=== PATIENT | female | born 1950 | race Caucasian/White ===

== ENCOUNTER 2017-08-04 15:13 | Emergency (ER) | payer MEDICARE, SELFPAY ==
[2017-08-04 15:14] VITALS: BP 137/74; PULSE 93; RESP 16; TEMP 37.1; O2SAT 99; BMI 24.5
--- NOTE | 2017-08-04 15:16 | RAD_ITS ---
STUDY: X-RAY - LEFT WRIST REASON FOR EXAM: Female, 67 years old. 2 day history of left wrist pain. No known injury. TECHNIQUE: view(s) of the wrist were obtained. COMPARISON: None. FINDINGS: Normal visualized distal radius and ulna. Normal radiocarpal articulation. Normal distal radioulnar articulation. Normal carpal bones. Normal carpal articulations. There is calcification of the triangular fibrocartilage. Normal carpometacarpal articulation of the thumb. Normal second through fifth carpometacarpal articulations. Normal visualized metacarpal bones. Dorsal soft tissue swelling. RAD/Wrist min 3 Views IMPRESSION: Calcification of the triangular fibrocartilage. Electronically Signed: Edgar Hirsch MD at 15:48 EST Tel [phone], Service support ,
--- NOTE | 2017-08-04 16:15 | ED.VISSUMM ---
- ER Visit Summary Date of Service: 08/04/17 Chief Complaint: [Left wrist pain] History of Present Illness: The patient is a 67 F [presents to the emergency department with left wrist pain that started yesterday. Patient denies any trauma. Patient denies any fever. Patient is right-hand dominant. Patient has not had pain like this before. Patient does not have a history of gout. Patient has not had any fever or recent illness.] Physical Examination: [HEENT-PERRLA, EOMI. Cranial nerves II through XII grossly intact. TMs clear. Mucous membranes moist. No adenopathy. Cardiovascular-regular rate and rhythm without murmur or ectopy Lungs-clear to auscultation, chest wall stable without crepitus or subcu emphysema Abdomen-normoactive bowel sounds, soft, nontender, no rebound or rigidity, no peritoneal signs. Extremities-intact ?4, normal range of motion, normal pulses, atraumatic] Left wrist-there is some mild soft tissue swelling and some faint erythema to the dorsum of the wrist noted. Wrist is slightly warm to the touch. Patient is neurovascular intact distally. Patient has pain with range of motion in flexion extension of the wrist. Test Results: [X-rays ordered by nursing staff from triage showed some calcification of the triangular cartilage of the wrist but no fractures or dislocations. Patient was noted to have some mild soft tissue swelling over the dorsum of the wrist.] Emergency Department Course and Treatment: [At this point I suspect likely a gouty arthropathy and patient was started on prednisone and [place] for pain. Patient was also placed in a wrist splint.] Treatment Plan: [She will be treated with prednisone and given a prescription for [place]. Patient advised to follow-up with her primary care physician in 3-5 days.] I do not suspect a septic joint at this time. Disposition: [Discharged to home in stable condition. Patient advised to return if increased pain, redness, fever, or condition should worsen in any way.] Impression: [Left Wrist pain-suspect gouty arthropathy] This note was generated with [employer] dictation software. It may contain incorrect words, spelling, and punctuation that were not noted in review of the chart prior to signing ED Disposition - Plan for ED Patient: Chief Complaint: Upper Extremity Injury Referrals: Rosalie Alejandro MD [Primary Care Provider] -
--- NOTE | 2017-08-04 16:19 | ED.DEP ---
ED Disposition - Plan for ED Patient: Chief Complaint: Upper Extremity Injury Instructions: ED Arthritis Gout Prescriptions: Hydrocodone Bitart/Apap 5-325 [[place] 5/325] 1 - 2 tab PO Q4H PRN PRN 5 Days #20 tab PRN Reason: Pain Prednisone [Deltasone] 20 mg PO BID #8 tab Referrals: Rosalie Alejandro MD [Primary Care Provider] - 3-5 Days
[2017-08-04] MEDS: HYDROcodone Bitartrate/Apap 5/325 Tablet PO (16:33)
[2017-08-04 16:52] VITALS: BP 156/83; PULSE 84; RESP 17
== END 2017-08-04 16:53 | disposition home or self-care (01) ==
LOC: ED 16:41
PROVIDERS: Emergency Provider Emergency Medicine; Family Provider Internal Medicine; PCP Internal Medicine
DX: M10.032 Idiopathic gout, left wrist (principal); J44.9 Chronic obstructive pulmonary disease, unspecified; E03.9 Hypothyroidism, unspecified; F32.9 Major depressive disorder, single episode, unspecified; F41.9 Anxiety disorder, unspecified; Z86.73 Personal history of transient ischemic attack (TIA), and cerebral infarction without residual deficits; Z72.0 Tobacco use; Z79.899 Other long term (current) drug therapy
CPT/HCPCS: 73110; 99284

== ENCOUNTER → 2018-01-25 10:47 | Outpatient (CLI) | payer MEDICARE, SELFPAY | PROVIDERS: Family Provider Internal Medicine; PCP Internal Medicine; Visit Provider Internal Medicine Critical Care Medicine | DX: Z12.2 Encounter for screening for malignant neoplasm of respiratory organs (principal); Z87.891 Personal history of nicotine dependence | CPT/HCPCS: G0297 ==

== ENCOUNTER 2018-02-06 13:26 | Emergency (ER) | payer MEDICARE, SELFPAY ==
[2018-02-06 13:27] VITALS: BP 128/74; PULSE 106; RESP 18; TEMP 36.1; O2SAT 95; BMI 24.5
--- NOTE | 2018-02-06 14:15 | ED.DCSUM_ITS ---
- ER Visit Summary Date of Service: 02/06/18 Chief Complaint: Skin abscess History of Present Illness: The patient is a 67 F who presents with abscess to the posterior neck and occipital area. Patient states this has been getting progressively worse over the past month. She describes the pain is sharp and stabbing. Patient states nothing seems to make the pain better or worse. Patient denies any fevers or chills. Patient denies any discharge or drainage. Patient denies any nausea or vomiting. Patient denies any radiation of the pain. Physical Examination: Vital signs are stable. Patient is afebrile. Patient is in no acute distress. Skin is warm and dry. There is a tender indurated area over the lower right occipital area of the scalp. There is some mild erythema. I do not appreciate any fluctuance. There is no active drainage. Neck is supple. Trachea is midline. There is full range of motion of the neck. There are no meningeal signs. Cranial nerves II through XII are intact. There are no focal motor or sensory deficits noted. The remaining physical exam is within normal limits. Emergency Department Course and Treatment: I do not appreciate any fluctuance and I do not feel that the abscess is amenable to incision and drainage at this time. Patient was instructed to continue using warm compresses to the area. Patient was given a prescription for clindamycin. Patient was instructed to follow-up with her primary care physician in 5-7 days. Patient understood and was agreeable with the plan. All questions were answered. Disposition: Discharge home Impression: Abscess to neck This note was generated with [employer] dictation software. It may contain incorrect words, spelling, and punctuation that were not noted in review of the chart prior to signing ED Disposition - Plan for ED Patient: Disposition: Home or Assisted Living Chief Complaint: Abscess Diagnosis: Abscess of skin of neck Instructions: ED Staph Infec Abx Tx Only Prescriptions: Clindamycin HCl [Cleocin] 300 mg PO Q6H #40 cap Referrals: Rosalie Alejandro MD [Primary Care Provider] -
[2018-02-06 14:30] VITALS: RESP 20
== END 2018-02-06 14:31 | disposition home or self-care (01) ==
PROVIDERS: Emergency Provider Emergency Medicine; Family Provider Internal Medicine; PCP Internal Medicine
DX: L02.11 Cutaneous abscess of neck (principal); B96.89 Other specified bacterial agents as the cause of diseases classified elsewhere; J44.9 Chronic obstructive pulmonary disease, unspecified; Z72.0 Tobacco use
CPT/HCPCS: 99282

== ENCOUNTER → 2018-02-17 08:34 | Outpatient (CLI) | payer MEDICARE, SELFPAY ==
[2018-02-17 09:00] VITALS: PULSE 102; PULSE 105; PULSE 110; PULSE 111; PULSE 113; PULSE 83; PULSE 91; PULSE 95; O2SAT 93; O2SAT 94; O2SAT 95; O2SAT 97; O2SAT 98
--- NOTE | 2018-02-17 15:17 | PCM.PSN.6M ---
PSN 6 Minute Walk Test - 6 Minute Walk Test 6 Minute Walk Test: 6 Minute Walk Test PSN:6-Minute Walk Test Start: 02/17/18 09:00 Freq: Status: Active Protocol: RESP.6MINW Document 02/17/18 09:00 CLARISSE (Rec: 02/17/18 09:02 HALSandra [id number]) 6 Minute Walk Test Date Performed 02/17/18 Time Performed 08:30 Height 5 ft 2 in Weight: 61.235 kg Weight in Pounds 135.[address]: Ronald Tam Pre-test Oxygen Delivery Method Room Air Pulse Ox (%) 95 Pulse Rate (60-100 beats/min) 83 Dyspnea Burak Scale (0-10) 1 Exertion Burak Scale (6-20) 6 1st minute Oxygen Delivery Method Room Air Pulse Ox (%) 93 Pulse Rate (60-100 beats/min) 95 2nd minute Oxygen Delivery Method Room Air Pulse Ox (%) 94 Pulse Rate (60-100 beats/min) 102 H 3rd minute Oxygen Delivery Method Room Air Pulse Ox (%) 97 Pulse Rate (60-100 beats/min) 105 H 4th minute Oxygen Delivery Method Room Air Pulse Ox (%) 98 Pulse Rate (60-100 beats/min) 110 H 5th minute Oxygen Delivery Method Room Air Pulse Ox (%) 98 Pulse Rate (60-100 beats/min) 111 H 6th minute Oxygen Delivery Method Room Air Pulse Ox (%) 98 Pulse Rate (60-100 beats/min) 113 H Dyspnea Burak Scale (0-10) 4 Exertion Burak Scale (6-20) 13 Post-test Oxygen Delivery Method Room Air Pulse Ox (%) 98 Pulse Rate (60-100 beats/min) 91 Full Laps Walked 9 Partial Lap, Number of Tiles Walked 7 Total Distance Walked (ft) 538 - Interpretation Interpretation: The patient was able to ambulate only 538 feet over the course of 6 minutes on room air with the assistance of a push wheelchair, but no breaks. No significant desaturation was noted. Patient did have tachycardia consistent with deconditioning. These findings are consistent with a musculoskeletal limitation exercise tolerance. - Recommendations Recommendations: No supplemental oxygen is indicated at this time.
== END ==
PROVIDERS: Family Provider Internal Medicine; PCP Internal Medicine; Visit Provider Internal Medicine Critical Care Medicine
DX: J44.9 Chronic obstructive pulmonary disease, unspecified (principal); F17.210 Nicotine dependence, cigarettes, uncomplicated
CPT/HCPCS: 94618

== ENCOUNTER 2018-02-20 07:41 | Emergency (ER) | payer MEDICARE, SELFPAY ==
[2018-02-20 07:42] VITALS: PULSE 103; RESP 24; TEMP 36.4; O2SAT 95; BMI 26.6
[2018-02-20 07:44] VITALS: O2SAT 96
--- NOTE | 2018-02-20 08:17 | EKG12_ITS ---
Test Reason : SOB Blood Pressure : / mmHG Vent. Rate : 102 BPM Atrial Rate : 102 BPM P-R Int : 158 ms QRS Dur : 066 ms QT Int : 362 ms P-R-T Axes : 088 029 079 degrees QTc Int : 471 ms Sinus tachycardia Otherwise normal ECG Confirmed by RONAL YU, OMARI ([id number]), electronic news gathering editor [place] ([id number]) on 02/22/2018 1:29:33 PM Referred By: Ronald Tam Confirmed By:OMARI VILLEDA MD
[2018-02-20] MEDS: Ipratropium/Albuterol Sulfate 3 ML AMPUL.NEB INHALATION ×2 (08:23→11:11)
--- NOTE | 2018-02-20 08:23 | ED.DCSUM_ITS ---
- ER Visit Summary Date of Service: 02/20/18 Chief Complaint: [] Shortness of breath cough and wheezing 4 days History of Present Illness: The patient is a 67 F [] history of asthma thyroid disorder COPD she reports for days she has had cough and shortness of breath and wheezing history of COPD the generally stable she sees a [facility] in the [facility] area she has been on steroid inhalers in the past and also inhalers at home. She denies history of [place] PE DVT she indicates the cough and shortness of breath intensify this morning screen for evaluation the cough is productive of thin mucus Physical Examination: [] Her vital signs are within normal range her pulse ox is 97% on room air she speaking full sentences she has a dry cough here questionable rhinorrhea her oral cavity and neck are unremarkable the lungs reveal diffuse wheezing with good excursion heart tones are tachycardic to about 100 the abdomen soft nontender upper lower extremities without signs clubbing or edema neurologic she is awake moving all 4 she is in no distress is no signs of cardio vascular pulmonary compromise Test Results: [] Emergency Department Course and Treatment: [] Cough and shortness of breath for days possibly a week per the patient her family when she saw her [facility] earlier in the month they were not happy with her pulmonary status and recommended some changes that did not take place yet screening labs aerosols The patient studies are all generally unremarkable labs chest x-ray EKG shows a sinus rhythm no injury pattern acute appreciated on reevaluation the patient's resting comfortably she states she feels much better she wants to go home her breathing is markedly improved I explained that this is likely exacerbation of COPD she apparently continues to smoke she was on steroids about 2 or 3 weeks ago per family she will be given Kenalog IM 40 mg stand all of her medications which she has all of them at home and follow-up with her [facility] the next few days the family the patient comfort with this plan Treatment Plan: [] Disposition: [] Home stable Impression: [] Acute exacerbation of COPD improved This note was generated with [employer] dictation software. It may contain incorrect words, spelling, and punctuation that were not noted in review of the chart prior to signing ED Disposition - Plan for ED Patient: Chief Complaint: Shortness of Breath Referrals: Rosalie Alejandro MD [Primary Care Provider] -
[2018-02-20 08:24] VITALS: PULSE 99; RESP 25; O2SAT 97
[2018-02-20 08:37] LABS: Absolute Lymphocyte Count 1.39 X10^3/ul (0.83-4.51); Absolute Neutrophil Count 2.3 X10^3/uL (2.0-7.7); Basophil# 0.03 X10^3/uL; Basophil% 0.7 % (0-1); Eosinophil# 0.11 X10^3/uL; Eosinophils% 2.7 % (0-5); Hematocrit 36.7 % (37-47); Hemoglobin 11.1 g/dl (12.0-15.0); Lymphocyte # 1.39 X10^3/ul (4.0); Mean Corp Hgb Conc 30.2 g/gl (32-36); Mean Corpuscular Hgb 25.9 pg (27.0-32.0); Mean Corpuscular Volume 85.7 fL (81-99); Mean Platelet Vol. 9.1 fl (6.2-12.0); Monocyte% 7.3 % (0-10); Neutrophil # 2.25 X10^3/uL (2.7-7.7); Neutrophil % 55.1 % (47-70); Platelet Count 344 K/mm3 (150-450); RBC Distribution Width CV 16.6 % (11.6-14.6); RBC Distribution Width SD 52.3 fl (35.1-43.9); Red Blood Count 4.28 M/mm3 (4.2-5.4); White Blood Count 4.1 K/mm3 (4.4-11.0)
[2018-02-20 08:38] LABS: POSITIVE COUNT NO; POSITIVE DIFFERENTIAL NO; POSITIVE MORPHOLOGY NO
[2018-02-20 08:56] LABS: Anion Gap 8 (5-15); BUN 23 mg/dL (7-18); BUN/Creat Ratio 28.8 RATIO (10-20); Calcium,Total 8.8 mg/dL (8.5-10.1); Chloride 107 mmol/L (98-107); EST Glomerular Filtration Rate 76 mL/min (>60); Est Glom Filt Rate - Afr Amer 92 mL/min (>60); Estimated Creatinine Clearance 53.23 ml/min; Glucose 88 mg/dL (74-106); Potassium 3.7 mmol/L (3.5-5.1); Sodium Level 144 mmol/L (136-145)
[2018-02-20 09:10] LABS: BNP,B-Type NATRIURETIC PEPTIDE 29.6 pg/mL (0-100)
[2018-02-20 11:12] VITALS: PULSE 71; RESP 21; O2SAT 98
[2018-02-20 12:01] VITALS: BP 111/79; PULSE 70; RESP 20; O2SAT 97
--- NOTE | 2018-02-20 12:10 | ED.DEP ---
ED Disposition - Plan for ED Patient: Chief Complaint: Shortness of Breath Instructions: ED COPD Flare Referrals: Rosalie Alejandro MD [Primary Care Provider] -
[2018-02-20] MEDS: Triamcinolone Acetonide 40 MG/ML Vial IM (12:27)
[2018-02-20] MEDS: Acetaminophen 500 MG Tablet 1000 MG PO (12:34)
[2018-02-20 12:47] VITALS: BP 119/80; PULSE 85; RESP 20; O2SAT 96
--- NOTE | 2018-02-20 12:48 | ED.RN ---
REVIEWED D/C INSTRUCTIONS, FOLLOW UP CARE, AND S/S THAT WOULD WARRANT A RETURN TO THE ED WITH PT. PT VERBALIZED AN UNDERSTANDING AND DENIES FURTHER QUESTIONS FOR THIS RN. PT SKIN P/W/D, RESP EVEN AND UNLABORED, PT A&O X 3, NO DISTRESS NOTED. PT ASSISTED OUT OF ED IN WHEELCHAIR.
--- NOTE | 2018-02-21 14:00 | CM.ED ---
ED CALLBACK: Follow-up call placed to patient with no answer. Voicemail left with return contact information.
== END 2018-02-20 12:49 | disposition home or self-care (01) ==
LOC: ED 08:35
PROVIDERS: Emergency Provider Emergency Medicine; Family Provider Internal Medicine; PCP Internal Medicine
DX: J44.1 Chronic obstructive pulmonary disease with (acute) exacerbation (principal); E07.9 Disorder of thyroid, unspecified; Z79.899 Other long term (current) drug therapy
CPT/HCPCS: 71045; 80048; 83880; 84484; 85025; 93005; 94640; 96372; 99285; A4216

== ENCOUNTER → 2018-03-10 09:55 | Outpatient (CLI) | payer MEDICARE, SELFPAY ==
--- NOTE | 2018-03-11 06:03 | PFTCOMP ---
COMPLETE PULMONARY FUNCTION TEST INTERPRETATION Brief HPI: Patient is a 67 year old female, currently under the care of Dr. Tam, who presents to [facility] for complete pulmonary function tests secondary to diagnosis of COPD. Respiratory therapist reports good effort and reproducible results. Interpretation: Forced expiration spirometry shows a very severe large airways obstructive ventilatory defect with an FEV1 of 31% predicted. There is a significant bronchodilator response in FVC by ATS criteria. Spirograms are of good quality and plateau slowly, indicating slowly emptying areas of the lungs. The respiratory flow volume loop shows decreased expiratory flow rates at all lung volumes consistent with airway obstruction. Lung volumes by body plethysmography show an elevated total lung capacity at 6.67 L, 151% predicted. FRC and RV are elevated out of proportion. Lung volume measurements are consistent with hyperinflation and air-trapping. Diffusion capacity by carbon monoxide is decreased at 22% predicted. The airway resistance is elevated. No previous pulmonary function tests were available for review. Impression: Partially reversible very severe large airways obstructive ventilatory defect with a symmetric reduction in diffusing capacity, resulting in air trapping with hyperinflation and consistent with very severe COPD.
== END ==
PROVIDERS: Family Provider Internal Medicine; PCP Internal Medicine; Visit Provider Internal Medicine Critical Care Medicine
DX: J44.9 Chronic obstructive pulmonary disease, unspecified (principal); F17.210 Nicotine dependence, cigarettes, uncomplicated
CPT/HCPCS: 94060; 94726; 94729

== ENCOUNTER → 2018-04-04 20:18 | Outpatient (CLI) | payer MEDICARE, SELFPAY | PROVIDERS: Family Provider Internal Medicine; PCP Internal Medicine; Visit Provider Nurse Practitioner Acute Care | DX: G47.33 Obstructive sleep apnea (adult) (pediatric) (principal) | CPT/HCPCS: 95810 ==

== ENCOUNTER 2019-10-06 08:46 | Emergency (ER) | payer MEDICARE, OTHER, SELFPAY ==
[2019-08-30 14:26] VITALS: BMI 22.0
[2019-10-06] VITALS (10 sets, daily range): BP systolic 103–138; BP diastolic 64–72; PULSE 81–107; RESP 22–32; TEMP 37–37.3; O2SAT 94–98; BMI 24.1
--- NOTE | 2019-10-06 08:57 | EKG12_ITS ---
Test Reason : SOB Blood Pressure : / mmHG Vent. Rate : 093 BPM Atrial Rate : 093 BPM P-R Int : 142 ms QRS Dur : 072 ms QT Int : 354 ms P-R-T Axes : 086 050 078 degrees QTc Int : 440 ms Normal sinus rhythm Low voltage QRS Confirmed by EVIN YU, KI ([id number]), associate entertainment editor [place] ([id number]) on 10/09/2019 10:09:03 AM Referred By: LINETTE Confirmed By:KI CLEARY MD
--- NOTE | 2019-10-06 08:57 | RAD_ITS ---
STUDY: X-RAY CHEST REASON FOR EXAM: Female, 69 years old. SOB, CONFUSION X 2 DAYS TECHNIQUE: Single AP portable view of the chest. COMPARISON: Comparison is made with prior examination dated February 20, 2018. FINDINGS: EKG electrodes are seen. Hyperinflation. There is no demonstrated pleural abnormality. Normal size heart. Normal mediastinum and gaudencio. Normal visualized pulmonary arteries. There is atherosclerotic calcification of the aortic arch with tortuosity. Normal visualized thoracic spine. Normal visualized ribs, clavicles, and shoulders. Moderate sized hiatal hernia. Surgical clips are seen in the right upper quadrant. RAD/Chest 1 View (Portable) IMPRESSION: Hyperinflation. The lungs are clear. Electronically Signed: Edgar Hirsch, at 10:31 EDT , Service support ,
[2019-10-06] MEDS: Ipratropium/Albuterol Sulfate 3 ML AMPUL.NEB INHALATION (09:07)
[2019-10-06 09:08] LABS: Absolute Lymphocyte Count 1.44 X10^3/uL (0.83-4.51); Absolute Neutrophil Count 7.2 X10^3/uL (2.0-7.7); Basophil# 0.06 X10^3/uL; Basophil% 0.6 % (0-1); Eosinophil# 0.22 X10^3/uL; Eosinophils% 2.3 % (0-5); Hematocrit 27.5 % (37-47); Lymphocyte # 1.44 X10^3/ul (4.0); Mean Corp Hgb Conc 29.1 g/dL (32-36); Mean Corpuscular Hgb 23.4 pg (27.0-32.0); Mean Corpuscular Volume 80.4 fL (81-99); Mean Platelet Vol. 9.3 fl (6.2-12.0); Monocyte# 0.62 X10^3/uL; Monocyte% 6.4 % (0-10); NRBC Flagged by Analyzer 0 % (0-5); Neutrophil # 7.24 X10^3/uL (2.7-7.7); Neutrophil % 75.3 % (47-70); Platelet Count 584 K/mm3 (150-450); RBC Distribution Width CV 16.9 % (11.6-14.6); RBC Distribution Width SD 49.1 fl (35.1-43.9); Red Blood Count 3.42 M/mm3 (4.2-5.4); White Blood Count 9.6 K/mm3 (4.4-11.0)
[2019-10-06 09:26] LABS: Lactic Acid 1.2 mmol/L (0.4-1.9)
[2019-10-06 09:27] LABS: Anion Gap 5 (5-15); BUN 15 mg/dL (7-18); BUN/Creat Ratio 24.1 RATIO (10-20); Chloride 109 mmol/L (98-107); Creatinine, Serum 0.62 mg/dL (0.55-1.02); EST Glomerular Filtration Rate 101 mL/min (>60); Est Glom Filt Rate - Afr Amer 122 mL/min (>60); Glucose 106 mg/dL (74-106); Potassium 3.8 mmol/L (3.5-5.1); Sodium Level 139 mmol/L (136-145)
[2019-10-06] MEDS: MethylPREDNISolone 125 MG/2 ML Vial IV (09:32)
[2019-10-06] MEDS: 0.9% Normal Saline 1,000 ML 150 ML IV (09:33)
[2019-10-06] MEDS: Ondansetron 4 MG/2 ML Vial IV (09:40)
[2019-10-06] MEDS: HYDROcodone Bitartrate/Apap 5/325 Tablet PO (09:41)
--- NOTE | 2019-10-06 10:51 | ED.DCSUM_ITS ---
- ER Visit Summary Date of Service: 10/06/19 Chief Complaint: Shortness of breath History of Present Illness: The patient is a [address] Alejandro and Dr. Tam. Patient is a poor informant. Her daughter reports that she has shortness of breath began 2 days ago. Is been severe at worst mild currently. It is partially relieved with her albuterol MDI. She has a chronic cough that is productive yellow/clear sputum without blood. No fever or chills. No chest pain. Patient has not had sick contacts. She has been in self-isolation. Daughter denies any fever. No vomiting or diarrhea. No dysuria or frequency. Physical Examination: Vitals: Stable. Afebrile. General: Well-nourished and well-developed. Head: Normocephalic atraumatic. Neck: Supple, no lymphadenopathy. No JVD. Nontender. Cardiovascular: Regular rate and rhythm. No murmurs. Respiratory: No respiratory distress. Mild wheezing bilaterally with greatly decreased air movement. Abdominal: Soft, nontender, nondistended, normal bowel sounds. No guarding, rebound, or peritoneal signs. Back: Nontender. Extremities: Nontender, no edema. Skin: Normal color, no rash. Neurologic: Alert and oriented ?2. Cranial nerves II through XII are intact. Normal strength and sensation. Psych: Normal affect. Test Results: EKG is sinus at [address] changes. Troponin is negative. Influenza is negative. Lactic acid is 1.2. Chem-7 shows a chloride of 109. CBC shows a hemoglobin of 8.0, hematocrit 27.5, platelets 584, segmented for 75, sites 15. Her last hemoglobin here was in February 2018 and at that time it was 11.1. Her daughter reports that she had a hemoglobin of approximately 10 8 months ago. Is not been checked in the interim. Emergency Department Course and Treatment: Daughter also reports that she has given the patient a vitamin B12 shot monthly. She states that she has been doing this. She is not taking a multivitamin or iron. She was given albuterol, Atrovent aerosols here. She is given dose of Solu-Medrol IV. She is resting comfortably and like to go home. Treatment Plan: Patient will be discharged with prescription for albuterol, a nebulizer, doxycycline, and prednisone. Instructed to follow-up her primary care physician 1 to 2 days if not improving. I did have a long discussion the daughter about the anemia and that this needs to be rechecked as well. The patient is not had a colonoscopy in the past 5 years she may need this if this does not improve after supplementation with iron. Return to the emergency department for any worsening symptoms. Disposition: To home in improved and stable condition. Impression: 1. COPD exacerbation. 2. Anemia, microcytic. This note was generated with [employer] dictation software. It may contain incorrect words, spelling, and punctuation that were not noted in review of the chart prior to signing ED Disposition - Plan for ED Patient: Disposition: Home or Assisted Living Instructions: ED COPD Flare Prescriptions: Nebulizer [Aeroneb Go Nebulizer] 1 ea MC 4X/DAY #1 ea Prescription Printed Prednisone [Deltasone] 40 mg PO DAILY #10 tab Prescription Printed Doxycycline 100 mg PO BID #14 cap Prescription Printed Albuterol Aerosols [Ventolin Aerosols] 2.5 mg INHALATION Q4H PRN #25 vial Prescription Printed Referrals: Rosalie Alejandro MD [Primary Care Provider] - Keep Purnima appointment Additional Instructions: You are anemic. Your hemeglobin today was 8.0. You need a blood transfusion at 7.0. This could be due to a lack of iron and you should take a multivitamin with iron. This could also be due to bleeding. You need to have a colonoscopy if you haven't in the last 5 years. You need to speak with Dr. Alejandro and get repeat bloodwork when to check and see if this is getting better.
[2019-10-06] MEDS: predniSONE 20 MG Tablet 40 MG PO (11:01)
[2019-10-06] MEDS: Doxycycline 100 MG CAPSULE PO (11:01)
--- NOTE | 2019-10-06 11:11 | ED.RN ---
this nurse reviewed d/c instructions with pt. dr stewart spoke with granddaughter
== END 2019-10-06 11:12 | disposition home or self-care (01) ==
LOC: ED 09:28
PROVIDERS: Emergency Provider Emergency Medicine; PCP Internal Medicine
DX: J44.1 Chronic obstructive pulmonary disease with (acute) exacerbation (principal); D50.9 Iron deficiency anemia, unspecified; F17.200 Nicotine dependence, unspecified, uncomplicated
CPT/HCPCS: 71045; 80048; 83605; 84484; 85025; 87040; 87804; 93005; 94640; 96361; 96374; 96375; 99285; J2405

== ENCOUNTER 2019-10-20 13:01 | Inpatient (IN) | payer MEDICARE, OTHER, SELFPAY ==
[2019-10-09 10:19] VITALS: BMI 24.1
[2019-10-20] VITALS (11 sets, daily range): BP systolic 102–145; BP diastolic 51–134; PULSE 73–115; RESP 16–20; TEMP 36.5–36.8; O2SAT 96–100; BMI 24.2; BMI 19.5
--- NOTE | 2019-10-20 13:05 | EKG12_ITS ---
Test Reason : SOB Blood Pressure : / mmHG Vent. Rate : 097 BPM Atrial Rate : 097 BPM P-R Int : 148 ms QRS Dur : 086 ms QT Int : 374 ms P-R-T Axes : 083 045 067 degrees QTc Int : 474 ms Normal sinus rhythm Normal ECG Confirmed by OMARI VILLEDA MD ([id number]), map editor [place] ([id number]) on 10/23/2019 3:14:42 PM Referred By: HAL Confirmed By:OMARI VILLEDA MD
--- NOTE | 2019-10-20 13:07 | CT_ITS ---
STUDY: CT BRAIN WITHOUT CONTRAST REASON FOR EXAM: Female, 69 years old. HEADACHE, HX OF STROKE, HX ALZHEIMER RADIATION DOSAGE (If Supplied By Facility): CTDIvol = ( 60.81 ) mGy, DLP = ( 1044.28 ) mGycm TECHNIQUE: Transaxial CT imaging of the brain was performed without administration of intravenous contrast material. Individualized dose optimization techniques were used for this CT. COMPARISON: Comparison is made with prior examination March 25, 2016. FINDINGS: Normal soft tissue structures. Normal calvarium. There is mild cerebral atrophy with widening of the extra-axial spaces and ventricular dilatation. There are areas of decreased attenuation within the white matter tracts of the supratentorial brain, consistent with microvascular disease changes. 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 Normal basal ganglia and thalami. Normal brainstem. Normal cerebellum. There is no intracranial hemorrhage. There are no findings of an acute ischemic infarction. Atherosclerotic calcification of the cavernous portions of the internal carotid arteries bilaterally. Normal visualized paranasal sinuses. CT/Brain/Head without Contrast IMPRESSION: Chronic involutional changes of the brain. Electronically Signed: Edgar Hirsch, at 13:51 EDT , Service support ,
--- NOTE | 2019-10-20 13:09 | ED.DCSUM_ITS ---
- ER Visit Summary Date of Service: 10/20/19 Chief Complaint: Short of breath, diarrhea History of Present Illness: The patient is a 69 F whose main complaint is diarrhea. EMS states that they were called for shortness of breath but upon their arrival the patient denies any shortness of breath. She tells that she has been having diarrhea for a couple of days. She denies any blood in the diarrhea. She is on aspirin and Plavix. She was seen here 14 days ago and diagnosed with COPD exacerbation. She was placed on antibiotics at that time. Physical Examination: Vital signs reviewed. HEENT exam unremarkable. Heart is tachycardic and regular rhythm without murmurs. Lungs are clear to auscultation. Abdomen is soft and nontender. Extremities reveal no edema. Skin exam normal. Neurologic exam shows alert and oriented to person and place but not to time. She has no other neurologic deficits. Test Results: Hemoglobin is 6.2 with hematocrit of 22.6. Chloride 110. Troponin normal. Urinalysis normal. Chest x-ray shows chronic changes. CAT scan of the head reveals no acute findings. Fecal occult blood test is negative for blood. She has no active bleeding Emergency Department Course and Treatment: The patient appears to have anemia which is now requiring transfusion. Her hemoglobin was 8 in September and before that it was 10 and 11. I spoke with the patient's granddaughter on the phone. She corroborated the patient's history. She states that she has been walking back and forth to the bathroom and has been getting short of breath. She has no history of anemia and the granddaughter was concerned about her hemoglobin level and they were going to have it rechecked today until the patient became more symptomatic. At this point I will order her a packed red blood cell transfusion. I see no signs of any active bleeding. I discussed with hospitalist and patient will be admitted. Treatment Plan: [] Disposition: Admit Impression: Anemia requiring transfusion, dyspnea This note was generated with [employer] dictation software. It may contain incorrect words, spelling, and punctuation that were not noted in review of the chart prior to signing ED Disposition - Plan for ED Patient: Referrals: Rosalie Alejandro MD [Primary Care Provider] -
[2019-10-20] MEDS: 0.9% Normal Saline 1,000 ML 1000 ML IV (13:17)
[2019-10-20 13:27] LABS: Absolute Lymphocyte Count 1.58 X10^3/uL (0.83-4.51); Absolute Neutrophil Count 3.7 X10^3/uL (2.0-7.7); Basophil# 0.03 X10^3/uL; Basophil% 0.5 % (0-1); Eosinophil# 0.16 X10^3/uL; Eosinophils% 2.6 % (0-5); Hematocrit 22.6 % (37-47); Hemoglobin 6.2 g/dL (12.0-15.0); Lymphocyte # 1.58 X10^3/ul (4.0); Lymphocyte % 26.1 % (19-41); Mean Corp Hgb Conc 27.4 g/dL (32-36); Mean Corpuscular Hgb 22.1 pg (27.0-32.0); Mean Corpuscular Volume 80.4 fL (81-99); Mean Platelet Vol. 9.4 fl (6.2-12.0); Monocyte# 0.57 X10^3/uL; Monocyte% 9.4 % (0-10); NRBC Flagged by Analyzer 0.5 % (0-5); Neutrophil % 61.2 % (47-70); Platelet Count 549 K/mm3 (150-450); RBC Distribution Width CV 17.4 % (11.6-14.6); Red Blood Count 2.81 M/mm3 (4.2-5.4); White Blood Count 6.1 K/mm3 (4.4-11.0)
--- NOTE | 2019-10-20 13:30 | RAD_ITS ---
STUDY: X-RAY CHEST REASON FOR EXAM: Female, 69 years old. Headache and diarrhea. Pt hx of alzheimer, COPD, EMPHYSEMA, ASTHMA TECHNIQUE: Single AP portable view of the chest. COMPARISON: Comparison is made with prior study dated October 06, 2019. FINDINGS: EKG electrodes are seen. Hyperinflation. The lungs are clear. There is no demonstrated pleural abnormality. Normal size heart. Normal mediastinum and gaudencio. Normal visualized pulmonary arteries. There is atherosclerotic calcification of the aortic arch with tortuosity. There are degenerative changes of the visualized thoracic spine. Normal visualized ribs, clavicles, and shoulders. Moderate sized hiatal hernia. RAD/Chest 1 View (Portable) IMPRESSION: Hyperinflation. The lungs are clear. Electronically Signed: Edgar Hirsch, at 13:48 EDT , Service support ,
[2019-10-20 13:46] LABS: AST(SGOT) 13 U/L (15-37); Alanine Aminotransfer ALT/SGPT 17 U/L (13-56); Albumin, Serum 3.3 g/dL (3.2-5.0); Alkaline Phosphatase 106 U/L (45-117); Anion Gap 8 (5-15); BUN 12 mg/dL (7-18); BUN/Creat Ratio 15.6 RATIO (10-20); Chloride 110 mmol/L (98-107); Creatinine, Serum 0.77 mg/dL (0.55-1.02); EST Glomerular Filtration Rate 79 mL/min (>60); Est Glom Filt Rate - Afr Amer 95 mL/min (>60); Globulin 3.4 g/dL (2.2-4.2); Glucose 92 mg/dL (74-106); Lipase 126 U/L (73-393); Potassium 3.6 mmol/L (3.5-5.1); Protein, Total 6.7 g/dL (6.4-8.2); Sodium Level 143 mmol/L (136-145)
[2019-10-20 14:03] LABS: Bacteria 0 SEEN /hpf (None Seen); Red Blood Cells-Urine 0 SEEN /hpf (0-5); White Blood Cells 0 SEEN /hpf (0-5)
[2019-10-20 14:11] LABS: Color, Urine Yellow (Yellow); Glucose, Dipstick Normal (Normal); Ketone-Dipstick Negative (Negative); Leukocyte Esterase-Dipstick Negative /ul (Negative); Nitrite-Dipstick Negative (Negative); Occult Blood-Urine Negative /ul (Negative); Protein-Dipstick Negative (Negative); Urine Bilirubin Dipstick Negative (Negative); Urine Clarity Clear (Clear); Urine Urobilinogen Normal (Normal)
[2019-10-20 14:14] LABS: Mucous, Urine 1+ /hpf (<or=2+); Squamous Epithelial Cells - UA 0-5 SEEN /hpf (5-10)
--- NOTE | 2019-10-20 14:41 | PCM.HP.STD ---
Problem List (1) Anemia Status: Acute (2) Diarrhea Status: Acute (3) CVA (cerebral vascular accident) Status: Acute Comment: 12/10/19 (4) Migraine Status: Chronic (5) Hypertension Status: Chronic (6) REJI (obstructive sleep apnea) Status: Suspected (7) Depression with anxiety Status: Chronic (8) Hypothyroidism Status: Chronic (9) COPD (chronic obstructive pulmonary disease) Status: Suspected Qualifiers: History of Present Illness The patient is a 69 year old F [] Past Medical History Past Medical History (Chronic Problems): Chronic Problems (Last Reviewed 08/30/19 @ 14:25 by Selena Argueta) Migraine (Chronic) Hypertension (Chronic) Depression with anxiety (Chronic) Hypothyroidism (Chronic) Abdominal pain (Chronic) Medical History: Medical History (Last Reviewed 08/30/19 @ 14:25 by Selena Argueta) CVA (cerebral vascular accident) (Acute) I63.9 12/10/19 Asthma J45.909 COPD (chronic obstructive pulmonary disease) J44.9 Depression F32.9 Gout M10.9 Left wrist pain M25.532 Allergies Penicillins Allergy (Verified 10/06/19 09:06) Hives Home Medications: Ambulatory Orders Medication Instructions Recorded aspirin 325 mg tablet 325 mg PO DAILY 08/30/19 Acetaminophen [Tylenol Extra 500 mg PO BID PRN PRN 10/20/19 Strength] Clopidogrel Bisulfate [Clopidogrel] 75 mg PO DAILY 10/20/19 Cyanocobalamin (Vitamin B-12) 100 mcg IM QMONTH 10/20/19 [Cyanocobalamin Injection] Levothyroxine Sodium [Synthroid] 100 mcg PO DAILY 10/20/19 Multivit with Iron,Minerals 1 tab PO DAILY 10/20/19 [Multivitamins with Iron] Rosuvastatin Calcium 10 mg PO DAILY 10/20/19 Umeclidinium Brm/Vilanterol Tr 1 inh INHALATION DAILY 10/20/19 [Anoro Ellipta] Venlafaxine HCl [Effexor Xr] 75 mg PO QAM 10/20/19 Surgical History: Surgical History (Last Reviewed 08/30/19 @ 14:25 by Selena Argueta) H/O bladder repair surgery Z98.890 History of hysterectomy Z98.890, Z90.710 History of tonsillectomy Z98.890, Z90.89 Smoking Status: Current every day smoker Patient Problems: Active and Suspected Problems (Last Reviewed 08/30/19 @ 14:25 by Selena Argueta) Anemia (Acute) Diarrhea (Acute) - Physical Exam Vitals/I&O's: Vital Signs Temp Pulse Resp BP Pulse Ox 98 F 95 20 H 110/55 L 99 10/20/19 13:10 10/20/19 13:18 10/20/19 13:18 10/20/19 13:18 10/20/19 13:18 Oxygen Flow Rate (L/min) 2 Oxygen Delivery Method Room Air Weight: 68 kg Body Mass Index (BMI) 24.2 Microbiology Past 72 Hours 10/20/19 13:50 Stool Stool Occult Blood (CAROL) - Final Laboratory Results 10/20/19 13:10: WBC 6.1, RBC 2.81 L, Hgb 6.2 L, Hct 22.6 L, MCV 80.4 L, MCH 22.1 L, MCHC 27.4 L, RDW Std Deviation 51.0 H, RDW Coeff of Ramón 17.4 H, Plt Count 549 H, MPV 9.4, Immature Gran % (Auto) 0.200, Neut % (Auto) 61.2, Lymph % (Auto) 26.1, [place] % (Auto) 9.4, Eos % (Auto) 2.6, Baso % (Auto) 0.5, Absolute Neuts (auto) 3.7, Absolute Lymphs (auto) 1.58, Nucleated RBC % 0.5 10/20/19 13:10: Sodium 143, Potassium 3.6, Chloride 110 H, Carbon Dioxide 25.0, Anion Gap 8, BUN 12, Creatinine 0.77, Estim Creat Clear Calc 49.00, Est GFR (MDRD) Af Amer 95, Est GFR (MDRD) Non-Af 79, BUN/Creatinine Ratio 15.6, Glucose 92, Calcium 9.0, Total Bilirubin 0.20, AST 13 L, ALT 17, Alkaline Phosphatase 106, Total Protein 6.7, Albumin 3.3, Globulin 3.4, Albumin/Globulin Ratio 1.0, Lipase 126 10/20/19 13:10: Troponin I < 0.015 10/20/19 13:10: Blood Type Pending, Antibody Screen Pending, Crossmatch See Detail 10/20/19 13:55: Urine Color Yellow, Urine Clarity Clear, Urine pH 6.0, Ur Specific [place] 1.020, Urine Protein Negative, Urine Glucose (UA) Normal, Urine Ketones Negative, Urine Occult Blood Negative, Urine Nitrite Negative, Urine Bilirubin Negative, Urine Urobilinogen Normal, Ur Leukocyte Esterase Negative, Urine RBC 0 SEEN, Urine WBC 0 SEEN, Ur Squamous Epith Cells 0-5 SEEN, Urine Bacteria 0 SEEN, Urine Mucus 1+ Assessment/Plan All Active Problems (Last Reviewed 08/30/19 @ 14:25 by Selena Argueta) Anemia (Acute) Diarrhea (Acute) CVA (cerebral vascular accident) (Acute) Urinary urgency (Acute) Nail avulsion, toe (Acute) Left wrist pain (Acute)
--- NOTE | 2019-10-20 16:01 | HP.PCM_ITS ---
<Andria Dickey - Last Filed: 10/20/19 16:36> Problem List (1) Anemia Status: Acute (2) Diarrhea Status: Acute (3) CVA (cerebral vascular accident) Status: Chronic Comment: 12/10/19 (4) Migraine Status: Chronic (5) Hypertension Status: Chronic (6) Urinary urgency Status: Resolved (7) REJI (obstructive sleep apnea) Status: Suspected (8) Depression with anxiety Status: Chronic (9) Hypothyroidism Status: Chronic (10) Abdominal pain Status: Chronic (11) Nail avulsion, toe Status: Chronic (12) COPD (chronic obstructive pulmonary disease) Status: Chronic (13) Left wrist pain Status: Resolved History of Present Illness Date of Admission: 10/20/19 Chief Complaint: Shortness of breath, lightheadedness. The patient is a 69 year old F who presents to the emergency room due to shortness of breath and lightheadedness. Patient also complains of diarrhea. Patient reports her symptoms have been ongoing for the last couple of days. Denies nausea, vomiting, abdominal pain. Denies blood in her stool. Patient is on aspirin and Plavix due to history of stroke a few months ago. She denies chest pain. Denies history of GI bleed. Denies history of EGD/colonoscopy. Patient is a poor historian. Per records, she has a history of CVA, hypertension, hypothyroidism, chronic COPD, tobacco dependence, history of migraines, depression, anxiety. Past Medical History Past Medical History (Chronic Problems): Chronic Problems (Last Reviewed 08/30/19 @ 14:25 by Selena Argueta) CVA (cerebral vascular accident) (Chronic) 12/10/19 Migraine (Chronic) Hypertension (Chronic) Depression with anxiety (Chronic) Hypothyroidism (Chronic) Abdominal pain (Chronic) Nail avulsion, toe (Chronic) COPD (chronic obstructive pulmonary disease) (Chronic) Medical History: Medical History (Last Reviewed 08/30/19 @ 14:25 by Selena Argueta) CVA (cerebral vascular accident) (Acute) I63.9 12/10/19 Asthma J45.909 COPD (chronic obstructive pulmonary disease) J44.9 Depression F32.9 Gout M10.9 Left wrist pain M25.532 Allergies Penicillins Allergy (Verified 10/06/19 09:06) Hives Home Medications: Ambulatory Orders Medication Instructions Recorded aspirin 325 mg tablet 325 mg PO DAILY 08/30/19 Acetaminophen [Tylenol Extra 500 mg PO BID PRN PRN 10/20/19 Strength] Clopidogrel Bisulfate [Clopidogrel] 75 mg PO DAILY 10/20/19 Cyanocobalamin (Vitamin B-12) 100 mcg IM QMONTH 10/20/19 [Cyanocobalamin Injection] Levothyroxine Sodium [Synthroid] 100 mcg PO DAILY 10/20/19 Multivit with Iron,Minerals 1 tab PO DAILY 10/20/19 [Multivitamins with Iron] Rosuvastatin Calcium 10 mg PO DAILY 10/20/19 Umeclidinium Brm/Vilanterol Tr 1 inh INHALATION DAILY 10/20/19 [Anoro Ellipta] Venlafaxine HCl [Effexor Xr] 75 mg PO QAM 10/20/19 Surgical History: Surgical History (Last Reviewed 10/20/19 @ 16:26 by Andria Dickey NP-C) H/O bladder repair surgery Z98.890 History of hysterectomy Z98.890, Z90.710 History of tonsillectomy Z98.890, Z90.89 Psychiatric History: Anxiety, Depression [employer] History: No pertinent [employer] history Lives: Alone Smoking Status: Current every day smoker Tobacco Use: Cigarettes Alcohol: None Drugs: None - *Family History Maternal History Items: - - Denies known maternal medical history including cardiac history. Paternal History Items: - - Denies known paternal medical history including cardiac history. Review of Systems Constitutional: Denies: Chills, Fever, Weight Change HEENT: Denies: Head Aches, Sinus Congestion, Sinus Drainage Cardiovascular: Reports: Light Headedness. Denies: Chest Pain, Chest Pressure, Chest Tightness, Edema, Palpitations, Syncope Respiratory: Reports: Shortness of Breath, Wheezing. Denies: Cough, Sputum production Gastrointestinal: Reports: Diarrhea. Denies: Abdominal Pain, Nausea, Vomiting Genitourinary: Denies: Dysuria Musculoskeletal: Denies: Joint Pain, Joint Tenderness Skin: Denies: Rash, Wounds Neurological: Denies: Numbness, Tingling, Focal weakness Psychiatric: Reports: Anxiety, Depression Hematologic/ Lymphatic: Denies: Easy Bruising, Easy Bleeding VTE Information - Inpt Only VTE Present on Admission: No VTE Mechan Device Prophylaxis: SCD's VTE Pharm Prophylaxis ordered?: No Reason prophylaxis not ordered:: Medical Contraindication Patient Problems: Active and Suspected Problems (Last Reviewed 08/30/19 @ 14:25 by Selena Argueta) Anemia (Acute) Diarrhea (Acute) - Physical Exam Vitals/I&O's: Vital Signs Temp Pulse Resp BP Pulse Ox 98 F 80 18 114/51 L 96 10/20/19 15:05 10/20/19 15:05 10/20/19 15:05 10/20/19 15:05 10/20/19 15:05 Oxygen Flow Rate (L/min) 2 Oxygen Delivery Method Nasal Cannula Weight: 121 lb 0.54 oz Body Mass Index (BMI) 19.5 Intake and Output for Last 24 Hours 10/18/19 10/19/19 10/20/19 23:59 23:59 23:59 Intake Total 1000.25 / 1000.25 Balance 1000.25 / 1000.25 General: Alert, Oriented x3, Cooperative HEENT: Atraumatic, PERRLA, EOMI, Normocephalic Neck: Supple, No JVD, Negative Carotid Bruits Lungs: Diminished, Wheezes Cardiovascular: Regular rate, Regular Rhythm, Normal S1, Normal S2, No murmurs Abdomen: Bowel Sounds Present, Non-Distended Extremities: No clubbing, No cyanosis, No edema, Capillary Refill Less than 3 Seconds Skin: No rashes, No breakdown Musculoskeletal: No Tenderness to Palpation of Joints or Extremities Neurological: Cranial nerves II-XII grossly intact, Neuro grossly intact Psych/Mental Status: Normal Affect, Appropriate Microbiology Past 72 Hours 10/20/19 13:50 Stool Stool Occult Blood (CAROL) - Final Laboratory Results 10/20/19 13:10: WBC 6.1, RBC 2.81 L, Hgb 6.2 L, Hct 22.6 L, MCV 80.4 L, MCH 22.1 L, MCHC 27.4 L, RDW Std Deviation 51.0 H, RDW Coeff of Ramón 17.4 H, Plt Count 549 H, MPV 9.4, Immature Gran % (Auto) 0.200, Neut % (Auto) 61.2, Lymph % (Auto) 26.1, [place] % (Auto) 9.4, Eos % (Auto) 2.6, Baso % (Auto) 0.5, Absolute Neuts (auto) 3.7, Absolute Lymphs (auto) 1.58, Nucleated RBC % 0.5 10/20/19 13:10: Sodium 143, Potassium 3.6, Chloride 110 H, Carbon Dioxide 25.0, Anion Gap 8, BUN 12, Creatinine 0.77, Estim Creat Clear Calc 49.00, Est GFR (MDRD) Af Amer 95, Est GFR (MDRD) Non-Af 79, BUN/Creatinine Ratio 15.6, Glucose 92, Calcium 9.0, Total Bilirubin 0.20, AST 13 L, ALT 17, Alkaline Phosphatase 106, Total Protein 6.7, Albumin 3.3, Globulin 3.4, Albumin/Globulin Ratio 1.0, Lipase 126 10/20/19 13:10: Troponin I < 0.015 10/20/19 13:10: Blood Type A POSITIVE, Antibody Screen NEGATIVE, Crossmatch See Detail 10/20/19 13:10: Iron Pending, TIBC Pending, Iron Saturation Pending 10/20/19 13:55: Urine Color Yellow, Urine Clarity Clear, Urine pH 6.0, Ur Specific [place] 1.020, Urine Protein Negative, Urine Glucose (UA) Normal, Urine Ketones Negative, Urine Occult Blood Negative, Urine Nitrite Negative, Urine Bilirubin Negative, Urine Urobilinogen Normal, Ur Leukocyte Esterase Negative, Urine RBC 0 SEEN, Urine WBC 0 SEEN, Ur Squamous Epith Cells 0-5 SEEN, Urine Bacteria 0 SEEN, Urine Mucus 1+ Current Medications Al Hydroxide/Mg Hydroxide (Mylanta Ii) 30 ml PO Q6H PRN PRN PRN Reason: Gastric Burning Dextrose (D50w Syringe) 0 gm IV X1 PRN; Protocol PRN Reason: Hypoglycemia Glucagon () 1 mg IM .X1 PRN PRN Reason: Hypoglycemia Pantoprazole Sodium 40 mg/ (Sodium Chloride) 110 mls @ 330 mls/hr IV Q12 ZE Last Admin: 10/20/19 15:46 Dose: 330 mls/hr Documented by: Sodium Chloride () 250 mls @ 15 mls/hr IV .[id number] PRN PRN Reason: Saline Flush Last Infusion: 10/20/19 15:46 Dose: 0 mls/hr Documented by: Sodium Chloride () 250 mls @ 15 mls/hr IV .[id number] PRN PRN Reason: Additional IVPB Infusion Sodium Chloride () 500 mls @ 15 mls/hr IV PRN PRN PRN Reason: Blood Transfusion Ondansetron HCl (Zofran) 4 mg IV Q8H PRN PRN PRN Reason: NAUSEA/VOMITING Sodium Chloride () 10 - 40 ml IV UD PRN PRN Reason: SALINE FLUSH Assessment/Plan All Active Problems (Last Reviewed 08/30/19 @ 14:25 by Selena Argueta) Anemia (Acute) Diarrhea (Acute) Left wrist pain (Resolved) Urinary urgency (Resolved) 1. Acute on chronic anemia-Baseline hemoglobin appears to be around 10. Has declined over the last few years per blood work in our system. Hemoglobin on admission 6.2. 2 units PRBC ordered. IV PPI. Trend H&H. Iron studies pending. If hemoglobin remains stable, recommend outpatient scopes. Clear liquid diet. Send stool for enteric pathogen panel. 2. History of CVA-on aspirin, statin, Plavix. Hold aspirin and Plavix. 3. Chronic COPD-no exacerbation. As needed albuterol aerosol. 4. Hypertension-not on regimen. Monitor blood pressure. 5. Hypothyroidism-continue Synthroid regimen. 6. Tobacco dependence-encouraged cessation. 7. Depression/Anxiety-continue Effexor regimen. DVT prophylaxis- SCDs This patient was seen by RAINA Olivo under the supervision of Dr. Martinez. <Fanta Martinez - Last Filed: 10/20/19 17:10> Problem List (1) Anemia Status: Acute (2) Diarrhea Status: Acute (3) CVA (cerebral vascular accident) Status: Chronic Comment: 12/10/19 (4) Migraine Status: Chronic (5) Hypertension Status: Chronic (6) REJI (obstructive sleep apnea) Status: Suspected (7) Depression with anxiety Status: Chronic (8) Hypothyroidism Status: Chronic (9) COPD (chronic obstructive pulmonary disease) Status: Chronic Qualifiers: History of Present Illness The patient is a 69 year old F [] Past Medical History Medical History: Medical History (Last Reviewed 08/30/19 @ 14:25 by Selena Argueta) CVA (cerebral vascular accident) (Acute) I63.9 12/10/19 Asthma J45.909 COPD (chronic obstructive pulmonary disease) J44.9 Depression F32.9 Gout M10.9 Left wrist pain M25.532 Allergies Penicillins Allergy (Verified 10/06/19 09:06) Hives Surgical History: Surgical History (Last Reviewed 10/20/19 @ 16:26 by RAINA Olivo) H/O bladder repair surgery Z98.890 History of hysterectomy Z98.890, Z90.710 History of tonsillectomy Z98.890, Z90.89 - Physical Exam Vitals/I&O's: Vital Signs Temp Pulse Resp BP Pulse Ox 97.8 F 74 18 121/62 H 100 10/20/19 16:37 10/20/19 16:37 10/20/19 16:37 10/20/19 16:37 10/20/19 16:37 Oxygen Flow Rate (L/min) 2 Oxygen Delivery Method Nasal Cannula Weight: 54.9 kg Body Mass Index (BMI) 19.5 Intake and Output for Last 24 Hours 10/18/19 10/19/19 10/20/19 23:59 23:59 23:59 Intake Total 1110.25 / 1110.25 Balance 1110.25 / 1110.25 Microbiology Past 72 Hours 10/20/19 13:50 Stool Stool Occult Blood (CAROL) - Final Laboratory Results 10/20/19 13:10: WBC 6.1, RBC 2.81 L, Hgb 6.2 L, Hct 22.6 L, MCV 80.4 L, MCH 22.1 L, MCHC 27.4 L, RDW Std Deviation 51.0 H, RDW Coeff of Ramón 17.4 H, Plt Count 549 H, MPV 9.4, Immature Gran % (Auto) 0.200, Neut % (Auto) 61.2, Lymph % (Auto) 26.1, [place] % (Auto) 9.4, Eos % (Auto) 2.6, Baso % (Auto) 0.5, Absolute Neuts (auto) 3.7, Absolute Lymphs (auto) 1.58, Nucleated RBC % 0.5 10/20/19 13:10: Sodium 143, Potassium 3.6, Chloride 110 H, Carbon Dioxide 25.0, Anion Gap 8, BUN 12, Creatinine 0.77, Estim Creat Clear Calc 49.00, Est GFR (MDRD) Af Amer 95, Est GFR (MDRD) Non-Af 79, BUN/Creatinine Ratio 15.6, Glucose 92, Calcium 9.0, Total Bilirubin 0.20, AST 13 L, ALT 17, Alkaline Phosphatase 106, Total Protein 6.7, Albumin 3.3, Globulin 3.4, Albumin/Globulin Ratio 1.0, Lipase 126 10/20/19 13:10: Troponin I < 0.015 10/20/19 13:10: Blood Type A POSITIVE, Antibody Screen NEGATIVE, Crossmatch See Detail 10/20/19 13:10: Iron 100, TIBC 457 H, Iron Saturation 21.9 10/20/19 13:10: Crossmatch See Detail 10/20/19 13:55: Urine Color Yellow, Urine Clarity Clear, Urine pH 6.0, Ur Specific [place] 1.020, Urine Protein Negative, Urine Glucose (UA) Normal, Urine Ketones Negative, Urine Occult Blood Negative, Urine Nitrite Negative, Urine Bilirubin Negative, Urine Urobilinogen Normal, Ur Leukocyte Esterase Negative, Urine RBC 0 SEEN, Urine WBC 0 SEEN, Ur Squamous Epith Cells 0-5 SEEN, Urine Bacteria 0 SEEN, Urine Mucus 1+ Current Medications Al Hydroxide/Mg Hydroxide (Mylanta Ii) 30 ml PO Q6H PRN PRN PRN Reason: Gastric Burning Albuterol Sulfate (Ventolin Aerosols) 2.5 mg INHALATION Q2H PRN PRN PRN Reason: SHORTNESS OF BREATH Aspirin (Aspirin) 325 mg PO DAILY [facility] Atorvastatin Calcium (Lipitor) 20 mg PO DAILY ZE Clopidogrel Bisulfate (Plavix) 75 mg PO DAILY [facility] Cyanocobalamin (Vitamin B12) 100 mcg IM QMONTH ZE Dextrose (D50w Syringe) 0 gm IV X1 PRN; Protocol PRN Reason: Hypoglycemia Furosemide (Lasix) 20 mg IV X1 ONE Stop: 10/20/19 16:57 Glucagon () 1 mg IM .X1 PRN PRN Reason: Hypoglycemia Pantoprazole Sodium 40 mg/ (Sodium Chloride) 110 mls @ 330 mls/hr IV Q12 ZE Last Infusion: 10/20/19 16:10 Dose: Infused Documented by: Sodium Chloride () 250 mls @ 15 mls/hr IV .[id number] PRN PRN Reason: Saline Flush Last Infusion: 10/20/19 15:46 Dose: 0 mls/hr Documented by: Sodium Chloride () 250 mls @ 15 mls/hr IV .[id number] PRN PRN Reason: Additional IVPB Infusion Sodium Chloride () 500 mls @ 15 mls/hr IV PRN PRN PRN Reason: Blood Transfusion Levothyroxine Sodium (Synthroid) 100 mcg PO DAILY@0600 [facility] Nicotine (Nicoderm Cq (Pbkc)) 21 mg TRANSDERM. DAILY ZE Non-Formulary Medication (Multivit With Iron,Minerals [Multivitamins With Iron]) 1 tab PO DAILY ZE Ondansetron HCl (Zofran) 4 mg IV Q8H PRN PRN PRN Reason: NAUSEA/VOMITING Sodium Chloride () 10 - 40 ml IV UD PRN PRN Reason: SALINE FLUSH Venlafaxine HCl (Effexor Xr) 75 mg PO QAM [facility] Assessment/Plan This patient was seen in conjunction with Andria Dickey NP. I have independently interviewed and examined the patient and reviewed pertinent historical, laboratory, and other data. Please refer to her note for patient's presentation, findings, and recommendations. Patient is a poor historian. 69-year-old female with past medical history of CVA, COPD/asthma who comes in with progressive shortness of breath and diarrhea. The EMS were called to the house for shortness of breath. At time of evaluation, patient denied any shortness of breath but admits to not feeling well. Admitted to having loose stools. She admits to seeing blood in his stool. Denied any dizziness or palpitations or shortness of breath. Vitals in the ED showed temperature of 98.2F, heart rate 115, blood pressure 110/55, patient rate was 20, SPO2 100% on 2 L of oxygen Hemoglobin is 6.2, drop from 8.0, 3 BC count is 6.1, platelet count is 549, CMP is unremarkable. Iron is 100, TIBC is 457, iron saturation is 21.9, troponins are negative. Admitting chest x-ray is clinically clear. Physical Exam: Gen: Appears unwell, pale, not jaundiced, alert oriented x3 CVS:HS I +II, regular, no murmurs RESP: Diminished at lung bases GI: BS present and normal, nontender, no palpable organs EXT:No edema ASSESSMENT: 1. Dyspnea secondary to acute anemia 2. Acute on chronic severe symptomatic anemia, unclear etiology, FOBT negative 3. Acute diarrhea 4. Depression 5. Hypothyroidism 6. Hypertension 7. Asthma/COPD Plan: Transfuse 2 units of packed RBCs H&H posttransfusion, Lasix 20 mg IV x1 posttransfusion IV PPI Contact precaution, stool for enteric panel Continue aspirin and Plavix for now as FOBT is negative May hold if hemoglobin drops Attempts at calling her granddaughter that she lives with to give collaborative history as well as clarify goals of care/CODE STATUS was negative. Inpatient E&M: [id number] Init Hosp L3
[2019-10-20 16:32] LABS: Iron 100 ug/dL (50-170); Iron Binding Capacity,Total 457 ug/dL (250-450); PERCENT IRON SATURATION 21.9 % (15.0-55.0)
[2019-10-20] MEDS: Furosemide 20 MG/2 ML VIAL IV (20:06)
[2019-10-20] MEDS: 0.9% Saline Lock 10 ML Syringe IV ×2 (20:06→22:33)
--- NOTE | 2019-10-20 20:17 | NURSING ---
Called Anjelica in lab and advised her that pt's blood finished at 1999 and they can draw H&H at 2100.
[2019-10-20 21:22] LABS: Hematocrit 25.2 % (37-47); Hemoglobin 7.5 g/dL (12.0-15.0)
[2019-10-20] MEDS: Acetaminophen 325 MG Tablet 650 MG PO (22:33)
[2019-10-21] VITALS (7 sets, daily range): BP systolic 109–139; BP diastolic 59–70; PULSE 76–100; RESP 16–20; TEMP 36.5–37.1; O2SAT 93–100
[2019-10-21] MEDS: Levothyroxine 100 MCG Tablet PO (05:49)
[2019-10-21] MEDS: Acetaminophen 325 MG Tablet 650 MG PO (05:49)
[2019-10-21 07:39] LABS: Hematocrit 25.3 % (37-47); Hemoglobin 7.3 g/dL (12.0-15.0); Mean Corp Hgb Conc 28.9 g/dL (32-36); Mean Corpuscular Hgb 22.9 pg (27.0-32.0); Mean Corpuscular Volume 79.3 fL (81-99); Mean Platelet Vol. 9.4 fl (6.2-12.0); Platelet Count 466 K/mm3 (150-450); RBC Distribution Width CV 16.7 % (11.6-14.6); RBC Distribution Width SD 48.3 fl (35.1-43.9); Red Blood Count 3.19 M/mm3 (4.2-5.4); White Blood Count 4.3 K/mm3 (4.4-11.0)
[2019-10-21] MEDS: Atorvastatin Calcium 20 MG Tablet PO (08:33)
[2019-10-21] MEDS: Aspirin 325 MG Tablet PO (08:33)
[2019-10-21] MEDS: 0.9% Saline Lock 10 ML Syringe IV (08:33)
[2019-10-21] MEDS: Clopidogrel Bisulfate 75 MG Tablet PO (08:34)
[2019-10-21] MEDS: Venlafaxine XR 75 MG Capsule PO (08:34)
[2019-10-21] MEDS: Multivitamins,Ther W-Minerals Tablet 1 TABLET PO (08:34)
[2019-10-21 09:57] LABS: Platelet Count 580 K/mm3 (150-450); RET-HE 16.6 pg (30-35); Reticulocyte Count 3.66 % (0.5-1.5)
--- NOTE | 2019-10-21 10:40 | DCINST_ITS ---
- Discharge Diagnoses Current Active Problems: Current Active and Chronic Problems (Last Reviewed 08/30/19 @ 14:25 by Selena Argueta) Anemia (Acute) Diarrhea (Acute) You will use the following diet at home:: No restrictions Discharge Activity: Return to Normal Activity Call your doctor if you observe: Shortness of breath, Dizziness, Fainting spells, Chest pain Allergies/Adverse Reactions: Allergies Penicillins Allergy (Verified 10/06/19 09:06) Hives Medications to take at Discharge Acetaminophen [Tylenol Extra Strength] 500 mg PO BID PRN PRN 10/20/19 Clopidogrel Bisulfate [Clopidogrel] 75 mg PO DAILY 10/20/19 Cyanocobalamin (Vitamin B-12) [Cyanocobalamin Injection] 100 mcg IM QMONTH 10/20/19 Levothyroxine Sodium [Synthroid] 100 mcg PO DAILY 10/20/19 Multivit with Iron,Minerals [Multivitamins with Iron] 1 tab PO DAILY 10/20/19 Rosuvastatin Calcium 10 mg PO DAILY 10/20/19 Umeclidinium Brm/Vilanterol Tr [Anoro Ellipta 62.5-25 Mcg INH] 1 inh INHALATION DAILY 10/20/19 Venlafaxine HCl [Effexor Xr] 75 mg PO QAM 10/20/19 Aspirin E.C. [Ecotrin] 81 mg PO DAILY@0800 #30 tab 10/21/19 Pantoprazole Sodium [Protonix] 40 mg PO BID #60 tab 10/21/19 The following prescriptions were given: Aspirin E.C. [Ecotrin] 81 mg PO DAILY@0800 #30 tab Transmission Status: Pending to [facility] Pantoprazole Sodium [Protonix] 40 mg PO BID #60 tab Transmission Status: Pending to [facility] Primary Care Physician: Rosalie Alejandro MD [Primary Care Provider] - Please follow up with your Primary Care Physician in: Call Wednesday for appt. May see Celso Matta NP Test Results: Test results from this visit will be discussed in further detail at your follow- up appointment, if applicable. Please Follow Up With: Perla Azul MD When: Call for appt to schedule EGD/Colonoscopy Proposed Discharge Date: 10/21/19
--- NOTE | 2019-10-21 10:44 | PCM.DC.SUM ---
<Andria Dickey - Last Filed: 10/21/19 12:27> Discharge Date and Diagnosis Date of Admission: 10/20/19 Date of Discharge: 10/21/19 - Primary Discharge Diagnosis Active and Suspected Problems (Last Reviewed 08/30/19 @ 14:25 by Selena Argueta) 1. Acute on chronic anemia 2. History of CVA 3. Chronic COPD 4. Hypertension 5. Hypothyroidism 6. Tobacco dependence 7. Depression/Anxiety - Secondary Discharge Diagnosis Chronic Problems (Last Reviewed 08/30/19 @ 14:25 by Selena Argueta) CVA (cerebral vascular accident) (Chronic) 12/10/19 Migraine (Chronic) Hypertension (Chronic) Depression with anxiety (Chronic) Hypothyroidism (Chronic) Abdominal pain (Chronic) Nail avulsion, toe (Chronic) COPD (chronic obstructive pulmonary disease) (Chronic) Hospital Course and Treatment Imaging Results: Diagnostic Data Brain CT 10/20/19 13:07 IMPRESSION: Chronic involutional changes of the brain. Electronically Signed: Edgar Hirsch, at 13:51 EDT , Service support , Chest X-Ray 10/20/19 13:30 IMPRESSION: Hyperinflation. The lungs are clear. Electronically Signed: Edgar Hirsch, at 13:48 EDT , Service support , Operations: None Procedures: None Summary of Care Provided: The patient is a 69 year old F admitted 10/20/2019 due to shortness of breath and lightheadedness. 1. Acute on chronic anemia, history of iron deficiency anemia-Baseline hemoglobin appears to be around 10. Has declined over the last few years per blood work in our system. Hemoglobin on admission 6.2. Status post 2 units PRBC ordered. Iron studies within normal limits, B12, folate pending. Hemoglobin has remained stable. Stool for occult blood negative. Continue Protonix 40 mg twice daily pending further outpatient evaluation. Recommend follow-up with Dr. Azul or other [facility] surgical associate next week for EGD/colonoscopy evaluation. Patient states she has never had colonoscopy or EGD, however patient has poor informant. Per further review of records, patient has seen CLEMENTE Molina in 2017 and was diagnosed with iron deficiency. She was referred to hem/onc, Dr. Bass and did not show for appointment. It appears she was previously on iron supplementation which is not currently on her home medication list. Recommend repeat CBC early next week and follow-up with primary care provider. Patient improved quicker than expected with hemoglobin remaining stable, discharged in stable condition. 2. History of CVA-on aspirin, statin, Plavix. Home aspirin decreased to 81 mg daily, previously on 325mg. 3. Chronic COPD-no exacerbation. Patient states she feels like she is smothering at home and would like oxygen. Patient follows with Dr. Cox, pulmonary medicine. Her last 6-minute walk test was in 2018 with no significant desaturation. Ambulatory pulse ox completed prior to discharge and patient did not have any desaturation and did not qualify for home oxygen. 4. Hypertension-not on regimen. Blood pressure stable. 5. Hypothyroidism-continue Synthroid regimen. 6. Tobacco dependence-encouraged cessation. 7. Depression/Anxiety-continue Effexor regimen. General: Alert, Oriented x3, Cooperative HEENT: Atraumatic, PERRLA, EOMI, Normocephalic Neck: Supple, No JVD, Negative Carotid Bruits Lungs: Diminished, Wheezes Cardiovascular: Regular rate, Regular Rhythm, Normal S1, Normal S2, No murmurs Abdomen: Bowel Sounds Present, Non-Distended Extremities: No clubbing, No cyanosis, No edema, Capillary Refill Less than 3 Seconds Skin: No rashes, No breakdown Musculoskeletal: No Tenderness to Palpation of Joints or Extremities Neurological: Cranial nerves II-XII grossly intact, Neuro grossly intact Psych/Mental Status: Normal Affect, Appropriate Patient seen and examined prior to discharge. Physical assessment as noted above. Patient is stable for discharge with follow up recommendations as noted above. This patient was seen by RAINA Olivo under the supervision of Dr. Alejandro. - Physical Exam Vitals/I&O's: Vital Signs Temp Pulse Resp BP Pulse Ox 98.8 F 77 20 H 139/63 H 98 10/21/19 10:31 10/21/19 10:31 10/21/19 10:31 10/21/19 10:31 05/09/20 10:31 Oxygen Flow Rate (L/min) 2 Oxygen Delivery Method Room Air Weight: 121 lb 4.068 oz Body Mass Index (BMI) 19.5 Intake and Output for Last 24 Hours 10/19/19 10/20/19 10/21/19 23:59 23:59 23:59 Intake Total 1836.00 / 1836.00 310 / 310 Balance 1836.00 / 1836.00 310 / 310 Microbiology Past 72 Hours 10/20/19 13:50 Stool Stool Occult Blood (CAROL) - Final Laboratory Results 10/20/19 13:10: WBC 6.1, RBC 2.81 L, Hgb 6.2 L, Hct 22.6 L, MCV 80.4 L, MCH 22.1 L, MCHC 27.4 L, RDW Std Deviation 51.0 H, RDW Coeff of Ramón 17.4 H, Plt Count 549 H, MPV 9.4, Immature Gran % (Auto) 0.200, Neut % (Auto) 61.2, Lymph % (Auto) 26.1, Bourbon % (Auto) 9.4, Eos % (Auto) 2.6, Baso % (Auto) 0.5, Absolute Neuts (auto) 3.7, Absolute Lymphs (auto) 1.58, Nucleated RBC % 0.5 10/20/19 13:10: Sodium 143, Potassium 3.6, Chloride 110 H, Carbon Dioxide 25.0, Anion Gap 8, BUN 12, Creatinine 0.77, Estim Creat Clear Calc 49.00, Est GFR (MDRD) Af Amer 95, Est GFR (MDRD) Non-Af 79, BUN/Creatinine Ratio 15.6, Glucose 92, Calcium 9.0, Total Bilirubin 0.20, AST 13 L, ALT 17, Alkaline Phosphatase 106, Total Protein 6.7, Albumin 3.3, Globulin 3.4, Albumin/Globulin Ratio 1.0, Lipase 126 10/20/19 13:10: Troponin I < 0.015 10/20/19 13:10: Blood Type A POSITIVE, Antibody Screen NEGATIVE, Crossmatch See Detail 10/20/19 13:10: Iron 100, TIBC 457 H, Iron Saturation 21.9 10/20/19 13:10: Crossmatch See Detail 10/20/19 13:10: Retic Count 3.66 H, Immature Retic Fraction 20.30 H, Retic Hgb Equivalent 16.6 L 10/20/19 13:55: Urine Color Yellow, Urine Clarity Clear, Urine pH 6.0, Ur Specific Cinebar 1.020, Urine Protein Negative, Urine Glucose (UA) Normal, Urine Ketones Negative, Urine Occult Blood Negative, Urine Nitrite Negative, Urine Bilirubin Negative, Urine Urobilinogen Normal, Ur Leukocyte Esterase Negative, Urine RBC 0 SEEN, Urine WBC 0 SEEN, Ur Squamous Epith Cells 0-5 SEEN, Urine Bacteria 0 SEEN, Urine Mucus 1+ 10/20/19 21:00: Hgb 7.5 L, Hct 25.2 L 10/21/19 07:14: WBC 4.3 L, RBC 3.19 L, Hgb 7.3 L, Hct 25.3 L, MCV 79.3 L, MCH 22.9 L, MCHC 28.9 L D, RDW Std Deviation 48.3 H, RDW Coeff of Ramón 16.7 H, Plt Count 466 H, MPV 9.4 10/21/19 09:00: Vitamin B12 Pending 10/21/19 09:00: RBC Folate Hemolysate Pending, RBC Folate Pending, Hematocrit Pending Current Medications Acetaminophen (Tylenol) 650 mg PO Q6H PRN PRN PRN Reason: Pain Score 1-10/10 Last Admin: 10/21/19 05:49 Dose: 650 mg Documented by: Al Hydroxide/Mg Hydroxide (Mylanta Ii) 30 ml PO Q6H PRN PRN PRN Reason: Gastric Burning Albuterol Sulfate (Ventolin Aerosols) 2.5 mg INHALATION Q2H PRN PRN PRN Reason: SHORTNESS OF BREATH Aspirin (Aspirin) 325 mg PO DAILY@0800 [facility] Last Admin: 10/21/19 08:33 Dose: 325 mg Documented by: Atorvastatin Calcium (Lipitor) 20 mg PO DAILY [facility] Last Admin: 10/21/19 08:33 Dose: 20 mg Documented by: Clopidogrel Bisulfate (Plavix) 75 mg PO DAILY [facility] Last Admin: 10/21/19 08:34 Dose: 75 mg Documented by: Cyanocobalamin (Vitamin B12) 100 mcg IM QMONTH [facility] Last Admin: 10/20/19 18:24 Dose: Not Given Documented by: Dextrose (D50w Syringe) 0 gm IV X1 PRN; Protocol PRN Reason: Hypoglycemia Glucagon () 1 mg IM .X1 PRN PRN Reason: Hypoglycemia Pantoprazole Sodium 40 mg/ (Sodium Chloride) 110 mls @ 330 mls/hr IV Q12 [facility] Last Infusion: 10/21/19 09:00 Dose: Infused Documented by: Sodium Chloride () 250 mls @ 15 mls/hr IV .[id number] PRN PRN Reason: Saline Flush Last Infusion: 10/20/19 23:56 Dose: 0 mls/hr Documented by: Sodium Chloride () 250 mls @ 15 mls/hr IV .[id number] PRN PRN Reason: Additional IVPB Infusion Sodium Chloride () 500 mls @ 15 mls/hr IV PRN PRN PRN Reason: Blood Transfusion Levothyroxine Sodium (Synthroid) 100 mcg PO DAILY@0600 [facility] Last Admin: 10/21/19 05:49 Dose: 100 mcg Documented by: Multivitamins/Minerals (Multivitamin With Minerals (Bkc)) 1 tablet PO DAILY@0800 [facility] Last Admin: 10/21/19 08:34 Dose: 1 tablet Documented by: Nicotine (Nicoderm Cq (Pbkc)) 21 mg TRANSDERM. DAILY [facility] Last Admin: 10/21/19 08:34 Dose: Not Given Documented by: Ondansetron HCl (Zofran) 4 mg IV Q8H PRN PRN PRN Reason: NAUSEA/VOMITING Sodium Chloride () 10 - 40 ml IV UD PRN PRN Reason: SALINE FLUSH Last Admin: 10/21/19 08:33 Dose: 20 ml Documented by: Venlafaxine HCl (Effexor Xr) 75 mg PO QAM [facility] Last Admin: 10/21/19 08:34 Dose: 75 mg Documented by: Discharge Diet: No Restrictions Discharge Activity: Return to Normal Activity Call your doctor if you observe: Shortness of breath, Dizziness, Fainting spells, Chest pain Home Medications: Medications to take at Discharge Acetaminophen [Tylenol Extra Strength] 500 mg PO BID PRN PRN 10/20/19 Clopidogrel Bisulfate [Clopidogrel] 75 mg PO DAILY 10/20/19 Cyanocobalamin (Vitamin B-12) [Cyanocobalamin Injection] 100 mcg IM QMONTH 10/20/19 Levothyroxine Sodium [Synthroid] 100 mcg PO DAILY 10/20/19 Multivit with Iron,Minerals [Multivitamins with Iron] 1 tab PO DAILY 10/20/19 Rosuvastatin Calcium 10 mg PO DAILY 10/20/19 Umeclidinium Brm/Vilanterol Tr [Anoro Ellipta 62.5-25 Mcg INH] 1 inh INHALATION DAILY 10/20/19 Venlafaxine HCl [Effexor Xr] 75 mg PO QAM 10/20/19 Aspirin E.C. [Ecotrin] 81 mg PO DAILY@0800 #30 tab 10/21/19 Ferrous Sulfate 325 mg PO BIDCM #60 tab 10/21/19 Pantoprazole Sodium [Protonix] 40 mg PO BID #60 tab 10/21/19 Following Prescrptions Were Given to Patient: Aspirin E.C. [Ecotrin] 81 mg PO DAILY@0800 #30 tab Transmission Status: Received by [facility] Ferrous Sulfate 325 mg PO BIDCM #60 tab Transmission Status: Received by [facility] Pantoprazole Sodium [Protonix] 40 mg PO BID #60 tab Transmission Status: Received by [facility] Primary Care Physician: Rosalie Alejandro MD [Primary Care Provider] - Please follow up with your Primary Care Physician in: Call Wednesday for appt. May see Celso Matta NP Please Follow Up With: Perla Azul MD When: Call for appt to schedule EGD/Colonoscopy Disposition: Home Minutes spent on discharge:: 35 Patient Condition:: Stable Medical Necessity - Tobacco Use Smoking Status: Current every day smoker Tobacco Use: Cigarettes Meaningful Use Info Meaningful Use Diagnoses (Choose all that apply): None applicable <Adelfo Alejandro - Last Filed: 10/21/19 12:45> Discharge Date and Diagnosis - Secondary Discharge Diagnosis Chronic Problems (Last Reviewed 08/30/19 @ 14:25 by Selena Argueta) CVA (cerebral vascular accident) (Chronic) 12/10/19 Migraine (Chronic) Hypertension (Chronic) Depression with anxiety (Chronic) Hypothyroidism (Chronic) Abdominal pain (Chronic) Nail avulsion, toe (Chronic) COPD (chronic obstructive pulmonary disease) (Chronic) Hospital Course and Treatment Summary of Care Provided: Patient seen and examined independently of Andria MICHEL 69-year-old female admitted to the hospital on account of anemia. Uncertain if this is acute on chronic or chronic. Iron studies suggestive somewhat of iron deficiency anemia with elevated TIBC. Other iron indices were normal. FOBT was negative. Anemia work-up still ongoing and results pending. Iron malabsorption may be the problem here. Patient to follow-up with primary care physician within 1 week and also with gastroenterology. May ultimately need to see hematology as well. Follow-up on pending blood work including B12, folate and reticulocyte count. Discussed with patient's granddaughter Carole over the phone, questions answered and concerns addressed. - Physical Exam Vitals/I&O's: Vital Signs Temp Pulse Resp BP Pulse Ox 98.1 F 80 20 H 119/59 L 97 10/21/19 11:23 10/21/19 11:23 10/21/19 11:23 10/21/19 11:23 10/21/19 11:14 Oxygen Flow Rate (L/min) 2 Oxygen Delivery Method Room Air Weight: 55 kg Body Mass Index (BMI) 19.5 Intake and Output for Last 24 Hours 10/19/19 10/20/19 10/21/19 23:59 23:59 23:59 Intake Total 1836.00 / 1836.00 310 / 310 Balance 1836.00 / 1836.00 310 / 310 Microbiology Past 72 Hours 10/20/19 13:50 Stool Stool Occult Blood (CAROL) - Final Laboratory Results 10/20/19 13:10: WBC 6.1, RBC 2.81 L, Hgb 6.2 L, Hct 22.6 L, MCV 80.4 L, MCH 22.1 L, MCHC 27.4 L, RDW Std Deviation 51.0 H, RDW Coeff of Ramón 17.4 H, Plt Count 549 H, MPV 9.4, Immature Gran % (Auto) 0.200, Neut % (Auto) 61.2, Lymph % (Auto) 26.1, Bourbon % (Auto) 9.4, Eos % (Auto) 2.6, Baso % (Auto) 0.5, Absolute Neuts (auto) 3.7, Absolute Lymphs (auto) 1.58, Nucleated RBC % 0.5 10/20/19 13:10: Sodium 143, Potassium 3.6, Chloride 110 H, Carbon Dioxide 25.0, Anion Gap 8, BUN 12, Creatinine 0.77, Estim Creat Clear Calc 49.00, Est GFR (MDRD) Af Amer 95, Est GFR (MDRD) Non-Af 79, BUN/Creatinine Ratio 15.6, Glucose 92, Calcium 9.0, Total Bilirubin 0.20, AST 13 L, ALT 17, Alkaline Phosphatase 106, Total Protein 6.7, Albumin 3.3, Globulin 3.4, Albumin/Globulin Ratio 1.0, Lipase 126 10/20/19 13:10: Troponin I < 0.015 10/20/19 13:10: Blood Type A POSITIVE, Antibody Screen NEGATIVE, Crossmatch See Detail 10/20/19 13:10: Iron 100, TIBC 457 H, Iron Saturation 21.9 10/20/19 13:10: Crossmatch See Detail 10/20/19 13:10: Retic Count 3.66 H, Immature Retic Fraction 20.30 H, Retic Hgb Equivalent 16.6 L 10/20/19 13:55: Urine Color Yellow, Urine Clarity Clear, Urine pH 6.0, Ur Specific Cinebar 1.020, Urine Protein Negative, Urine Glucose (UA) Normal, Urine Ketones Negative, Urine Occult Blood Negative, Urine Nitrite Negative, Urine Bilirubin Negative, Urine Urobilinogen Normal, Ur Leukocyte Esterase Negative, Urine RBC 0 SEEN, Urine WBC 0 SEEN, Ur Squamous Epith Cells 0-5 SEEN, Urine Bacteria 0 SEEN, Urine Mucus 1+ 10/20/19 21:00: Hgb 7.5 L, Hct 25.2 L 10/21/19 07:14: WBC 4.3 L, RBC 3.19 L, Hgb 7.3 L, Hct 25.3 L, MCV 79.3 L, MCH 22.9 L, MCHC 28.9 L D, RDW Std Deviation 48.3 H, RDW Coeff of Ramón 16.7 H, Plt Count 466 H, MPV 9.4 10/21/19 09:00: Vitamin B12 Pending 10/21/19 09:00: RBC Folate Hemolysate Pending, RBC Folate Pending, Hematocrit Pending Current Medications Acetaminophen (Tylenol) 650 mg PO Q6H PRN PRN PRN Reason: Pain Score 1-10/10 Last Admin: 10/21/19 05:49 Dose: 650 mg Documented by: Al Hydroxide/Mg Hydroxide (Mylanta Ii) 30 ml PO Q6H PRN PRN PRN Reason: Gastric Burning Albuterol Sulfate (Ventolin Aerosols) 2.5 mg INHALATION Q2H PRN PRN PRN Reason: SHORTNESS OF BREATH Aspirin (Aspirin) 325 mg PO DAILY@0800 [facility] Last Admin: 10/21/19 08:33 Dose: 325 mg Documented by: Atorvastatin Calcium (Lipitor) 20 mg PO DAILY [facility] Last Admin: 10/21/19 08:33 Dose: 20 mg Documented by: Clopidogrel Bisulfate (Plavix) 75 mg PO DAILY [facility] Last Admin: 10/21/19 08:34 Dose: 75 mg Documented by: Cyanocobalamin (Vitamin B12) 100 mcg IM QMONTH [facility] Last Admin: 10/20/19 18:24 Dose: Not Given Documented by: Dextrose (D50w Syringe) 0 gm IV X1 PRN; Protocol PRN Reason: Hypoglycemia Glucagon () 1 mg IM .X1 PRN PRN Reason: Hypoglycemia Pantoprazole Sodium 40 mg/ (Sodium Chloride) 110 mls @ 330 mls/hr IV Q12 [facility] Last Infusion: 10/21/19 09:00 Dose: Infused Documented by: Sodium Chloride () 250 mls @ 15 mls/hr IV .[id number] PRN PRN Reason: Saline Flush Last Infusion: 10/20/19 23:56 Dose: 0 mls/hr Documented by: Sodium Chloride () 250 mls @ 15 mls/hr IV .[id number] PRN PRN Reason: Additional IVPB Infusion Sodium Chloride () 500 mls @ 15 mls/hr IV PRN PRN PRN Reason: Blood Transfusion Levothyroxine Sodium (Synthroid) 100 mcg PO DAILY@0600 [facility] Last Admin: 10/21/19 05:49 Dose: 100 mcg Documented by: Multivitamins/Minerals (Multivitamin With Minerals (Bkc)) 1 tablet PO DAILY@0800 [facility] Last Admin: 10/21/19 08:34 Dose: 1 tablet Documented by: Nicotine (Nicoderm Cq (Pbkc)) 21 mg TRANSDERM. DAILY [facility] Last Admin: 10/21/19 08:34 Dose: Not Given Documented by: Ondansetron HCl (Zofran) 4 mg IV Q8H PRN PRN PRN Reason: NAUSEA/VOMITING Sodium Chloride () 10 - 40 ml IV UD PRN PRN Reason: SALINE FLUSH Last Admin: 10/21/19 08:33 Dose: 20 ml Documented by: Venlafaxine [facility] ([facility] Xr) [facility] [place] Last Admin: 10/21/19 08:34 Dose: 75 mg Documented by: Inpatient E&M: [id number] Disch Hosp
--- NOTE | 2019-10-21 12:14 | CASEMGMT ---
Addendum entered by Robin Thorpe 10/21/19 12:41: Ambulatory pulse ox has been completed. Pt does not qualify for Home oxygen at this time. Original Note: RN CM ICING MAKER CM to room to meet with patient for initial transition planning/care coordination assessment. RN CM introduced self and role at [facility]. Pt sitting up in recliner chair, getting blood transfusion. Pt able to provide some of the following information, but is a poor historian and not able to provide some details. Pt gave permission for this RN CM to call her granddaughter, Carole, to discuss her care further and obtain further info. The following information obtained from Carole. PCP: Dr Alejandro Specialists: Dr Danielle--[facility], Dr Tam--pulmonology Preferred Pharmacy: [facility] Insurance: [employer] Prescription Benefit: Yes Living Will/HPOA: Carole states pt had LW and Healthcare POA completed when she lived in [place]. She was made aware these do not transfer from state to [facility] and made aware SW can assist with completing new paperwork. Provided with phone number for SW to be completed as an out-pt if pt decides she would like to complete updated paperwork in the future. LNOK: Pt states she has 3 adult children and her granddaughter, Carole. Living Arrangements: Lives with Carole, her son-in-law and 2 grandsons. Carole provides all care for pt such as bathing/dressing, ambulating, toileting. and meals. Carole states someone is w/pt 04/01. She states she has a friend that will come stay with pt if she needs to go somewhere. Transportation: Carole DME: Has the following DME: rollator, nebulizer, grab bar. Does not have home O2. Per pt, she sleeps on a couch and interested in a hospital bed. Carole made aware that pt is interested in a hospital bed and she was made aware PCP can assist with this if she decides she does not want to get this. Pt states no need for further DME at this time. HHC/SNF: Hx of Rehab and HHC in [place] after her CVA. Carole states she wishes for pt to return home w/her @ discharge and does not feel pt needs HHC or any therapy at this time. Made aware, if in the future, she feels pt would benefit this, to talk with her PCP. Carole made aware plans are for pt to be discharged today after blood transfusion. Carole became very upset and started raising her voice at RN CM. She stated she was very concerned about pt's low blood levels and is concerned that pt will return home and begin bleeding again. Carole requested to speak with pt's doctor. LUIS FERNANDO Ayers, made aware and states she will inform Dr Alejandro. PLAN: Home w/family support and discharge plans in place. June REESEN RN CM
[2019-10-22 20:07] LABS: Folate, RBC (Hct) Test 22.4 % (34.0-46.6)
[2019-10-23 00:38] LABS: Folates, RBC Test 1156 ng/mL (>498)
[2019-10-23 09:39] LABS: Vitamin B12 436 pg/mL (211-911)
--- NOTE | 2019-10-23 10:11 | CASEMGMT ---
ASHVIN GALAN Discharge Follow-up Phone Call: ADDYSummer: 10 Strata: 3 Call Date: 10/23/2019 Discharge Date: 10/21/2019 Time of Call: 1010 Duration: 5 min Admitting Diagnosis: Acute Diarrhea, Anemia ASHVIN GALAN completed follow-up phone call after recent hospitalization. ASHVIN GALAN called and spoke to granddaughter Carole. Patient is doing well and is having follow-up lab work completed today. Carole had no questions or concerns regarding discharge instructions. Family was able to fill scripts with out any issues. Granddaughter aware to schedule follow-up appts. Granddaughter had no further questions or concerns at this time.
== END 2019-10-21 15:26 | disposition home or self-care (01) | DRG 812 ==
LOC: ED 14:34 → MS3 14:58
PROVIDERS: Nurse Practitioner Family; Admitting Provider Internal Medicine; Emergency Provider Emergency Medicine; PCP Internal Medicine; Visit Provider Internal Medicine
DX: D50.9 Iron deficiency anemia, unspecified (principal); J44.9 Chronic obstructive pulmonary disease, unspecified; I10 Essential (primary) hypertension; E03.9 Hypothyroidism, unspecified; F17.210 Nicotine dependence, cigarettes, uncomplicated; Z86.73 Personal history of transient ischemic attack (TIA), and cerebral infarction without residual deficits; G47.33 Obstructive sleep apnea (adult) (pediatric); F41.8 Other specified anxiety disorders; I25.10 Atherosclerotic heart disease of native coronary artery without angina pectoris; F03.90 Unspecified dementia, unspecified severity, without behavioral disturbance, psychotic disturbance, mood disturbance, and anxiety
CPT/HCPCS: 36415; 70450; 71045; 80053; 81001; 82274; 82607; 82747; 83540; 83550; 83690; 84484; 85014; 85018; 85025; 85027; 85045; 86850; 86900; 86901; 86920; 86922; 93005; 96360; 97802; 99285; 99406; J7030; J7040; J7050; P9016; A4216; J1940

== ENCOUNTER → 2019-11-01 16:22 | Outpatient (CLI) | payer MEDICARE, SELFPAY ==
[2019-10-30 10:50] VITALS: BMI 19.5
[2019-11-01 18:07] LABS: Absolute Lymphocyte Count 1.57 X10^3/uL (0.83-4.51); Absolute Neutrophil Count 2.5 X10^3/uL (2.0-7.7); Basophil# 0.05 X10^3/uL; Eosinophil# 0.28 X10^3/uL; Eosinophils% 5.7 % (0-5); Hematocrit 37.6 % (37-47); Hemoglobin 10.8 g/dL (12.0-15.0); Lymphocyte # 1.57 X10^3/ul (4.0); Mean Corp Hgb Conc 28.7 g/dL (32-36); Mean Corpuscular Hgb 23.9 pg (27.0-32.0); Mean Corpuscular Volume 83.2 fL (81-99); Mean Platelet Vol. 10.5 fl (6.2-12.0); Monocyte# 0.46 X10^3/uL; Monocyte% 9.4 % (0-10); NRBC Flagged by Analyzer 0 % (0-5); Neutrophil # 2.54 X10^3/uL (2.7-7.7); Neutrophil % 51.7 % (47-70); Platelet Count 518 K/mm3 (150-450); RBC Distribution Width CV 17.2 % (11.6-14.6); Red Blood Count 4.52 M/mm3 (4.2-5.4); White Blood Count 4.9 K/mm3 (4.4-11.0)
[2019-11-01 18:21] LABS: Cholesterol 147 mg/dL (200); High Density Lipoprotein 74 mg/dL; Triglycerides 90 mg/dL; Very Low Density Lipoprotein 18 mg/dL (5-40)
[2019-11-01 18:55] LABS: Ferritin 11 ng/mL (8-252); Iron 29 ug/dL (50-170); Iron Binding Capacity,Total 434 ug/dL (250-450); Thyroid Stim Hormone (TSH) 0.01 uIU/mL (0.358-3.74)
== END ==
PROVIDERS: Nurse Practitioner Family; PCP Internal Medicine; Referring Provider Internal Medicine; Visit Provider Internal Medicine
DX: D50.9 Iron deficiency anemia, unspecified (principal); E03.9 Hypothyroidism, unspecified
CPT/HCPCS: 80061; 82728; 83540; 83550; 84443; 85025

== ENCOUNTER → 2019-11-20 15:19 | Outpatient (CLI) | payer MEDICARE, MEDICAID, SELFPAY ==
[2019-10-09 10:19] VITALS: BMI 24.1
[2019-11-14 13:55] VITALS: BMI 21.9
--- NOTE | 2019-11-20 15:21 | CT_ITS ---
STUDY: CT CHEST WITH CONTRAST REASON FOR EXAM: Female, 69 years old. DYSPNEA, WEIGHT LOSS RADIATION DOSAGE (If Supplied By Facility): CTDIvol = ( 9.67 ) mGy, DLP = ( 190.91 ) mGycm TECHNIQUE: Transaxial imaging was performed following intravenous administration of IV 100mL Isovue-370. Individualized dose optimization techniques were used for this CT. COMPARISON: Chest x-ray 10/20/2019. Low-dose CT scan chest 01/15/2018. FINDINGS: The lungs are hyperexpanded with flattening of the diaphragm, consistent with COPD. There are diffuse emphysematous changes in the lungs. There is a calcified pulmonary granuloma in the right lower lobe. There is no demonstrated pulmonary infiltrate. There is mild bronchial wall thickening, which was also present on previous study and it is probably chronic. There is no demonstrated pleural abnormality. Normal heart and pericardium. Normal mediastinum. Normal hilar regions. Normal enhanced pulmonary arteries. There are atherosclerotic calcifications of the thoracic aorta and great vessels. There are multi-level degenerative changes of the thoracic spine. There is a large hiatal hernia. CT/Chest WITH Contrast IMPRESSION: COPD, with hyperexpansion of lungs and mild diffuse emphysematous changes. Mild chronic bronchial wall thickening bilaterally. Atherosclerosis. No evidence for acute cardiopulmonary pathology. Large hiatal hernia. Electronically Signed: Bhavesh Ayala MD at 6:45 EDT , Service support ,
== END ==
PROVIDERS: PCP Internal Medicine; Referring Provider Nurse Practitioner Family; Visit Provider Nurse Practitioner Family
DX: R06.00 Dyspnea, unspecified (principal); R63.4 Abnormal weight loss
CPT/HCPCS: 71260; Q9967

== ENCOUNTER → 2019-11-23 10:41 | Outpatient (CLI) | payer MEDICARE, MEDICAID, SELFPAY ==
[2019-11-23 10:06] VITALS: BMI 21.9
[2019-11-23 12:26] LABS: Hematocrit 40.8 % (37-47); Hemoglobin 11.7 g/dL (12.0-15.0); Mean Corp Hgb Conc 28.7 g/dL (32-36); Mean Corpuscular Hgb 23.8 pg (27.0-32.0); Mean Corpuscular Volume 82.9 fL (81-99); Mean Platelet Vol. 11.1 fl (6.2-12.0); Platelet Count 361 K/mm3 (150-450); RBC Distribution Width CV 18.8 % (11.6-14.6); RBC Distribution Width SD 55.1 fl (35.1-43.9); Red Blood Count 4.92 M/mm3 (4.2-5.4); White Blood Count 4.5 K/mm3 (4.4-11.0)
[2019-11-23 12:49] LABS: Thyroid Stim Hormone (TSH) 0.01 uIU/mL (0.358-3.74)
== END ==
PROVIDERS: PCP Internal Medicine; Referring Provider Nurse Practitioner Family; Visit Provider Nurse Practitioner Family
DX: E03.9 Hypothyroidism, unspecified (principal); D64.9 Anemia, unspecified
CPT/HCPCS: 36415; 84443; 85027

== ENCOUNTER → 2020-10-16 13:42 | Outpatient (CLI) | payer MEDICARE, MEDICAID, SELFPAY ==
[2020-10-16 13:25] VITALS: BMI 21.0
[2020-10-16 15:10] LABS: Absolute Lymphocyte Count 1.88 X10^3/uL (0.83-4.51); Absolute Neutrophil Count 3.2 X10^3/uL (2.0-7.7); Basophil# 0.06 X10^3/uL; Eosinophil# 0.41 X10^3/uL; Eosinophils% 6.7 % (0-5); Hematocrit 47.2 % (37-47); Hemoglobin 14.8 g/dL (12.0-15.0); Lymphocyte # 1.88 X10^3/ul (0.83-4.51); Lymphocyte % 30.7 % (19-41); Mean Corp Hgb Conc 31.4 g/dL (32-36); Mean Corpuscular Hgb 31.9 pg (27.0-32.0); Mean Corpuscular Volume 101.7 fL (81-99); Mean Platelet Vol. 11.1 fl (6.2-12.0); Monocyte# 0.56 X10^3/uL; Monocyte% 9.1 % (0-10); NRBC Flagged by Analyzer 0 % (0-5); Neutrophil % 52.2 % (47-70); Platelet Count 377 K/mm3 (150-450); RBC Distribution Width CV 13.3 % (11.6-14.6); RBC Distribution Width SD 50.5 fl (35.1-43.9); Red Blood Count 4.64 M/mm3 (4.2-5.4); White Blood Count 6.1 K/mm3 (4.4-11.0)
[2020-10-16 15:29] LABS: Vitamin B12 388 pg/mL (211-911)
[2020-10-16 15:33] LABS: AST(SGOT) 19 U/L (15-37); Alanine Aminotransfer ALT/SGPT 31 U/L (13-56); Albumin, Serum 3.5 g/dL (3.2-5.0); Alkaline Phosphatase 121 U/L (45-117); Anion Gap 4 (5-15); BUN 17 mg/dL (7-18); BUN/Creat Ratio 21.4 RATIO (10-20); Calcium,Total 8.4 mg/dL (8.5-10.1); Chloride 109 mmol/L (98-107); Creatinine, Serum 0.79 mg/dL (0.55-1.02); EST Glomerular Filtration Rate 76 mL/min (>60); Est Glom Filt Rate - Afr Amer 92 mL/min (>60); Ferritin 60 ng/mL (8-252); Globulin 3.6 g/dL (2.2-4.2); Glucose 73 mg/dL (74-106); Iron 71 ug/dL (50-170); Iron Binding Capacity,Total 341 ug/dL (250-450); Potassium 3.7 mmol/L (3.5-5.1); Protein, Total 7.1 g/dL (6.4-8.2); Sodium Level 142 mmol/L (136-145)
== END ==
PROVIDERS: PCP Internal Medicine; Referring Provider Internal Medicine; Visit Provider Internal Medicine
DX: D64.9 Anemia, unspecified (principal)
CPT/HCPCS: 36415; 80053; 82607; 82728; 83540; 83550; 85025

== ENCOUNTER → 2021-01-01 10:52 | Outpatient (CLI) | payer MEDICARE, MEDICAID, SELFPAY ==
[2021-01-01 10:16] VITALS: BMI 23.1
[2021-01-01 12:25] LABS: Absolute Lymphocyte Count 2.24 X10^3/uL (0.83-4.51); Absolute Neutrophil Count 4.1 X10^3/uL (2.0-7.7); Basophil# 0.07 X10^3/uL; Eosinophil# 0.25 X10^3/uL; Eosinophils% 3.4 % (0-5); Hematocrit 49.5 % (37-47); Hemoglobin 15.6 g/dL (12.0-15.0); Lymphocyte # 2.24 X10^3/ul (0.83-4.51); Lymphocyte % 30.6 % (19-41); Mean Corp Hgb Conc 31.5 g/dL (32-36); Mean Corpuscular Hgb 31.1 pg (27.0-32.0); Mean Corpuscular Volume 98.6 fL (81-99); Mean Platelet Vol. 10.3 fl (6.2-12.0); Monocyte% 8.2 % (0-10); NRBC Flagged by Analyzer 0 % (0-5); Neutrophil # 4.14 X10^3/uL (2.7-7.7); Neutrophil % 56.5 % (47-70); Platelet Count 463 K/mm3 (150-450); RBC Distribution Width CV 13.6 % (11.6-14.6); RBC Distribution Width SD 49.8 fl (35.1-43.9); Red Blood Count 5.02 M/mm3 (4.2-5.4); White Blood Count 7.3 K/mm3 (4.4-11.0)
[2021-01-01 12:44] LABS: Cholesterol 270 mg/dL (200); High Density Lipoprotein 65 mg/dL; Triglycerides 151 mg/dL
[2021-01-01 12:45] LABS: Very Low Density Lipoprotein 30 mg/dL (5-40)
== END ==
PROVIDERS: PCP Internal Medicine; Referring Provider Nurse Practitioner Family; Visit Provider Nurse Practitioner Family
DX: J44.9 Chronic obstructive pulmonary disease, unspecified (principal); I63.9 Cerebral infarction, unspecified; E03.9 Hypothyroidism, unspecified
CPT/HCPCS: 36415; 80061; 84443; 85025

== ENCOUNTER → 2021-04-04 16:33 | Outpatient (CLI) | payer MEDICARE, MEDICAID, SELFPAY ==
[2021-04-04 17:23] LABS: Thyroid Stim Hormone (TSH) 1.33 uIU/mL (0.358-3.74)
== END ==
PROVIDERS: PCP Internal Medicine; Referring Provider Physician Assistant; Visit Provider Physician Assistant
DX: E03.9 Hypothyroidism, unspecified (principal)
CPT/HCPCS: 84443

== ENCOUNTER → 2021-04-24 16:56 | Outpatient (CLI) | payer MEDICARE, MEDICAID, SELFPAY ==
--- NOTE | 2021-04-24 16:57 | MRI_ITS ---
EXAM: MR HEAD WITHOUT AND WITH INTRAVENOUS CONTRAST CLINICAL INDICATION: migraine headache TECHNIQUE: Multiplanar and multisequence MR images of the brain were obtained without and with intravenous contrast. This report was created using [employer] report [employer] technology. CONTRAST: IV 10 cc dotarem COMPARISON: CT head 10/20/2019. FINDINGS: BRAIN AND EXTRA-AXIAL SPACES: Old right frontal lobe infarct. Chronic microvascular ischemic changes. No intra- or extra-axial hemorrhage. No intracranial mass or mass effect. Posterior fossa structures are unremarkable. Ventricles are appropriate for age. No hydrocephalus. Basal cisterns are patent. SELLA: Unremarkable. Normal sella turcica, pituitary gland, infundibular stalk, optic chiasm and hypothalamus. AUDITORY SYSTEM: Unremarkable. The internal auditory canals are patent. BONES/JOINTS: Unremarkable. No discrete lytic or blastic abnormalities. SINUSES: Unremarkable as visualized. Clear. MASTOID AIR CELLS: Unremarkable as visualized. Clear. ORBITS: Unremarkable as visualized. Both globes, extraocular muscles, optic nerves and retrobulbar fat appear unremarkable. VASCULATURE: Unremarkable as visualized. Normal flow voids in the major intracranial circulation. OTHER FINDINGS: There are no enhancing lesions. MRI/Brain W/WO Contrast IMPRESSION: No acute findings in the head/brain. Electronically Signed: Kulwinder Harrison MD at 18:39 EST , Service support ,
[2021-04-24 17:41] LABS: CREATININE FINGERSTICK 0.6 mg/dL (0.55-1.02); EGFR FINGERSTICK > 60.0000 mL/min (>60)
== END ==
PROVIDERS: PCP Internal Medicine; Referring Provider Physician Assistant; Visit Provider Physician Assistant
DX: G43.909 Migraine, unspecified, not intractable, without status migrainosus (principal)
CPT/HCPCS: 70553; A9575

== ENCOUNTER → 2021-05-20 12:11 | Outpatient (CLI) | payer MEDICARE, MEDICAID, SELFPAY ==
--- NOTE | 2021-05-20 12:15 | CT_ITS ---
STUDY: LOW DOSE CT LUNG CANCER SCREENING REASON FOR EXAM: Female, 71 years old. Lung cancer screening -- and gt;100 pk yr hx; current smoker; asymptomatic RADIATION DOSAGE (If Supplied By Facility): CTDIvol = ( 2.01 ) mGy, DLP = ( 62.18 ) mGycm TECHNIQUE: No contrast was administered. Low dose technique was utilized (average mAS-38 and kVp 120). 1.25 mm axial source images with a slice interval of 1.25-mm were reconstructed in lung windows. 2.5 mm axial source images with a slice interval of 2.5-mm were reconstructed in lung windows. 5.0 mm axial source images with a slice interval of 5.0-mm were reconstructed in soft tissue windows. Nodule measured using lung windows on PACS and/or independent workstation with automated measurement of minimum and maximum diameter. Nodule measurement reported as average diameter rounded to the nearest whole number. Growth is defined as an increase ins size of greater than 1.5 mm. COMPARISON: Comparison is made with prior examination dated 11/20/2019. NODULES: No suspicious nodules are seen. Emphysema: Emphysematous changes. Stable scarring at the lung apices. Calcified granuloma in the lateral posterior aspect of the right lower lobe as seen on axial image #92. Minimal increased markings in the right middle lobe and lingular segment of the left upper lobe suggestive of a mild degree of scarring and minimal bronchiectasis. Endobronchial lesion: None Aorta: Mild atherosclerotic plaque formation of the aortic arch. Coronary arteries: Coronary artery calcification. Mediastinal nodes: Small mediastinal lymph nodes. Other chest and abdominal findings: Large hiatal hernia. CT/Low Dose CT Lung Screening IMPRESSION: Lung-RADS category 2 - Continue annual screening with LDCT in 12 months. IMPORTANT NOTES FOR USE: ACR Lung-RADS Version 1.1 Assessment Categories Release Date: 2018 Category: Coded 0-4 bases on nodule(s) with highest degree of suspicion. Negative screen is defined as categories 1 and 2; a positive screen is defined as categories 3 and 4. Category 3 and 4A nodules that are unchanged on interval CT should be coded as category 2, and individuals returned to screening in 12 months. Category 4X: Category 3 or 4 nodules with additional imaging findings that increase the suspicion of lung cancer, such as spiculation, GGN that doubles in size in 1 year, enlarged lymph notes, etc. Category Modifiers: S (significant finding unrelated to lung cancer) Electronically Signed: Edgar Hirsch MD at 15:35 EST , Service support ,
== END ==
PROVIDERS: PCP Internal Medicine; Referring Provider Nurse Practitioner Family; Visit Provider Nurse Practitioner Family
DX: Z87.891 Personal history of nicotine dependence (principal); Z12.2 Encounter for screening for malignant neoplasm of respiratory organs
CPT/HCPCS: 71271

== ENCOUNTER 2021-07-07 08:58 | Emergency (ER) | payer MEDICARE, MEDICAID, SELFPAY ==
[2021-07-07] VITALS (7 sets, daily range): BP systolic 116–143; BP diastolic 54–83; PULSE 91–130; RESP 19–34; TEMP 36.2; O2SAT 91–95
--- NOTE | 2021-07-07 09:39 | EKG12_ITS ---
Test Reason : SOB Blood Pressure : / mmHG Vent. Rate : 102 BPM Atrial Rate : 102 BPM P-R Int : 162 ms QRS Dur : 072 ms QT Int : 360 ms P-R-T Axes : 084 004 077 degrees QTc Int : 469 ms Sinus tachycardia Otherwise normal ECG Confirmed by RONAL YU, OMARI ([id number]), society editor KAYLEE NEWSOME ([id number]) on 07/08/2021 9:54:45 AM Referred By: Confirmed By:OMARI VILLEDA MD
--- NOTE | 2021-07-07 09:39 | RAD_ITS ---
STUDY: X-RAY CHEST REASON FOR EXAM: Female, 71 years old. Cough TECHNIQUE: Single AP portable view of the chest. COMPARISON: Comparison is made with prior study dated 10/20/2019. FINDINGS: EKG electrodes are seen. Hyperinflation. Mild increased markings at the left lung base suggestive of a early left basilar infiltrate. There is no demonstrated pleural abnormality. Normal size heart. Normal mediastinum and gaudencio. Normal visualized pulmonary arteries. There is atherosclerotic tortuosity of the aortic arch and descending thoracic aorta. There are degenerative changes of the visualized thoracic spine. Normal visualized ribs, clavicles, and shoulders. Moderate sized hiatal hernia. RAD/Chest 1 View (Portable) IMPRESSION: Hyperinflation. Mild increased markings at the left lung base suggestive of early left basilar infiltrate. Moderate sized hiatal hernia. Electronically Signed: Edgar Hirsch MD at 10:43 EST , Service support ,
--- NOTE | 2021-07-07 09:40 | ED.VIS.DYS ---
HPI History of Present Illness Chief Complaint: Shortness of Breath Informant: patient and family Narrative Narrative: 71-year-old male presents to the emergency room with COVID-19 concerns. She is accompanied by her daughter who provides most of the history due to the patient's dementia. They tell me that she had a sore throat last week and tested negative on Wednesday for COVID-19. She seemed fine yesterday and when she the daughter checked on her this morning her lips were blue her heart rate was in the 130s and her pulse ox was in the 80s. She does not wear home oxygen. She does have a significant history of prior stroke and COPD. She currently sees Dr. Tam for pulmonology. Patient denies any change in cough or sputum production. No reported fevers. Currently she is 95% on room air [facility] Medical History Acute pharyngitis Asthma Black tarry stools Blood clots in brain COPD (chronic obstructive pulmonary disease) CVA (cerebral vascular accident) Dementia Depression Encounter for screening for malignant neoplasm of lung in current smoker with 30 pack year history or greater Gout Left wrist pain Mixed stress and urge urinary incontinence Tobacco abuse counseling Home Medications rosuvastatin 10 mg PO DAILY 10/20/19 [History Last Taken 10/19/19] lorazepam 0.5 mg tablet 0.5 mg PO BID PRN #3 tab 11/11/19 [Rx Last Taken Unknown] diaper,brief,adult,disposable #100 ea 11/23/19 [Rx Last Taken Unknown] underpads #150 ea 02/08/20 [Rx Last Taken Unknown] albuterol sulfate 90 mcg/actuation aerosol inhaler 2 puff INHALATION Q4H PRN #3 ea 04/01/20 [Rx Last Taken Unknown] fluticasone furoate 200 mcg/actuation blister powder for inhalation 1 inh INHALATION QDAY #30 ea 04/04/20 [Rx Last Taken Unknown] umeclidinium 62.5 mcg-vilanterol 25 mcg/actuation powdr for inhalation 1 inh INHALATION QDAY #60 ea 04/04/20 [Rx Last Taken Unknown] cyanocobalamin (vitamin B-12) 1,000 mcg/mL injection solution 1,000 mcg IM QMONTH #1 ml 10/17/20 [Rx Last Taken Unknown] syringe with needle 3 mL 25 gauge x 1 #1 ea 10/23/20 [Rx Last Taken Unknown] melatonin 5 mg tablet 5 - 10 mg PO HS PRN #180 tab 01/01/21 [Rx Last Taken Unknown] venlafaxine 75 mg capsule,extended release 24 hr 75 mg PO QAM #90 cap 01/29/21 [Rx Last Taken Unknown] aspirin 81 mg tablet,delayed release 81 mg PO DAILY@0800 #90 tab 03/28/21 [Rx Last Taken Unknown] nicotine 21 mg/24 hr daily transdermal patch 1 patch TRANSDERMAL DAILY #28 ea 04/04/21 [Rx Last Taken Unknown] ferrous sulfate 325 mg (65 mg iron) tablet 325 mg PO BIDCM #60 tab 05/23/21 [Rx Last Taken Unknown] levothyroxine 75 mcg tablet 75 mcg PO DAILY #30 tab 05/23/21 [Rx Last Taken Unknown] pantoprazole 40 mg tablet,delayed release 40 mg PO BID #60 tab 05/23/21 [Rx Last Taken Unknown] fluticasone fur. 100 mcg-umeclid 62.5 mcg-vilant 25 mcg inhalat.powder 1 inh INHALATION DAILY #60 ea 05/26/21 [Rx Last Taken Unknown] albuterol sulfate 90 mcg/actuation aerosol inhaler 2 puff INHALATION Q4H PRN #8.5 g 05/30/21 [Rx Last Taken Unknown] acetaminophen 500 mg tablet 500 mg PO BID PRN PRN #60 tab 06/20/21 [Rx Last Taken Unknown] dexamethasone 6 mg PO DAILY #7 tab 07/07/21 [Rx Last Taken Unknown] Allergy/AdvReac Type Severity Reaction Status Date / Time Penicillins Allergy Hives Verified 07/07/21 09:01 Family History Sister Lung cancer unconfirmed diagnosis, waiting on biopsy results Brother Myocardial infarction, Onset Age: 43 Mother Pacemaker Surgical History H/O bladder repair surgery History of arthroscopic knee surgery History of carotid endarterectomy History of hysterectomy History of tonsillectomy Social History Smoking Status: Current every day smoker tobacco type: cigarettes Tobacco: How many years used: 60 Electronic Cigarette Use: not used second hand exposure: Yes quit status: considering quitting counseling given: provider counseling alcohol intake: never substance use type: does not use what type of physical activity do you participate in: none seatbelt use: always do you feel safe at home: Yes ROS ROS ED Constitutional Constitutional ED: Denies chills, fever(s) or weight loss Eyes Eyes: Denies change in vision or diplopia ENT ENT ED: Reports sore throat; Denies ear pain or rhinorrhea Cardiovascular Cardiovascular: Reports racing heartbeat; Denies chest pain, orthopnea or palpitations Respiratory/Chest Respiratory/Chest: Reports cough, dyspnea and dyspnea on exertion; Denies orthopnea Gastrointestinal Gastrointestinal: Denies abdominal pain, diarrhea, nausea or vomiting Genitourinary Genitourinary ED: Denies dysuria, hematuria or urinary frequency Musculoskeletal Musculoskeletal: Denies arthralgias or myalgias Integumentary Denies abscess or rash Neurologic Neurologic: Denies headache(s) or weakness Psychiatric Psychiatric: Denies anxiety, depression, suicidal ideation or suicidal thoughts Endocrine Endocrinology: Denies polydipsia, polyphagia or polyuria Allergic/Immunologic Allergic/Immunologic ED: Denies mouth swelling, tongue swelling or urticaria EXAM Physical Exam Const Vital Signs: 07/07/21 08:58 07/07/21 09:22 07/07/21 09:42 Temperature 97.1 F L Temperature Source Temporal Pulse Rate 130 H Respiratory Rate 34 H Respiratory Effort Short of Breath Respiratory Depth Normal Respiratory Pattern Tachypnea Blood Pressure 118/83 H Blood Pressure Mean 94 Pulse Ox 91 Oxygen Delivery Method Room Air Nasal Cannula Nasal Cannula Oxygen Flow Rate (L/min) 1 07/07/21 10:12 07/07/21 11:07 07/07/21 12:04 Temperature Temperature Source Pulse Rate 91 97 105 H Respiratory Rate 20 H 19 H 22 H Respiratory Effort Respiratory Depth Respiratory Pattern Blood Pressure 124/73 H 143/67 H 116/54 L Blood Pressure Mean 90 92 74 Pulse Ox 91 91 92 Oxygen Delivery Method Room Air Room Air Room Air Oxygen Flow Rate (L/min) Positive well nourished and well developed General Appearance ED: well developed HEENT Reports normocephalic, head/scalp atraumatic, TM's clear and moist mucous membranes atraumatic Tympanic Membrane ED: Yes TM's clear Eyes PERRL and EOMs intact bilaterally Neck no lymphadenopathy, supple and no JVD Resp normal respiratory effort Auscultation: rhonchi lower bilaterally and wheezes expiratory wheezes (Mild expiratory wheezes bilaterally) Cardio regular rhythm and no murmurs Rate: tachycardic GI normal to inspection, nondistended, normoactive bowel sounds and non-tender Palpation: soft Back/Spine no CVA tenderness and normal ROM Extremity normal to inspection General Extremety ED: Negative for edema General Extremity: Negative for edema Neuro oriented x3 and CN's II-XII intact bilaterally Sensorium / Orientation: alert Motor Exam: strength 5/5 throughout Psych mental status grossly normal Mood & Affect: Negative for depressed or tearful Skin no rashes or lesions noted and no wounds MDM MDM MDM Narrative Medical decision making narrative: Basic blood work was reassuring. CTA of the chest negative for pulmonary embolism. My interpretation of the chest x-ray is a early infiltrate in the left lower lung. Patient ambulated without hypoxemia. She is currently resting 92% on room air. I spoke with her division controller Dr. Tam will be starting her on Decadron refer him to monoclonal antibody treatments. I did inform them that there was a high likelihood that she may require admission in the upcoming days but at this time she does not meet inpatient criteria. Lab Data Attestation: I reviewed the patient's lab results. Labs: Laboratory Results - last 24 hr 07/07/21 07/07/21 07/07/21 09:19 09:19 09:19 WBC 9.4 RBC 4.92 Hgb 15.0 Hct 46.6 MCV 94.7 MCH 30.5 MCHC 32.2 RDW Std Deviation 49.3 H RDW Coeff of Ramón 14.0 Plt Count 303 MPV 10.5 Immature Gran % (Auto) 0.400 Neut % (Auto) 80.4 H Lymph % (Auto) 13.4 L Culberson % (Auto) 5.3 Eos % (Auto) 0.3 Baso % (Auto) 0.2 Absolute Neuts (auto) 7.5 Absolute Lymphs (auto) 1.26 Nucleated RBC % 0 D-Dimer Quant (PE/DVT) 0.45 Sodium 139 Potassium 3.4 L Chloride 106 Carbon Dioxide 26.0 Anion Gap 7 BUN 11 Creatinine 0.57 Estim Creat Clear Calc 42.60 Est GFR (MDRD) Af Amer 133 Est GFR (MDRD) Non-Af 110 BUN/Creatinine Ratio 19.2 Glucose 108 H Lactic Acid Calcium 8.6 Total Bilirubin 0.50 AST 16 ALT 25 Alkaline Phosphatase 134 H Troponin I High Sens 11 B-Natriuretic Peptide Total Protein 7.4 Albumin 3.4 Globulin 4.0 Albumin/Globulin Ratio 0.8 L 07/07/21 07/07/21 09:19 09:19 WBC RBC Hgb Hct MCV MCH MCHC RDW Std Deviation RDW Coeff of Ramón Plt Count MPV Immature Gran % (Auto) Neut % (Auto) Lymph % (Auto) Culberson % (Auto) Eos % (Auto) Baso % (Auto) Absolute Neuts (auto) Absolute Lymphs (auto) Nucleated RBC % D-Dimer Quant (PE/DVT) Sodium Potassium Chloride Carbon Dioxide Anion Gap BUN Creatinine Estim Creat Clear Calc Est GFR (MDRD) Af Amer Est GFR (MDRD) Non-Af BUN/Creatinine Ratio Glucose Lactic Acid 1.0 Calcium Total Bilirubin AST ALT Alkaline Phosphatase Troponin I High Sens B-Natriuretic Peptide 51.2 Total Protein Albumin Globulin Albumin/Globulin Ratio Radiography Diagnostic Testing: Clinical Impression(s) from Imaging Studies Chest X-Ray 07/07/21 09:39 IMPRESSION: Hyperinflation. Mild increased markings at the left lung base suggestive of early left basilar infiltrate. Moderate sized hiatal hernia. Electronically Signed: Edgar Hirsch MD at 10:43 EST , Service support , Chest CTA 07/07/21 10:25 IMPRESSION: New 1.3 cm x 1.3 cm heterogeneous nodular density in the peripheral lateral aspect of the left lower lobe. This may represent an early infiltrate. Radiographic follow-up is recommended. Electronically Signed: Edgar Hirsch MD at 11:10 EST , Service support , EKG Initial EKG: Attestation: I personally reviewed and interpreted this EKG as follows: Comments: Sinus tachycardia with a ventricular rate of 102 bpm Discharge Plan Triage Chief Complaint: Shortness of Breath ED Provider: Dave Esteban Dx/Rx/DC Orders Clinical Impression: COVID-19, COPD (chronic obstructive pulmonary disease), Pneumonia due to COVID-19 virus Instructions: Coronavirus Disease 2019 (COVID-19): Caring for Yourself or Others, COVID-19: Lying in a Prone Position (Proning), ED - COVID Monoclonal AB Infusion ... Prescriptions: New dexamethasone 6 MG tablet 6 mg PO DAILY Qty: 7 RF: 0 No Action (DME) Disposable Brief Misc See Rx Instructions .ROUTE .MEDSUPPLY Qty: 100 RF: 12 lorazepam [Ativan] 0.5 mg tablet 0.5 mg PO BID PRN (Reason: anxiety) Qty: 3 RF: 0 albuterol sulfate 90 mcg/actuation HFA aerosol inhaler 2 puff inhalation Q4H PRN (Reason: shortness of breath or wheezing) Qty: 3 RF: 3 melatonin 5 mg tablet 5 - 10 mg PO HS PRN (Reason: sleep) Qty: 180 RF: 1 nicotine 21 mg/24 hr patch 24 hour 1 patch transdermal DAILY Qty: 28 RF: 2 rosuvastatin 10 MG tablet 10 mg PO DAILY RF: 0 (DME) underpads [Bed Underpads] Pad See Rx Instructions .ROUTE .MEDSUPPLY Qty: 150 RF: 12 Anoro Ellipta 62.5-25 mcg/actuation blister with device 1 inh INHALATION QDAY Qty: 60 RF: 3 Arnuity Ellipta 200 mcg/actuation blister with device 1 inh INHALATION QDAY Qty: 30 RF: 6 cyanocobalamin (vitamin B-12) 1,000 mcg/mL solution 1,000 mcg IM QMONTH Qty: 1 RF: 6 (DME) syringe with needle 3 mL 25 gauge x 1 syringe See Rx Instructions .ROUTE .MEDSUPPLY Qty: 1 RF: 6 venlafaxine 75 mg capsule,extended release 24hr 75 mg PO QAM Qty: 90 RF: 3 aspirin 81 mg tablet,delayed release (DR/EC) 81 mg PO DAILY@0800 Qty: 90 RF: 1 ferrous sulfate 325 mg (65 mg iron) tablet 325 mg PO BIDCM Qty: 60 RF: 3 levothyroxine 75 mcg tablet 75 mcg PO DAILY Qty: 30 RF: 3 pantoprazole 40 mg tablet,delayed release (DR/EC) 40 mg PO BID Qty: 60 RF: 3 Trelegy Ellipta 100-62.5-25 mcg blister with device 1 inh inhalation DAILY Qty: 60 RF: 0 albuterol sulfate [Ventolin HFA] 90 mcg/actuation HFA aerosol inhaler 2 puff inhalation Q4H PRN (Reason: shortness of breath or wheezing) Qty: 8.5 RF: 6 acetaminophen 500 mg tablet 500 mg PO BID PRN PRN (Reason: PAIN AND FEVER) Qty: 60 RF: 1 Primary Care Provider: Rosalie Alejandro Referrals: Rosalie Alejandro MD [Primary Care Provider] - As Needed Activity Restrictions/Additional Instructions: You have been referred for monoclonal antibody treatments. It would be good to do a breathing treatment every 3-4 hours if you are not already doing this Disposition Disposition: Home, Self Care
[2021-07-07 09:49] LABS: Absolute Lymphocyte Count 1.26 X10^3/uL (0.83-4.51); Absolute Neutrophil Count 7.5 X10^3/uL (2.0-7.7); Basophil# 0.02 X10^3/uL; Basophil% 0.2 % (0-1); Eosinophil# 0.03 X10^3/uL; Eosinophils% 0.3 % (0-5); Hematocrit 46.6 % (37-47); Lymphocyte # 1.26 X10^3/ul (0.83-4.51); Lymphocyte % 13.4 % (19-41); Mean Corp Hgb Conc 32.2 g/dL (32-36); Mean Corpuscular Hgb 30.5 pg (27.0-32.0); Mean Corpuscular Volume 94.7 fL (81-99); Mean Platelet Vol. 10.5 fl (6.2-12.0); Monocyte% 5.3 % (0-10); NRBC Flagged by Analyzer 0 % (0-5); Neutrophil # 7.54 X10^3/uL (2.7-7.7); Neutrophil % 80.4 % (47-70); Platelet Count 303 K/mm3 (150-450); RBC Distribution Width SD 49.3 fl (35.1-43.9); Red Blood Count 4.92 M/mm3 (4.2-5.4); White Blood Count 9.4 K/mm3 (4.4-11.0)
[2021-07-07 09:56] LABS: D-Dimer Quantitative (DVT/PE) 0.45 FEU/ug/m (0.27-0.49)
[2021-07-07 10:05] LABS: ALB/GLOB Ratio 0.8 RATIO (0.9-2.4); AST(SGOT) 16 U/L (15-37); Alanine Aminotransfer ALT/SGPT 25 U/L (13-56); Albumin, Serum 3.4 g/dL (3.2-5.0); Alkaline Phosphatase 134 U/L (45-117); Anion Gap 7 (5-15); BUN 11 mg/dL (7-18); BUN/Creat Ratio 19.2 RATIO (10-20); Calcium,Total 8.6 mg/dL (8.5-10.1); Chloride 106 mmol/L (98-107); Creatinine, Serum 0.57 mg/dL (0.55-1.02); EST Glomerular Filtration Rate 110 mL/min (>60); Est Glom Filt Rate - Afr Amer 133 mL/min (>60); Glucose 108 mg/dL (74-106); Potassium 3.4 mmol/L (3.5-5.1); Protein, Total 7.4 g/dL (6.4-8.2); Sodium Level 139 mmol/L (136-145); Troponin-I HS 11 pg/mL (3.0-54.0)
[2021-07-07 10:21] LABS: BNP,B-Type NATRIURETIC PEPTIDE 51.2 pg/mL (0-100)
--- NOTE | 2021-07-07 10:25 | CT_ITS ---
STUDY: CTA CHEST REASON FOR EXAM: Female, 71 years old. covid 19 pulmonary embolism. Shortness of breath. RADIATION DOSAGE (If Supplied By Facility): CTDIvol = ( 4.34 ) mGy, DLP = ( 125.72 ) mGycm TECHNIQUE: The examination was performed with the intravenous administration of IV 100mL Isovue-370. Post-processing of the angiographic images was performed, with multiplanar reformation and 3D reconstruction. Individualized dose optimization techniques were used for this CT. COMPARISON: Comparison is made with prior CT scan of the chest dated 05/20/2021 and chest radiograph done earlier in the day. FINDINGS: Normal enhancement of the main pulmonary artery and right and left pulmonary arteries. Normal enhancement of the bilateral peripheral pulmonary arteries. There is no demonstrated pulmonary embolism. There is atherosclerotic calcification of the aortic arch with tortuosity. There is no demonstrated aortic dissection. Normal heart and pericardium. Normal mediastinum. Normal hilar regions. Normal visualized trachea and bronchi. Hyperinflation. Hyperinflation with the emphysematous changes more prominent in the upper lobes. There is a new 1.3 cm x 1.3 cm heterogeneous nodular density in the peripheral lateral aspect of the left lower lobe. This may represent early left basilar infiltrate. Radiographic follow-up is recommended. Stable calcified granuloma in the lateral posterior aspect of the right lower lobe. Normal pleura. Normal chest wall structures. There are degenerative changes of thoracic spine. Moderate sized hiatal hernia. CT/CTA Chest W/WO Contrast IMPRESSION: New 1.3 cm x 1.3 cm heterogeneous nodular density in the peripheral lateral aspect of the left lower lobe. This may represent an early infiltrate. Radiographic follow-up is recommended. Electronically Signed: Edgar Hirsch MD at 11:10 EST , Service support ,
--- NOTE | 2021-07-09 10:50 | CASEMGMT ---
Addendum entered by Marla Tan 07/09/21 11:29: 1125: Return call received from patient's granddaughter Carole Braden. Granddaughter reports patient continues to c/o fatigue and worn out Reports HR 77-91 and SpO2 92-96% on room air. Granddaughter states patient has decreased appetite but continues to drink fluids. Patient c/o some nausea without vomiting. Patient is scheduled for monoclonal antibody infusion tomorrow at 2:30 p.m. Patient's granddaughter inquires about normal SpO2 level and HR and teaching provided. Granddaughter instructed on red flag signs to monitor for. Granddaughter deny further questions of concerns. ASHVIN Saldivar CM Original Note: ASHVIN GALAN ED follow-up: ASHVIN GALAN placed call to patient's telephone number listed on demographics with no answer. VM left with call back information, requesting return call if any needs, questions or concerns. ASHVIN Saldivar CM
== END 2021-07-07 12:59 | disposition home or self-care (01) ==
PROVIDERS: Emergency Provider Emergency Medicine; PCP Internal Medicine; Visit Provider Emergency Medicine
DX: U07.1 COVID-19 (principal); F03.90 Unspecified dementia, unspecified severity, without behavioral disturbance, psychotic disturbance, mood disturbance, and anxiety; J44.0 Chronic obstructive pulmonary disease with (acute) lower respiratory infection; J12.82 Pneumonia due to coronavirus disease 2019; M10.9 Gout, unspecified; F17.210 Nicotine dependence, cigarettes, uncomplicated; F32.A Depression, unspecified; Z79.82 Long term (current) use of aspirin; Z79.899 Other long term (current) drug therapy; Z86.73 Personal history of transient ischemic attack (TIA), and cerebral infarction without residual deficits
CPT/HCPCS: 36415; 71045; 71275; 80053; 83605; 83880; 84484; 85025; 85379; 87040; 87426; 93005; 99283; Q9967; A4216

== ENCOUNTER 2021-07-10 14:15 | Outpatient (CLI) | payer MEDICARE, MEDICAID, SELFPAY ==
[2021-07-10 14:31] VITALS: BP 133/93; PULSE 96; RESP 18; TEMP 36.5; O2SAT 93; BMI 23.2
[2021-07-10] MEDS: 0.9% Saline Lock 10 ML Syringe IV (14:36)
[2021-07-10 15:02] VITALS: BP 112/62; PULSE 84; RESP 18; TEMP 37; O2SAT 94
[2021-07-10 15:56] VITALS: BP 119/60; PULSE 85; RESP 18; TEMP 36.8; O2SAT 95
== END 2021-07-10 23:59 | disposition home or self-care (01) ==
LOC: MS3OUT 14:15 → MS3 14:15
PROVIDERS: PCP Internal Medicine; Referring Provider Emergency Medicine; Visit Provider Emergency Medicine
DX: Z23 Encounter for immunization (principal); U07.1 COVID-19
CPT/HCPCS: J7050; M0247; A4216; Q0247

== ENCOUNTER 2021-08-22 15:00 | Outpatient (CLI) | payer MEDICARE, MEDICAID, SELFPAY ==
--- NOTE | 2021-08-22 15:06 | CT_ITS ---
HISTORY: Lung nodule follow-up. TECHNIQUE: Helically acquired images were obtained of the chest without contrast. A radiation dose optimization technique was used for this scan. # of images incl. paperwork: [id number]. COMPARISON: CTA 07/07/2021, CT 05/20/2021. FINDINGS: LARGE AIRWAYS: Clear. LUNGS: Emphysema and scarring with chronic mild bronchiectasis and bronchial wall thickening. New irregular 1 cm right upper lobe opacity posteriorly. New mild groundglass opacity in the right middle lobe anteriorly. Chronic postinflammatory changes and calcified granulomas in the right lower lobe. Resolution of previously described 1.3 cm left lower lobe opacity. Calcified left upper lobe granuloma. Chronic post inflammatory changes in the left lower lobe. PLEURA: No pleural effusion. HEART AND PERICARDIUM: Heart within normal limits in size. No pericardial effusion. Coronary artery calcifications seen. VESSELS: Thoracic aorta nondilated. MEDIASTINUM AND STEFF: Borderline-enlarged mediastinal lymph nodes. UPPER ABDOMEN: Large hiatal hernia. BONES: Degenerative change. CT/Chest without Contrast IMPRESSION: New mild irregular right upper and groundglass middle lobe opacities, likely inflammatory or infectious. Recommend follow-up to resolution. Resolution of previously described left lower lobe opacity. Emphysema, scarring, and post inflammatory changes in the lungs. Large hiatal hernia. Individualized dose optimization techniques were used for this CT. at 1542 Reported and signed by: Leslie Larios MD Electronically Signed: Leslie Larios MD at 15:41 EST ,
== END 2021-08-22 23:59 | disposition home or self-care (01) ==
PROVIDERS: PCP Internal Medicine; Visit Provider Internal Medicine Critical Care Medicine
DX: R91.1 Solitary pulmonary nodule (principal)
CPT/HCPCS: 71250

== ENCOUNTER 2021-09-03 12:35 | Outpatient (CLI) | payer MEDICARE, MEDICAID, SELFPAY ==
[2021-09-03 13:19] VITALS: PULSE 104; PULSE 105; PULSE 107; PULSE 110; PULSE 83; PULSE 95; PULSE 96; O2SAT 94; O2SAT 95; O2SAT 96
--- NOTE | 2021-09-04 07:39 | PCM.PSN.6M ---
PSN 6 Minute Walk Test 6 Minute Walk Test 6 Minute Walk Test: 6 Minute Walk Test PSN:6-Minute Walk Test Start: 09/03/21 13:16 Freq: Status: Active Protocol: [id number] Document 09/03/21 13:19 EW (Rec: 09/03/21 13:24 EW [id number]) 6 Minute Walk Test Date Performed 09/03/21 Time Performed 12:30 Height 5 ft 2 in Weight: 54.885 kg Weight in Pounds 121.[address]: Ronald Tam Pre-test Oxygen Delivery Method Room Air Pulse Ox (%) 96 Pulse Rate (60-100 beats/min) 83 Dyspnea Burak Scale (0-10) 1 Exertion Burak Scale (6-20) 6 1st minute Oxygen Delivery Method Room Air Pulse Ox (%) 95 Pulse Rate (60-100 beats/min) 96 2nd minute Oxygen Delivery Method Room Air Pulse Ox (%) 96 Pulse Rate (60-100 beats/min) 105 H 3rd minute Oxygen Delivery Method Room Air Pulse Ox (%) 94 Pulse Rate (60-100 beats/min) 107 H 4th minute Oxygen Delivery Method Room Air Pulse Ox (%) 96 Pulse Rate (60-100 beats/min) 110 H 5th minute Oxygen Delivery Method Room Air Pulse Ox (%) 95 Pulse Rate (60-100 beats/min) 95 6th minute Oxygen Delivery Method Room Air Pulse Ox (%) 95 Pulse Rate (60-100 beats/min) 104 H Post-test Oxygen Delivery Method Room Air Pulse Ox (%) 96 Pulse Rate (60-100 beats/min) 107 H Dyspnea Burak Scale (0-10) 4 Exertion Burak Scale (6-20) 16 Full Laps Walked 6 Partial Lap, Number of Tiles Walked 0 Total Distance Walked (ft) 354 Interpretation Interpretation: The patient ambulated 354 feet over the course of 6 minutes beginning on room air without assistive devices. Pretesting oxygen saturation was noted to be 96% on room air. With ambulation, the lisa oxygen saturation was 94%. Although there was evidence of impaired walk distance, there was no significant exertional oxygen desaturation. Recommendations Recommendations: There is no indication for the use of supplemental oxygen at this time.
== END 2021-09-03 23:59 | disposition home or self-care (01) ==
LOC: PSN 12:36
PROVIDERS: PCP Internal Medicine; Referring Provider Internal Medicine Critical Care Medicine; Visit Provider Internal Medicine Critical Care Medicine
DX: J44.9 Chronic obstructive pulmonary disease, unspecified (principal)
CPT/HCPCS: 94618

== ENCOUNTER → 2022-04-24 | Outpatient (CLI) | payer MEDICARE, MEDICAID, SELFPAY ==
[2022-04-24 11:50] LABS: Absolute Lymphocyte Count 1.84 X10^3/uL (0.83-4.51); Absolute Neutrophil Count 2.3 X10^3/uL (2.0-7.7); Basophil# 0.04 X10^3/uL; Basophil% 0.8 % (0-1); Eosinophils% 4.1 % (0-5); Hematocrit 49.9 % (37-47); Hemoglobin 16.1 g/dL (12.0-15.0); Lymphocyte # 1.84 X10^3/ul (0.83-4.51); Lymphocyte % 38.2 % (19-41); Mean Corp Hgb Conc 32.3 g/dL (32-36); Mean Corpuscular Hgb 32.4 pg (27.0-32.0); Mean Corpuscular Volume 100.4 fL (81-99); Mean Platelet Vol. 11.1 fl (6.2-12.0); Monocyte# 0.42 X10^3/uL; Monocyte% 8.7 % (0-10); NRBC Flagged by Analyzer 0 % (0-5); Neutrophil # 2.31 X10^3/uL (2.7-7.7); Platelet Count 318 K/mm3 (150-450); RBC Distribution Width CV 13.1 % (11.6-14.6); RBC Distribution Width SD 48.6 fl (35.1-43.9); Red Blood Count 4.97 M/mm3 (4.2-5.4); White Blood Count 4.8 K/mm3 (4.4-11.0)
[2022-04-24 12:32] LABS: AST(SGOT) 16 U/L (15-37); Alanine Aminotransfer ALT/SGPT 19 U/L (13-56); Albumin, Serum 3.6 g/dL (3.2-5.0); Alkaline Phosphatase 100 U/L (45-117); Anion Gap 6 (5-15); BUN 16 mg/dL (7-18); BUN/Creat Ratio 21.7 RATIO (10-20); Calcium,Total 9.9 mg/dL (8.5-10.1); Chloride 107 mmol/L (98-107); Cholesterol 265 mg/dL (200); Creatinine, Serum 0.74 mg/dL (0.55-1.02); EST Glomerular Filtration Rate 82 mL/min (>60); Est Glom Filt Rate - Afr Amer 99 mL/min (>60); Globulin 3.5 g/dL (2.2-4.2); Glucose 94 mg/dL (74-106); High Density Lipoprotein 59 mg/dL; Potassium 4.8 mmol/L (3.5-5.1); Protein, Total 7.1 g/dL (6.4-8.2); Sodium Level 141 mmol/L (136-145); Triglycerides 154 mg/dL; Very Low Density Lipoprotein 31 mg/dL (5-40)
== END | disposition home or self-care (01) ==
LOC: BIMLAB 08:47
PROVIDERS: PCP Internal Medicine; Referring Provider Physician Assistant; Visit Provider Physician Assistant
DX: Z00.00 Encounter for general adult medical examination without abnormal findings (principal); J44.9 Chronic obstructive pulmonary disease, unspecified; I10 Essential (primary) hypertension; F41.8 Other specified anxiety disorders; E03.9 Hypothyroidism, unspecified
CPT/HCPCS: 36415; 80053; 80061; 84443; 85025

== ENCOUNTER 2022-08-30 21:04 | Emergency (ER) | payer MEDICARE, MEDICAID, SELFPAY ==
[2022-08-30 21:05] VITALS: BP 142/82; PULSE 85; RESP 16; TEMP 36.4; O2SAT 99
[2022-08-30 21:07] VITALS: BMI 22.8
--- NOTE | 2022-08-30 21:46 | CT_ITS ---
INDICATION: head injury EXAMINATION: CT BRAIN - CT Head or Brain W/O Contrast Injection TECHNIQUE: Multiple axial images were obtained of the head without intravenous contrast. A radiation dose optimization technique was used for this scan. IV Contrast dosage and agent: None. COMPARISON: CT head 10/20/2019. FINDINGS: BRAIN: No acute bleed. No edema. Encephalomalacia in the right frontal and left temporoparietal region consistent with old infarcts. Mild decreased attenuation in the periventricular white matter bilaterally. South-white matter differentiation is maintained. Arterial calcifications. VENTRICLES AND SULCI: The ventricles and sulci are prominent. EXTRA-AXIAL: No hemorrhage, fluid collection, or mass. CALVARIUM / SKULL BASE: Unremarkable. FACE/SINUSES: Unremarkable. SOFT TISSUES: Unremarkable. CT/Brain/Head without Contrast IMPRESSION: No evidence of acute intracranial injury. Old bilateral infarcts. Chronic microvascular ischemic disease and volume loss.. Electronically Signed: Tiffanie Orozco MD at 22:10 EDT ,
--- NOTE | 2022-08-30 21:47 | EDS_ITS ---
HPI History of Present Illness Chief Complaint: Fall Narrative Narrative: 72-year-old female presenting with her daughter for evaluation of right hip pain and head injury. Patient apparently is not supposed to walk on her own. She tried to meet her daughter outside and while she was walking she tripped and fell and on her right hip. She also hit her head. Daughter states that she was curled up in a ball crying. No LOC. No dizziness, nausea, lightheadedness. Patient was helped help to her feet and was able to ambulate. She only took a few steps. [facility] Medical History Acute pharyngitis Asthma Black tarry stools Blood clots in brain COPD (chronic obstructive pulmonary disease) CVA (cerebral vascular accident) Dementia Depression Encounter for screening for malignant neoplasm of lung in current smoker with 30 pack year history or greater Gout Left wrist pain Mixed stress and urge urinary incontinence Tobacco abuse counseling Home Medications melatonin 5 mg tablet 5 - 10 mg PO HS PRN sleep #180 tabs 01/01/21 [Rx Last Taken Unknown] dexamethasone 6 mg tablet 6 mg PO DAILY #7 tabs 07/07/21 [Rx Last Taken Unknown] diaper,brief,adult,disposable (Disposable Brief) #100 ea 12/09/21 [Rx Last Taken Unknown] underpads (Bed Underpads) #150 ea 12/09/21 [Rx Last Taken Unknown] venlafaxine 75 mg capsule,extended release 24 hr 75 mg PO QAM DEPRESSION #90 caps 01/09/22 [Rx Last Taken Unknown] albuterol sulfate 90 mcg/actuation aerosol inhaler 2 puff inhalation Q4H PRN shortness of breath or wheezing #3 ea 04/24/22 [Rx Last Taken Unknown] fluticasone fur. 100 mcg-umeclid 62.5 mcg-vilant 25 mcg inhalat.powder (Trelegy Ellipta) 1 inh inhalation DAILY #60 ea 04/24/22 [Rx Last Taken Unknown] rosuvastatin 10 mg tablet 10 mg PO DAILY CHOLESTEROL #30 tabs 04/24/22 [Rx Last Taken Unknown] ascorbic acid (vitamin C) 250 mg tablet 250 mg PO DAILY #90 tabs 04/27/22 [Rx Last Taken Unknown] ferrous sulfate 325 mg (65 mg iron) tablet 325 mg PO DAILY #90 tabs 04/27/22 [Rx Last Taken Unknown] levothyroxine 75 mcg tablet 75 mcg PO DAILY THYROID #30 tabs 05/20/22 [Rx Last Taken Unknown] reuseable chux #3 ea 05/28/22 [Rx Last Taken Unknown] syringe with needle 3 mL 25 gauge x 1 #1 ea 06/26/22 [Rx Last Taken Unknown] cyanocobalamin (vitamin B-12) 1,000 mcg/mL injection solution 1,000 mcg IM QMONTH SUPPLEMNENT #1 mL 06/29/22 [Rx Last Taken Unknown] omeprazole 40 mg capsule,delayed release 40 mg PO BID #60 caps 07/24/22 [Rx Last Taken Unknown] acetaminophen 500 mg tablet 500 - 1,000 mg PO Q8H PRN PAIN AND FEVER #120 tabs 08/19/22 [Rx Last Taken Unknown] aspirin 81 mg tablet,delayed release 81 mg PO DAILY@0800 #90 tabs 08/19/22 [Rx Last Taken Unknown] Allergy/AdvReac Type Severity Reaction Status Date / Time Penicillins Allergy Hives Verified 08/30/22 21:07 Family History Sister Lung cancer unconfirmed diagnosis, waiting on biopsy results Brother Myocardial infarction, Onset Age: 43 Mother Pacemaker Surgical History H/O bladder repair surgery History of arthroscopic knee surgery History of carotid endarterectomy History of hysterectomy History of tonsillectomy Social History Smoking Status: Current every day smoker tobacco type: cigarettes Tobacco: How many years used: 60 Electronic Cigarette Use: not used second hand exposure: Yes quit status: considering quitting counseling given: provider counseling alcohol intake: never substance use type: does not use what type of physical activity do you participate in: none seatbelt use: always do you feel safe at home: Yes ROS ROS ED Review of Systems ROS Unobtainable: Denies due to encephalopathy Constitutional Constitutional ED: Denies chills or fever(s) Eyes Eyes: Denies change in vision ENT ENT ED: Denies ear pain Cardiovascular Cardiovascular: Denies palpitations or racing heartbeat Respiratory/Chest Respiratory/Chest: Denies cough or dyspnea Gastrointestinal Gastrointestinal: Denies abdominal pain Genitourinary Genitourinary ED: Denies dysuria or hematuria Musculoskeletal Musculoskeletal: Reports other Details: Right hip pain ; Denies arthralgias Integumentary Denies abscess or Abrasions Neurologic Neurologic: Reports headache(s) Psychiatric Psychiatric: Denies anxiety or depression EXAM Physical Exam Const Vital Signs: 08/30/22 21:05 08/30/22 22:41 Temperature 97.6 F L Temperature Source Temporal Pulse Rate 85 Respiratory Rate 16 Respiratory Effort Normal Non-Labored Respiratory Depth Normal Respiratory Pattern Normal Blood Pressure 142/82 H Blood Pressure Mean 102 Pulse Ox 99 Oxygen Delivery Method Room Air Room Air Positive well nourished General Appearance ED: NAD HEENT HEENT Narrative: Tenderness to palpation of the right parietal bone. No bruising, ecchymosis, deformity Eyes PERRL and EOMs intact bilaterally Resp normal respiratory effort Cardio regular rhythm Rate: regular rate Back/Spine normal to inspection Extremity Extremity Narrative: Tenderness palpation over right mid femur. No obvious deformity. Patient able to flex the hip up off of the bed and externally internally rotated. Negative logroll. Neuro CN's II-XII intact bilaterally, moves all extremities and no focal motor deficits Psych mental status grossly normal Skin no rashes or lesions noted MDM MDM MDM Narrative Medical decision making narrative: Patient presenting after head injury after mechanical fall when she tripped. She also has some hip pain. There is no obvious deformity and she can move this. Daughter does want us to x-ray this she is concerned for fracture. She also states her mother is on blood thinners and needs a CT scan. After discussion she is on aspirin. She does not have any focal neurologic deficits or lateralizing signs or symptoms. I do believe this is reasonable so I will obtain an x-ray of the right hip and CT brain. Patient given a gram of Tylenol. CT brain is negative for acute intracranial process. Right hip x-ray on my interpretation shows no acute fracture. Patient counseled on findings. At this point I feel the patient stable for discharge home. Family agrees. Impression: 1. Mechanical fall 2. Closed head injury 3. Right hip contusion Radiography Diagnostic Testing: Clinical Impression(s) from Imaging Studies Brain CT 08/30/22 21:46 IMPRESSION: No evidence of acute intracranial injury. Old bilateral infarcts. Chronic microvascular ischemic disease and volume loss.. Electronically Signed: Tiffanie Orozco MD at 22:10 EDT , Hip/Pelvis X-Ray 08/30/22 22:00 IMPRESSION: No evidence of fracture. Electronically Signed: Tiffanie Orozco MD at 22:27 EDT , Discharge Plan Triage Chief Complaint: Fall ED Provider: Shailesh Soto Dx/Rx/DC Orders Instructions: ED Head Injury (Adult), ED Hip Contusion, ED Fall Prevention Prescriptions: No Action melatonin 5 mg tablet 5 - 10 mg PO HS PRN (Reason: sleep) Qty: 180 1RF albuterol sulfate 90 mcg/actuation HFA aerosol inhaler 2 puff inhalation Q4H PRN (Reason: shortness of breath or wheezing) Qty: 3 3RF Rx Instructions: administer with spacer Trelegy Ellipta 100-62.5-25 mcg blister with device 1 inh inhalation DAILY Qty: 60 11RF dexamethasone 6 MG tablet 6 mg PO DAILY Qty: 7 0RF (DME) Disposable Brief Misc See Rx Instructions .ROUTE .MEDSUPPLY Qty: 100 12RF Rx Instructions: As directed for urinary incontinence (DME) underpads [Bed Underpads] Pad See Rx Instructions .ROUTE .MEDSUPPLY Qty: 150 12RF Rx Instructions: As directed for urinary incontinence venlafaxine 75 mg capsule,extended release 24hr 75 mg PO QAM Qty: 90 3RF rosuvastatin 10 mg tablet 10 mg PO DAILY Qty: 30 11RF ascorbic acid (vitamin C) 250 mg tablet 250 mg PO DAILY Qty: 90 1RF ferrous sulfate 325 mg (65 mg iron) tablet 325 mg PO DAILY Qty: 90 1RF Rx Instructions: Take with Vitamin C levothyroxine 75 mcg tablet 75 mcg PO DAILY Qty: 30 3RF (DME) reuseable chux See Rx Instructions .Route .MEDSUPPLY Qty: 3 0RF Rx Instructions: As directed (DME) syringe with needle 3 mL 25 gauge x 1 syringe See Rx Instructions .ROUTE .MEDSUPPLY Qty: 1 6RF Rx Instructions: As directed cyanocobalamin (vitamin B-12) 1,000 mcg/mL solution 1,000 mcg IM QMONTH Qty: 1 6RF omeprazole 40 mg capsule,delayed release(DR/EC) 40 mg PO BID Qty: 60 2RF aspirin 81 mg tablet,delayed release (DR/EC) 81 mg PO DAILY@0800 Qty: 90 1RF acetaminophen 500 mg tablet 500 - 1,000 mg PO Q8H PRN (Reason: PAIN AND FEVER) Qty: 120 1RF Primary Care Provider: Rosalie Alejandro Referrals: Rosalie Alejandro MD [Primary Care Provider] - Disposition Disposition: Home, Self Care Discharge Date/Time: 08/30/22 22:43
--- NOTE | 2022-08-30 22:00 | RAD_ITS ---
INDICATION: hip pain EXAMINATION/TECHNIQUE: X-RAY - XR Hip Unilateral with Pelvis when performed; 2-3 Views COMPARISON: None. FINDINGS: No fracture demonstrated. Femoral heads are normal in contour. No dislocation hips. Sacrum partially obscured by stool. RAD/HIP, UNI W/ Pelvis 2-3 Views IMPRESSION: No evidence of fracture. Electronically Signed: Tiffanie Orozco MD at 22:27 EDT ,
[2022-08-30] MEDS: Acetaminophen 500 MG Tablet 1000 MG PO (22:26)
== END 2022-08-30 22:43 | disposition home or self-care (01) ==
PROVIDERS: Emergency Provider Student in an Organized Health Care Education/Training Program; PCP Internal Medicine; Visit Provider Student in an Organized Health Care Education/Training Program
DX: S09.90XA Unspecified injury of head, initial encounter (principal); S70.01XA Contusion of right hip, initial encounter; F17.210 Nicotine dependence, cigarettes, uncomplicated; Z86.73 Personal history of transient ischemic attack (TIA), and cerebral infarction without residual deficits; W01.0XXA Fall on same level from slipping, tripping and stumbling without subsequent striking against object, initial encounter
CPT/HCPCS: 70450; 73502; 99283

== ENCOUNTER → 2023-01-25 | Outpatient (CLI) | payer MEDICARE, MEDICAID, SELFPAY ==
[2023-01-25 12:25] LABS: Absolute Lymphocyte Count 2.76 X10^3/uL (0.83-4.51); Absolute Neutrophil Count 7.4 X10^3/uL (2.0-7.7); Basophil# 0.06 X10^3/uL; Basophil% 0.5 % (0-1); Eosinophil# 0.34 X10^3/uL; Hematocrit 50.3 % (37-47); Hemoglobin 15.4 g/dL (12.0-15.0); Lymphocyte # 2.76 X10^3/ul (0.83-4.51); Lymphocyte % 24.1 % (19-41); Mean Corp Hgb Conc 30.6 g/dL (32-36); Mean Corpuscular Volume 104.6 fL (81-99); Mean Platelet Vol. 11.6 fl (6.2-12.0); Monocyte# 0.88 X10^3/uL; Monocyte% 7.7 % (0-10); NRBC Flagged by Analyzer 0 % (0-5); Neutrophil % 64.4 % (47-70); Platelet Count 345 K/mm3 (150-450); RBC Distribution Width CV 13.2 % (11.6-14.6); RBC Distribution Width SD 51.3 fl (35.1-43.9); Red Blood Count 4.81 M/mm3 (4.2-5.4); White Blood Count 11.5 K/mm3 (4.4-11.0)
[2023-01-25 13:10] LABS: ALB/GLOB Ratio 0.9 RATIO (0.9-2.4); AST(SGOT) 21 U/L (15-37); Alanine Aminotransfer ALT/SGPT 26 U/L (13-56); Albumin, Serum 3.6 g/dL (3.2-5.0); Alkaline Phosphatase 125 U/L (45-117); Anion Gap 7 (5-15); BUN 13 mg/dL (7-18); BUN/Creat Ratio 17.6 RATIO (10-20); Calcium,Total 9.6 mg/dL (8.5-10.1); Chloride 107 mmol/L (98-107); Cholesterol 128 mg/dL (200); Creatinine, Serum 0.74 mg/dL (0.55-1.02); EST Glomerular Filtration Rate 82 mL/min (>60); Est Glom Filt Rate - Afr Amer 99 mL/min (>60); Glucose 111 mg/dL (74-106); High Density Lipoprotein 65 mg/dL; Potassium 4.9 mmol/L (3.5-5.1); Protein, Total 7.6 g/dL (6.4-8.2); Sodium Level 141 mmol/L (136-145); Thyroid Stim Hormone (TSH) 0.18 uIU/mL (0.358-3.74); Triglycerides 106 mg/dL; Very Low Density Lipoprotein 21 mg/dL (5-40)
== END | disposition home or self-care (01) ==
LOC: BIMLAB 10:50
PROVIDERS: PCP Internal Medicine; Referring Provider Internal Medicine; Visit Provider Internal Medicine
DX: J44.9 Chronic obstructive pulmonary disease, unspecified (principal); E03.9 Hypothyroidism, unspecified
CPT/HCPCS: 36415; 80053; 80061; 84443; 85025

== ENCOUNTER 2023-06-20 12:11 | Emergency (ER) | payer MEDICARE, MEDICAID, SELFPAY ==
[2023-06-20 12:12] VITALS: BP 184/79; PULSE 100; RESP 20; TEMP 36.7; O2SAT 95
--- NOTE | 2023-06-20 12:27 | EDS_ITS ---
HPI History of Present Illness Chief Complaint: Shortness of Breath Informant: patient Onset/Context/Timing Onset: Weeks (1.5) Context: gradual Timing: Continuous Quality: Positive for Dyspnea on exertion Worsened by: Nothing Relieved by: Nothing Associated Symptoms cough, rhinorrhea and yellow sputum; Negative for post nasal drip, ear pain, fever, sore throat, chills, sweats, clear sputum, white sputum or green sputum Chest Pain: Positive for Pleuritic (With coughing only) Narrative Narrative: Patient presents with shortness of breath that has been getting worse over the past 1-1/2 weeks. Patient states it is gradually getting worse. Patient states her breathing is worse with any exertion. Family states that the patient's pulse oximeter at home was reading between 92 and 94%. Family states that when it gets to be this level she should come to the emergency department for evaluation because she only has 28% lung function. Patient admits to some pain in the left side of her chest with coughing. Patient admits to some rhinorrhea. Patient states she is coughing up some yellow and brown sputum. Patient denies any fevers or chills. PE Risk Factors: Positive for Cancer; Negative for OCP + Smoking + > 35, Prior DVT or PE, Recent immobilization, Recent surgery or Recent travel [facility] Medical History Acute pharyngitis Asthma Black tarry stools Blood clots in brain COPD (chronic obstructive pulmonary disease) CVA (cerebral vascular accident) Dementia Depression Encounter for health maintenance examination Encounter for screening for malignant neoplasm of lung in current smoker with 30 pack year history or greater GERD (gastroesophageal reflux disease) Gout Hyperlipidemia Left wrist pain Mixed stress and urge urinary incontinence Tobacco abuse counseling Home Medications melatonin 5 mg tablet 5 - 10 mg (1 - 2 x 5 mg) PO HS PRN sleep #180 tabs 01/01/21 [Rx Last Taken Unknown] dexamethasone 6 mg tablet 6 mg PO DAILY #7 tabs 07/07/21 [Rx Last Taken Unknown] diaper,brief,adult,disposable (Disposable Brief) #100 ea 12/09/21 [Rx Last Taken Unknown] underpads (Bed Underpads) #150 ea 12/09/21 [Rx Last Taken Unknown] fluticasone fur. 100 mcg-umeclid 62.5 mcg-vilant 25 mcg inhalat.powder (Trelegy Ellipta) 1 inh inhalation DAILY #60 ea 04/24/22 [Rx Last Taken Unknown] reuseable chux #3 ea 05/28/22 [Rx Last Taken Unknown] cyanocobalamin (vitamin B-12) 1,000 mcg/mL injection solution 1,000 mcg IM QMONTH SUPPLEMNENT #1 mL 01/18/23 [Rx Last Taken Unknown] syringe with needle 3 mL 25 gauge x 1 #1 ea 01/18/23 [Rx Last Taken Unknown] albuterol sulfate 90 mcg/actuation aerosol inhaler 2 puff inhalation Q4H PRN shortness of breath or wheezing #3 ea 01/25/23 [Rx Last Taken Unknown] aspirin 81 mg tablet,delayed release 81 mg PO DAILY@0800 #90 tabs 02/03/23 [Rx Last Taken Unknown] omeprazole 40 mg capsule,delayed release 40 mg PO BID #180 caps 02/03/23 [Rx Last Taken Unknown] ascorbic acid (vitamin C) 250 mg tablet 250 mg PO DAILY #90 tabs 03/02/23 [Rx Last Taken Unknown] ferrous sulfate 325 mg (65 mg iron) tablet 325 mg PO DAILY #90 tabs 03/26/23 [Rx Last Taken Unknown] levothyroxine 75 mcg tablet 75 mcg PO DAILY THYROID #30 tabs 03/26/23 [Rx Last Taken Unknown] rosuvastatin 10 mg tablet 10 mg PO DAILY CHOLESTEROL #30 tabs 03/26/23 [Rx Last Taken Unknown] acetaminophen 500 mg tablet 500 - 1,000 mg (1 - 2 x 500 mg) PO Q8H PRN PAIN AND FEVER #120 tabs 05/21/23 [Rx Last Taken Unknown] venlafaxine 75 mg capsule,extended release 24 hr 75 mg PO QAM DEPRESSION #90 caps 05/21/23 [Rx Last Taken Unknown] Allergy/AdvReac Type Severity Reaction Status Date / Time Penicillins Allergy Hives Verified 01/25/23 10:06 Family History Sister Lung cancer unconfirmed diagnosis, waiting on biopsy results Brother Myocardial infarction, Onset Age: 43 Mother Pacemaker Surgical History H/O bladder repair surgery History of arthroscopic knee surgery History of carotid endarterectomy History of hysterectomy History of tonsillectomy Social History Smoking Status: Current every day smoker tobacco type: cigarettes Tobacco: How many years used: 60 Electronic Cigarette Use: not used second hand exposure: Yes quit status: considering quitting counseling given: provider counseling alcohol intake: never substance use type: does not use what type of physical activity do you participate in: none seatbelt use: always do you feel safe at home: Yes ROS ROS ED Constitutional Constitutional ED: Denies chills or fever(s) Eyes Eyes: Denies blurry vision or change in vision ENT ENT ED: Denies rhinorrhea or sore throat Cardiovascular Cardiovascular: Reports chest pain; Denies palpitations Respiratory/Chest Respiratory/Chest: Reports cough and dyspnea Gastrointestinal Gastrointestinal: Denies nausea or vomiting Genitourinary Genitourinary ED: Denies dysuria or hematuria Musculoskeletal Musculoskeletal: Denies back pain or neck pain Integumentary Denies abscess or rash Neurologic Neurologic: Reports headache(s); Denies weakness Allergic/Immunologic Allergic/Immunologic ED: Denies mouth swelling or urticaria EXAM Physical Exam Const Vital Signs: 06/20/23 12:12 06/20/23 12:50 06/20/23 13:20 Temperature 98.1 F Temperature Source Temporal Pulse Rate 100 80 Respiratory Rate 20 H 20 H Respiratory Effort Normal Non-Labored Blood Pressure 184/79 H Blood Pressure Mean 114 Pulse Ox 95 Oxygen Delivery Method Room Air 06/20/23 13:10 06/20/23 14:07 06/20/23 14:11 Temperature 98.4 F 98.5 F Temperature Source Oral Temporal Pulse Rate 83 73 Respiratory Rate 20 H 23 H Respiratory Effort Blood Pressure 147/76 H 147/70 H Blood Pressure Mean 99 95 Pulse Ox 95 95 96 Oxygen Delivery Method Room Air Room Air Room Air 06/20/23 14:13 Temperature 98.4 F Temperature Source Pulse Rate 72 Respiratory Rate 24 H Respiratory Effort Blood Pressure 147/70 H Blood Pressure Mean 95 Pulse Ox 95 Oxygen Delivery Method Positive well nourished and well developed General Appearance ED: well developed and NAD HEENT Reports moist mucous membranes Neck supple, no meningeal signs and no JVD Resp normal respiratory effort Auscultation: rhonchi throughout Cardio regular rate and regular rhythm GI non-distended Palpation: soft and tender LLQ; Negative for guarding or rebound tenderness present Neuro oriented x3, CN's II-XII intact bilaterally and no sensory deficits noted [place] Coma Scale: document GCS findings Spontaneous Obeys Commands Oriented 15 Sensorium / Orientation: alert Motor Exam: strength 5/5 throughout Psych mental status grossly normal MDM MDM MDM Narrative Medical decision making narrative: Differential diagnosis includes pneumonia, COPD exacerbation, viral upper respiratory infection, bronchitis, congestive heart failure, cardiac dysrhythmia, and cardiac ischemia. EKG will be obtained to assess for cardiac dysrhythmia and cardiac ischemia. Chest x-ray will be obtained to assess for pneumonia and pneumothorax. CBC will be obtained to assess for leukocytosis and anemia. Basic metabolic profile will be obtained to assess for electrolyte abnormality and renal function. High-sensitivity troponin will be obtained to assess for cardiac ischemia. COVID-19 PCR will be obtained to assess for COVID- 19 infection. Influenza A and influenza B PCR will be obtained to assess for influenza infection. RSV PCR will be obtained to assess for RSV infection. Lab Data Lab results narrative: CBC was reviewed and was within normal limits. Basic metabolic profile was reviewed and was within normal limits. High-sensitivity troponin was reviewed and was normal at 8. COVID-19 PCR was reviewed and was negative. Influenza a and influenza B PCR was reviewed and was negative. RSV PCR was reviewed and was negative. Labs: Laboratory Results - last 24 hr 06/20/23 12:45 WBC 6.4 RBC 4.56 Hgb 14.4 Hct 46.0 MCV 100.9 H MCH 31.6 MCHC 31.3 L RDW Std Deviation 47.8 H RDW Coeff of Ramón 12.8 Plt Count 350 MPV 10.9 Immature Gran % (Auto) 0.300 Neut % (Auto) 54.3 Lymph % (Auto) 31.7 Kinney % (Auto) 9.5 Eos % (Auto) 3.3 Baso % (Auto) 0.9 Absolute Neuts (auto) 3.5 Absolute Lymphs (auto) 2.04 Nucleated RBC % 0 Sodium 141 Potassium 4.0 Chloride 108 H Carbon Dioxide 31.0 Anion Gap 2 L BUN 15 Creatinine 0.54 L Est GFR (MDRD) Af Amer 143 Est GFR (MDRD) Non-Af 118 BUN/Creatinine Ratio 27.9 H Glucose 107 H Calcium 9.6 Troponin I High Sens 8 Radiography Chest X-Ray - ED: 2 View, Read by ED Physician, Read by Radiologist, No Acute Disease and Chronic Changes Diagnostic Testing: Clinical Impression(s) from Imaging Studies Chest X-Ray 06/20/23 12:55 IMPRESSION: Hyperexpanded lungs without a superimposed acute pulmonary process Electronically Signed: Chad Devries MD at 13:06 EST Reading Location ID and State: [facility] / [place] , Service support , [place] and lateral chest x-ray was obtained. There are 2 views. On my independent interpretation, lung baker are hyperinflated. There is normal cardiac silhouette. Bony thorax is normal. There is no acute process noted. Radiologist also interpreted the x-ray and agrees. EKG Initial EKG: Attestation: I personally reviewed and interpreted this EKG as follows: Interpretation: Sinus Rhythm (75) and No Acute Injury Pattern Comments: EKG was obtained. On my independent interpretation, it showed a normal sinus rhythm with a rate of 75. ND interval, QRS interval, and QTc intervals were all normal. [place] was normal. There are no acute ST or T wave changes. Prior EKG tracings: available for review Prior: Unchanged (07/07/2021) Treatment and Re-Evaluation :: Patient was given a DuoNeb aerosol here. Patient feels better and wants to go home. Ambulatory pulse ox was obtained. Patient did drop to 89% while ambulating. Patient was in no respiratory distress with this however. Patient is adamant wants to go home. Patient was instructed to return if worse in any way. Patient was instructed to continue with her inhalers and aerosols as needed. Patient understood and was agreeable with the plan. All questions were answered. Discharge Plan Triage Chief Complaint: Shortness of Breath ED Provider: Mati David Dx/Rx/DC Orders Clinical Impression: Nicotine dependence, cigarettes, uncomplicated, COPD (chronic obstructive pulmonary disease) Instructions: ED COPD Flare Prescriptions: No Action melatonin 5 mg tablet 5 - 10 mg PO HS PRN (Reason: sleep) Qty: 180 1RF Trelegy Ellipta 100-62.5-25 mcg blister with device 1 inh inhalation DAILY Qty: 60 11RF albuterol sulfate 90 mcg/actuation HFA aerosol inhaler 2 puff inhalation Q4H PRN (Reason: shortness of breath or wheezing) Qty: 3 3RF Rx Instructions: administer with spacer dexamethasone 6 MG tablet 6 mg PO DAILY Qty: 7 0RF (DME) Disposable Brief Misc See Rx Instructions .ROUTE .MEDSUPPLY Qty: 100 12RF Rx Instructions: As directed for urinary incontinence (DME) underpads [Bed Underpads] Pad See Rx Instructions .ROUTE .MEDSUPPLY Qty: 150 12RF Rx Instructions: As directed for urinary incontinence (DME) reuseable chux See Rx Instructions .Route .MEDSUPPLY Qty: 3 0RF Rx Instructions: As directed cyanocobalamin (vitamin B-12) 1,000 mcg/mL solution 1,000 mcg IM QMONTH Qty: 1 6RF (DME) syringe with needle 3 mL 25 gauge x 1 syringe See Rx Instructions .ROUTE .MEDSUPPLY Qty: 1 6RF Rx Instructions: As directed omeprazole 40 mg capsule,delayed release(DR/EC) 40 mg PO BID Qty: 180 2RF aspirin 81 mg tablet,delayed release (DR/EC) 81 mg PO DAILY@0800 Qty: 90 1RF ascorbic acid (vitamin C) 250 mg tablet 250 mg PO DAILY Qty: 90 1RF ferrous sulfate 325 mg (65 mg iron) tablet 325 mg PO DAILY Qty: 90 1RF Rx Instructions: Take with Vitamin C levothyroxine 75 mcg tablet 75 mcg PO DAILY Qty: 30 5RF rosuvastatin 10 mg tablet 10 mg PO DAILY Qty: 30 11RF acetaminophen 500 mg tablet 500 - 1,000 mg PO Q8H PRN (Reason: PAIN AND FEVER) Qty: 120 1RF venlafaxine 75 mg capsule,extended release 24hr 75 mg PO QAM Qty: 90 0RF Primary Care Provider: Celso Matta NP Referrals: Rosalie Alejandro MD [Med Staff - Active Staff] - 3-5 Days Disposition Disposition: Home, Self Care
--- NOTE | 2023-06-20 12:35 | EKG12_ITS ---
Test Reason : SOB Blood Pressure : / mmHG Vent. Rate : 075 BPM Atrial Rate : 075 BPM P-R Int : 166 ms QRS Dur : 064 ms QT Int : 390 ms P-R-T Axes : 092 016 077 degrees QTc Int : 435 ms Normal sinus rhythm Normal ECG Confirmed by RONAL YU, OMARI ([id number]), video tape editor KAYLEE NEWSOME ([id number]) on 06/22/2023 9:52:33 AM Referred By: Confirmed By:OMARI VILLEDA MD
--- OUTSIDE RECORDS SUMMARY | 2023-06-20 12:40 | XMS RPT_ITS | CCD ---
Author Name Unknown Address [id number] [place] [address] Organization [facility] Care Team Providers Care Beef Farmer Name Role Phone Lawanda Hale Unavailable Unavailable Lawanda Hale Unavailable Unavailable Paxton LOPEZ, Celso Flores Unavailable Unavailable Annamarie Corley Unavailable Unavailable Annamarie Corley Unavailable Unavailable Annamarie Corley Unavailable Unavailable Allergies Allergy Classification Reported Allergen(s) Allergy Type Date of Onset Reaction(s) Facility (6 sources) penicillin v Drug Allergy Hives and rash [facility] Work Phone: [phone] (6 sources) sertraline Drug Allergy Makes her go looney [facility] Work Phone: [phone] Medications Completed/Discontinued Medications Medication Drug Class(es) Dates Sig (Normalized) Sig (Original) 200 actuat albuterol 0.09 mg/actuat metered dose inhaler (12 sources) beta2-Adrenergic Agonist Start: 05-04-2017 VENTOLIN HFA 108 (90 Base) MCG/ACT AERS 1-2 puffs every 6 hrs as needed ALBUTEROL SULFATE [id number] Celso Matta ENGRA[employer] LETTERING-[employer] Problems Active Problems Problem Classification Problem Date Documented Date Episodic/Chronic Anxiety disorders (5 sources) Mixed anxiety and depressive disorder; Translations: [Other specified anxiety disorders] Onset: 02-03-2017 02-03-2017 Chronic Chronic obstructive pulmonary disease and bronchiectasis (9 sources) Chronic obstructive lung disease; Translations: [Chronic obstructive pulmonary disease, unspecified] Onset: 08-29-2014 05-04-2017 Chronic Esophageal disorders (6 sources) Gastroesophageal reflux disease; Translations: [Gastro-esophageal reflux disease without esophagitis] Onset: 08-29-2014 08-29-2014 Chronic Headache; including migraine (5 sources) Transformed migraine; Translations: [Chronic migraine without aura, not intractable, without status migrainosus] Onset: 02-03-2017 02-03-2017 Chronic Mood disorders (6 sources) Depressive disorder; Translations: [Major depressive disorder, single episode, unspecified] Onset: 08-29-2014 08-29-2014 Chronic Nutritional deficiencies (6 sources) Vitamin D deficiency; Translations: [Vitamin D deficiency] Onset: 09-13-2014 09-13-2014 Chronic Other diseases of bladder and urethra (6 sources) Bladder muscle dysfunction - overactive; Translations: [Overactive bladder] Onset: 08-29-2014 08-29-2014 Chronic Other nervous system disorders (5 sources) Claudication; Translations: [Peripheral vascular disease, unspecified] Onset: 02-03-2017 02-03-2017 Chronic Residual codes; unclassified (6 sources) Tobacco user; Translations: [Tobacco use] Onset: 08-29-2014 08-29-2014 Chronic Thyroid disorders (6 sources) Hypothyroidism; Translations: [Hypothyroidism, unspecified] Onset: 08-29-2014 08-29-2014 Chronic Past or Other Problems Problem Classification Problem Date Documented Da te Episodic/Chronic Deficiency and other anemia (6 sources) Anemia; Translations: [Anemia, unspecified] Onset: 08-29-2014 08-29-2014 Episodic Headache; including migraine (6 sources) Chronic headache disorder; Translations: [Headache] Onset: 08-29-2014 08-29-2014 Episodic Malaise and fatigue (6 sources) Fatigue; Translations: [Other fatigue] Onset: 08-29-2014 08-29-2014 Episodic Unclassified (3 sources) Insomnia; Translations: [Insomnia, unspecified] Onset: 05-04-2017 05-04-2017 Episodic Results Test Name Value Interpretation Reference Range Facil ity Vital Signs Date Time Vital Sign Value Performing Clinician Facility 05-04-2017 10:34-0500 BMI (Body Mass Index) 22.77 kg/m2 Celso LOPEZ [facility] Work Phone: 05-04-2017 10:34-0500 Body Temperature 97.7 [degF] Celso LOPEZ [facility] Work Phone: 05-04-2017 10:34-0500 BP Diastolic 73 mm[Hg] Celso Matta ENGRAVER LETTERING-C [facility] Work Phone: 05-04-2017 10:34-0500 BP Systolic 107 mm[Hg] Celso Matta [employer]RA[employer]ING[employer] [facility] Work Phone: 05-04-2017 10:34-0500 Height 157.48 cm Celso Matta [employer]RA[employer]ING[employer] [facility] Work Phone: 05-04-2017 10:34-0500 Pulse (Heart Rate) 84 /min Celso Matta [employer]RA[employer] [facility] Work Phone: 05-04-2017 10:34-0500 Respiratory Rate 18 /min Celso Matta [employer]RA[employer]ING[employer] [facility] Work Phone: 05-04-2017 10:34-0500 Weight 56.47 kg Celso Matta [employer]RA[employer] LETTERING[employer] [facility] Work Phone: 02-03-2017 13:30-0400 BMI (Body Mass Index) 21.95 kg/m2 Annamarie Marthey [facility] Work Phone: 02-03-2017 13:30-0400 Body Temperature 98.2 [degF] Annamarie Marthey [facility] Work Phone: 02-03-2017 13:30-0400 BP Diastolic 75 mm[Hg] Annamarie Marthey [facility] Work Phone: 02-03-2017 13:30-0400 BP Systolic 111 mm[Hg] Annamarie Marthey [facility] Work Phone: 02-03-2017 13:30-0400 Height 157.48 cm Annamarie Marthey [facility] Work Phone: 02-03-2017 13:30-0400 Pulse (Heart Rate) 69 /min Annamarie Marthey [facility] Work Phone: 02-03-2017 13:30-0400 Weight 54.43 kg Annamarie Marthey [facility] Work Phone: 09-13-2014 13:14-0400 BMI (Body Mass Index) 21.54 kg/m2 Annamarie [facility] Work Phone: 09-13-2014 13:14-0400 Body Temperature 98.5 [degF] [facility] Work Phone: 09-13-2014 13:14-0400 BP Diastolic 74 mm[Hg] [facility] Work Phone: 09-13-2014 13:14-0400 BP Systolic 110 mm[Hg] [facility] Work Phone: 09-13-2014 13:14-0400 Pulse (Heart Rate) 72 /min Annamarie [facility] Work Phone: 09-13-2014 13:14-0400 Respiratory Rate 16 /min [facility] Work Phone: 09-13-2014 13:14-0400 Weight 51.71 kg [facility]arie [facility] Work Phone: 08-29-2014 13:16-0400 Height 154.94 cm Annamarie [facility] Work Phone: Procedures Date Procedure Procedure Detail Performing Clinician Start: 08-29-2014 End: 08-31-2014 *B12FO Vitamin B12 and Folates Celso Antonio DO Work Phone: Start: 08-29-2014 End: 08-31-2014 *CBC with Differential Celso Garnica O Work Phone: Start: 08-29-2014 End: 08-31-2014 *CMP Complete Metabolic Panel Celso Antonio DO Work Phone: Start: 08-29-2014 End: 08-31-2014 25-Hydroxyvitamin D2+25-Hydroxyvitamin D3 [Mass/volume] in Serum or Plasma Celso A Paco DO Work Phone: Start: 08-29-2014 End: 08-31-2014 Ferritin [Mass/volume] in Serum or Plasma Celso Flores Paco DO Work Phone: Start: 08-29-2014 End: 08-31-2014 Iron and Iron binding capacity panel - Serum or Plasma Celso Flores Paco DO Work Phone: Start: 08-29-2014 End: 08-31-2014 Thyrotropin [Units/volume] in Serum or Plasma Celso Flores Paco DO Work Phone: Start: 08-29-2014 End: 08-31-2014 *B12FO Vitamin B12 and Folates Celso Antonio DO Work Phone: Start: 08-29-2014 End: 08-31-2014 *CBC with Differential Celso Antonio D O Work Phone: Start: 08-29-2014 End: 08-31-2014 *CMP Complete Metabolic Panel Celso Antonio DO Work Phone: Start: 08-29-2014 End: 08-31-2014 25-Hydroxyvitamin D2+25-Hydroxyvitamin D3 [Mass/volume] in Serum or Plasma Celso Antonio DO Work Phone: Start: 08-29-2014 End: 08-31-2014 Ferritin [Mass/volume] in Serum or Plasma Celso Flores Paco DO Work Phone: Start: 08-29-2014 End: 08-31-2014 Iron and Iron binding capacity panel - Serum or Plasma Celso Antonio DO Work Phone: Start: 08-29-2014 End: 08-31-2014 Thyrotropin [Units/volume] in Serum or Plasma Celso Flores Paco DO Work Phone: Plan of Treatment Date Care Activity Detail Author Start: 05-31-2017 End: 05-31-2017 Appointment Appointment [facility] Work Phone: Start: 05-04-2017 End: 05-04-2017 Follow Up Appt 1 month Follow Up Appt 1 month [facility] Work Phone: Start: 05-04-2017 End: 05-04-2017 Appointment Appointment [facility] Work Phone: Start: 03-17-2017 End: 03-17-2017 Appointment Appointment [facility] Work Phone: Start: 02-03-2017 End: 02-03-2017 MARCELA MARCELA [facility] Work Phone: Start: 02-03-2017 End: 02-03-2017 Neurology Referral Neurology Referral [facility], [address], [place], [address] [facility] Work Phone: Start: 02-03-2017 End: 02-03-2017 Appointment Appointment [facility] Work Phone: Start: 02-03-2017 End: 02-03-2017 MARCELA MARCELA [facility] Work Phone: Start: 02-03-2017 End: 02-03-2017 Neurology Referral Neurology Referral [facility], [address], [place], [address] [facility] Work Phone: Start: 12-13-2014 End: 09-13-2014 *CBC with Differential *CBC with Differential [facility] Work Phone: Start: 12-13-2014 End: 09-13-2014 25-Hydroxyvitamin D2+25-Hydroxyvitamin D3 [Mass/volume] in Serum or Plasma *Vitamin D (Calciferol) [facility] Work Phone: Start: 12-13-2014 End: 09-13-2014 Ferritin *Ferritin [facility] Work Phone: Start: 12-13-2014 End: 09-13-2014 Iron and Iron binding capacity panel - Serum or Plasma *IBC Iron & Total Iron Binding Capacity [facility] Work Phone: Start: 12-13-2014 End: 09-13-2014 *CBC with Differential *CBC with Differential [facility] Work Phone: Start: 12-13-2014 End: 09-13-2014 25-Hydroxyvitamin D2+25-Hydroxyvitamin D3 mass conc *Vitamin D (Calciferol) [facility] Work Phone: Start: 12-13-2014 End: 09-13-2014 Ferritin mass conc *Ferritin [facility] Work Phone: Start: 12-13-2014 End: 09-13-2014 Iron and Iron binding capacity panel - Serum or Plasma *IBC Iron & Total Iron Binding Capacity [facility] Work Phone: Start: 08-29-2014 End: 08-31-2014 *B12FO Vitamin B12 and Folates *B12FO Vitamin B12 and Folates [facility] Work Phone: Start: 08-29-2014 End: 08-31-2014 *CBC with Differential *CBC with Differential [facility] Work Phone: Start: 08-29-2014 End: 08-31-2014 *CMP Complete Metabolic Panel *CMP Complete Metabolic Panel [facility] Work Phone: Start: 08-29-2014 End: 08-31-2014 25-Hydroxyvitamin D2+25-Hydroxyvitamin D3 [Mass/volume] in Serum or Plasma *Vitamin D (Calciferol) [facility] Work Phone: Start: 08-29-2014 End: 08-31-2014 Ferritin *Ferritin [facility] Work Phone: Start: 08-29-2014 End: 08-31-2014 Iron and Iron binding capacity panel - Serum or Plasma *IBC Iron & Total Iron Binding Capacity [facility] Work Phone: Start: 08-29-2014 End: 08-31-2014 Thyroid stimulating hormone (TSH) *TSH [facility] Work Phone: Start: 08-29-2014 End: 08-31-2014 *B12FO Vitamin B12 and Folates *B12FO Vitamin B12 and Folates [facility] Work Phone: Start: 08-29-2014 End: 08-31-2014 *CBC with Differential *CBC with Differential [facility] Work Phone: Start: 08-29-2014 End: 08-31-2014 *CMP Complete Metabolic Panel *CMP Complete Metabolic Panel [facility] Work Phone: Start: 08-29-2014 End: 08-31-2014 25-Hydroxyvitamin D2+25-Hydroxyvitamin D3 mass conc *Vitamin D (Calciferol) [facility] Work Phone: Start: 08-29-2014 End: 08-31-2014 Ferritin mass conc *Ferritin [facility] Work Phone: Start: 08-29-2014 End: 08-31-2014 Iron and Iron binding capacity panel - Serum or Plasma *IBC Iron & Total Iron Binding Capacity [facility] Work Phone: Start: 08-29-2014 End: 08-31-2014 Thyrotropin Qn *TSH [facility] Work Phone: Summary Purpose Family History No Family History Records Found Advance Directives No Advanced Directives Records Found Additional Source Comments INFORMATION SOURCE (unrecogn ized section and content) FOR RECORDS PERTAINING TO PATIENTS WHO ARE OR HAVE BEEN ENROLLED IN A CHEMICAL DEPENDENCY/SUBSTANCEABUSE PROGRAM, SOME INFORMATION MAY BE OMITTED. This clinical summary was aggregated from multiple sources. Caution should be exercised in using it in the provision of clinical care. This summary normalizes information from multiple sources, and as a consequence, information in this document may materially change the coding, format and clinical context of patient data. In addition, data may be omitted in some cases. CLINICAL DECISIONS SHOULD BE BASED ON THE PRIMARY CLINICAL RECORDS. [employer] provides no warranty or guarantee of the accuracy or completeness of information in this document.
--- NOTE | 2023-06-20 12:55 | RAD_ITS ---
STUDY: X-RAY CHEST REASON FOR EXAM: Female, 73 years old. Fever and cough TECHNIQUE: PA and lateral views of the chest. COMPARISON: 07/07/2021 FINDINGS: EKG leads overlie the chest Lungs are hyperexpanded without evidence of a superimposed acute pulmonary process Normal size heart. Normal mediastinum and gaudencio. Normal visualized pulmonary arteries. Normal visualized aortic arch and descending thoracic aorta. Normal visualized thoracic spine. Normal visualized ribs, clavicles, and shoulders. There is no demonstrated abnormality of the visualized soft tissue structures of the upper abdomen. RAD/Chest PA and Lateral IMPRESSION: Hyperexpanded lungs without a superimposed acute pulmonary process Electronically Signed: Chad Devries MD at 13:06 EST ,
[2023-06-20 12:58] LABS: Absolute Lymphocyte Count 2.04 X10^3/uL (0.83-4.51); Absolute Neutrophil Count 3.5 X10^3/uL (2.0-7.7); Basophil# 0.06 X10^3/uL; Basophil% 0.9 % (0-1); Eosinophil# 0.21 X10^3/uL; Eosinophils% 3.3 % (0-5); Hemoglobin 14.4 g/dL (12.0-15.0); Lymphocyte # 2.04 X10^3/ul (0.83-4.51); Lymphocyte % 31.7 % (19-41); Mean Corp Hgb Conc 31.3 g/dL (32-36); Mean Corpuscular Hgb 31.6 pg (27.0-32.0); Mean Corpuscular Volume 100.9 fL (81-99); Mean Platelet Vol. 10.9 fl (6.2-12.0); Monocyte# 0.61 X10^3/uL; Monocyte% 9.5 % (0-10); NRBC Flagged by Analyzer 0 % (0-5); Neutrophil % 54.3 % (47-70); Platelet Count 350 K/mm3 (150-450); RBC Distribution Width CV 12.8 % (11.6-14.6); RBC Distribution Width SD 47.8 fl (35.1-43.9); Red Blood Count 4.56 M/mm3 (4.2-5.4); White Blood Count 6.4 K/mm3 (4.4-11.0)
[2023-06-20 13:10] VITALS: O2SAT 95
[2023-06-20] MEDS: Ipratropium/Albuterol Sulfate 3 ML AMPUL.NEB INHALATION (13:10)
[2023-06-20 13:11] LABS: Anion Gap 2 (5-15); BUN 15 mg/dL (7-18); BUN/Creat Ratio 27.9 RATIO (10-20); Calcium,Total 9.6 mg/dL (8.5-10.1); Chloride 108 mmol/L (98-107); Creatinine, Serum 0.54 mg/dL (0.55-1.02); EST Glomerular Filtration Rate 118 mL/min (>60); Est Glom Filt Rate - Afr Amer 143 mL/min (>60); Glucose 107 mg/dL (74-106); Sodium Level 141 mmol/L (136-145); Troponin-I HS 8 pg/mL (3.0-54.0)
[2023-06-20 13:20] VITALS: PULSE 80; RESP 20
[2023-06-20 14:07] VITALS: BP 147/76; PULSE 83; RESP 20; TEMP 36.9; O2SAT 90; O2SAT 95; BMI 19.5
[2023-06-20 14:10] VITALS: BMI 19.5
[2023-06-20 14:11] VITALS: BP 147/70; PULSE 73; RESP 23; TEMP 36.9; O2SAT 96
[2023-06-20 14:13] VITALS: BP 147/70; PULSE 72; RESP 24; TEMP 36.9; O2SAT 95
== END 2023-06-20 14:42 | disposition home or self-care (01) ==
PROVIDERS: Emergency Provider Emergency Medicine; PCP Nurse Practitioner Family; Visit Provider Emergency Medicine
DX: J44.9 Chronic obstructive pulmonary disease, unspecified (principal); F17.210 Nicotine dependence, cigarettes, uncomplicated; Z86.73 Personal history of transient ischemic attack (TIA), and cerebral infarction without residual deficits
CPT/HCPCS: 71046; 80048; 84484; 85025; 87631; 93005; 94640; 99284; A4216

== ENCOUNTER → 2023-07-30 | Outpatient (CLI) | payer MEDICARE, MEDICAID, SELFPAY ==
--- NOTE | 2023-07-30 07:35 | MRI_ITS ---
STUDY: MRI BRAIN WITHOUT CONTRAST REASON FOR EXAM: Female, 73 years old. dementia; daily headaches; Hx CVAs TECHNIQUE: Standardized multiplanar fat and water weighted pulse sequences were obtained. COMPARISON: MRI of the brain dated April 24, 2021. Head CT dated August 30, 2022. FINDINGS: There is moderate cerebral atrophy with widening of the extra-axial spaces and ventricular dilatation. There are multiple white matter hyperintensities, distributed throughout the deep white matter tracts of the cerebral hemispheres, consistent with moderate chronic white matter ischemic changes. Normal T2* images of the brain without demonstrated susceptibility artifact. There is no demonstrated hemosiderin stain. There is no evidence for recent intracranial ischemia or other cause of cytotoxic edema on diffusion weighted imaging (DWI). No midline shift is present. Redemonstration of moderate cystic encephalomalacia of the right frontal lobe and in the left temporal and parietal regions consistent with sequela of old infarcts. Normal bilateral basal ganglia. Normal thalami. There is no extra-axial fluid accumulation. Normal flow voids within the major intracranial circulation suggesting patency by spin echo criteria. Normal sella turcica, pituitary gland, infundibular stalk, optic chiasm and hypothalamus. Normal tectal plate and pineal gland. Normal midbrain, dawn and medulla. Normal cerebellum. Normal basal cisterns. Normal bilateral temporal bones. Normal bilateral internal auditory canals. No demonstrated orbital abnormality, within the constraints of a routine brain study. Normal visualized paranasal sinuses. Normal calvarium and skull base. Normal visualized soft tissue structures. Normal visualized upper cervical spine. MRI/Brain without Contrast IMPRESSION: 1. Redemonstration of moderate cystic encephalomalacia of the right frontal lobe and in the left temporal and parietal regions consistent with sequela of old infarcts. 2. Involutional and chronic ischemic changes of the brain, as described above. Electronically Signed: Sathya Raymond MD at 9:51 EST ,
--- OUTSIDE RECORDS SUMMARY | 2023-07-30 07:45 | XMS RPT_ITS | CCD ---
Author Name Unknown Address [address] [place] [address] Organization [facility] Care Team Providers Care Supervisor Beet End Name Role Phone Lawanda Hale Unavailable Unavailable Lawanda Hale Unavailable Unavailable Paxton LOPEZ, Celso Flores Unavailable Unavailable Annamarie Corley Unavailable Unavailable Annamarie Corley Unavailable Unavailable Annamarie Corley Unavailable Unavailable Allergies Allergy Classification Reported Allergen(s) Allergy Type Date of Onset Reaction(s) Facility (6 sources) penicillin v Drug Allergy Hives and rash [facility] Work Phone: [phone] (6 sources) sertraline Drug Allergy Makes her go looney [facility] Work Phone: [phone] Medications Completed/Discontinued Medications Medication Drug Class(es) Dates Sig (Normalized) Sig (Original) 200 actuat albuterol 0.09 mg/actuat metered dose inhaler (12 sources) beta2-Adrenergic Agonist Start: 05-04-2017 VENTOLIN HFA 108 (90 Base) MCG/ACT AERS 1-2 puffs every 6 hrs as needed ALBUTEROL SULFATE [id number] Celso Matta ECOLOGICAL MODELER-C Problems Active Problems Problem Classification Problem Date [...] (Body Mass Index) 22.77 kg/m2 Celso LOPEZ [facility] Work Phone: 05-04-2017 10:34-0500 Body Temperature 97.7 [degF] Celso LOPEZ [facility] Work Phone: 05-04-2017 10:34-0500 BP Diastolic 73 mm[Hg] Celso Matta ECOLOGICAL MODELER-C [facility] Work Phone: 05-04-2017 10:34-0500 BP Systolic 107 mm[Hg] Celso Matta ECOLOGICAL MODELER-C [facility] Work Phone: 05-04-2017 10:34-0500 Height 157.48 cm Celso Matta ECOLOGICAL MODELER-C [facility] Work Phone: 05-04-2017 10:34-0500 Pulse (Heart Rate) 84 /min Celso Matta ECOLOGICAL MODELER-C [facility] Work Phone: 05-04-2017 10:34-0500 Respiratory Rate 18 /min Celso Matta ECOLOGICAL MODELER-C [facility] Work Phone: 05-04-2017 10:34-0500 Weight 56.47 kg Celso Matta ECOLOGICAL MODELER-C [facility] Work Phone: 02-03-2017 13:30-0400 BMI (Body Mass Index) 21.95 kg/m2 Annamarie Marthey [facility] Work Phone: 02-03-2017 13:30-0400 Body Temperature 98.2 [degF] Annamarie Marthey [facility] Work Phone: 02-03-2017 13:30-0400 BP Diastolic 75 mm[Hg] Annamarie Marthey [facility] Work Phone: 02-03-2017 13:30-0400 BP Systolic 111 mm[Hg] Annamarie Marthey [facility] Work Phone: 02-03-2017 13:30-0400 Height 157.48 cm Annamarie Marthey [facility] Work Phone: 02-03-2017 13:30-0400 Pulse (Heart Rate) 69 /min Annamarie Marthey [facility] Work Phone: 02-03-2017 13:30-0400 Weight [...] Author Start: 05-31-2017 End: 05-31-2017 Appointment Appointment [facility] Work Phone: Start: 05-04-2017 End: 05-04-2017 Follow Up Appt 1 month Follow Up Appt 1 month [facility] Work Phone: Start: 05-04-2017 End: 05-04-2017 Appointment Appointment [facility] Work Phone: Start: 03-17-2017 End: 03-17-2017 Appointment Appointment [facility] Work Phone: Start: 02-03-2017 End: 02-03-2017 MARCELA MARCELA [facility] Work Phone: Start: 02-03-2017 End: 02-03-2017 Neurology Referral Neurology Referral [facility], [address], [place], [address] [facility] Work Phone: Start: 02-03-2017 End: 02-03-2017 Appointment Appointment [facility] Work Phone: Start: 02-03-2017 End: 02-03-2017 MARCELA MARCELA [facility] Work Phone: Start: 02-03-2017 End: 02-03-2017 Neurology Referral Neurology Referral [facility], [address], [place], [address] [facility] Work Phone: Start: 12-13-2014 End: 09-13-2014 *CBC with Differential *CBC with Differential [facility] Work Phone: Start: 12-13-2014 End: 09-13-2014 25-Hydroxyvitamin D2+25-Hydroxyvitamin D3 [Mass/volume] in Serum or Plasma *Vitamin D (Calciferol) [facility] Work Phone: Start: 12-13-2014 End: 09-13-2014 Ferritin *Ferritin [facility] Work Phone: Start: 12-13-2014 End: 09-13-2014 Iron and Iron binding capacity panel - Serum or Plasma *IBC Iron & Total Iron Binding Capacity [facility] Work Phone: Start: 12-13-2014 End: 09-13-2014 *CBC with Differential *CBC with Differential [facility] Work Phone: Start: 12-13-2014 End: 09-13-2014 25-Hydroxyvitamin D2+25-Hydroxyvitamin D3 mass conc *Vitamin D (Calciferol) [facility] Work Phone: Start: 12-13-2014 End: 09-13-2014 Ferritin mass conc *Ferritin [facility] Work Phone: Start: 12-13-2014 End: 09-13-2014 Iron and Iron binding capacity panel - Serum or Plasma *IBC Iron & Total Iron Binding Capacity [facility] Work Phone: Start: 08-29-2014 End: 08-31-2014 *B12FO Vitamin B12 and Folates *B12FO Vitamin B12 and Folates [facility] Work Phone: Start: 08-29-2014 End: 08-31-2014 *CBC with Differential *CBC with Differential [facility] Work Phone: Start: 08-29-2014 End: 08-31-2014 *CMP Complete Metabolic Panel *CMP Complete Metabolic Panel [facility] Work Phone: Start: 08-29-2014 End: 08-31-2014 25-Hydroxyvitamin D2+25-Hydroxyvitamin D3 [Mass/volume] in Serum or Plasma *Vitamin D (Calciferol) [facility] Work Phone: Start: 08-29-2014 End: 08-31-2014 Ferritin *Ferritin [facility] Work Phone: Start: 08-29-2014 End: 08-31-2014 Iron and Iron binding capacity panel - Serum or Plasma *IBC Iron & Total Iron Binding Capacity [facility] Work Phone: Start: 08-29-2014 End: 08-31-2014 Thyroid stimulating hormone (TSH) *TSH [facility] Work Phone: Start: 08-29-2014 End: 08-31-2014 *B12FO Vitamin B12 and Folates *B12FO Vitamin B12 and Folates [facility] Work Phone: Start: 08-29-2014 End: 08-31-2014 *CBC with Differential *CBC with Differential [facility] Work Phone: Start: 08-29-2014 End: 08-31-2014 *CMP Complete Metabolic Panel *CMP Complete Metabolic Panel [facility] Work Phone: Start: 08-29-2014 End: 08-31-2014 25-Hydroxyvitamin D2+25-Hydroxyvitamin D3 mass conc *Vitamin D (Calciferol) [facility] Work Phone: Start: 08-29-2014 End: 08-31-2014 Ferritin mass conc *Ferritin [facility] Work Phone: Start: 08-29-2014 End: 08-31-2014 Iron and Iron binding capacity panel - Serum or Plasma *IBC Iron & Total Iron Binding Capacity [facility] Work Phone: Start: 08-29-2014 End: 08-31-2014 Thyrotropin Qn *TSH [facility] Work Phone: Summary Purpose Family History No [...] BE BASED ON THE PRIMARY CLINICAL RECORDS. [employer] provides no warranty or guarantee of the accuracy or completeness of information in this document.
== END | disposition home or self-care (01) ==
PROVIDERS: PCP Nurse Practitioner Family; Referring Provider Psychiatry & Neurology Neurology; Visit Provider Psychiatry & Neurology Neurology
DX: F03.90 Unspecified dementia, unspecified severity, without behavioral disturbance, psychotic disturbance, mood disturbance, and anxiety (principal); G44.209 Tension-type headache, unspecified, not intractable; Z86.73 Personal history of transient ischemic attack (TIA), and cerebral infarction without residual deficits
CPT/HCPCS: 70551

== ENCOUNTER → 2024-02-03 | Outpatient (CLI) | payer MEDICARE, MEDICAID, SELFPAY ==
[2024-02-03 12:53] LABS: Absolute Lymphocyte Count 2.56 X10^3/uL (0.83-4.51); Absolute Neutrophil Count 4.6 X10^3/uL (2.0-7.7); Basophil# 0.07 X10^3/uL; Basophil% 0.9 % (0-1); Eosinophil# 0.26 X10^3/uL; Eosinophils% 3.2 % (0-5); Hematocrit 47.8 % (37-47); Lymphocyte # 2.56 X10^3/ul (0.83-4.51); Lymphocyte % 31.4 % (19-41); Mean Corp Hgb Conc 31.4 g/dL (32-36); Mean Corpuscular Hgb 31.6 pg (27.0-32.0); Mean Corpuscular Volume 100.6 fL (81-99); Mean Platelet Vol. 10.6 fl (6.2-12.0); Monocyte# 0.67 X10^3/uL; Monocyte% 8.2 % (0-10); NRBC Flagged by Analyzer 0 % (0-5); Neutrophil # 4.58 X10^3/uL (2.7-7.7); Neutrophil % 56.2 % (47-70); Platelet Count 361 K/mm3 (150-450); RBC Distribution Width CV 12.9 % (11.6-14.6); RBC Distribution Width SD 48.4 fl (35.1-43.9); Red Blood Count 4.75 M/mm3 (4.2-5.4); White Blood Count 8.2 K/mm3 (4.4-11.0)
[2024-02-03 13:07] LABS: Vitamin B12 361 pg/mL (211-911); Vitamin D,25 Hydroxy 21.1 ng/mL
[2024-02-03 13:30] LABS: AST(SGOT) 15 U/L (15-37); Alanine Aminotransfer ALT/SGPT 21 U/L (13-56); Albumin, Serum 3.7 g/dL (3.2-5.0); Alkaline Phosphatase 93 U/L (45-117); Anion Gap 6 (5-15); BUN 16 mg/dL (7-18); BUN/Creat Ratio 27.8 RATIO (10-20); Chloride 104 mmol/L (98-107); Cholesterol 161 mg/dL (200); Creatinine, Serum 0.58 mg/dL (0.55-1.02); EST Glomerular Filtration Rate 109 mL/min (>60); Est Glom Filt Rate - Afr Amer 132 mL/min (>60); Globulin 3.8 g/dL (2.2-4.2); Glucose 95 mg/dL (74-106); High Density Lipoprotein 72 mg/dL; Potassium 4.5 mmol/L (3.5-5.1); Protein, Total 7.5 g/dL (6.4-8.2); Sodium Level 138 mmol/L (136-145); Triglycerides 87 mg/dL; Very Low Density Lipoprotein 17 mg/dL (5-40)
== END | disposition home or self-care (01) ==
LOC: VSLAB 10:12
PROVIDERS: PCP Nurse Practitioner Family; Visit Provider Nurse Practitioner Family
DX: F32.9 Major depressive disorder, single episode, unspecified (principal); E78.5 Hyperlipidemia, unspecified; E55.9 Vitamin D deficiency, unspecified
CPT/HCPCS: 36415; 80053; 80061; 82306; 82607; 84443; 85025

== ENCOUNTER → 2025-01-26 | Outpatient (CLI) | payer MEDICARE, MEDICAID, SELFPAY | END | disposition home or self-care (01) | LOC: VSLAB 09:59 | PROVIDERS: PCP Nurse Practitioner Family | DX: E03.9 Hypothyroidism, unspecified (principal) | CPT/HCPCS: 36415; 84439; 84443 ==

== ENCOUNTER 2025-03-07 17:07 | Emergency (ER) | payer MEDICARE, MEDICAID, SELFPAY ==
[2025-03-07] VITALS (10 sets, daily range): BP systolic 0–145; BP diastolic 0–120; PULSE 0–122; RESP 0–30; TEMP -17.7–37.1; O2SAT 0–100; BMI 12.2
--- NOTE | 2025-03-07 17:46 | EKG12_ITS ---
Test Reason : RHYTHM CHANGE/RESP. FAILURE Blood Pressure : */* mmHG Vent. Rate : 41 BPM Atrial Rate : 120 BPM P-R Int : * ms QRS Dur : 176 ms QT Int : 424 ms P-R-T Axes : 90 268 85 degrees QTcB Int : 349 ms Critical Test Result: Arrhythmia , AV Block Sinus tachycardia with 2nd degree A-V block (Mobitz I) with ventricular escape complexes Right atrial enlargement Right bundle branch block Possible Lateral infarct , age undetermined Marked T wave abnormality, consider inferior ischemia Abnormal ECG Confirmed by Britton Machado ([id number]), editor managing director KAYLEE NEWSOME ([id number]) on 03/09/2025 5:45:41 AM Referred By: JANAE Confirmed By: Britton Machado
--- NOTE | 2025-03-07 17:48 | ED.VIS.DYS ---
HPI History of Present Illness Chief Complaint: Shortness of Breath Informant: patient and family Onset/Context/Timing Onset: Today Context: gradual Timing: Continuous Current Severity: Severe Maximum Severity: Severe Narrative Narrative: 74-year-old female history of COPD not on home O2 continues to smoke and prior stroke and dementia. Per her granddaughter she has had diarrhea throughout the day multiple episodes. And became short of breath and generally weak. They have started caring around the house. She does have dementia they said she had decreased mental status and her pulse ox was 88 at home. Patient herself is unable to give any history currently is on BiPAP. PE Risk Factors: Negative for Cancer, OCP + Smoking + > 35, Prior DVT or PE, Recent immobilization, Recent surgery or Recent travel Prior similar symptoms: No Recent Illness/Hospitalization: No [facility] Medical History Hyperlipidemia Encounter for health maintenance examination GERD (gastroesophageal reflux disease) Acute pharyngitis Encounter for screening for malignant neoplasm of lung in current smoker with 30 pack year history or greater Black tarry stools Mixed stress and urge urinary incontinence Tobacco abuse counseling Blood clots in brain Dementia CVA (cerebral vascular accident) Left wrist pain Gout Depression Asthma COPD (chronic obstructive pulmonary disease) Home Medications ?Medication ?Instructions ?Recorded ?Last Taken ?Type melatonin 5 mg tablet 5 - 10 mg (1 - 2 x 5 mg) PO HS PRN 01/01/21 Unknown Rx sleep #180 tabs dexamethasone 6 mg tablet 6 mg PO DAILY #7 tabs 07/07/21 Unknown Rx diaper,brief,adult,disposable #100 ea 12/09/21 Unknown Rx (Disposable Brief) underpads (Bed Underpads) #150 ea 12/09/21 Unknown Rx fluticasone fur. 100 mcg-umeclid 1 inh inhalation DAILY #60 ea 04/24/22 Unknown Rx 62.5 mcg-vilant 25 mcg inhalat.powder (Trelegy Ellipta) reuseable chux #3 ea 05/28/22 Unknown Rx cyanocobalamin (vitamin B-12) 1,000 mcg IM QMONTH SUPPLEMNENT #1 01/18/23 Unknown Rx 1,000 mcg/mL injection solution mL syringe with needle 3 mL 25 gauge #1 ea 01/18/23 Unknown Rx x 1 albuterol sulfate 90 mcg/actuation 2 puff inhalation Q4H PRN 01/25/23 Unknown Rx aerosol inhaler shortness of breath or wheezing #3 ea omeprazole 40 mg capsule,delayed 40 mg PO BID #180 caps 02/03/23 Unknown Rx release rosuvastatin 10 mg tablet 10 mg PO DAILY CHOLESTEROL #30 tabs 03/26/23 Unknown Rx acetaminophen 500 mg tablet 500 - 1,000 mg (1 - 2 x 500 mg) PO 10/08/23 Unknown Rx Q8H PRN PRN for fever #30 TABLETS ascorbic acid (vitamin C) 250 mg 250 mg PO DAILY #28 TABLETS 10/08/23 Unknown Rx tablet aspirin 81 mg tablet,delayed 81 mg PO QAM #28 TABLETS 10/08/23 Unknown Rx release ferrous sulfate 325 mg (65 mg 325 mg PO DAILY #28 TABLETS 10/08/23 Unknown Rx iron) tablet (FeroSul) levothyroxine 75 mcg tablet 75 mcg PO DAILY #28 TABLETS 10/08/23 Unknown Rx venlafaxine 75 mg capsule,extended 75 mg PO QAM for depressive 10/08/23 Unknown Rx release 24 hr disorder #28 caps budesonide 160 mcg-glycopyr 9 inh inhalation 03/07/25 Unknown History mcg-formot 4.8 mcg/actuation HFA inhaler (Breztri Aerosphere) ipratropium 0.5 mg-albuterol 3 mg ml 03/07/25 Unknown History (2.5 mg base)/3 mL nebulization soln Allergy/AdvReac Type Severity Reaction Status Date / Time Penicillins Allergy Hives Verified 07/22/23 09:57 Family History Sister Lung cancer unconfirmed diagnosis, waiting on biopsy results Brother Myocardial infarction, Onset Age: 43 Mother Pacemaker Surgical History History of arthroscopic knee surgery History of carotid endarterectomy History of tonsillectomy H/O bladder repair surgery History of hysterectomy Social History Smoking Status: Current every day smoker tobacco type: cigarettes Tobacco: How many years used: 60 Electronic Cigarette Use: not used second hand exposure: Yes quit status: considering quitting alcohol intake: never substance use type: does not use what type of physical activity do you participate in: none seatbelt use: always do you feel safe at home: Yes ROS ROS ED ROS Narrative Diarrhea. Shortness of breath. Patient is unable to give any history due to her current medical condition. Review of Systems ROS Unobtainable: other Details: Due to severity of current medical condition. History per granddaughter. Constitutional Constitutional ED: Denies chills or fever(s) Eyes Eyes: Denies blurry vision ENT ENT ED: Denies ear pain Cardiovascular Cardiovascular: Denies chest pain Respiratory/Chest Respiratory/Chest: Reports dyspnea; Denies cough Gastrointestinal Gastrointestinal: Reports diarrhea; Denies abdominal pain, constipation, melena, nausea or vomiting Genitourinary Genitourinary ED: Denies dysuria or hematuria Musculoskeletal Musculoskeletal: Denies arthralgias Integumentary Denies abscess Neurologic Neurologic: Denies headache(s) Psychiatric Psychiatric: Denies anxiety or depression Endocrine Endocrinology: Denies cold intolerance Hematologic/Lymphatic Hematologic/Lymphatic: Denies easy bleeding, easy bruising or lymphadenopathy Allergic/Immunologic Allergic/Immunologic ED: Denies mouth swelling EXAM Physical Exam Narrative Exam Narrative: 74-year-old female sitting upright in bed. Currently on BiPAP. Vital signs heart rate 106 afebrile temperature 90.7. Initial blood pressure 124/82. Initial pulse ox on BiPAP is 92%. H EENT exam pupils round react light. Moist mutes membranes. Neck nontender no JVD. No lymphadenopathy. Lungs prolonged expiratory phase. Working to breathe. Heart tachycardic 110 no murmur. Chest wall ribs nontender no crepitance. Abdomen soft nondistended normal bowel sounds without peritoneal signs. Moving all 4 extremities. Thin. Nontender no edema. 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 Normal dorsi plantarflexion. Back nontender. Neurologically she is awake her eyes are open. She is on BiPAP. Const Vital Signs: 03/07/25 17:15 03/07/25 17:35 03/07/25 17:35 Temperature 98.7 F 97.8 F Temperature Source Oral Temporal Pulse Rate 106 H 120 H 110 H Respiratory Rate 27 H 30 H 30 H Respiratory Effort Respiratory Depth Respiratory Pattern Tachypnea Blood Pressure 124/82 H 132/94 H Blood Pressure Mean 96 106 Pulse Ox 92 97 Oxygen Delivery Method Bi-pap Nasal Cannula Oxygen Flow Rate (L/min) 4 Fraction of Inspired Oxygen (FIO2) 03/07/25 17:35 03/07/25 17:39 03/07/25 17:45 Temperature 97.9 F Temperature Source Temporal Pulse Rate 110 H 63 Respiratory Rate 30 H 29 H Respiratory Effort Short of Breath Labored Accessory Muscle Use Retracting Head Bobbing Respiratory Depth Deep Respiratory Pattern Tachypnea Tachypnea Blood Pressure 121/105 H Blood Pressure Mean 110 Pulse Ox 93 96 Oxygen Delivery Method Bi-pap Bi-pap Oxygen Flow Rate (L/min) Fraction of Inspired Oxygen (FIO2) 50 03/07/25 17:46 03/07/25 18:15 Temperature 97.1 F L Temperature Source Temporal Pulse Rate 121 H Respiratory Rate 16 Respiratory Effort Respiratory Depth Respiratory Pattern Blood Pressure 145/120 H Blood Pressure Mean 128 Pulse Ox 92 Oxygen Delivery Method Airvo Bi-pap Oxygen Flow Rate (L/min) Fraction of Inspired Oxygen (FIO2) 45 45 Positive well nourished and well developed; Negative for obese, cachectic, contractures or unkempt General Appearance ED: well developed; Negative for unkempt, cachectic, contractures, NAD or pallor Nutritional Appearance: Negative for cachectic or obese HEENT Reports moist mucous membranes atraumatic; Negative for trauma or tenderness Eyes PERRL and EOMs intact bilaterally Neck no lymphadenopathy, supple, no meningeal signs and no JVD General: Negative for tenderness Resp No normal respiratory effort and clear to auscultation bilaterally Resp Narrative: Prolonged expiratory phase. Effort and Inspection: Negative for pain with movement Cardio regular rhythm, S1 normal heart sound, S2 normal heart sound and no murmurs; Negative for regular rate Rate: tachycardic GI non-tender, non-distended and no masses Auscultation: normoactive bowel sounds Palpation: soft; Negative for tender, guarding, mass or rebound tenderness present Back/Spine no CVA tenderness and normal to inspection Extremity normal to inspection General Extremety ED: Negative for edema, tenderness or other findings General Extremity: Negative for edema or other findings Neuro oriented x3 and CN's II-XII intact bilaterally Sensorium / Orientation: alert, oriented to person, oriented to place and oriented to time; Negative for orientation impaired, confused or lethargic Speech: speech normal Motor Exam: strength 5/5 throughout Psych mental status grossly normal Appearance: Negative for unkempt Attitude: No agitated Mood & Affect: Negative for depressed, anxious or tearful Skin no wounds and skin turgor normal General Skin Exam: Negative for jaundice or pallor Lesions: no lesions Rashes: no rashes Trauma: Negative for abrasion or laceration MDM MDM MDM Narrative Medical decision making narrative: 74-year-old female with diarrhea, generalized weakness, decreased mental status and shortness of breath. Undergoing septic workup. Has already been given DuoNeb aerosol currently is on BiPAP. Also be ordered for Solu-Medrol. IV fluids times a liter. Concerns for respiratory failure, COPD rule out pneumonia possible sepsis possible C. difficile excetra. She is critically ill. Call in the room patient breathing had gotten better on BiPAP and she got significantly worse. I gave her 20 of etomidate, 100 succinylcholine intubated her on first attempt. Bilateral breath sounds. Good color change. She had had an episode of bradycardia with what appeared to be an third-degree heart block that then resolved. She was given atropine and her heart rate picked up her blood pressures improved. I had a discussion with both granddaughters 1 is the power of deputy county attorney and other family members. They understand she is critically ill. They want everything done. I spoken to the hospitalist she will be admitted to the ICU. She has been started on meropenem and vancomycin due to a penicillin allergy I did not use Zosyn. She will be treated for respiratory failure and sepsis. Patient was waiting on admission and the hospitalist wanted a CT of the abdomen to see if we did find a source of possible sepsis. She went asystolic. Nurses started CPR. She was given multiple rounds of epinephrine. Her heart rate initially become tachycardic after the epinephrine and slowly bradycardia down to become asystole again. We ran the code for 20 minutes or so. Spoke to family at length. The patient was pronounced at 8:49 PM on 03/07/2025. History & Record Review Discussion w/independent historian: Family Additional record(s) reviewed:: Prior inpatient record, Prior outpatient record, Prior ED visit and Prior labs Lab Data Attestation: I reviewed the patient's lab results. Lab results narrative: CBC shows elevated white count of 23.0. H&H of 18 and 58. Platelets 348. Electrolytes show a potassium of 5.3. Gap of 24. BUN and creatinine of 42 and 1.67 consistent with acute kidney injury. Dehydration. Glucose 158. Lactic acid is 7.4. Liver enzymes show an elevated AST, ALT and alk phos. Chest x-ray portable view interpreted by myself shows ET tube in good position just above the edson. No pneumonia. No pneumothorax. Normal cardiac silhouette. Labs: Laboratory Results - last 24 hr 03/07/25 17:34 WBC 23.0 H RBC 5.51 H Hgb 18.7 H* Hct 58.0 H MCV 105.3 H MCH 33.9 H MCHC 32.2 RDW Std Deviation 52.1 H RDW Coeff of Ramón 13.2 Plt Count 348 MPV 11.4 Immature Gran % (Auto) 0.700 Neut % (Auto) 86.9 H Lymph % (Auto) 6.3 L [place] % (Auto) 5.6 Eos % (Auto) 0.0 Baso % (Auto) 0.5 Absolute Neuts (auto) 20.0 H Absolute Lymphs (auto) 1.46 Nucleated RBC % 0 Sodium 143 Potassium 5.3 H Chloride 101 Carbon Dioxide 17.2 L Anion Gap 24 H BUN 42 H Creatinine 1.67 H Estim Creat Clear Calc 14.89 L Est GFR (MDRD) Non-Af 32 L BUN/Creatinine Ratio 25.3 H Glucose 158 H Lactic Acid 7.4 H* Calcium 9.8 Total Bilirubin 0.63 AST 158 H ALT 143 H Alkaline Phosphatase 145 H Total Protein 7.5 Albumin 4.4 Globulin 3.2 Albumin/Globulin Ratio 1.4 Radiography Chest X-Ray - ED: 1 View, Read by ED Physician, Normal, Heart, Lungs, Mediastinum, Bony Structures, No Acute Disease and Chronic Changes Diagnostic Testing: Chest x-ray portable, single view 2 films. ET intubation good position above the edson. Normal cardiac silhouette. COPD. No pneumonia. No pneumothorax. Critical Care Time Critical Care Time: Yes Critical care time (excluding procedures): 30-74 minutes, Including time spent:, Discussing w/Patient &/or Family/Senior Erp Consultant, Discussing w/Consultants, Arranging Admission or Transfer, Performing Direct Patient Care at Bedside and - (45 minutes) Discharge Plan Dx/Rx/DC Orders Clinical Impression: Respiratory failure, Lactic acidosis, Diarrhea, Sepsis, Acute dehydration, Acute kidney injury, Endotracheally intubated, Leukocytosis, Transient hypotension, , Acquired heart block Disposition Disposition: Acute Care Hospital [facility]
[2025-03-07 18:01] LABS: Immature Granulocytes Count 0.160 X10^3/uL (0.0-0.0); Mean Corp Hgb Conc 32.2 g/dL (32-36); Mean Corpuscular Volume 105.3 fL (81-99); Mean Platelet Vol. 11.4 fl (6.2-12.0); NRBC Flagged by Analyzer 0 % (0-5); Platelet Count 348 K/mm3 (150-450); RBC Distribution Width CV 13.2 % (11.6-14.6); RBC Distribution Width SD 52.1 fl (35.1-43.9); Red Blood Count 5.51 M/mm3 (4.2-5.4); White Blood Count 23.0 K/mm3 (4.4-11.0)
[2025-03-07] MEDS: 0.9% Normal Saline (1000mL) 1,000 ML 999 ML IV ×2 (18:13→19:42)
[2025-03-07 18:15] LABS: Hematocrit 58.0 % (37-47)
[2025-03-07 18:19] LABS: Hemoglobin 18.7 g/dL (12.0-15.0)
[2025-03-07 18:32] LABS: AST(SGOT) 158 U/L (<=31); Alanine Aminotransfer ALT/SGPT 143 U/L (<=34); Albumin, Serum 4.4 g/dL (3.4-4.8); Alkaline Phosphatase 145 U/L (35-104); Anion Gap 24 (5-15); BUN 42 mg/dL (4-19); BUN/Creat Ratio 25.3 RATIO (10-20); Calcium,Total 9.8 mg/dL (7.6-11.0); Carbon Dioxide 17.2 mmol/L (21.0-32.0); Chloride 101 mmol/L (98-108); Estimated Creatinine Clearance 14.89 ml/min (50-250); Globulin 3.2 g/dL (2.2-4.2); Glucose 158 mg/dL (70-99); Potassium 5.3 mmol/L (3.3-5.1)
[2025-03-07 18:50] LABS: Mucous, Urine 0 SEEN /hpf (<or=2+)
--- NOTE | 2025-03-07 19:24 | RAD_ITS ---
PROCEDURE: CHEST 1 VIEW (PORTABLE) 03/07/2025 REASON FOR EXAM: DYSPNEA TECHNIQUE: Frontal view of the chest. COMPARISON: Chest x-ray 06/20/2023 FINDINGS: Hardware: Enteric tube transversing under left hemidiaphragm with distal tip within pylorus. ETT 2.7 Cm above edson. Vascular graft is visualized within neck. Heart: Mild cardiomegaly. Lungs: Bilateral chronic basilar scarring. Bilateral pulmonary vascular congestion. Bones: Degenerative changes are identified within the thoracic spine. RAD/Chest 1 View (Portable) IMPRESSION: Enteric tube transversing under left hemidiaphragm with distal tip within pylor us. ETT 2.7 cm above edson. Readjustment with repeat imaging is recommended. Reading Location: [id number]
--- NOTE | 2025-03-07 19:32 | HP.PCM.HOS_ITS ---
HPI - General General Date of Admission: 03/07/25 Date of Service: 03/07/25 Chief Complaint: Diarrhea, SOB and Generally Weak. HPI Narrative CAPRICE BROWN, is a 74 F with a past medical history of hyperlipidemia; on rosuvastatin, hypothyroidism; on levothyroxine, history of CVA; with thrombectomy in [place] (2019), history of carotid stenosis; s/p endarterectomy, dementia, ongoing chronic tobacco abuse x ~60 years; with subsequent asthma/COPD, migraine headaches, depression with anxiety; on venlafaxine, history PCN allergy, history of mixed stress and urge urinary incontinence, GERD; on omeprazole BID, history of gout, OA and still FULL CODE STATUS who presents to [facility] ER complaining of diarrhea, shortness of breath and generally weak. Ms. Brown was initially started on BiPAP and was subsequently intubated shortly after arrival so information was gathered from chart, medical staff and computer. According to the records her daughter informed the ER physician the patient ill earlier today when she developed multiple episodes of non-bloody diarrhea throughout the day. She then developed SOB and also complained of general weakness followed by altered mental status so they activated EMS. In the ER she was noted to have Leukocytosis of 23K with Lactic Acidosis of 7.4 mmol/L both present on admission consistent with suspected Sepsis along with a CXR that revealed enteric tube transversing under the Left hemidiaphragm with distal tip within pylorus and ETT ~2.7 cm above edson with readjustment and repeat imaging recommended with source of infection yet to be identified by ER physician with CT scan of the abdomen and pelvis pending at this time in addition to ABG complicated by laboratory evidence of GEMMA; with elevated serum creatinine of 1.67 mg/dL and eGFR of 32 mL/min (up from her baseline of 0.58 mg/dL and eGFR of 109 mL/min on 02/03/2024) with associated Hyperkalemia of 5.3 mmol/L present on admission suspected to be due to Dehydration from Diarrhea and incidentally noted Transaminitis; with AST 158 U/L, ALT 143 U/L and Alkaline Phosphatase of 145 U/L with Polycythemia; with elevated hemoglobin of 18.7 g/dL present on admission. A TAVO SHUKLA was then called in the ER at ~20:33 hours with patient failing to respond to full ACLS treatment protocol with time of at 20:49 hours. Therefore, this is a same day admission/discharge. [facility] Medical History Hyperlipidemia Encounter for health maintenance examination GERD (gastroesophageal reflux disease) Acute pharyngitis Encounter for screening for malignant neoplasm of lung in current smoker with 30 pack year history or greater Black tarry stools Mixed stress and urge urinary incontinence Tobacco abuse counseling Blood clots in brain Dementia CVA (cerebral vascular accident) Left wrist pain Gout Depression Asthma COPD (chronic obstructive pulmonary disease) Home Medications ?Medication ?Instructions ?Recorded ?Last Taken ?Type melatonin 5 mg tablet 5 - 10 mg (1 - 2 x 5 mg) PO HS PRN 01/01/21 Unknown Rx sleep #180 tabs dexamethasone 6 mg tablet 6 mg PO DAILY #7 tabs Unknown Rx diaper,brief,adult,disposable #100 ea 12/09/21 Unknown Rx (Disposable Brief) underpads (Bed Underpads) #150 ea 12/09/21 Unknown Rx fluticasone fur. 100 mcg-umeclid 1 inh inhalation DUNG Y #60 ea 04/24/22 Unknown Rx 62.5 mcg-vilant 25 mcg inhalat.powder (Trelegy Ellipta) reuseable chux #3 ea 05/28/22 Unknown Rx cyanocobalamin (vitamin B-12) 1,000 mcg IM QMONTH SUPP LEMNENT #1 01/18/23 Unknown Rx 1,000 mcg/mL injection solution mL syringe with needle 3 mL 25 gauge #1 ea 01/18/23 Unkno wn Rx x 1 albuterol sulfate 90 mcg/actuation 2 puff inhalation Q 4H PRN 01/25/23 Unknown Rx aerosol inhaler shortness of breath or wheez ing #3 ea omeprazole 40 mg capsule,delayed 40 mg PO BID #180 cap s 02/03/23 Unknown Rx release rosuvastatin 10 mg tablet 10 mg PO DAILY CHOLESTEROL # 30 tabs 03/26/23 Unknown Rx acetaminophen 500 mg tablet 500 - 1,000 mg (1 - 2 x 50 0 mg) PO 10/08/23 Unknown Rx Q8H PRN PRN for fever #30 TABLETS ascorbic acid (vitamin C) 250 mg 250 mg PO DAILY #28 T ABLETS 10/08/23 Unknown Rx tablet aspirin 81 mg tablet,delayed 81 mg PO QAM #28 TABLETS 10/08/23 Unknown Rx release ferrous sulfate 325 mg (65 mg 325 mg PO DAILY #28 TABL ETS 10/08/23 Unknown Rx iron) tablet (FeroSul) levothyroxine 75 mcg tablet 75 mcg PO DAILY #28 TABLET S 10/08/23 Unknown Rx venlafaxine 75 mg capsule,extended 75 mg PO QAM for de pressive 10/08/23 Unknown Rx release 24 hr disorder #28 caps budesonide 160 mcg-glycopyr 9 inh inhalation 03/07/25 Unknown History mcg-formot 4.8 mcg/actuation HFA inhaler (Breztri Aerosphere) ipratropium 0.5 mg-albuterol 3 mg ml 03/07/25 Unknown History (2.5 mg base)/3 mL nebulization soln Allergy/AdvReac Type Severity Reaction Status Date / Time Penicillins Allergy Hives Verified 07/22/23 09:57 Family History Sister Lung cancer unconfirmed diagnosis, waiting on biopsy results Brother Myocardial infarction, Onset Age: 43 Mother Pacemaker Surgical History History of arthroscopic knee surgery History of carotid endarterectomy History of tonsillectomy H/O bladder repair surgery History of hysterectomy Social History Smoking Status: Current every day smoker tobacco type: cigarettes Tobacco: How many years used: 60 Electronic Cigarette Use: not used second hand exposure: Yes quit status: considering quitting alcohol intake: never substance use type: does not use what type of physical activity do you participate in: none seatbelt use: always do you feel safe at home: Yes ROS ROS Narrative ROS could not be done because patient is intubated and sedated. Vital Signs Vital Signs Vital Signs: 03/07/25 17:15 03/07/25 17:35 03/07/25 17:35 Temperature 98.7 F 97.8 F Temperature Source Oral Temporal Pulse Rate 106 H 120 H 110 H Respiratory Rate 27 H 30 H 30 H Respiratory Effort Respiratory Depth Respiratory Pattern Tachypnea Blood Pressure 124/82 H 132/94 H Blood Pressure Mean 96 106 Pulse Ox 92 97 Oxygen Delivery Method Bi-pap Nasal Cannula Oxygen Flow Rate (L/min) 4 Fraction of Inspired Oxygen (FIO2) 03/07/25 17:35 03/07/25 17:39 03/07/25 17:45 Temperature 97.9 F Temperature Source Temporal Pulse Rate 110 H 63 Respiratory Rate 30 H 29 H Respiratory Effort Short of Breath Labored Accessory Muscle Use Retracting Head Bobbing Respiratory Depth Deep Respiratory Pattern Tachypnea Tachypnea Blood Pressure 121/105 H Blood Pressure Mean 110 Pulse Ox 93 96 Oxygen Delivery Method Bi-pap Bi-pap Oxygen Flow Rate (L/min) Fraction of Inspired Oxygen (FIO2) 50 03/07/25 17:46 03/07/25 18:15 Temperature 97.1 F L Temperature Source Temporal Pulse Rate 121 H Respiratory Rate 16 Respiratory Effort Respiratory Depth Respiratory Pattern Blood Pressure 145/120 H Blood Pressure Mean 128 Pulse Ox 92 Oxygen Delivery Method Airvo Bi-pap Oxygen Flow Rate (L/min) Fraction of Inspired Oxygen (FIO2) 45 45 Weight Weight: 71 lb 6.876 oz Body Mass Index (BMI) 12.2 Physical Exam Const Constitutional Narrative: Patient is intubated and sedated. HEENT normocephalic and head/scalp atraumatic Eyes PERRL, EOMs intact bilaterally and conjunctivae normal Neck no lymphadenopathy, supple and no JVD Resp normal respiratory effort, no retractions, no use of accessory muscles and clear to auscultation bilaterally Cardio regular rate and regular rhythm GI normal to inspection, nondistended, normoactive bowel sounds, soft to palpation, non-tender and non-distended Extremity normal to inspection, full ROM and no clubbing, cyanosis or edema Skin Skin Narrative: Patient has no evidence of rash, abscess, wounds or jaundice. Neuro Neuro Narrative: Patient intubated and sedated on vent. Results Medical Records Data Attestation: I reviewed the patient's medical records Lab / Micro Data Attestation: I reviewed the patient's lab results. 03/07/25 17:34 03/07/25 17:34 Labs: Laboratory Results - last 24 hr 03/07/25 17:34: WBC 23.0 H, RBC 5.51 H, Hgb 18.7 H*, Hct 58.0 H, MCV 105.3 H, M CH 33.9 H, MCHC 32.2, RDW Std Deviation 52.1 H, RDW Coeff of Ramón 13.2, Plt Count 348, MPV 11.4, Immature Gran % (Auto) 0.700, Neut % (Auto) 86.9 H, Lymph % (Auto) 6.3 L, [place] % (Auto) 5.6, Eos % (Auto) 0.0, Baso % (Auto) 0.5, Absolute Neuts (auto) 20.0 H, Absolute Lymphs (auto) 1.46, Nucleated RBC % 0, Sodium 143, Potassium 5.3 H, Chloride 101, Carbon Dioxide 17.2 L, Anion Gap 24 H, BUN 42 H, Creatinine 1.67 H, Estim Creat Clear Calc 14.89 L, Est GFR (MDRD) Non-Af 32 L, B UN/Creatinine Ratio 25.3 H, Glucose 158 H, Lactic Acid 7.4 H*, Calcium 9.8, Total Bilirubin 0.63, AST 158 H, ALT 143 H, Alkaline Phosphatase 145 H, Total Protein 7.5, Albumin 4.4, Globulin 3.2, Albumin/Globulin Ratio 1.4 Assessment & Plan Assessment/Plan (1) Sepsis: QUALIFIERS: Sepsis type: sepsis due to unspecified organism S epsis acute organ dysfunction status: with acute organ dysfunction Severe sepsis acute organ dysfunction type: encephalopathy Severe sepsis shock status: without septic shock Qualified Code(s): A41.9 - Sepsis, unspecified organism; R65.20 - Severe sepsis without septic shock; G93.41 - Metabolic encephalopathy (2) Diarrhea: QUALIFIERS: Diarrhea type: presumed infectious Qualified Code(s): R19.7 - Diarrhea, unspecified (3) Leukocytosis: QUALIFIERS: Leukocytosis type: unspecified Qualified Code(s): D 72.829 - Elevated white blood cell count, unspecified (4) Lactic acidosis: (5) COPD exacerbation: (6) Respiratory failure: QUALIFIERS: Chronicity: unspecified Respiratory failure complication: unspecified whether with hypoxia or hypercapnia Qualified Code(s): J96.90 - Respiratory failure, unspecified, unspecified whether with hypoxia or hypercapnia (7) Endotracheally intubated: (8) Acute kidney injury: (9) Hyperkalemia: (10) Acute dehydration: (11) Transaminitis: (12) History of stroke: (13) Dementia: QUALIFIERS: Dementia type: unspecified type Dementia severity: u nspecified severity Dementia behavioral or psychological symptom: unspecified whether behavioral, psychotic, or mood disturbance or anxiety Qualified Code(s): F03.90 - Unspecified dementia, unspecified severity, without behavioral disturbance, psychotic disturbance, mood disturbance, and anxiety PLAN: Plan 1. Leukocytosis of 23K with Lactic Acidosis of 7.4 mmol/L both present on admission consistent with suspected Sepsis along with a CXR that revealed e nteric tube transversing under the Left hemidiaphragm with distal tip within pylorus and ETT ~2.7 cm above edson with readjustment and repeat imaging recommended with source of infection yet to be identified in the setting of the Acute Diarrhea - Admit to ICU for treatment under the Sepsis protocol. Continue IV vancomycin and IV meropenem begun in the ER (in light of PCN allergy [hives]) and await culture & sensitivity data. Check stool studies and place on enteric precautions for presumed Colitis. Give acetaminophen MI prn for pain or fever. Give pantoprazole [address] scan of the abdomen and pelvis was requested of the ER physician with results pending at this time. Finally, we will consult pulmonary/critical-care to see this patient on-rounds in the AM for further recommendations with help appreciated in advance. 2. AE COPD with Acute Hypoxic and Hypercapnic Respiratory Failure complicating #1 in the setting of ongoing chronic Tobacco Abuse - Continue IV methylprednisolone in addition to scheduled and prn nebulizers. Wean ventilator as tolerated. Tobacco Cessation will be strongly encouraged when possible with Nicotine patch offered to control cravings. 3. GEMMA; with elevated serum creatinine of 1.67 mg/dL and eGFR of 32 mL/min (up from her baseline of 0.58 mg/dL and eGFR of 109 mL/min on 02/03/2024) with associated Hyperkalemia of 5.3 mmol/L present on admission suspected to be due to Dehydration from Diarrhea compounding #1 & #2 - Aggressively volume resuscitate per Sepsis protocol and recheck renal indices daily to follow trend for improvement. 4. Transaminitis; with AST 158 U/L, ALT 143 U/L and Alkaline Phosphatase of 145 U/L adding to the medical complexity of #1 - #3 - CT scan of abdomen and pelvis pending at this time. Check hepatitis profile. 5. Polycythemia; with elevated hemoglobin of 18.7 g/dL present on admission likely due to a combination of hemoconcentration from diarrhea and ongoing tobacco abuse - Give IVF and serialize CBC to follow trend. 6. History of CVA; with thrombectomy in [place] (2019) with Chronic Dementia - Noted. 7. Hyperlipidemia; on rosuvastatin - Hold statin until patient can tolerate oral intake with elevated LFT's outlined in #4. 8. Hypothyroidism; on levothyroxine - Maintain levothyroxine and check TSH. 9. History of carotid stenosis; s/p endarterectomy - Noted. 10. Migraine headaches - Stable with no complaints of headache prior to intubation. 11. Depression with anxiety; on venlafaxine - Restart this agent when patient can tolerate oral intake. 12. History of mixed stress and urge urinary incontinence - Noted with Pelletier placed in ER. 13. GERD; on omeprazole BID - Patient will be transitioned to IV pantoprazole as outlined in #1. 14. History of gout - Apparently stable with no evidence of acute flare. 15. OA - Stable. Give acetaminophen MI prn as outlined in #1. 16. FULL CODE STATUS - Noted with ER physician confirming family wants everything done. 17. DVT/GI prophylaxis - Heparin 5,000U sq TID plus SCD's. Pantoprazole 40 mg IV daily. Total time: Approximately (but not less than) 85 minutes. Update: Patient had CODE BLUE at 20:33 hours with time of at 20:49 hours. This is a same day admission and discharge. Sepsis Attestation Sepsis Alert: Yes Sepsis Attestation: Agree w/Sepsis Date exam was performed: 03/07/25 Time exam was performed: 20:30 Possible Source of Sepsis: GI tract/intra-abdominal Sepsis Organ Dysfunction Criteria Present: Acute Respiratory Failure (New need for BiPAP/CPAP or MV), Lactic Acid > 2 mmol/L and New/Unexplained change in mental status Fluid Resuscitation Fluid resuscitation indicated?: Yes Fluid Resuscitation ordered: 30 ml/kg fluid bolus ordered Amount of fluid ordered: 2 Sepsis Note Date exam was performed: 03/08/25 Time exam was performed: 00:30 Sepsis Attestation: Sepsis re-evaluation was performed Response to fluids: Fluid responsive hypotension Charges/Coding Visit Charges OBSV E&M: [id number] Observ/hosp same date L3
[2025-03-07 19:50] LABS: Color, Urine Brown (Yellow); Glucose, Dipstick Normal (Normal); Ketone-Dipstick 15 mg/dl (Negative); Leukocyte Esterase-Dipstick 25 /ul (Negative); Nitrite-Dipstick Negative (Negative); Occult Blood-Urine 25 /ul (Negative); Protein-Dipstick 100 mg/dl (Negative); Specific Gravity, Urine 1.020 (1.002-1.030)
[2025-03-07 19:55] LABS: Urine Bilirubin Dipstick 3 mg/dL (Negative)
--- OUTSIDE RECORDS SUMMARY | 2025-03-07 20:06 | XMS RPT_ITS | CCD ---
Author Organization [facility] CliniSyal Care Team Providers Care Wrecker Operator Name Role Phone Lawanda Hale Unavailable Unavailable Lawanda Hale Unavailable Unavailable Matta REAL ESTATE 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-C, Celso Flores Unavailable Unavailable Annamarie Corley Unavailable Unavailable Annamarie Corley Unavailable Unavailable Annamarie Corley Unavailable Unavailable Dr. Rosalie Alejandro Primary Care Provider [phone] Dr. Rosalie Alejandro Referring Provider [phone] Ozzie LIBRARY PARAPROFESSIONAL, LIBRARY PARAPROFESSIONAL-C [place] Attending Provider Paxton LIBRARY PARAPROFESSIONAL, LIBRARY PARAPROFESSIONAL-C Celso Attending Provider [phone] Dr. Ronald Tam Attending Provider Dr. Ronald Tam Referring Provider Dr. Ronald Tam Other Provider Dr. Rosalie Alejandro Primary Care Provider [phone] Dr. Rosalie Alejandro Referring Provider [phone] LUIS FERNANDO Turner Attending Provider Unavailab Dr. Rosalie Reis Primary Care Provider [phone] Dr. Rosalie Alejandro Attending Provider [phone] Dr. Rosalie Alejandro Referring Provider [phone] Dr. Rosalie Alejandro Referring Provider [phone] Dr. Sergio Danielle Attending Provider Paxton LIBRARY PARAPROFESSIONAL, LIBRARY PARAPROFESSIONAL-C Celso Primary Care Provider Paxton LIBRARY PARAPROFESSIONAL-CCelso Primary Care Provider Beam LIBRARY PARAPROFESSIONAL-CJorge Attending Provider Celso Matta Primary Care Unavailable Jorge Clarke Attending Unavailable Celso Matta Primary Care Unavailable Jorge Clarke Referring Unavailable Jorge Clarke Attending Unavailable Celso Matta Primary Care Unavailable Celso Matta Referring Unavailable Celso Matta Attending Unavailable Allergies Allergy Classification Reported Allergen(s) Allergy Type Date of Onset Reaction(s) Facility (6 sources) penicillin v Drug Allergy Hives and rash [facility] Work Phone: [phone] (6 sources) sertraline Drug Allergy Makes her go looney [facility] Work Phone: [phone] (8 sources) Penicillins; Translations: [Penicillins] [facility] Medications Current Medications Medication Drug Class(es) Dates Sig (Normalized) Sig (Original) acetaminophen 500 mg oral tablet (20 sources) Start: 04-24-2022 End: 10-08-2023 take 500-1000 mg by mouth every eight hours as needed for fever Acetaminophen 500 mg tablet Active 500 - 1000 mg PO EVERY 8 HOURS NEEDED as needed for for fever 30 0 October 08, 2023 1:32pm Start: 10-20-2019 End: 04-24-2022 take 1 tablet by mouth twice daily as needed for pain and fever Acetaminophen 500 mg tablet Discontinued 500 mg PO TWICE DAILY NEEDED as needed for PAIN AND FEVER 60 1 February 05, 2022 5:35pm April 24, 2022 9:41am [id number] 200 actuat albuterol 0.09 mg/actuat metered dose inhaler (20 sources) beta2-Adrenergic Agonist Start: 08-12-2021 take 1 puff(s) by inhalation every four hours Albuterol Sulfate Active 2 PUFF INHALATION Q4H 3 August 12, 2021 2:47pm administer with spacer Start: 05-30-2021 take 1 puff(s) by in halation every four hours Albuterol Sulfate (Ventolin Hfa) 90 mcg/actuation HFA aerosol inhaler Active 2 PUFF INHALATION Q4H 8.5 May 30, 2021 5:04pm Start: 10-30-2019 End: 01-25-2023 Albuterol Sulfate (Ventolin Hfa) 90 mcg/actuation HFA aerosol inhaler Discontinued 2 NMA INHALATION Q4H as needed for shortness of breath or wheezing 8.5 6 May 30, 2021 5:04pm April 24, 2022 9:41am Start: 10-30-2019 End: 01-25-2023 take 1 puff(s) by inhalation every four hours Albuterol Sulfate (Ventolin Hfa) 90 mcg/actuation HFA aerosol inhaler Discontinued 2 PUFF INHALATION Q4H 8.5 May 30, 2021 4:04pm April 24, 2022 8:41am Start: 09-05-2018 End: 08-30-2019 take 1 puff(s) by inhalation every six hours Albuterol Sulfate (Ventolin Hfa) 90 mcg/actuation HFA aerosol inhaler Discontinued 2 PUFF INHALATION EVERY 6 HOURS 18 September 05, 2018 4:00pm August 30, 2019 2:20pm Start: 05-10-2018 End: 09-05-2018 take 1 puff(s) by inhalation every six hours Albuterol Sulfate (Ventolin Hfa) 90 mcg/actuation HFA aerosol inhaler Discontinued 2 PUFF INHALATION EVERY 6 HOURS May 10, 2018 8:55am September 05, 2018 4:00pm Start: 05-09-2018 End: 05-10-2018 take 1 puff(s) by inhalation every six hours Albuterol Sulfate (Ventolin Hfa) 90 mcg/actuation HFA aerosol inhaler Discontinued 2 PUFF INHALATION EVERY 6 HOURS May 09, 2018 5:08pm May 10, 2018 8:57am Start: 05-09-2018 End: 08-30-2019 Albuterol Sulfate (Ventolin Hfa) 90 mcg/actuation HFA aerosol inhaler Discontinued 2 NMA INHALATION EVERY 6 HOURS as needed for shortness of breath or wheezing 18 6 September 05, 2018 4:00pm August 30, 2019 2:20pm Start: 05-09-2018 End: 08-30-2019 take 1 puff(s) by inhalation every six hours Albuterol Sulfate (Ventolin Hfa) 90 mcg/actuation HFA aerosol inhaler Discontinued 2 PUFF INHALATION EVERY 6 HOURS May 10, 2018 7:55am September 05, 2018 3:00pm Start: 08-06-2017 End: 01-07-2018 Albuterol Sulfate (Ventolin Hfa) 90 mcg/actuation HFA aerosol inhaler Discontinued 2 NMA INHALATION EVERY 6 HOURS as needed for shortness of breath or wheezing 6.7 4 November 02, 2017 11:34am January 07, 2018 9:45am Start: 08-06-2017 End: 01-07-2018 take 1 puff(s) by inhalation every six hours Albuterol Sulfate (Ventolin Hfa) 90 mcg/actuation HFA aerosol inhaler Discontinued 2 PUFF INHALATION EVERY 6 HOURS 6.7 September 29, 2017 8:34am November 02, 2017 10:35am Start: 08-04-2017 End: 01-07-2018 Albuterol Sulfate 18 GM HFA aerosol inhaler Discontinued 2 NMA INHALATION EVERY 6 HOURS as needed for Sob &/Or Wheezing August 04, 2017 1:00am January 07, 2018 9:30am Start: 08-04-2017 End: 01-07-2018 take 1 puff(s) by inhalation every six hours Albuterol Sulfate Discontinued 2 PUFF INHALATION EVERY 6 HOURS August 04, 2017 12:00am January 07, 2018 8:30am Start: 05-04-2017 VENTOLIN HFA 1 08 (90 Base) MCG/ACT AERS 1-2 puffs every 6 hrs as needed ALBUTEROL SULFATE [id number] Celso PIERREP-C Start: 08-29-2014 End: 05-04-2017 take 2 puff(s) by mouth every four hours as needed PROAIR HFA 108 (90 Base) MCG/ACT AERS Inhale 2 puffs by mouth every 4 hrs as needed ALBUTEROL SULFATE [id number] Celso Matta REAL ESTATE 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-C ascorbic acid 250 mg oral tablet (16 sources) Vitamin C Start: 04-27-2022 End: 10-08-2023 take 1 tablet by mouth once daily Ascorbic Acid (Vitamin C) 250 mg tablet Active 250 mg PO DAILY 28 0 October 08, 2023 1:33pm aspirin 81 mg delayed release oral tablet (20 sources) Platelet Aggregation Inhibitor, Nonsteroidal Anti-inflammatory Drug Start: 10-21-2019 End: 10-08-2023 take 1 tablet by mouth once daily in the morning Aspirin 81 mg tablet,delayed release (DR/EC) Active 81 mg PO EVERY MORNING 28 0 October 08, 2023 1:33pm Start: 08-30-2019 End: 10-21-2019 take 1 tablet by mouth once daily Aspirin 325 mg tablet Discontinued 325 mg PO DAILY August 30, 2019 12:00am October 21, 2019 10:38am [facility] dexamethasone 6 mg oral tablet (7 sources) Corticosteroid Start: 07-07-2021 take 1 tablet by mouth once daily Dexamethasone 6 MG tablet Active 6 mg PO DAILY 7 0 July 07, 2021 1:00am Diaper,Brief,Adult,D isposable (Disposable Brief) misc (13 sources) Start: 12-09-2021 Diaper,Brief,A dult,D isposable (Disposable Brief) misc Active 0 .ROUTE .MEDSUPPLY 100 December 09, 2021 5:58pm Cerebral infarction, unspecified Unspecified urinary incontinence As directed for urinary incontinence Start: 12-09-2021 Diaper,Brief,A dult,Disposable (Disposable Brief) misc Active 0 .ROUTE .MEDSUPPLY 100 December 09, 2021 5:58pm As directed for urinary incontinence Start: 12-09-2021 Diaper,Brief,A dult,Disposable (Disposable Brief) misc Active 0 .ROUTE .MEDSUPPLY 100 December 09, 2021 4:58pm As directed for urinary incontinence Start: 11-23-2019 Diaper,Brief,A dult,Disposable (Disposable Brief) misc Active 0 .ROUTE .MEDSUPPLY 100 November 23, 2019 10:19am As directed for urinary incontinence Start: 11-23-2019 End: 12-09-2021 Diaper,Brief,Adult,Disposabl e (Disposable Brief) misc Discontinued 0 .ROUTE .MEDSUPPLY 100 November 23, 2019 12:00am December 09, 2021 5:58pm Cerebral infarction, unspecified Unspecified urinary incontinence As directed for urinary incontinence Start: 11-23-2019 End: 12-09-2021 Diaper,Brief,Adult,Disposabl e (Disposable Brief) misc Discontinued 0 .ROUTE .MEDSUPPLY 100 November 23, 2019 12:00am December 09, 2021 5:58pm As directed for urinary incontinence Start: 11-23-2019 End: 12-09-2021 Diaper,Brief,Adult,Disposabl e (Disposable Brief) misc Discontinued 0 .ROUTE .MEDSUPPLY 100 November 22, 2019 11:00pm December 09, 2021 4:58pm As directed for urinary incontinence donepezil hydrochloride 5 mg oral tablet (4 sources) Start: 07-22-2023 take 1 tablet by mouth once daily at bedtime Donepezil 10 mg tablet Active 10 mg PO AT BEDTIME 30 5 July 22, 2023 1:00am Begin after completing one month of treatment of donepezil 5mg nightly Start: 07-22-2023 take 1 tablet by mouth at bedt liz Donepezil 5 mg tablet Active 5 mg PO AT BEDTIME 30 0 July 22, 2023 1:00am ferrous sulfate 325 mg oral tablet (20 sources) Start: 04-27-2022 End: 10-08-2023 take 1 tablet by mouth once daily Ferrous Sulfate (Ferosul) 325 mg (65 mg iron) tablet Active 325 mg PO DAILY 28 0 October 08, 2023 1:32pm Start: 10-24-2019 End: 11-14-2019 take 1 tablet by mouth once daily Ferrous Sulfate (Iron (Ferrous Sulfate)) 325 mg (65 mg iron) tablet Discontinued 325 mg PO DAILY 90 3 October 24, 2019 12:00am November 14, 2019 2:02pm Start: 10-21-2019 End: 04-27-2022 take 1 tablet by mouth twice daily at mealtime Ferrous Sulfate 325 mg (65 mg iron) tablet Discontinued 325 mg PO TWICE DAILY WITH MEALS 60 3 January 09, 2022 4:41pm April 27, 2022 3:12pm Start: 08-06-2017 End: 08-30-2019 take 1 tablet by mouth twice daily Ferrous Sulfate 325 mg (65 mg iron) tablet Discontinued 325 mg PO TWICE A DAY 0 August 06, 2017 1:00am August 30, 2019 4:04pm Start: 08-29-2014 take 1 tablet by gurmeet th once daily at breakfast FERROUS SULFATE 325 (65 Fe) MG TABS 1 tablet by mouth daily with breakfast FERROUS SULFATE [id number] Celso Antonio DO Lyyapgwvihw-Yekcebljl-Vvgnwq er (20 sources) Anticholinergic, Corticosteroid, beta2-Adrenergic Agonist Start: 04-24-2022 Oezajeysmma-Bllwdlwip-Cztpdh er (Trelegy Ellipta) 100-62.5-25 mcg blister with device Active 1 NMA INHALATION DAILY 60 April 24, 2022 9:41am Start: 04-24-2022 Fluticasone-Um eclidin-Vilanter (Trelegy Ellipta) 100-62.5-25 mcg blister with device Active 1 INH INHALATION DAILY 60 April 24, 2022 9:41am Start: 04-24-2022 Fluticasone-Um eclidin-Vilanter (Trelegy Ellipta) 100-62.5-25 mcg blister with device Active 1 INH INHALATION DAILY 60 April 24, 2022 8:41am Start: 08-12-2021 End: 04-24-2022 Zqsiyaiupxp-Uenwtbfto-Kqbblc er (Trelegy Ellipta) 100-62.5-25 mcg blister with device Discontinued 1 NMA INHALATION DAILY 60 August 12, 2021 2:47pm April 24, 2022 9:41am Start: 08-12-2021 End: 04-24-2022 Owdpquagjla-Bzkhrjgus-Afirxo er (Trelegy Ellipta) 100-62.5-25 mcg blister with device Discontinued 1 INH INHALATION DAILY 60 August 12, 2021 2:47pm April 24, 2022 9:41am Start: 08-12-2021 End: 04-24-2022 Ovgfkpqyehl-Mnwsjnuis-Doiwfw er (Trelegy Ellipta) 100-62.5-25 mcg blister with device Discontinued 1 INH INHALATION DAILY 60 August 12, 2021 1:47pm April 24, 2022 8:41am Start: 08-12-2021 Fluticasone-Um eclidin-Vilanter (Trelegy Ellipta) 100-62.5-25 mcg blister with device Active 1 INH INHALATION DAILY August 12, 2021 2:47pm Start: 05-26-2021 End: 08-12-2021 Lvgkjynpuyz-Faeznenjm-Kyjeyz er (Trelegy Ellipta) 100-62.5-25 mcg blister with device Discontinued 1 NMA INHALATION DAILY 60 0 May 26, 2021 3:02pm August 12, 2021 2:47pm Start: 05-26-2021 End: 08-12-2021 Qlbocxfrrjn-Golgmpmlg-Xicuwv er (Trelegy Ellipta) 100-62.5-25 mcg blister with device Discontinued 1 INH INHALATION DAILY 60 May 26, 2021 2:02pm August 12, 2021 1:47pm Start: 05-26-2021 End: 08-12-2021 Vuppruveaph-Pshmiianq-Seetgo er (Trelegy Ellipta) 100-62.5-25 mcg blister with device Discontinued 1 INH INHALATION DAILY 60 May 26, 2021 3:02pm August 12, 2021 2:47pm Start: 10-17-2020 End: 05-26-2021 Vtzbsdvxxfo-Uirqicnqx-Bncubo er (Trelegy Ellipta) 100-62.5-25 mcg blister with device Discontinued 1 INH INHALATION DAILY October 17, 2020 10:33am May 26, 2021 3:03pm Start: 10-17-2020 End: 05-26-2021 Iovwpeevlmz-Suemjhdut-Mpmswk er (Trelegy Ellipta) 100-62.5-25 mcg blister with device Discontinued 1 NMA INHALATION DAILY 60 October 17, 2020 12:00am May 26, 2021 3:03pm Start: 10-17-2020 End: 05-26-2021 Jyfyvesypno-Nudffplnn-Iocdtr er (Trelegy Ellipta) 100-62.5-25 mcg blister with device Discontinued 1 INH INHALATION DAILY October 17, 2020 12:00am May 26, 2021 3:03pm Start: 10-17-2020 End: 05-26-2021 Syeuljdkovt-Ccyluxqln-Bitmpw er (Trelegy Ellipta) 100-62.5-25 mcg blister with device Discontinued 1 INH INHALATION DAILY 60 October 16, 2020 11:00pm May 26, 2021 2:03pm Start: 04-01-2020 End: 04-04-2020 Wbachpqpfxs-Dzsgtwsii-Wvlvfl er (Trelegy Ellipta) 100-62.5-25 mcg blister with device Discontinued 1 NMA INHALATION DAILY 3 April 01, 2020 11:45am April 04, 2020 11:28am Start: 04-01-2020 End: 04-04-2020 Ndznahxzfyh-Nnhhnlksp-Jzzleu er (Trelegy Ellipta) 100-62.5-25 mcg blister with device Discontinued 1 INH INHALATION DAILY 3 April 01, 2020 10:45am April 04, 2020 10:28am Start: 04-01-2020 End: 04-04-2020 Twvxdhpegdp-Qwtcnmmfp-Tshrdj er (Trelegy Ellipta) 100-62.5-25 mcg blister with device Discontinued 1 INH INHALATION DAILY 3 April 01, 2020 11:45am April 04, 2020 11:28am Start: 10-30-2019 End: 04-01-2020 Pxqrejlpiow-Vddamhvmy-Ulsaww er (Trelegy Ellipta) 100-62.5-25 mcg blister with device Discontinued 1 NMA INHALATION DAILY 1 October 30, 2019 12:00am April 01, 2020 11:46am Start: 10-30-2019 End: 04-01-2020 Ztlgeezbhdn-Himpprslm-Tfhrlp er (Trelegy Ellipta) 100-62.5-25 mcg blister with device Discontinued 1 INH INHALATION DAILY October 29, 2019 11:00pm April 01, 2020 10:46am levothyroxine sodium 0.075 mg oral tablet (20 sources) l-Thyroxine Start: 11-24-2019 End: 10-08-2023 take 1 tablet by mouth once daily Levothyroxine 75 mcg tablet Active 75 ug PO DAILY 28 0 October 08, 2023 1:32pm Start: 11-02-2019 End: 11-24-2019 take 1 tablet by mouth once daily Levothyroxine 88 mcg tablet Discontinued 88 ug PO DAILY 60 November 02, 2019 2:13pm November 24, 2019 10:31am THYROID Start: 08-17-2019 End: 11-02-2019 take 1 tablet by mouth once daily Levothyroxine 100 mcg tablet Discontinued 100 ug PO DAILY 90 September 12, 2019 9:23am October 20, 2019 2:36pm Start: 12-07-2017 End: 08-17-2019 take 1 tablet by mouth once daily Levothyroxine 88 mcg tablet Discontinued 88 ug PO daily 90 June 01, 2018 12:58pm September 05, 2018 4:00pm Start: 11-02-2017 End: 12-07-2017 take 1 capsule by mouth once daily Levothyroxine 88 mcg capsule Discontinued 88 ug PO daily November 02, 2017 12:00am December 07, 2017 1:49pm Start: 05-04-2017 take 1 tablet by gurmeet th once daily LEVOTHYROXINE SODIUM 88 MCG TABS One tablet by mouth daily LEVOTHYROXINE SODIUM [id number] Celso Matta REAL ESTATE 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-C Start: 03-03-2016 End: 11-02-2017 Levothyroxine 100 MCG tablet Discontinued 88 ug PO DAILY March 03, 2016 8:29pm November 02, 2017 10:57am Start: 03-03-2016 End: 11-02-2017 take 88 ug by mouth once daily Levothyroxine Discontin ued 88 MCG PO DAILY March 03, 2016 7:29pm November 02, 2017 9:57am Start: 04-11-2014 End: 05-04-2017 take 1 tablet by mouth once daily Levothyroxine 100 MCG tablet Discontinued 100 ug PO DAILY 30 April 11, 2014 12:00am March 03, 2016 8:29pm melatonin 5 mg oral tablet (20 sources) Start: 01-01-2021 take 5-10 mg by mouth at bedtime Melatonin Active 5 - 10 MG PO BEDTIME 180 January 01, 2021 9:41am Start: 05-15-2020 End: 01-01-2021 take 1 tablet by mouth at bedtime as needed for sleep Melatonin 5 mg tablet Discontinued 5 mg PO BEDTIME as needed for sleep 90 November 08, 2020 9:19pm January 01, 2021 10:41am reuseable chux (5 sources) Start: 05-28-2022 reuseable chux Active 0 .Route .MEDSUPPLY 3 0 May 28, 2022 1:00am Urinary incontinence Unspecified urinary incontinence R32 As directed Start: 05-28-2022 reuseable chux Active 0 .Route .MEDSUPPLY May 28, 2022 12:00am As directed Start: 05-28-2022 reuseable chux Active 0 .Route .MEDSUPPLY May 28, 2022 1:00am As directed Syringe With Needle (13 sources) Start: 01-18-2023 Syringe With N eedle Active 0 .ROUTE .MEDSUPPLY 1 January 18, 2023 12:09pm As directed Start: 01-18-2023 Syringe With N eedle Active 0 .ROUTE .MEDSUPPLY 1 January 18, 2023 1:09pm As directed Start: 06-26-2022 End: 01-18-2023 Syringe With Needle Disconti nued 0 .ROUTE .MEDSUPPLY 1 June 26, 2022 8:56am January 18, 2023 12:09pm As directed Start: 06-26-2022 End: 01-18-2023 Syringe With Needle Disconti nued 0 .ROUTE .MEDSUPPLY 1 June 26, 2022 9:56am January 18, 2023 1:09pm As directed Start: 06-26-2022 Syringe With N eedle Active 0 .ROUTE .MEDSUPPLY 1 June 26, 2022 9:56am As directed Start: 10-23-2020 Syringe With N eedle Active 0 .ROUTE .MEDSUPPLY 1 October 23, 2020 4:31pm As directed Start: 10-23-2020 End: 06-26-2022 Syringe With Needle Disconti nued 0 .ROUTE .MEDSUPPLY October 22, 2020 11:00pm June 26, 2022 8:57am As directed Start: 10-23-2020 End: 06-26-2022 Syringe With Needle Disconti nued 0 .ROUTE .MEDSUPPLY 1 October 23, 2020 12:00am June 26, 2022 9:57am As directed Start: 10-23-2020 Syringe With N eedle Active 0 .ROUTE .MEDSUPPLY 1 October 22, 2020 11:00pm As directed Underpads (Bed Underpads) pa d (20 sources) Start: 12-09-2021 Underpads (Bed Underpads) pad Active 0 .ROUTE .MEDSUPPLY 150 December 09, 2021 5:58pm Cerebral infarction, unspecified Unspecified urinary incontinence As directed for urinary incontinence Start: 12-09-2021 Underpads (Bed Underpads) pad Active 0 .ROUTE .MEDSUPPLY 150 December 09, 2021 5:58pm As directed for urinary incontinence Start: 12-09-2021 Underpads (Bed Underpads) pad Active 0 .ROUTE .MEDSUPPLY 150 December 09, 2021 4:58pm As directed for urinary incontinence Start: 12-04-2021 End: 12-09-2021 Underpads (Bed Underpads) pa d Discontinued 0 .ROUTE .MEDSUPPLY 150 December 04, 2021 6:27pm December 09, 2021 5:58pm Cerebral infarction, unspecified Unspecified urinary incontinence As directed for urinary incontinence Start: 12-04-2021 End: 12-09-2021 Underpads (Bed Underpads) pa d Discontinued 0 .ROUTE .MEDSUPPLY 150 December 04, 2021 6:27pm December 09, 2021 5:58pm As directed for urinary incontinence Start: 12-04-2021 End: 12-09-2021 Underpads (Bed Underpads) pa d Discontinued 0 .ROUTE .MEDSUPPLY 150 December 04, 2021 5:27pm December 09, 2021 4:58pm As directed for urinary incontinence Start: 12-04-2021 End: 12-04-2021 Underpads (Bed Underpads) pa d Discontinued 0 .ROUTE .MEDSUPPLY 150 December 04, 2021 6:26pm December 04, 2021 6:27pm Cerebral infarction, unspecified Unspecified urinary incontinence As directed for urinary incontinence Start: 12-04-2021 End: 12-04-2021 Underpads (Bed Underpads) pa d Discontinued 0 .ROUTE .MEDSUPPLY 150 December 04, 2021 6:26pm December 04, 2021 6:27pm As directed for urinary incontinence Start: 12-04-2021 End: 12-04-2021 Underpads (Bed Underpads) pa d Discontinued 0 .ROUTE .MEDSUPPLY 150 December 04, 2021 5:26pm December 04, 2021 5:27pm As directed for urinary incontinence Start: 02-08-2020 End: 12-04-2021 Underpads (Bed Underpads) pa d Discontinued 0 .ROUTE .MEDSUPPLY 150 February 08, 2020 3:11pm December 04, 2021 6:27pm Cerebral infarction, unspecified Unspecified urinary incontinence As directed for urinary incontinence Start: 02-08-2020 End: 12-04-2021 Underpads (Bed Underpads) pa lauren Discontinued 0 .ROUTE .MEDSUPPLY 150 February 08, 2020 3:11pm December 04, 2021 6:27pm As directed for urinary incontinence Start: 02-08-2020 End: 12-04-2021 Underpads (Bed Underpads) pa d Discontinued 0 .ROUTE .MEDSUPPLY 150 February 08, 2020 2:11pm December 04, 2021 5:27pm As directed for urinary incontinence Start: 02-08-2020 Underpads (Bed Underpads) pad Active 0 .ROUTE .MEDSUPPLY 150 February 08, 2020 3:11pm As directed for urinary incontinence Start: 11-23-2019 End: 02-08-2020 Underpads (Bed Underpads) pa d Discontinued 0 .ROUTE .MEDSUPPLY 150 November 23, 2019 10:19am February 08, 2020 3:11pm As directed for urinary incontinence Start: 11-23-2019 End: 02-08-2020 Underpads (Bed Underpads) pa lauren Discontinued 0 .ROUTE .MEDSUPPLY 150 November 23, 2019 12:00am February 08, 2020 3:11pm Cerebral infarction, unspecified Unspecified urinary incontinence As directed for urinary incontinence Start: 11-23-2019 End: 02-08-2020 Underpads (Bed Underpads) pa d Discontinued 0 .ROUTE .MEDSUPPLY 150 November 23, 2019 12:00am February 08, 2020 3:11pm As directed for urinary incontinence Start: 11-23-2019 End: 02-08-2020 Underpads (Bed Underpads) pa lauren Discontinued 0 .ROUTE .MEDSUPPLY 150 November 22, 2019 11:00pm February 08, 2020 2:11pm As directed for urinary incontinence 24 hr venlafaxine 75 mg extended release oral capsule (20 sources) Serotonin and Norepinephrine Reuptake Inhibitor Start: 10-09-2019 End: 10-08-2023 take 1 capsule by mouth once daily in the morning for depression Venlafaxine 75 mg capsule,extended release 24hr Active 75 mg PO EVERY MORNING 28 0 October 08, 2023 1:33pm for depressive disorder Start: 09-05-2018 End: 08-17-2019 take 1 tablet by mouth twice daily Venlafaxine 75 mg tablet Discontinued 75 mg PO TWICE A DAY 60 1 October 12, 2018 8:38am August 17, 2019 12:55pm Start: 08-06-2017 End: 09-05-2018 take 1 tablet by mouth twice daily Venlafaxine 37.5 mg tablet Discontinued 37.5 mg PO TWICE A DAY August 06, 2017 1:00am September 05, 2018 3:16pm Start: 08-04-2017 End: 11-02-2017 take 1 tablet by mouth once daily Venlafaxine 37.5 MG tablet Discontinued 37.5 mg PO DAILY August 04, 2017 1:00am November 02, 2017 10:56am Start: 05-04-2017 take 1 tablet by gurmeet th once daily EFFEXOR XR 37.5 MG [id number] One tablet by mouth daily VENLAFAXINE HCL [id number] Celso Matta REAL ESTATE 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-C Start: 02-03-2017 End: 03-05-2017 VENLAFAXINE HCL 37.5 MG TABS 1 tablet at night VENLAFAXINE HCL [id number] Rosalie Alejandro MD vitamin b12 1 mg/ml injectable solution (20 sources) Vitamin B12 Start: 06-29-2022 End: 01-18-2023 inject 1000 ug by intramuscular injection every month Cyanocobalamin (Vitamin B-12) 1,000 mcg/mL solution Active 1000 ug IM EVERY MONTH 06 19January 18, 2023 1:09pm SUPPLEMNENT Start: 06-29-2022 End: 01-18-2023 inject 1000 ug by intramuscular injection every month Cyanocobalamin (Vitamin B-12) Active 1000 MCG IM EVERY MONTH January 18, 2023 12:09pm Start: 10-17-2020 End: 04-24-2022 inject 1000 ug by intramuscular injection every month Cyanocobalamin (Vitamin B-12) 1,000 mcg/mL solution Discontinued 1000 ug IM EVERY MONTH 06 19October 17, 2020 3:02pm April 24, 2022 9:18am SUPPLEMNENT Start: 10-17-2020 End: 04-24-2022 inject 1000 ug by intramuscular injection every month Cyanocobalamin (Vitamin B-12) Discontinued 1000 MCG IM EVERY MONTH October 17, 2020 2:02pm April 24, 2022 8:18am Start: 10-26-2019 End: 10-26-2019 inject 1000 ug by intramuscular injection once cyanocobalamin (vitamin B-12) 1,000 mcg/mL injection solution Discontinued 1000 MCG IM ONCE October 26, 2019 9:44am October 26, 2019 11:11am Start: 08-17-2019 End: 10-17-2020 inject 100 ug by intramuscular injection every month Cyanocobalamin (Vitamin B-12) 1,000 mcg/mL solution Discontinued 100 ug IM EVERY MONTH 06 19October 16, 2020 3:33pm October 17, 2020 3:03pm SUPPLEMNENT Start: 08-17-2019 End: 10-17-2020 inject 100 ug by intramuscular injection every month Cyanocobalamin (Vitamin B-12) Discontinued 100 MCG IM EVERY MONTH October 16, 2020 2:33pm October 17, 2020 2:03pm Completed/Discontinued Medications Medication Drug Class(es) Dates Sig (Normalized) Sig (Original) acetaminophen 325 mg / HYDROcodone bitartrate 5 mg oral tablet (7 sources) Opioid Agonist Start: 08-04-2017 End: 11-02-2017 Hydrocodone-Acetami nophen 1 TABLET tablet Discontinued 1 - 2 {tbl} PO EVERY 4 HOURS NEEDED as needed for Pain 5 August 04, 2017 1:00am November 02, 2017 10:57am Acute wrist pain Pain in unspecified wrist Start: 08-04-2017 End: 11-02-2017 take 1 tablet by mouth every four hours as needed Hydrocodone-Acetaminophen Discontinued 1 - 2 TABLET PO EVERY 4 HOURS NEEDED 20 August 04, 2017 12:00am November 02, 2017 9:57am amLODIPine 5 mg oral tablet (14 sources) Dihydropyridine Calcium Channel Edmundo Start: 09-05-2018 End: 08-30-2019 take 1 tablet by mouth once daily Amlodipine 5 mg tablet Discontinued 5 mg PO DAILY 30 October 12, 2018 8:38am August 30, 2019 2:23pm blood pressure test kit-small cuff (6 sources) Start: 09-05-2018 End: 08-17-2019 blood pressure test kit-small cuff Discontinued 0 .ROUTE .MEDSUPPLY 1 September 05, 2018 3:24pm August 17, 2019 12:18pm As directed Start: 09-05-2018 End: 08-17-2019 blood pressure test kit-smal l cuff Discontinued 0 .ROUTE .MEDSUPPLY 1 September 05, 2018 12:00am August 17, 2019 12:18pm As directed Start: 09-05-2018 End: 08-17-2019 blood pressure test kit-smal l cuff Discontinued 0 .ROUTE .MEDSUPPLY 1 September 04, 2018 11:00pm August 17, 2019 11:18am As directed Blood Pressure Test Kit-Small kit (1 source) Start: 09-05-2018 End: 08-17-2019 Blood Pressure Test Kit-Small kit Discontinued 0 .ROUTE .MEDSUPPLY 1 0 September 05, 2018 12:00am August 17, 2019 12:18pm Essential (primary) hypertension As directed 120 actuat budesonide 0.16 mg/actuat / formoterol fumarate 0.0045 mg/actuat metered dose inhaler (20 sources) Corticosteroid, beta2-Adrenergic Agonist Start: 03-15-2018 End: 08-30-2019 Budesonide-Formoterol (Symbicort) 160-4.5 mcg/actuation HFA aerosol inhaler Discontinued 2 NMA INHALATION TWICE A DAY 1 September 05, 2018 4:00pm August 30, 2019 2:23pm administer with spacer, rinse mouth after each use Start: 03-15-2018 End: 08-30-2019 take 1 puff(s) by mouth twice daily Budesonide-Formoterol (Symbicort) 160-4.5 mcg/actuation HFA aerosol inhaler Discontinued 2 PUFF INHALATION TWICE A DAY 1 September 05, 2018 3:00pm August 30, 2019 1:23pm administer with spacer, rinse mouth after each use Start: 08-06-2017 End: 01-05-2018 Budesonide-Formoterol (Symbi tila) 160-4.5 mcg/actuation HFA aerosol inhaler Discontinued 2 NMA INHALATION Q12H 10.2 1 November 02, 2017 11:26am January 05, 2018 1:37pm Start: 08-06-2017 End: 01-05-2018 take 1 puff(s) by inhalation every twelve hours Budesonide-Formoterol (Symbicort) 160-4.5 mcg/actuation HFA aerosol inhaler Discontinued 2 PUFF INHALATION Q12H 10.2 August 19, 2017 9:20am November 02, 2017 10:27am Start: 08-04-2017 End: 11-02-2017 Budesonide-Formoterol 1 INHA LER inhaler Discontinued 1 NMA INHALATION TWICE A DAY August 04, 2017 1:00am November 02, 2017 11:30am Start: 08-04-2017 End: 11-02-2017 take 1 puff(s) by inhalation twice daily Budesonide-Formoterol Discontinued 1 PUFF INHALATION TWICE A DAY August 04, 2017 12:00am November 02, 2017 10:30am Start: 05-04-2017 SYMBICORT 160- 4.5 MCG/ACT AERO 2 puffs twice a day BUDESONIDE-FORMOTEROL FUMARATE [id number] Celso PIERREP-C 24 hr buPROPion hydrochloride 150 mg extended release oral tablet (10 sources) Aminoketone Start: 08-06-2017 End: 11-02-2017 take 1 tablet by mouth once daily in the morning Bupropion Hcl (Wellbutrin Xl) 150 mg tablet extended release 24 hr Discontinued 150 mg PO EVERY MORNING August 06, 2017 1:00am November 02, 2017 11:27am Start: 05-04-2017 take 1 tablet by gurmeet th twice daily WELLBUTRIN SR 150 MG HT60I-IAN One tablet by mouth twice daily BUPROPION HCL [id number] Celso PIERREP-C cholecalciferol 41866 unt oral capsule (11 sources) Vitamin D Start: 09-13-2014 End: 02-03-2017 take 1 tablet by mouth every week VITAMIN D3 27318 UNIT CAPS 1 tablet by mouth once per week for vitamin D deficiency CHOLECALCIFEROL [id number] Lawanda Hale clopidogrel 75 mg oral tablet (20 sources) P2Y12 Platelet Inhibitor Start: 08-17-2019 End: 11-14-2019 take 1 tablet by mouth once daily Clopidogrel (Plavix) 75 mg tablet Discontinued 75 mg PO DAILY 90 3 September 12, 2019 9:23am October 20, 2019 2:36pm cyclobenzaprine hydrochloride 5 mg oral tablet (11 sources) Muscle Relaxant Start: 09-13-2014 End: 02-03-2017 CYCLOBENZAPRINE HCL 5 MG TABS 1-2 tablets at night as needed for neck pain and headaches CYCLOBENZAPRINE HCL [id number] Lawanda Hale Start: 09-13-2014 CYCLOBENZAPRIN E HCL 5 MG TABS 1-2 tablets at night as needed for neck pain and headaches CYCLOBENZAPRINE HCL [id number] Celso Antonio DO doxepin hydrochloride 25 mg oral capsule (14 sources) Tricyclic Antidepressant Start: 08-04-2017 End: 08-30-2019 take 1 capsule by mouth once daily Doxepin 25 mg capsule Discontinued 25 mg PO DAILY April 08, 2018 1:33pm August 30, 2019 2:23pm Fluticasone Furoate (7 sources) Corticosteroid Start: 04-04-2020 End: 08-12-2021 take 200 ug by inhalation once daily Fluticasone Furoate (Arnuity Ellipta) 200 mcg/actuation blister with device Discontinued 1 INH INHALATION daily April 04, 2020 11:28am August 12, 2021 2:47pm administer at approximately the same time(s) each day Start: 04-04-2020 End: 08-12-2021 take 200 ug by inhalation once daily Fluticasone Furoate (Arnuity Ellipta) 200 mcg/actuation blister with device Discontinued 1 NMA INHALATION daily 11 12April 04, 2020 12:00am August 12, 2021 2:47pm administer at approximately the same time(s) each day Start: 04-04-2020 End: 08-12-2021 take 200 ug by inhalation once daily Fluticasone Furoate (Arnuity Ellipta) 200 mcg/actuation blister with device Discontinued 1 INH INHALATION daily April 04, 2020 12:00am August 12, 2021 2:47pm administer at approximately the same time(s) each day Start: 04-04-2020 End: 08-12-2021 take 200 ug by inhalation once daily Fluticasone Furoate (Arnuity Ellipta) 200 mcg/actuation blister with device Discontinued 1 INH INHALATION daily April 03, 2020 11:00pm August 12, 2021 1:47pm administer at approximately the same time(s) each day 30 actuat fluticasone furoate 0.1 mg/actuat / vilanterol 0.025 mg/actuat dry powder inhaler (10 sources) Corticosteroid, beta2-Adrenergic Agonist Start: 08-06-2017 End: 11-02-2017 Fluticasone Furoate-Vilanterol (Breo Ellipta) 100-25 mcg/dose blister with device Discontinued 1 NMA INHALATION Q24H August 06, 2017 1:00am November 02, 2017 11:26am Start: 08-06-2017 End: 11-02-2017 Fluticasone Furoate-Vilanter ol (Breo Ellipta) 100-25 mcg/dose blister with device Discontinued 1 INH INHALATION Q24H August 06, 2017 12:00am November 02, 2017 10:26am Start: 05-04-2017 take 2 puff(s) by in halation twice daily BREO ELLIPTA 100-25 MCG/INH AEPB 2 puffs twice a day FLUTICASONE FUROATE-VILANTEROL [id number] Celso PIERREP-C 12 hr guaiFENesin 1200 mg extended release oral tablet (14 sources) Start: 03-10-2018 End: 08-30-2019 take 1 tablet by mouth every twelve hours Guaifenesin 1,200 mg tablet extended release 12hr Discontinued 1200 mg PO Q12H 30 September 05, 2018 3:59pm August 30, 2019 2:23pm hydrOXYzine hydrochloride 25 mg oral tablet (8 sources) Antihistamine Start: 02-03-2017 End: 05-04-2017 take 1 tablet by mouth once daily as needed HYDROXYZINE HCL 25 MG TABS One tablet by mouth daily as needed HYDROXYZINE HCL [id number] Celso Sandra PIERREP-C LORazepam 0.5 mg oral tablet (7 sources) Benzodiazepine Start: 11-11-2019 End: 04-24-2022 take 1 tablet by mouth twice daily as needed for anxiety Lorazepam (Ativan) 0.5 mg tablet Discontinued 0.5 mg PO TWICE A DAY as needed for anxiety 3 November 11, 2019 12:00am April 24, 2022 9:28am miconazole nitrate 0.02 mg/mg topical powder (7 sources) Azole Antifungal Start: 11-23-2019 End: 10-16-2020 Miconazole Nitrate (Zeasorb Af) 2 % powder Discontinued 1 NMA TOPICAL TWICE A DAY November 23, 2019 12:00am October 16, 2020 1:24pm mirtazapine 30 mg oral tablet (20 sources) Start: 08-06-2017 End: 11-02-2017 take 1 tablet by mouth once Mirtazapine 30 mg tablet,disintegrat ing Discontinued 30 mg PO ONCE August 06, 2017 1:00am November 02, 2017 10:56am Start: 08-04-2017 End: 08-30-2019 take 1 tablet by mouth at bedtime Mirtazapine 30 mg tablet Discontinued 30 mg PO AT BEDTIME 90 1 June 01, 2018 2:38pm September 05, 2018 4:00pm Start: 05-05-2017 take 1 tablet by gurmeet th once daily MIRTAZAPINE 30 MG TABS One tablet by mouth daily MIRTAZAPINE [id number] Lawanda Hale Start: 02-03-2017 End: 05-04-2017 take 1 tablet by mouth once daily MIRTAZAPINE 30 MG TABS One tablet by mouth daily TLTAZAPINE [id number] Lawanda Hale Start: 02-03-2017 take 1 tablet by gurmeet th once daily MIRTAZAPINE 15 MG TABS One tablet by mouth daily MIRTAZAPINE [id number] Lawanda Hale 60 actuat mometasone furoate 0.22 mg/actuat dry powder inhaler (9 sources) Corticosteroid Start: 08-29-2014 End: 05-04-2017 take 1 puff(s) by inhalation twice daily ASMANEX 60 METERED DOSES 220 MCG/INH AEPB Inhale 1 puff as instructed twice daily MOMETASONE FUROATE [id number] Celso CASTANON-Cholo 24 hr nicotine 0.583 mg/hr transdermal system (14 sources) Cholinergic Nicotinic Agonist Start: 10-24-2019 End: 10-16-2020 apply 14 mg transdermal route once daily, then apply 7 mg transdermal route once daily Nicotine 14 mg/24 hr patch 24 hour Discontinued 14 mg TD daily 42 0 October 24, 2019 12:00am October 16, 2020 1:24pm Apply 14 mg patch daily for 6 weeks and then 7 mg patch daily for 2 weeks Start: 01-28-2018 End: 08-17-2019 apply 1 dose transdermal route every twenty-four hours Nicotine 21 mg/24 hr patch 24 hour Discontinued 1 NMA TD ONCE 30 0 January 28, 2018 12:00am August 17, 2019 12:24pm Start: 01-28-2018 End: 08-17-2019 apply 1 dose transdermal route once Nicotine Discontinued 1 PATCH TD ONCE 30 January 27, 2018 11:00pm August 17, 2019 11:24am omeprazole 40 mg delayed release oral capsule (20 sources) Proton Pump Inhibitor Start: 04-24-2022 End: 02-03-2023 take 1 capsule by mouth twice daily Omeprazole 40 mg capsule,delayed release(DR/EC) Discontinued 40 mg PO TWICE A DAY 60 2 January 06, 2023 4:58pm February 03, 2023 1:29pm Start: 08-29-2014 End: 02-03-2017 take 1 capsule by mouth once daily OMEPRAZOLE 40 MG CPDR 1 capsule by mouth daily OMEPRAZOLE [id number] Lawanda Hale oxybutynin chloride 5 mg oral tablet (11 sources) Cholinergic Muscarinic Antagonist Start: 08-29-2014 End: 02-03-2017 take 2 tablets by mouth three times daily OXYBUTYNIN CHLORIDE 5 MG TABS 2 tablets by mouth three times a day OXYBUTYNIN CHLORIDE [id number] Lawanda Hale pantoprazole 40 mg delayed release oral tablet (20 sources) Proton Pump Inhibitor Start: 10-21-2019 End: 04-24-2022 take 1 tablet by mouth twice daily Pantoprazole 40 mg tablet,delayed release (DR/EC) Discontinued 40 mg PO TWICE A DAY 60 3 January 09, 2022 4:41pm April 24, 2022 9:57am PARoxetine hydrochloride 20 mg oral tablet (20 sources) Serotonin Reuptake Inhibitor Start: 08-17-2019 End: 10-09-2019 take 1 tablet by mouth once daily Paroxetine Hcl 20 mg tablet Discontinued 20 mg PO DAILY 90 3 September 12, 2019 9:23am October 09, 2019 12:57pm Pediatric Lrbioxpj-Lwll-Tbh (6 sources) Start: 10-20-2019 End: 11-14-2019 take 1 tablet by mouth once daily Pediatric Wqcetxgg-Wpbp-Tng Discontinued 1 TABLET PO DAILY October 20, 2019 2:29pm November 14, 2019 1:53pm Start: 10-20-2019 End: 11-14-2019 take 1 tablet by mouth once daily Pediatric Gqeybvjd-Mnea-Vkg Discontinued 1 TABLET PO DAILY October 20, 2019 12:00am November 14, 2019 1:53pm Start: 10-20-2019 End: 11-14-2019 take 1 tablet by mouth once daily Pediatric Jodmhuwv-Wten-Wdv Discontinued 1 TABLET PO DAILY October 19, 2019 11:00pm November 14, 2019 12:53pm Pediatric Gwayilxr-Ebki-Ylp 1 EACH tablet,chewable (1 source) Start: 10-20-2019 End: 11-14-2019 take 1 tablet by mouth once daily Pediatric Jwcuakes-Spwt-Bot 1 EACH tablet,chewable Discontinued 1 {tbl} PO DAILY October 20, 2019 12:00am November 14, 2019 1:53pm SUPPLEMENT polysaccharide iron complex 150 mg oral capsule (7 sources) Start: 08-04-2017 End: 08-17-2019 take 1 capsule by mouth once daily at mealtime Polysaccharide Iron Complex 150 MG capsule Discontinued 150 mg PO DAILY WITH MEALS August 04, 2017 1:00am August 17, 2019 12:24pm predniSONE 10 mg oral tablet (20 sources) Start: 03-10-2018 End: 09-05-2018 Prednisone 10 mg tablet Discontinued 10 mg PO daily 30 March 10, 2018 12:00am September 05, 2018 3:00pm take 4 tabs for three days, then 3 tabs for three days, then 2 tabs for three days, then 1 tab for 3 days Start: 01-07-2018 End: 01-28-2018 take 2 tablets by mouth once daily Prednisone 20 mg tablet Discontinued 40 mg PO daily 10 January 07, 2018 12:00am January 28, 2018 10:34am Start: 01-07-2018 End: 01-28-2018 take 40 mg by mouth once daily Prednisone Discontinued 40 MG PO daily January 06, 2018 11:00pm January 28, 2018 9:34am Start: 08-04-2017 End: 11-02-2017 take 1 tablet by mouth twice daily at mealtime Prednisone 20 MG tablet Discontinued 20 mg PO TWICE A DAY August 04, 2017 1:00am November 02, 2017 10:56am With food rizatriptan 10 mg oral tablet (7 sources) Serotonin-1b and Serotonin-1d Receptor Agonist Start: 08-04-2017 End: 09-05-2018 Rizatriptan 10 tablet Discontinued 10 mg PO NEEDED as needed for MIGRAINES August 04, 2017 1:00am September 05, 2018 3:30pm rosuvastatin calcium 10 mg oral tablet (20 sources) HMG-CoA Reductase Inhibitor Start: 08-17-2019 End: 03-26-2023 take 1 tablet by mouth once daily Rosuvastatin 10 mg tablet Discontinued 10 mg PO DAILY 30 April 24, 2022 2:25pm March 26, 2023 12:29pm CHOLESTEROL sucralfate 1000 mg oral tablet (20 sources) Aluminum Complex Start: 08-06-2017 End: 11-02-2017 take 1 tablet by mouth once Sucralfate 1 gram tablet Discontinued 1 g PO ONCE August 06, 2017 1:00am November 02, 2017 10:56am Start: 08-04-2017 End: 08-17-2019 take 1 tablet by mouth four times daily Sucralfate 1 gram tablet Discontinued 1 g PO 4 TIMES DAILY 120 May 03, 2018 6:14pm August 17, 2019 12:24pm Start: 05-04-2017 SUCRALFATE 1 G M TABS take one tablet 4 times a day as needed SUCRALFATE [id number] Celso Sandra CASTANON-C tiotropium 0.018 mg inhalant powder (9 sources) Anticholinergic Start: 08-29-2014 End: 05-04-2017 SPIRIVA HANDIHALER 18 MCG CAPS Inhale contents of 1 capsule via handihaler daily TIOTROPIUM BROMIDE MONOHYDRATE [id number] Celso CASTANON-C topiramate 100 mg oral tablet (19 sources) Start: 08-06-2017 End: 10-12-2018 take 1 tablet by mouth twice daily Topiramate 100 mg tablet Discontinued 100 mg PO TWICE A DAY 60 September 05, 2018 3:29pm October 12, 2018 8:38am Start: 02-03-2017 take 1 tablet by gurmeet th twice daily TOPIRAMATE 100 MG TABS One tablet by mouth twice daily TOPIRAMATE [id number] Lawanda Hale Umeclidinium (20 sources) Anticholinergic Start: 09-05-2018 End: 08-17-2019 take 62.5 ug by inhalation once daily Umeclidinium (Incruse Ellipta) 62.5 mcg/actuation blister with device Discontinued 1 NMA INHALATION daily 30 September 05, 2018 3:59pm August 17, 2019 12:19pm Start: 09-05-2018 End: 08-17-2019 take 62.5 ug by inhalation once daily Umeclidinium (Incruse Ellipta) 62.5 mcg/actuation blister with device Discontinued 1 INH INHALATION daily September 05, 2018 2:59pm August 17, 2019 11:19am Start: 09-05-2018 End: 08-17-2019 take 62.5 ug by inhalation once daily Umeclidinium (Incruse Ellipta) 62.5 mcg/actuation blister with device Discontinued 1 INH INHALATION daily September 05, 2018 3:59pm August 17, 2019 12:19pm Start: 03-15-2018 End: 09-05-2018 take 62.5 ug by inhalation once daily Umeclidinium (Incruse Ellipta) 62.5 mcg/actuation blister with device Discontinued 1 NMA INHALATION daily 11 12March 15, 2018 12:00am September 05, 2018 4:00pm Start: 12-07-2017 End: 08-17-2019 take 62.5 ug by inhalation twice daily Umeclidinium 62.5 mcg/actuation blister with device Discontinued 1 NMA INHALATION TWICE A DAY 30 0 December 07, 2017 1:49pm August 17, 2019 12:24pm Start: 12-07-2017 End: 08-17-2019 Umeclidinium Discontinued 1 INH INHALATION TWICE A DAY December 07, 2017 12:49pm August 17, 2019 11:24am Start: 12-07-2017 End: 08-17-2019 Umeclidinium Discontinued 1 INH INHALATION TWICE A DAY December 07, 2017 1:49pm August 17, 2019 12:24pm Start: 08-04-2017 End: 12-07-2017 take 62.5 ug by inhalation twice daily Umeclidinium 62.5 mcg/actuation blister with device Discontinued 1 NMA INHALATION TWICE A DAY 30 November 02, 2017 11:24am December 07, 2017 1:49pm Start: 08-04-2017 End: 11-02-2017 take 1 puff(s) by inhalation twice daily Umeclidinium Discontinued 1 PUFF INHALATION TWICE A DAY August 04, 2017 12:00am November 02, 2017 10:27am 7 actuat umeclidinium 0.0625 mg/actuat / vilanterol 0.025 mg/actuat dry powder inhaler (20 sources) Anticholinergic, beta2-Adrenergic Agonist Start: 04-04-2020 End: 08-12-2021 Umeclidinium-Vilanterol (Anoro Ellipta) 62.5-25 mcg/actuation blister with device Discontinued 1 NMA INHALATION daily 60 3 April 04, 2020 12:00am August 12, 2021 2:47pm Start: 04-04-2020 End: 08-12-2021 Umeclidinium-Vilanterol (Ano ro Ellipta) 62.5-25 mcg/actuation blister with device Discontinued 1 INH INHALATION daily 60 April 03, 2020 11:00pm August 12, 2021 1:47pm Start: 10-20-2019 End: 10-30-2019 take 1 dose by inhalation once daily Umeclidinium-Vilanterol 1 EACH blister with device Discontinued 1 NMA INHALATION DAILY October 20, 2019 2:36pm October 30, 2019 11:39am SOB Start: 10-20-2019 End: 10-30-2019 Umeclidinium-Vilanterol Disc ontinued 1 INH INHALATION DAILY October 20, 2019 1:36pm October 30, 2019 10:39am Start: 08-17-2019 End: 10-20-2019 Umeclidinium-Vilanterol (Ano ro Ellipta) 62.5-25 mcg/actuation blister with device Discontinued 1 NMA INHALATION DAILY 60 0 August 17, 2019 12:55pm October 20, 2019 2:36pm Start: 08-17-2019 End: 10-20-2019 Umeclidinium-Vilanterol (Ano ro Ellipta) 62.5-25 mcg/actuation blister with device Discontinued 1 INH INHALATION DAILY 60 August 17, 2019 11:55am October 20, 2019 1:36pm Start: 08-17-2019 End: 10-20-2019 Umeclidinium-Vilanterol (Ano ro Ellipta) 62.5-25 mcg/actuation blister with device Discontinued 1 INH INHALATION DAILY August 17, 2019 12:55pm October 20, 2019 2:36pm Start: 08-17-2019 End: 08-17-2019 Umeclidinium-Vilanterol (Ano ro Ellipta) 62.5-25 mcg/actuation blister with device Discontinued 1 NMA INHALATION DAILY August 17, 2019 1:00am August 17, 2019 12:55pm Start: 08-17-2019 End: 08-17-2019 Umeclidinium-Vilanterol (Ano ro Ellipta) 62.5-25 mcg/actuation blister with device Discontinued 1 INH INHALATION DAILY August 17, 2019 12:00am August 17, 2019 11:55am divalproex sodium 250 mg delayed release oral tablet (11 sources) Mood Stabilizer, Anti-epileptic Agent Start: 08-29-2014 End: 02-03-2017 take 1 tablet by mouth once daily DEPAKOTE 250 MG TBEC One tablet by mouth daily at night DIVALPROEX SODIUM [id number] Celso Antonio DO varenicline 1 mg oral tablet (7 sources) Partial Cholinergic Nicotinic Agonist Start: 10-16-2020 End: 01-01-2021 take 1 tablet by mouth once Varenicline Tartrate (Chantix Starting Month Box) 0.5 mg (11)- 1 mg (42) tablets,dose pack Discontinued 0 PO per package directions 53 0 October 16, 2020 12:00am January 01, 2021 10:41am PO PER PKG DIR vortioxetine 20 mg oral tablet (8 sources) Start: 02-03-2017 End: 05-04-2017 take 1 tablet by mouth twice daily TRINTELLIX 20 MG TABS One tablet by mouth twice daily VORTIOXETINE HBR [id number] Celso Matta [employer] 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-C Problems Active Problems Problem Classification Problem Date Documented Da te Episodic/Chronic Abdominal pain (8 sources) Abdominal pain; Translations: [Unspecified abdominal pain] Episodic Acute cerebrovascular disease (8 sources) Cerebrovascular accident; Translations: [Cerebral infarction, unspecified] Chronic Comment on above: 12/09/18 Administrative/social admission (7 sources) Counseling procedure with explicit context; Translations: [Tobacco abuse counseling] 10-16-2020 Episodic Anxiety disorders (12 sources) Mixed anxiety and depressive disorder; Translations: [Other specified anxiety disorders] Onset: 7 02-03-2017 Chronic Chronic obstructive pulmonary disease and bronchiectasis (18 sources) Chronic obstructive lung disease; Translations: [Chronic obstructive pulmonary disease, unspecified] Onset: 5 05-04-2017 Chronic Deficiency and other anemia (13 sources) Anemia; Translations: [Anemia, unspecified] Onset: 5 08-29-2014 Episodic Delirium, dementia, and amnestic and other cognitive disorders (1 source) Dementia; Translations: [Unspecified dementia without behavioral disturbance] 08-22-2023 Chronic Disorders of lipid metabolism (5 sources) Hyperlipidemia; Translations: [Hyperlipidemia, unspecified] 01-25-2023 Chronic Esophageal disorders (11 sources) Gastroesophageal reflux disease; Translations: [Gastro-esophageal reflux disease without esophagitis] Onset: 5 08-29-2014 Chronic Essential hypertension (9 sources) Hypertensive disorder; Translations: [Essential (primary) hypertension] Chronic Gastrointestinal hemorrhage (7 sources) Feces color: tarry; Translations: [Melena] 01-01-2021 Episodic Genitourinary symptoms and ill-defined conditions (7 sources) Mixed urinary incontinence; Translations: [Mixed incontinence] 01-01-2021 Chronic Genitourinary symptoms and ill-defined conditions (7 sources) Urgent desire to urinate; Translations: [Urgency of urination] 10-20-2019 Episodic Headache; including migraine (17 sources) Transformed migraine; 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] Onset: 7 02-03-2017 Chronic Mood disorders (6 sources) Depressive disorder; Translations: [Major depressive disorder, single episode, unspecified] Onset: 5 08-29-2014 Chronic Nutritional deficiencies (6 sources) Vitamin D deficiency; Translations: [Vitamin D deficiency] Onset: 5 09-13-2014 Chronic Open wounds of extremities (7 sources) Avulsion of toenail; Translations: [Unspecified open wound of unspecified toe(s) with damage to nail, initial encounter] 10-20-2019 Episodic Other circulatory disease (2 sources) History of cerebrovascular accident; Translations: [Personal history of transient ischemic attack (TIA), and cerebral infarction without residual deficits] 07-22-2023 Episodic Other diseases of bladder and urethra (6 sources) Bladder muscle dysfunction - overactive; Translations: [Overactive bladder] Onset: 5 08-29-2014 Chronic Other gastrointestinal disorders (7 sources) Diarrhea; Translations: [Diarrhea, unspecified] 10-21-2019 Episodic Other lower respiratory disease (7 sources) Nodule of lung; Translations: [Solitary pulmonary nodule] 08-12-2021 Episodic Other lower respiratory disease (1 source) Solitary pulmonary nodule; Translations: [Solitary pulmonary nodule] Episodic Other nervous system disorders (5 sources) Claudication; Translations: [Peripheral vascular disease, unspecified] Onset: 7 02-03-2017 Chronic Other non-traumatic joint disorders (7 sources) Pain in wrist; Translations: [Pain in left wrist] 10-20-2019 Episodic Other screening for suspected conditions (not mental disorders or infectious disease) (8 sources) Patient encounter status; Translations: [Encounter for screening for malignant neoplasm of respiratory organs] Episodic Other upper respiratory infections (8 sources) Acute pharyngitis; Translations: [Acute pharyngitis, unspecified] Episodic Residual codes; unclassified (6 sources) Tobacco user; Translations: [Tobacco use] Onset: 5 08-29-2014 Chronic Skin and subcutaneous tissue infections (7 sources) Abscess of neck; Translations: [Cutaneous abscess of neck] 02-07-2018 Episodic Substance-related disorders (10 sources) Nicotine dependence; Translations: [Nicotine dependence, cigarettes, uncomplicated] Chronic Thyroid disorders (17 sources) Hypothyroidism; Translations: [Hypothyroidism, unspecified] Onset: 5 08-29-2014 Chronic Viral infection (14 sources) COVID-19; Translations: [Pneumonia due to COVID-19 virus] 07-15-2021 Episodic Past or Other Problems Problem Classification Problem Date Documented Da te Episodic/Chronic Headache; including migraine (6 sources) Chronic headache disorder; Translations: [Headache] Onset: 08-29-2014 08-29-2014 Episodic Malaise and fatigue (6 sources) Fatigue; Translations: [Other fatigue] Onset: 08-29-2014 08-29-2014 Episodic Other gastrointestinal disorders (1 source) Dysphagia, unspecified; Translations: [Dysphagia, unspecified] Onset: 10-02-2024 Episodic Unclassified (3 sources) Insomnia; Translations: [Insomnia, unspecified] Onset: 05-04-2017 05-04-2017 Episodic Results Test Name Value Interpretation Reference Range Facility T4 Free Directon 01-26-2025 T4 FREE DIRECT 1.10 ng/dL Normal 0.76-1.46 [facility] Comment on above: Performed By: #### L 506.0400, L501.9520 #### [facility] [facility] [address] [place], [place], [address] T4 freeOrdered By: Jorge Sage eam on 01-26-2025 Free T4 [Mass/Vol] 1.10 ng/dL 0.76-1.46 [facility] TSH DL <= 0.005 mIU/L QnOrde red By: Jorge Beam on 01-26-2025 TSH Qn 31.300 uIU/mL High 0.300-4.200 [facility] Thyroid Stim Hormone (TSH)on 01-26-2025 TSH 31.300 uIU/mL High 0.300-4.200 [facility] Comment on above: Performed By: #### L [id number], [id number] #### [facility] [address] [place], [place], [address] Absolute lymphocyte countOrd ered By: Mati David on 06-20-2023 Lymphocytes Auto (Unsp spec) [#/Vol] 2.04 10*3/uL 0.83-4.51 [facility] Basophil percentageOrdered B y: Mati David on 06-20-2023 Basophils/100 WBC (Bld) 0.9 % 0-1 [facility] Chloride [Moles/Vol] 108 mmol/L 98-107 [facility] Eosinophils/100 WBC (Bld) 3.3 % 0-5 [facility] Glucose [Mass/Vol] 107 mg/dL 74-106 [facility] Comment on above: Fasting Glucose resu lt from 100 to 125 mg/dL suggests IMPAIRED HOMEOSTASIS per A.D.A. criteria. Neutrophils (Bld) [#/Vol] 3.5 10*3/uL 2.0-7.7 [facility] Neutrophils/100 WBC (Bld) 54.3 % 47-70 [facility] Potassium [Moles/Vol] 4.0 mmol/L 3.5-5.1 [facility] Sodium [Moles/Vol] 141 mmol/L 136-145 [facility] WBC (Bld) [#/Vol] 6.4 10*3/uL 4.4-11.0 [facility] Blood erythrocytes count (nu mber/volume)Ordered By: Mati David on 06-20-2023 RBC (Bld) [#/Vol] 4.56 10*6/uL 4.2-5.4 [facility] Blood hemoglobin measurement (mass/volume)Ordered By: Mati David on 06-20-2023 Hemoglobin (Bld) [Mass/Vol] 14.4 g/dL 12.0-15.0 [facility] Blood lymphocytes/100 leukoc ytesOrdered By: Mati David on 06-20-2023 Lymphocytes/100 WBC (Bld) 31.7 % 19-41 [facility] Blood monocytes/100 leukocyt esOrdered By: Mati David on 06-20-2023 Monocytes/100 WBC (Bld) 9.5 % 0-10 [facility] Blood platelet mean volumeOr dered By: Mati David on 06-20-2023 Platelet mean volume (Bld) [Entitic vol] 10.9 fL 6.2-12.0 [facility] Determination of erythrocyte mean corpuscular volume (MCV)Ordered By: Mati David on 06-20-2023 MCV (RBC) [Entitic vol] 100.9 fL 81-99 [facility] Hematocrit Auto (Bld) [Volum e fraction]Ordered By: Mati David on 06-20-2023 Hematocrit (Bld) [Volume fraction] 46.0 % 37-47 [facility] Laboratory - Chemistry and C hemistry - challengeOrdered By: Mati David on 06-20-2023 CO2 [Moles/Vol] 31.0 mmol/L 21.0-32.0 [facility] Urea nitrogen/Creatinine [Mass ratio] 27.9 mg/mg 10-20 [facility] Laboratory - Hematology and Cell countsOrdered By: Mati David on 06-20-2023 Erythrocyte distribution width (RBC) [Entitic vol] 47.8 fL 35.1-43.9 [facility] Erythrocyte distribution width (RBC) [Ratio] 12.8 % 11.6-14.6 [facility] Immature granulocytes/100 WBC (Bld) 0.300 % 0.0-0.9 [facility] Comment on above: IG% - Immature Granu locytes (promyelocytes, myelocytes and metamyelocytes) > 1% indicates that a LEFT SHIFT is Present. MCH (RBC) [Entitic mass] 31.6 pg 27.0-32.0 [facility] Nucleated RBC/100 WBC (Bld) [Ratio] 0 % 0-5 [facility] Laboratory - Microbiology an d Antimicrobial susceptibilityOrdered By: Mati David on 06-20-2023 SARS-CoV-2 (COVID-19) RNA JERROD+probe Ql (Unsp spec) [facility] MCHC Auto (RBC) [Mass/Vol]Or dered By: Mati David on 06-20-2023 MCHC (RBC) [Mass/Vol] 31.3 g/dL 32-36 [facility] No Panel InformationOrdered By: Mati David on 06-20-2023 Estimated GFR (MDRD) Amer 143 mL/min >60 [facility] Comment on above: GFR Calc Estimated GFR (MDRD) Non-Af Amer 118 mL/min >60 [facility] Comment on above: Non- GFR Calc Troponin I High Sensitivity 8 pg/mL 3.0-54.0 [facility] Comment on above: Please Note: [place] t Units and Gender Specific Reference Ranges. For more information see Policy Stat Procedure [place] High Sensitivity Troponin (TNIH) and attachments. Platelets bldOrdered By: Araseli David on 06-20-2023 Platelets (Bld) [#/Vol] 350 10*3/uL 150-450 [facility] Serum or plasma calcium arlene urement (mass/volume)Ordered By: Mati David on 06-20-2023 Calcium [Mass/Vol] 9.6 mg/dL 8.5-10.1 [facility] Serum or plasma creatinine m easurement (mass/volume)Ordered By: Mati David on 06-20-2023 Creatinine [Mass/Vol] 0.54 mg/dL 0.55-1.02 [facility] Comment on above: The validity of the calculated GFR & GFRAA in patients over 70 years has not been determined. Clinical correlation is essential. Serum or plasma urea nitroge n measurement (mass/volume)Ordered By: Mati David on 06-20-2023 Urea nitrogen [Mass/Vol] 15 mg/dL 7-18 [facility] Thin prep Papanicolaou smear with manual screeningOrdered By: Mati David on 06-20-2023 Thin prep Papanicolaou smear with manual screening 2 5-15 [facility] Absolute lymphocyte countOrd ered By: Rosalie Alejandro on 01-25-2023 Lymphocytes Auto (Unsp spec) [#/Vol] 2.76 10*3/uL 0.83-4.51 [facility] Basophil percentageOrdered B y: Rosalie Alejandro on 01-25-2023 Basophils/100 WBC (Bld) 0.5 % 0-1 [facility] Bilirubin [Mass/Vol] 0.30 mg/dL 0.20-1.00 [facility] Comment on above: For patients on eltr ombopag therapy, use of Dimension [place] TBIL is not recommended. Chloride [Moles/Vol] 107 mmol/L 98-107 [facility] Cholesterol [Mass/Vol] 128 mg/dL <200 [facility] Comment on above: <200 mg/dL Desirable 200-240 mg/dL Borderline >240 mg/dL High Risk Eosinophils/100 WBC (Bld) 3.0 % 0-5 [facility] Glucose [Mass/Vol] 111 mg/dL 74-106 [facility] Comment on above: Fasting Glucose resu lt from 100 to 125 mg/dL suggests IMPAIRED HOMEOSTASIS per A.D.A. criteria. Neutrophils (Bld) [#/Vol] 7.4 10*3/uL 2.0-7.7 [facility] Neutrophils/100 WBC (Bld) 64.4 % 47-70 [facility] Potassium [Moles/Vol] 4.9 mmol/L 3.5-5.1 [facility] Protein [Mass/Vol] 7.6 g/dL 6.4-8.2 [facility] Sodium [Moles/Vol] 141 mmol/L 136-145 [facility] Triglyceride [Mass/Vol] 106 mg/dL <199 [facility] Comment on above: The drugs N-Acetylcy steine and Metamizole may falsely depress this assay.Serum Triglycerides Reference Interval Normal <150 mg/dL Borderline high 150 - 199 mg/dL High 200 - 499 mg/dL Very High > or = 500 mg/dL WBC (Bld) [#/Vol] 11.5 10*3/uL 4.4-11.0 [facility] Blood erythrocytes count (nu mber/volume)Ordered By: Rosalie Alejandro on 01-25-2023 RBC (Bld) [#/Vol] 4.81 10*6/uL 4.2-5.4 [facility] Blood hemoglobin measurement (mass/volume)Ordered By: Rosalie Alejandro on 01-25-2023 Hemoglobin (Bld) [Mass/Vol] 15.4 g/dL 12.0-15.0 [facility] Blood lymphocytes/100 leukoc ytesOrdered By: Rosalie Alejandro on 01-25-2023 Lymphocytes/100 WBC (Bld) 24.1 % 19-41 [facility] Blood monocytes/100 leukocyt esOrdered By: Rosalie Alejandro on 01-25-2023 Monocytes/100 WBC (Bld) 7.7 % 0-10 [facility] Blood platelet mean volumeOr dered By: Rosalie Alejandro on 01-25-2023 Platelet mean volume (Bld) [Entitic vol] 11.6 fL 6.2-12.0 [facility] Determination of erythrocyte mean corpuscular volume (MCV)Ordered By: Rosalie Alejandro on 01-25-2023 MCV (RBC) [Entitic vol] 104.6 fL 81-99 [facility] Hematocrit Auto (Bld) [Volum e fraction]Ordered By: Rosalie Alejandro on 01-25-2023 Hematocrit (Bld) [Volume fraction] 50.3 % 37-47 [facility] Laboratory - Chemistry and C hemistry - challengeOrdered By: Rosalie Alejandro on 01-25-2023 ALP [Catalytic activity/Vol] 125 U/L 45-117 [facility] ALT [Catalytic activity/Vol] 26 U/L 13-56 [facility] CO2 [Moles/Vol] 27.0 mmol/L 21.0-32.0 [facility] Globulin (S) [Mass/Vol] 4.0 g/dL 2.2-4.2 [facility] Urea nitrogen/Creatinine [Mass ratio] 17.6 mg/mg 10-20 [facility] Laboratory - Hematology and Cell countsOrdered By: Rosalie Alejandro on 01-25-2023 Erythrocyte distribution width (RBC) [Entitic vol] 51.3 fL 35.1-43.9 [facility] Erythrocyte distribution width (RBC) [Ratio] 13.2 % 11.6-14.6 [facility] Immature granulocytes/100 WBC (Bld) 0.300 % 0.0-0.9 [facility] Comment on above: IG% - Immature Granu locytes (promyelocytes, myelocytes and metamyelocytes) > 1% indicates that a LEFT SHIFT is Present. MCH (RBC) [Entitic mass] 32.0 pg 27.0-32.0 [facility] Nucleated RBC/100 WBC (Bld) [Ratio] 0 % 0-5 [facility] MCHC Auto (RBC) [Mass/Vol]Or dered By: Rosalie Alejandro on 01-25-2023 MCHC (RBC) [Mass/Vol] 30.6 g/dL 32-36 [facility] No Panel InformationOrdered By: Rosalie Alejandro on 01-25-2023 Estimated GFR (MDRD) Amer 99 mL/min >60 [facility] Comment on above: GFR Calc Estimated GFR (MDRD) Non-Af Amer 82 mL/min >60 [facility] Comment on above: Non- GFR Calc Thyroid Stimulating Hormone (TSH) 0.18 uIU/mL 0.358-3.74 [facility] Platelets bldOrdered By: Mina Alejandro on 01-25-2023 Platelets (Bld) [#/Vol] 345 10*3/uL 150-450 [facility] Serum or plasma albumin arlene urement (mass/volume)Ordered By: Rosalie Alejandro on 01-25-2023 Albumin [Mass/Vol] 3.6 g/dL 3.2-5.0 [facility] Serum or plasma albumin/glob ulin mass ratioOrdered By: alayna Alejandro on 01-25-2023 Albumin/Globulin [Mass ratio] 0.9 {ratio} 0.9-2.4 [facility] Serum or plasma calcium arlene urement (mass/volume)Ordered By: Rosalie Alejandro on 01-25-2023 Calcium [Mass/Vol] 9.6 mg/dL 8.5-10.1 [facility] Serum or plasma cholesterol in HDL measurement (mass/volume)Ordered By: Rosalie Alejandro on 01-25-2023 Cholesterol in HDL [Mass/Vol] 65 mg/dL >40 [facility] Comment on above: The drugs N-Acetylcy steine and Metamizole may falsely depress this assay. Reference Range HDL <40 mg/dL Low HDL Cholesterol HDL >or= 60 mg/dL High HDL Cholesterol Serum or plasma cholesterol in VLDL measurement (mass/volume)Ordered By: Rosalie Alejandro on 01-25-2023 Cholesterol in VLDL [Mass/Vol] 21 mg/dL 5-40 [facility] Serum or plasma creatinine m easurement (mass/volume)Ordered By: Rosalie Alejandro on 01-25-2023 Creatinine [Mass/Vol] 0.74 mg/dL 0.55-1.02 [facility] Comment on above: The validity of the calculated GFR & GFRAA in patients over 70 years has not been determined. Clinical correlation is essential. Serum or plasma low density lipoprotein (LDL) cholesterol measurement (mass/volume)Ordered By: Rosalie Alejandro on 01-25-2023 Cholesterol in LDL [Mass/Vol] 42 mg/dL 0-130 [facility] Serum or plasma urea nitroge n measurement (mass/volume)Ordered By: Rosalie Alejandro on 01-25-2023 Urea nitrogen [Mass/Vol] 13 mg/dL 7-18 [facility] Thin prep Papanicolaou smear with manual screeningOrdered By: Rosalie Alejandro 01-25-2023 Thin prep Papanicolaou smear with manual screening 21 U/L 15-37 [facility] Thin prep Papanicolaou smear with manual screening 7 5-15 [facility] Absolute lymphocyte counton 04-24-2022 Lymphocytes Auto (Unsp spec) [#/Vol] 1.84 10*3/uL 0.83-4.51 [facility] Work Phone: Basophil percentageon 2021 Basophils/100 WBC (Bld) 0.8 % 0-1 [facility] Work Phone: Bilirubin [Mass/Vol] 0.40 mg/dL 0.20-1.00 [facility] Work Phone: Comment on above: For patients on eltr ombopag therapy, use of Dimension [place] TBIL is not recommended. Chloride [Moles/Vol] 107 mmol/L 98-107 [facility] Work Phone: Cholesterol [Mass/Vol] 265 mg/dL <200 [facility] Work Phone: Comment on above: <200 mg/dL Desirable 200-240 mg/dL Borderline >240 mg/dL High Risk Eosinophils/100 WBC (Bld) 4.1 % 0-5 [facility] Work Phone: Glucose [Mass/Vol] 94 mg/dL 74-106 [facility] Work Phone: Neutrophils (Bld) [#/Vol] 2.3 10*3/uL 2.0-7.7 [facility] Work Phone: Neutrophils/100 WBC (Bld) 48.0 % 47-70 [facility] Work Phone: Potassium [Moles/Vol] 4.8 mmol/L 3.5-5.1 [facility] Work Phone: Protein [Mass/Vol] 7.1 g/dL 6.4-8.2 [facility] Work Phone: Sodium [Moles/Vol] 141 mmol/L 136-145 [facility] Work Phone: Triglyceride [Mass/Vol] 154 mg/dL <199 [facility] Work Phone: Comment on above: The drugs N-Acetylcy steine and Metamizole may falsely depress this assay.Serum Triglycerides Reference Interval Normal <150 mg/dL Borderline high 150 - 199 mg/dL High 200 - 499 mg/dL Very High > or = 500 mg/dL WBC (Bld) [#/Vol] 4.8 10*3/uL 4.4-11.0 [facility] Work Phone: Blood erythrocytes count (nu mber/volume)on 04-24-2022 RBC (Bld) [#/Vol] 4.97 10*6/uL 4.2-5.4 [facility] Work Phone: Blood hemoglobin measurement (mass/volume)on 04-24-2022 Hemoglobin (Bld) [Mass/Vol] 16.1 g/dL 12.0-15.0 [facility] Work Phone: Blood lymphocytes/100 leukoc yteson 04-24-2022 Lymphocytes/100 WBC (Bld) 38.2 % 19-41 [facility] Work Phone: Blood monocytes/100 leukocyt eson 04-24-2022 Monocytes/100 WBC (Bld) 8.7 % 0-10 [facility] Work Phone: Blood platelet mean volumeon 04-24-2022 Platelet mean volume (Bld) [Entitic vol] 11.1 fL 6.2-12.0 [facility] Work Phone: Determination of erythrocyte mean corpuscular volume (MCV)on 04-24-2022 MCV (RBC) [Entitic vol] 100.4 fL 81-99 [facility] Work Phone: Hematocrit Auto (Bld) [Volum e fraction]on 04-24-2022 Hematocrit (Bld) [Volume fraction] 49.9 % 37-47 [facility] Work Phone: Laboratory - Chemistry and C hemistry - challengeon 04-24-2022 ALP [Catalytic activity/Vol] 100 U/L 45-117 [facility] Work Phone: ALT [Catalytic activity/Vol] 19 U/L 13-56 [facility] Work Phone: CO2 [Moles/Vol] 28.0 mmol/L 21.0-32.0 [facility] Work Phone: Globulin (S) [Mass/Vol] 3.5 g/dL 2.2-4.2 [facility] Work Phone: Urea nitrogen/Creatinine [Mass ratio] 21.7 mg/mg 10-20 [facility] Work Phone: Laboratory - Hematology and Cell countson 04-24-2022 Erythrocyte distribution width (RBC) [Entitic vol] 48.6 fL 35.1-43.9 [facility] Work Phone: Erythrocyte distribution width (RBC) [Ratio] 13.1 % 11.6-14.6 [facility] Work Phone: Immature granulocytes/100 WBC (Bld) 0.200 % 0.0-0.9 [facility] Work Phone: Comment on above: IG% - Immature Granu locytes (promyelocytes, myelocytes and metamyelocytes) > 1% indicates that a LEFT SHIFT is Present. MCH (RBC) [Entitic mass] 32.4 pg 27.0-32.0 [facility] Work Phone: Nucleated RBC/100 WBC (Bld) [Ratio] 0 % 0-5 [facility] Work Phone: MCHC Auto (RBC) [Mass/Vol]on 04-24-2022 MCHC (RBC) [Mass/Vol] 32.3 g/dL 32-36 [facility] Work Phone: No Panel Informationon 04-24 Estimated GFR (MDRD) Amer 99 mL/min >60 [facility] Work Phone: Comment on above: GFR Calc Estimated GFR (MDRD) Non-Af Amer 82 mL/min >60 [facility] Work Phone: Comment on above: Non- GFR Calc Thyroid Stimulating Hormone (TSH) 1.40 uIU/mL 0.358-3.74 [facility] Work Phone: Platelets bldon 04-24-2022 Platelets (Bld) [#/Vol] 318 10*3/uL 150-450 [facility] Work Phone: Serum or plasma albumin arlene urement (mass/volume)on 04-24-2022 Albumin [Mass/Vol] 3.6 g/dL 3.2-5.0 [facility] Work Phone: Serum or plasma albumin/glob ulin mass ratioon 04-24-2022 Albumin/Globulin [Mass ratio] 1.0 {ratio} 0.9-2.4 [facility] Work Phone: Serum or plasma calcium arlene urement (mass/volume)on 04-24-2022 Calcium [Mass/Vol] 9.9 mg/dL 8.5-10.1 [facility] Work Phone: Serum or plasma cholesterol in HDL measurement (mass/volume)on 04-24-2022 Cholesterol in HDL [Mass/Vol] 59 mg/dL >40 [facility] Work Phone: Comment on above: The drugs N-Acetylcy steine and Metamizole may falsely depress this assay. Reference Range HDL <40 mg/dL Low HDL Cholesterol HDL >or= 60 mg/dL High HDL Cholesterol Serum or plasma cholesterol in VLDL measurement (mass/volume)on 04-24-2022 Cholesterol in VLDL [Mass/Vol] 31 mg/dL 5-40 [facility] Work Phone: Serum or plasma creatinine m easurement (mass/volume)on 04-24-2022 Creatinine [Mass/Vol] 0.74 mg/dL 0.55-1.02 [facility] Work Phone: Comment on above: The validity of the calculated GFR & GFRAA in patients over 70 years has not been determined. Clinical correlation is essential. Serum or plasma low density lipoprotein (LDL) cholesterol measurement (mass/volume)on 04-24-2022 Cholesterol in LDL [Mass/Vol] 175 mg/dL 0-130 [facility] Work Phone: Serum or plasma urea nitroge n measurement (mass/volume)on 04-24-2022 Urea nitrogen [Mass/Vol] 16 mg/dL 7-18 [facility] Work Phone: Thin prep Papanicolaou smear with manual screeningon 04-24-2022 Thin prep Papanicolaou smear with manual screening 16 U/L 15-37 [facility] Work Phone: Thin prep Papanicolaou smear with manual screening 6 5-15 [facility] Work Phone: Absolute lymphocyte counton 07-07-2021 Lymphocytes Auto (Unsp spec) [#/Vol] 1.26 10*3/uL 0.83-4.51 [facility] Work Phone: Basophil percentageon 2021 Basophils/100 WBC (Bld) 0.2 % 0-1 [facility] Work Phone: Bilirubin [Mass/Vol] 0.50 mg/dL 0.20-1.00 [facility] Work Phone: Comment on above: For patients on eltr ombopag therapy, use of Dimension [place] TBIL is not recommended. Chloride [Moles/Vol] 106 mmol/L 98-107 [facility] Work Phone: Eosinophils/100 WBC (Bld) 0.3 % 0-5 [facility] Work Phone: Glucose [Mass/Vol] 108 mg/dL 74-106 [facility] Work Phone: Comment on above: Fasting Glucose resu lt from 100 to 125 mg/dL suggests IMPAIRED HOMEOSTASIS per A.D.A. criteria. Lactate [Moles/Vol] 1.0 mmol/L 0.4-2.0 [facility] Work Phone: Neutrophils (Bld) [#/Vol] 7.5 10*3/uL 2.0-7.7 [facility] Work Phone: Neutrophils/100 WBC (Bld) 80.4 % 47-70 [facility] Work Phone: Potassium [Moles/Vol] 3.4 mmol/L 3.5-5.1 [facility]: Protein [Mass/Vol] 7.4 g[facility]: Sodium [Moles/Vol] 139 mmol/L 136-[facility] Work [facility]: WBC (Bld) [#/Vol] 9.4 10*3/uL 4.4-11.0 [facility] Work Phone: Blood erythrocytes count (nu mber/volume)on 07-07-2021 RBC (Bld) [#/Vol] 4.92 10*6/uL 4.2-5.4 [facility]: Blood hemoglobin measurement (mass/volume)on 07-07-2021 Hemoglobin (Bld) [Mass/Vol] 15.0 g/dL 12.0-15.0 [facility] Work Phone: Blood lymphocytes/100 leukoc yteson 07-07-2021 Lymphocytes/100 WBC (Bld) 13.4 % 19-41 [facility] Work Phone: Blood monocytes/100 leukocyt eson 07-07-2021 Monocytes/100 WBC (Bld) 5.3 % 0-10 [facility] Work Phone: Blood platelet mean volumeon 07-07-2021 Platelet mean volume (Bld) [Entitic vol] 10.5 fL 6.2-12.0 [facility] Work Phone: Determination of erythrocyte mean corpuscular volume (MCV)on 07-07-2021 MCV (RBC) [Entitic vol] 94.7 fL 81-99 [facility] Work Phone: Hematocrit Auto (Bld) [Volum e fraction]on 07-07-2021 Hematocrit (Bld) [Volume fraction] 46.6 % 37-47 [facility] Work Phone: Laboratory - Chemistry and C hemistry - challengeon 07-07-2021 ALP [Catalytic activity/Vol] 134 U/L 45-117 [facility] Work Phone: ALT [Catalytic activity/Vol] 25 U/L 13-56 [facility] Work Phone: CO2 [Moles/Vol] 26.0 mmol/L 21.0-32.0 [facility] Work Phone: Globulin (S) [Mass/Vol] 4.0 g/dL 2.2-4.2 [facility] Work Phone: Natriuretic peptide B (Bld) [Mass/Vol] 51.2 pg/mL 0-100 [facility] Work Phone: Urea nitrogen/Creatinine [Mass ratio] 19.2 mg/mg 10-20 [facility] Work Phone: Laboratory - Hematology and Cell countson 07-07-2021 Erythrocyte distribution width (RBC) [Entitic vol] 49.3 fL 35.1-43.9 [facility] Work Phone: Erythrocyte distribution width (RBC) [Ratio] 14.0 % 11.6-14.6 [facility] Work Phone: Immature granulocytes/100 WBC (Bld) 0.400 % 0.0-0.9 [facility] Work Phone: Comment on above: IG% - Immature Granu locytes (promyelocytes, myelocytes and metamyelocytes) > 1% indicates that a LEFT SHIFT is Present. MCH (RBC) [Entitic mass] 30.5 pg 27.0-32.0 [facility] Work Phone: Nucleated RBC/100 WBC (Bld) [Ratio] 0 % 0-5 [facility] Work Phone: Laboratory - Microbiology an d Antimicrobial susceptibilityon 07-07-2021 Bacteria identified Cx Nom (Bld) No growth in 5 days. [facility] Work Phone: MCHC Auto (RBC) [Mass/Vol]on 07-07-2021 MCHC (RBC) [Mass/Vol] 32.2 g/dL 32-36 [facility] Work Phone: No Panel Informationon 07-07 D-Dimer Quantitative (PE/DVT) 0.45 FEU/ug/m 0.27-0.49 [facility] Work Phone: Comment on above: NORMAL D-Dimer level (<0.50) indicates no DVT or PE. Estimated Creatinine Clearance Calc 42.60 ml/min [facility] Work Phone: Estimated GFR (MDRD) Amer 133 mL/min >60 [facility] Work Phone: Comment on above: GFR Calc Estimated GFR (MDRD) Non-Af Amer 110 mL/min >60 [facility] Work Phone: Comment on above: Non- GFR Calc Troponin I High Sensitivity 11 pg/mL 3.0-54.0 [facility] Work Phone: Comment on above: Please Note: [place] t Units and Gender Specific Reference Ranges. For more information see Policy Stat Procedure [place] High Sensitivity Troponin (TNIH) and attachments. SARS-CoV-2 Antigen (Rapid) SARS-CoV-2 (COVID 19) [facility] Work Phone: Platelets bldon 07-07-2021 Platelets (Bld) [#/Vol] 303 10*3/uL 150-450 [facility] Work Phone: Serum or plasma albumin arlene urement (mass/volume)on 07-07-2021 Albumin [Mass/Vol] 3.4 g/dL 3.2-5.0 [facility] Work Phone: Serum or plasma albumin/glob ulin mass ratioon 07-07-2021 Albumin/Globulin [Mass ratio] 0.8 {ratio} 0.9-2.4 [facility] Work Phone: Serum or plasma calcium arlene urement (mass/volume)on 07-07-2021 Calcium [Mass/Vol] 8.6 mg/dL 8.5-10.1 [facility] Work Phone: Serum or plasma creatinine m easurement (mass/volume)on 07-07-2021 Creatinine [Mass/Vol] 0.57 mg/dL 0.55-1.02 [facility] Work Phone: Comment on above: The validity of the calculated GFR & GFRAA in patients over 70 years has not been determined. Clinical correlation is essential. Serum or plasma urea nitroge n measurement (mass/volume)on 07-07-2021 Urea nitrogen [Mass/Vol] 11 mg/dL 7-18 [facility] Work Phone: Thin prep Papanicolaou smear with manual screeningon 07-07-2021 Thin prep Papanicolaou smear with manual screening 16 U/L 15-37 [facility] Work Phone: Thin prep Papanicolaou smear with manual screening 7 5-15 [facility] Work Phone: Laboratory - Microbiology an d Antimicrobial susceptibilityon 07-02-2021 SARS-CoV-2 (COVID-19) RNA JERROD+probe Ql (Unsp spec) Not detected Not Detect [facility] Work Phone: Comment on above: Normal Reference Ran ge: Not DetectedMethod:(RT-PCR) real-time reverse transcriptase PCRLuminex ODALYS Instrument*The Food and Drug Administration (FDA) has issued an Emergency Use Authorization (EAU) for the ODALYS SARS-CoV-2 Assay for the rapid detection of the virus that causes COVID-19. This test has been validated, but the FDAs independent review of this validation is pending.*Negative results do not preclude infection and should not be used as the sole basis for treatment or patient management. Optimum specimen types and timing for peak viral levels during infections caused by SARS-CoV-2 have not been determined. Collection of multiple specimens from the same patient may be necessary to detect the virus. The possibility of a false negative result should be considered if the patient has clinical presentation or has had recent exposure. Final Surgical Pathology Rep stella 11-30-2019 Final Surgical Pathology Report . Pathology Reports Accession: Collected Date/Time: Received Date/Time: Pathologist: [id number] 11/27/2019 10:18 EDT 11/27/2019 14:55 EDT AMANDA MORRIS MD Final Surgical Pathology Report DIAGNOSIS: A) DUODENUM, BIOPSY -- DUODENAL MUCOSA WITHOUT SIGNIFICANT MICROSCOPIC PATHOLOGY. B) STOMACH, BIOPSY -- MILD CHRONIC GASTRITIS. NO ACTIVE GASTRITIS OR HELICOBACTER. COMMENT: [facility] - D# [id number] CLINICAL INFORMATION: Procedure: EGD WITH BIOPSIES Preoperative diagnosis: IRON DEFICIENCY ANEMIA Postoperative diagnosis: SAME SPECIMEN: A DUODENAL BIOPSY - R/O CELIAC B GASTRIC ANTRUM BIOPSY GROSS DESCRIPTION: A. Received in formalin, labeled with the patients name, Case #[id number], and duodenal BX is 1 zazueta- pink polyp measuring 0.3 cm. TS -1. B. Received in formalin labeled gastric antrum BX are 3 zazueta tissue fragments ranging from 0.1 to 0.2 cm. TS -1. Dictated by XAVI DORANTES MICROSCOPIC DESCRIPTION: A&B) Slides reviewed. Electronically Signed by Pathology Report verified by [facility] Electronically signed by AMANDA MORRIS Sign out Date: 11/30/2019 15:37 Performing Lab: [facility], [address] [place] [address] ([place]) Comment on above: Performed By: #### S PFR #### [place] [id number] Office Visit: Est. Pt. Visit on 05-04-2017 Documentation of current medications (procedure) Done Invalid Interpretation Code [facility] Work Phone: Fall risk assessment No Invalid Interpretation Code [facility] Work Phone: Smoking cessation education (procedure) yes Invalid Interpretation Code [facility] Work Phone: Tobacco smoking status NHIS Never Invalid Interpretation Code [facility] Work Phone: Tobacco use CPHS Current every day smoker Invalid Interpretation Code [facility] Work Phone: Office Visit: New Pt. Visito n 02-03-2017 Fall risk assessment No [facility] Work Phone: Protein mass conc Done [facility] Work Phone: Protein mass conc yes [facility] Work Phone: Tobacco smoking status NHIS Current every day smoker [facility] Work Phone: Office Visit: 2 week follow upon 09-13-2014 Protein mass conc Done [facility] Work Phone: Tobacco smoking status NHIS Never [facility] Work Phone: Lab Report: CBC W/Diff, Auto matedon 08-31-2014 Absolute Neut 2.3 X10 3/UL Invalid Interpretation Code 2.0-7.7 [facility] Work Phone: Basophils/100 WBC (Bld) 1.3 % Critically high 0-1 [facility] Work Phone: Basophils/100 WBC Auto (Bld) 1.3 % Critically high 0-1 [facility] Work Phone: Eosinophils/100 leukocytes 5.2 % Critically high 0-5 [facility] Work Phone: Eosinophils/100 WBC (Bld) 5.2 % Critically high 0-5 [facility] Work Phone: Erythrocytes (RBC) 4.18 10*6/uL Critically low 4.2-5.4 [facility] Work Phone: Hematocrit (HCT) 38.4 % Invalid Interpretation Code 37-47 [facility] Work Phone: Hematocrit Volume Fraction (Bld) 38.4 % 37-47 [facility] Work Phone: Hemoglobin mass conc (Bld) 12.5 g/dL Invalid Interpretation Code 12.0-15.0 [facility] Work Phone: Lymphocytes 1.70 X10 3/UL Invalid Interpretation Code 0.83-4.51 [facility] Work Phone: Lymphocytes #/vol (Bld) 1.70 X10 3/UL 0.83-4.51 [facility] Work Phone: Lymphocytes/100 leukocytes 36.8 % Invalid Interpretation Code 19-41 [facility] Work Phone: Lymphocytes/100 WBC (Bld) 36.8 % 19-41 [facility] Work Phone: MCH 29.9 pg Invalid Interpretation Code 27.0-32.0 [facility] Work Phone: MCH Entitic mass (RBC) 29.9 pg 27.0-32.0 [facility] Work Phone: MCHC mass conc (RBC) 32.6 G/GL Invalid Interpretation Code 32-36 [facility] Work Phone: MCHC mass conc (RBC) 32.6 G/GL 32-[address] [facility] Work Phone: MCV 91.9 fL Invalid Interpretation Code 81-99 [facility] Work Phone: MCV Entitic volume (RBC) 91.9 fL 81-99 [facility] Work Phone: Monocytes/100 leukocytes 6.7 % Invalid Interpretation Code 0-10 [facility] Work Phone: Monocytes/100 WBC (Bld) 6.7 % 0-10 [facility] Work Phone: Neutrophils/100 WBC (Bld) 49.8 % 47-70 [facility] Work Phone: Neutrophils/100 WBC Auto (Bld) 49.8 % Invalid Interpretation Code 47-70 [facility] Work Phone: Platelet mean volume Entitic volume (Bld) 11.3 fL 6.2-12.0 [facility] Work Phone: Platelets 290 10*3/mm3 Invalid Interpretation Code 150-450 [facility] Work Phone: Platelets #/vol (Bld) 290 10*3/mm3 150-450 [facility] Work Phone: PMV by Piyush 11.3 fL Invalid Interpretation Code 6.2-12.0 [facility] Work Phone: RBC #/vol (Bld) 4.18 10*6/uL Critically low 4.2-5.4 [facility] Work Phone: WBC #/vol (Bld) 4.6 10*3/uL 4.4-11.0 [facility] Work Phone: WBC (Leukocytes) 4.6 10*3/uL Invalid Interpretation Code 4.4-11.0 [facility] Work Phone: Lab Report: Comprehensive Nm tabolic Profilon 08-31-2014 Albumin mass conc 3.7 g/dL Invalid Interpretation Code 3.4-5.0 [facility] Work Phone: Albumin/Globulin mass ratio 1.1 {ratio} Invalid Interpretation Code 0.9-2.4 [facility] Work Phone: Alkaline phosphatase (ALP) 103 U/L Invalid Interpretation Code 50-136 [facility] Work Phone: ALP enzyme act/vol (Bld) 103 U/L 50-136 [facility] Work Phone: ALT enzyme act/vol 14 U/L Invalid Interpretation Code 12-78 [facility] Work Phone: Anion gap 5 mmol/L Invalid Interpretation Code 5-15 [facility] Work Phone: Anion gap molar conc 5 mmol/L 5-[address] [facility] Work Phone: AST enzyme act/vol 15 U/L Invalid Interpretation Code 15-37 [facility] Work Phone: Bilirubin mass conc 0.30 mg/dL Invalid Interpretation Code 0.00-4.00 [facility] Work Phone: Calcium mass conc 9.0 mg/dL Invalid Interpretation Code 8.5-10.1 [facility] Work Phone: Chloride molar conc 106 mmol/L Invalid Interpretation Code 98-107 [facility] Work Phone: CO2 28.0 mmol/L Invalid Interpretation Code 21.0-32.0 [facility] Work Phone: CO2 ppres (BldV) 28.0 mmol/L 21.0-32.0 [facility] Work Phone: Creatinine mass conc 0.9 mg/dL Invalid Interpretation Code 0.6-1.0 [facility] Work Phone: eGFR (non-black) 81 mL/min/{1.73_m2} Invalid Interpretation Code >60 [facility] Work Phone: EST GFR - AA 81 mL/min >60 [facility] Work Phone: GFR/1.73 sq M predicted among non-blacks MDRD vol rate/area (S/P/Bld) 67 mL/min/{1.73_m2} Invalid Interpretation Code >60 [facility] Work Phone: Globulin 3.3 g/dL Invalid Interpretation Code 2.7-4.2 [facility] Work Phone: Globulin mass conc (S) 3.3 g/dL 2.7-4.2 [facility] Work Phone: Glucose mass conc 85 mg/dL Invalid Interpretation Code 70-110 [facility] Work Phone: Potassium molar conc 3.7 mmol/L Invalid Interpretation Code 3.5-5.1 [facility] Work Phone: Protein mass conc 7.0 g/dL Invalid Interpretation Code 6.4-8.2 [facility] Work Phone: Sodium molar conc 139 mmol/L Invalid Interpretation Code 136-145 [facility] Work Phone: Urea nitrogen mass conc 14 mg/dL Invalid Interpretation Code 7-18 [facility] Work Phone: Urea nitrogen/Creatinine mass ratio 15.6 RATIO Invalid Interpretation Code 10-20 [facility] Work Phone: Lab Report: Ferritinon 08-31 Ferritin mass conc 36 ng/mL Invalid Interpretation Code 8-252 [facility] Work Phone: Lab Report: Folates, (Folic Acid)on 08-31-2014 Folate mass conc 8.50 ng/mL Invalid Interpretation Code 3.1-17.5 [facility] Work Phone: Lab Report: Iron+Iron Bindin g Capacityon 08-31-2014 Iron binding capacity mass conc 387 ug/dL Invalid Interpretation Code 250-450 [facility] Work Phone: Iron mass conc 29 ug/dL Critically low 50-170 [facility] Work Phone: IRON SATURATION 7.5 % Critically low 15.0-55.0 [facility] Work Phone: Lab Report: Thyroid Stim [place] (TSH)on 08-31-2014 Thyrotropin Qn 2.04 u[iU]/mL Invalid Interpretation Code 0.358-3.74 [facility] Work Phone: Lab Report: Vitamin B12on Cobalamin (Vitamin B12) mass conc 959 pg/mL Critically high 211-911 [facility] Work Phone: Lab Report: Vitamin D,25 Hyd roxyon 08-31-2014 Vitamin D 25-OH 14.1 ng/mL Invalid Interpretation Code [facility] Work Phone: Office Visit: Establish PCP and Multi-issue visiton 08-29-2014 Tobacco smoking status NHIS Current every day smoker [facility] Work Phone: Vital Signs Date Time Vital Sign Value Performing Clinician Facility 07-22-2023 09:55-0500 Body temperature 98 [degF] Dr. Rosalie Alejandro Work Phone: [facility] 07-22-2023 09:55-0500 Body weight 48.[address] Rosalie Alejandro Work Phone: [facility] 07-22-2023 09:55-0500 Diastolic blood pressure 68 mm[Hg] Dr. Rosalie Alejandro Work Phone: [facility] 07-22-2023 09:55-0500 Heart rate 110 /min Dr. Rosalie Alejandro Work Phone: [facility] 07-22-2023 09:55-0500 Respiratory rate 16 /min Dr. Rosalie Alejandro Work Phone: [facility] 07-22-2023 09:55-0500 SaO2% (BldA) [Mass fraction] 97 % Dr. Rosalie Alejandro Work Phone: [facility] 07-22-2023 09:55-0500 Systolic blood pressure 115 mm[Hg] Dr. Rosalie Alejandro Work Phone: [facility] 06-20-2023 14:13-0500 Body temperature 98.4 [degF] [facility] 06-20-2023 14:13-0500 Diastolic blood pressure 70 mm[Hg] [facility] 06-20-2023 14:13-0500 Heart rate 72 /min [facility] 06-20-2023 14:13-0500 Respiratory rate 24 /min [facility] 06-20-2023 14:13-0500 SaO2% (BldA) [Mass fraction] 95 % [facility] 06-20-2023 14:13-0500 Systolic blood pressure 147 mm[Hg] [facility] 06-20-2023 14:10-0500 Body mass index (BMI) [Ratio] 19.5 kg/m2 [facility] 06-20-2023 14:10-0500 Body weight 51.7 kg [facility] 06-20-2023 14:07-0500 Body height 162.56 cm [facility] 01-25-2023 10:07-0400 Body height 157.[address] Rosalie Alejandro Work Phone: [facility] 01-25-2023 10:07-0400 Body mass index (BMI) [Ratio] 20 kg/m2 Dr. Rosalie Alejandro Work Phone: [facility] 01-25-2023 10:07-0400 Body temperature 97.2 [degF] Dr. Rosalie Alejandro Work Phone: [facility] 01-25-2023 10:07-0400 Body weight 49.[address] Rosalie Alejandro Work Phone: [facility] 01-25-2023 10:07-0400 Diastolic blood pressure 64 mm[Hg] Dr. Rosalie Alejandro Work Phone: [facility] 01-25-2023 10:07-0400 Heart rate 88 /min Dr. Rosalie Alejandro Work Phone: [facility] 01-25-2023 10:07-0400 Respiratory rate 20 /min Dr. Rosalie Alejandro Work Phone: [facility] 01-25-2023 10:07-0400 SaO2% (BldA) [Mass fraction] 92 % Dr. Rosalie Alejandro Work Phone: [facility] 01-25-2023 10:07-0400 Systolic blood pressure 108 mm[Hg] Dr. Rosalie Alejandro Work Phone: [facility] 08-30-2022 21:07-0400 Body mass index (BMI) [Ratio] 22.8 kg/m2 [facility] 08-30-2022 21:07-0400 Body weight 56.4 kg [facility] 08-30-2022 21:05-0400 Body height 157.48 cm [facility] 08-30-2022 21:05-0400 Body temperature 97.6 [degF] [facility] 08-30-2022 21:05-0400 Diastolic blood pressure 82 mm[Hg] [facility] 08-30-2022 21:05-0400 Heart rate 85 /min [facility] 08-30-2022 21:05-0400 Respiratory rate 16 /min [facility] 08-30-2022 21:05-0400 SaO2% (BldA) [Mass fraction] 99 % [facility] 08-30-2022 21:05-0400 Systolic blood pressure 142 mm[Hg] [facility] 04-24-2022 08:16-0500 Body height 157.[address] Rosalie Alejandro Work Phone: [facility] Work Phone: 04-24-2022 08:16-0500 Body mass index (BMI) [Ratio] 20.9 kg/m2 Dr. Rosalie Alejandro Work Phone: [facility] Work Phone: 04-24-2022 08:16-0500 Body temperature 97.4 [degF] Dr. Rosalie Alejandro Work Phone: [facility] Work Phone: 04-24-2022 08:16-0500 Body weight 51.[address] Rosalie Alejandro Work Phone: [facility] Work Phone: 04-24-2022 08:16-0500 Diastolic blood pressure 80 mm[Hg] Dr. Rosalie Alejandro Work Phone: [facility] Work Phone: 04-24-2022 08:16-0500 Heart rate 105 /min Dr. Rosalie Alejandro Work Phone: [facility] Work Phone: 04-24-2022 08:16-0500 Respiratory rate 18 /min Dr. Rosalie Alejandro Work Phone: [facility] Work Phone: 04-24-2022 08:16-0500 SaO2% (BldA) [Mass fraction] 96 % Dr. Rosalie Alejandro Work Phone: [facility] Work Phone: 04-24-2022 08:16-0500 Systolic blood pressure 130 mm[Hg] Dr. Rosalie Alejandro Work Phone: [facility] Work Phone: 09-03-2021 13:19-0400 Body height 157.[address] Rosalie Alejandro Work Phone: [facility] Work Phone: 09-03-2021 13:19-0400 Body weight 54.[address] Rosalie Alejandro Work Phone: [facility] Work Phone: 09-03-2021 13:19-0400 Heart rate 83 /min Dr. Rosalie Alejandro Work Phone: [facility] Work Phone: 09-03-2021 13:19-0400 SaO2% (BldA) [Mass fraction] 96 % Dr. Rosalie Alejandro Work Phone: [facility] Work Phone: 08-12-2021 12:28-0500 Body mass index (BMI) [Ratio] 21.4 kg/m2 Dr. Rosalie Alejandro Work Phone: [facility] Work Phone: 08-12-2021 12:28-0500 Body temperature 97.4 [degF] Dr. Rosalie Alejandro Work Phone: [facility] Work Phone: 08-12-2021 12:28-0500 Body weight 53.[address] Rosalie Alejandro Work Phone: [facility] Work Phone: 08-12-2021 12:28-0500 Diastolic blood pressure 82 mm[Hg] Dr. Rosalie Alejandro Work Phone: [facility] Work Phone: 08-12-2021 12:28-0500 Heart rate 88 /min Dr. Rosalie Alejandro Work Phone: [facility] Work Phone: 08-12-2021 12:28-0500 Respiratory rate 20 /min Dr. Rosalie Alejandro Work Phone: [facility] Work Phone: 08-12-2021 12:28-0500 SaO2% (BldA) [Mass fraction] 92 % Dr. Rosalie Alejandro Work Phone: [facility] Work Phone: 08-12-2021 12:28-0500 Systolic blood pressure 130 mm[Hg] Dr. Rosalie Alejandro Work Phone: [facility] Work Phone: 07-10-2021 14:56-0500 Body temperature 98.3 [degF] Dr. Rosalie Alejandro Work Phone: [facility] Work Phone: 07-10-2021 14:56-0500 Diastolic blood pressure 60 mm[Hg] Dr. Rosalie Alejandro Work Phone: [facility] Work Phone: 07-10-2021 14:56-0500 Heart rate 85 /min Dr. Rosalie Alejandro Work Phone: [facility] Work Phone: 07-10-2021 14:56-0500 Respiratory rate 18 /min Dr. Rosalie Alejandro Work Phone: [facility] Work Phone: 07-10-2021 14:56-0500 SaO2% (BldA) [Mass fraction] 95 % Dr. Rosalie Alejandro Work Phone: [facility] Work Phone: 07-10-2021 14:56-0500 Systolic blood pressure 119 mm[Hg] Dr. Rosalie Alejandro Work Phone: [facility] Work Phone: 07-10-2021 13:31-0500 Body mass index (BMI) [Ratio] 23.2 kg/m2 Dr. Rosalie Alejandro Work Phone: [facility] Work Phone: 07-10-2021 13:31-0500 Body weight 57.[address] Rosalie Alejandro Work Phone: [facility] Work Phone: 07-07-2021 11:58-0500 Diastolic blood pressure 78 mm[Hg] Dr. Rosalie Alejandro Work Phone: [facility] Work Phone: 07-07-2021 11:58-0500 Heart rate 100 /min Dr. Rosalie Alejandro Work Phone: [facility] Work Phone: 07-07-2021 11:58-0500 Respiratory rate 22 /min Dr. Rosalie Alejandro Work Phone: [facility] Work Phone: 07-07-2021 11:58-0500 SaO2% (BldA) [Mass fraction] 92 % Dr. Rosalie Alejandro Work Phone: [facility] Work Phone: 07-07-2021 11:58-0500 Systolic blood pressure 120 mm[Hg] Dr. Rosalie Alejandro Work Phone: [facility] Work Phone: 07-07-2021 07:58-0500 Body mass index (BMI) [Ratio] 20 kg/m2 Dr. Rosalie Alejandro Work Phone: [facility] Work Phone: 07-07-2021 07:58-0500 Body temperature 97.1 [degF] Dr. Rosalie Alejandro Work Phone: [facility] Work Phone: 07-07-2021 07:58-0500 Body weight 53.[address] Rosalie Alejandro Work Phone: [facility] Work Phone: 05-20-2021 11:00-0500 Body temperature 98 [degF] Dr. Rosalie Alejandro Work Phone: [facility] Work Phone: 05-20-2021 11:00-0500 Body weight 52.[address] Rosalie Alejandro Work Phone: [facility] Work Phone: 05-20-2021 11:00-0500 Diastolic blood pressure 86 mm[Hg] Dr. Rosalie Alejandro Work Phone: [facility] Work Phone: 05-20-2021 11:00-0500 Heart rate 81 /min Dr. Rosalie Alejandro Work Phone: [facility] Work Phone: 05-20-2021 11:00-0500 Respiratory rate 22 /min Dr. Rosalie Alejandro Work Phone: [facility] Work Phone: 05-20-2021 11:00-0500 SaO2% (BldA) [Mass fraction] 96 % Dr. Rosalie Alejandro Work Phone: [facility] Work Phone: 05-20-2021 11:00-0500 Systolic blood pressure 148 mm[Hg] Dr. Rosalie Alejandro Work Phone: [facility] Work Phone: 05-04-2017 10:34-0500 BMI (Body Mass Index) 22.77 kg/m2 Celso LOPEZ [facility] Work Phone: 05-04-2017 10:34-0500 Body Temperature 97.7 [degF] Celso LOPEZ [facility] Work Phone: 05-04-2017 10:34-0500 BP Diastolic 73 mm[Hg] Celso Matta 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 [facility] Work Phone: 05-04-2017 10:34-0500 BP Systolic 107 mm[Hg] Celso Matta 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 [facility] Work Phone: 05-04-2017 10:34-0500 Height 157.48 cm Celso Matta 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[employer] [facility] Work Phone: 05-04-2017 10:34-0500 Pulse (Heart Rate) 84 /min Celso Matta 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 [facility] Work Phone: 05-04-2017 10:34-0500 Respiratory Rate 18 /min Celso Matta 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[employer] [facility] Work Phone: 05-04-2017 10:34-0500 Weight 56.47 kg Celso Matta 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[employer] [facility] Work Phone: 02-03-2017 13:30-0400 BMI (Body Mass Index) 21.95 kg/m2 Annamarie Marthey [facility] Work Phone: 02-03-2017 13:30-0400 Body Temperature 98.2 [degF] Annamarie Marthey [facility] Work Phone: 02-03-2017 13:30-0400 BP Diastolic 75 mm[Hg] Annam[facility] Marthey [facility] Work Phone: 02-03-2017 13:30-0400 BP Systolic 111 mm[Hg] Annamarie Marthey [facility] Work Phone: 02-03-2017 13:30-0400 Height 157.48 cm Annamarie Marthey [facility] Work Phone: 02-03-2017 13:30-0400 Pulse (Heart Rate) 69 /min Annamarie Marthey [facility] Work Phone: 02-03-2017 13:30-0400 Weight 54.43 kg Annamarie Marthey [facility] Work Phone: 09-13-2014 13:14-0400 BMI (Body Mass Index) 21.54 kg/m2 An[facility]arie [facility] Work Phone: 09-13-2014 13:14-0400 Body Temperature 98.5 [degF] [facility] Work Phone: 09-13-2014 13:14-0400 BP [...] [facility] Work Phone: Encounters Encounter Date Encounter Type Care Provider Facility Start: 01-26-2025 End: 01-26-2025 ambulatory Celso Matta [employer] Work Phone: -[facility]atory [facility] Start: 01-26-2025 End: 01-26-2025 Patient encounter procedure Zebulun Patricia [employer] -[facility] Start: 01-26-2025 End: 01-26-2025 ambulatory Celso Matta Facility:[facility] Start: 01-18-2025 ambulatory Celso Matta Facility:[facility] Start: 10-04-2024 ambulatory Celso Matta Facility:[facility] Start: 07-30-2023 End: 07-30-[address] Rosalie Alejandro Work Phone: [facility] Work Phone: Start: 07-30-2023 End: 07-30-[address] Rosalie Alejandro Work Phone: [facility] Work Phone: Start: 07-22-2023 End: 07-22-[address] Rosalie Alejandro Work Phone: [facility] Work Phone: Start: 06-20-2023 End: 06-20-2023 Emergency department patient visit [facility] Work Phone: Start: 01-25-[address] Rosalie Alejandro Work Phone: [facility] Start: 01-25-2023 End: 01-25-[address] Rosalie Alejandro Work Phone: [facility] Work Phone: Start: 01-25-2023 End: 01-25-2023 Encounter for general adult medical examination without abnormal findings Dr. Rosalie Alejandro Work Phone: [facility] Start: 01-25-2023 End: 01-25-[address] Rosalie Alejandro Work Phone: [facility] Work Phone: Start: 08-30-2022 End: 08-30-2022 Emergency department patient visit [facility]Emer[facility] Start: 04-24-2022 End: 04-24-[address] Rosalie Alejandro Work Phone: [facility] Work Phone: Start: 04-24-2022 End: 04-24-2022 Encounter for general adult medical examination without abnormal findings Dr. Rosalie Alejandro Work Phone: [facility] Start: 04-24-2022 End: 04-24-[address] Rosalie Alejandro Work Phone: [facility] Start: 09-04-2021 Non-patient / Non-visit Dr. Mike Alejandro Work Phone: [facility] Start: 09-03-2021 End: 09-03-[address] Rosalie Alejandro Work Phone: [facility]-Pulmonary Services/Neurology Start: 08-22-2021 End: 08-22-[address] Rosalie Alejandro Work Phone: [facility] Start: 08-12-2021 End: 08-12-[address] [facility] Start: 07-10-2021 End: 07-10-[address] Rosalie Alejandro Work Phone: [facility]-Medical Surgical 3 Outp Start: 07-07-2021 End: 07-07-2021 Emergency department patient visit Dr. Rosalie Alejandro Work Phone: [facility]-Emergency Department Start: 07-02-2021 End: 07-02-[address] Rosalie Alejandro Work Phone: [facility]-Laboratory, Specimen Start: 07-02-2021 End: 07-02-[address] Rosalie Alejandro Work Phone: [facility] Start: 07-01-2021 End: 07-01-[address] Rosalie Alejandro Work Phone: [facility] Int Med Virtual Start: 05-20-2021 End: 05-20-[address] Rosalie Alejandro Work Phone: [facility] Procedures Date Procedure Procedure Detail Performing Clinician Start: 07-30-2023 MRI of brain without contrast Dr. Rosalie Alejandro Work Phone: Start: 06-20-2023 SARS-CoV-2, Influenz a & RSV (PCR) Start: 06-20-2023 Plain chest X-ray Start: 08-30-2022 Plain x-ray of pelvi s and lower extremity Start: 08-30-2022 CT of head without contrast Start: 08-22-2021 CT of chest without contrast Dr. Rosalie Alejandro Work Phone: Start: 07-07-2021 Bacteria identified in Blood by Culture Dr. Rosalie Alejandro Work Phone: Start: 07-07-2021 SARS-CoV-2 Antigen (Rapid) Dr. Rosalie Alejandro Work Phone: Start: 07-07-2021 CT angiography of ch est with contrast Dr. Rosalie Alejandro Work Phone: Start: 07-07-2021 Plain chest X-ray Dr. Summer Alejandro Work Phone: Start: 05-20-[address] Cody Alejandro Work Phone: Start: 08-29-2014 End: 08-31-2014 *B12FO Vitamin B12 and Folates Celso Antonio DO Work Phone: Start: 08-29-2014 End: 08-31-2014 *CBC with Differential Celso Conde Work Phone: Start: 08-29-2014 End: 08-31-2014 *CMP Complete Metabolic Panel Celso Antonio DO Work Phone: Start: 08-29-2014 End: 08-31-2014 25-Hydroxyvitamin D2+25-Hydroxyvitamin D3 [Mass/volume] in Serum or Plasma Celso Antonio DO Work Phone: Start: 08-29-2014 End: 08-31-2014 Ferritin [Mass/volume] in Serum or Plasma Celso Antonio DO Work Phone: Start: 08-29-2014 End: 08-31-2014 Iron and Iron binding capacity panel - Serum or Plasma Celso Flores Paco DO Work Phone: Start: 08-29-2014 End: 08-31-2014 Thyrotropin [Units/volume] in Serum or Plasma Celso Antonio DO [...] Ferritin [Mass/volume] in Serum or Plasma Celso Antonio DO Work Phone: Start: 08-29-2014 End: 08-31-2014 Iron and Iron binding capacity panel - Serum or Plasma Celso Antonio DO Work Phone: Start: 08-29-2014 End: 08-31-2014 Thyrotropin [Units/volume] in Serum or Plasma Celso Antonio DO Work Phone: Plan of Treatment Date Care Activity Detail Author Start: 06-20-2023 [facility] Start: 01-25-2023 Patient referral [facility] Work Phone: Start: 04-24-2022 Patient referral [facility] Work Phone: Start: 05-31-2017 End: 05-31-2017 Appointment Appointment [facility] Work Phone: Start: 05-04-2017 End: 05-04-2017 Follow Up Appt 1 month Follow Up Appt 1 month [facility] Work Phone: Start: 05-04-2017 End: 05-04-2017 Appointment Appointment [facility] Work Phone: Start: 03-17-2017 End: 03-17-2017 Appointment Appointment [facility] Work Phone: Start: 02-03-2017 End: 02-03-2017 MARCELA MARCELA [facility] Work Phone: Start: 02-03-2017 End: 02-03-2017 Neurology Referral Neurology Referral [facility], [address], [place], [address] [facility] Work Phone: Start: 02-03-2017 End: 02-03-2017 Appointment Appointment [facility] Work Phone: Start: 02-03-2017 End: 02-03-2017 MARCELA MARCELA [facility] Work Phone: Start: 02-03-2017 End: 02-03-2017 Neurology Referral Neurology Referral [facility], [address], [place], [address] [facility] Work Phone: Start: 12-13-2014 End: 09-13-2014 *CBC with Differential *CBC with Differential [facility] Work Phone: Start: 12-13-2014 End: 09-13-2014 25-Hydroxyvitamin D2+25-Hydroxyvitamin D3 [Mass/volume] in Serum or Plasma *Vitamin D (Calciferol) [facility] Work Phone: Start: 12-13-2014 End: 09-13-2014 Ferritin *Ferritin [facility] Work Phone: Start: 12-13-2014 End: 09-13-2014 Iron and Iron binding capacity panel - Serum or Plasma *IBC Iron & Total Iron Binding Capacity [facility] Work Phone: Start: 12-13-2014 End: 09-13-2014 *CBC with Differential *CBC with Differential [facility] Work Phone: Start: 12-13-2014 End: 09-13-2014 25-Hydroxyvitamin D2+25-Hydroxyvitamin D3 mass conc *Vitamin D (Calciferol) [facility] Work Phone: Start: 12-13-2014 End: 09-13-2014 Ferritin mass conc *Ferritin [facility] Work Phone: Start: 12-13-2014 End: 09-13-2014 Iron and Iron binding capacity panel - Serum or Plasma *IBC Iron & Total Iron Binding Capacity [facility] Work Phone: Start: 08-29-2014 End: 08-31-2014 *B12FO Vitamin B12 and Folates *B12FO Vitamin B12 and Folates [facility] Work Phone: Start: 08-29-2014 End: 08-31-2014 *CBC with Differential *CBC with Differential [facility] Work Phone: Start: 08-29-2014 End: 08-31-2014 *CMP Complete Metabolic Panel *CMP Complete Metabolic Panel [facility] Work Phone: Start: 08-29-2014 End: 08-31-2014 25-Hydroxyvitamin D2+25-Hydroxyvitamin D3 [Mass/volume] in Serum or Plasma *Vitamin D (Calciferol) [facility] Work Phone: Start: 08-29-2014 End: 08-31-2014 Ferritin *Ferritin [facility] Work Phone: Start: 08-29-2014 End: 08-31-2014 Iron and Iron binding capacity panel - Serum or Plasma *IBC Iron & Total Iron Binding Capacity [facility] Work Phone: Start: 08-29-2014 End: 08-31-2014 Thyroid stimulating hormone (TSH) *TSH [facility] Work Phone: Start: 08-29-2014 End: 08-31-2014 *B12FO Vitamin B12 and Folates *B12FO Vitamin B12 and Folates [facility] Work Phone: Start: 08-29-2014 End: 08-31-2014 *CBC with Differential *CBC with Differential [facility] Work Phone: Start: 08-29-2014 End: 08-31-2014 *CMP Complete Metabolic Panel *CMP Complete Metabolic Panel [facility] Work Phone: Start: 08-29-2014 End: 08-31-2014 25-Hydroxyvitamin D2+25-Hydroxyvitamin D3 mass conc *Vitamin D (Calciferol) [facility] Work Phone: Start: 08-29-2014 End: 08-31-2014 Ferritin mass conc *Ferritin [facility] Work Phone: Start: 08-29-2014 End: 08-31-2014 Iron and Iron binding capacity panel - Serum or Plasma *IBC Iron & Total Iron Binding Capacity [facility] Work Phone: Start: 08-29-2014 End: 08-31-2014 Thyrotropin Qn *TSH [facility] Work Phone: Patient Education [facility] Work Phone: Patient referral [facility] Work Phone: Immunizations Immunization Date Immunization Notes Care Provider Fa cili 04-01-2020 influenza, injectabl e, quadrivalent, preservative free [facility] 04-01-2020 influenza, seasonal, injectable Dr. Rosalie Alejandro Work Phone: [facility] 04-01-2020 Fluad Quad [id number](65yr up)(PF) 60 mcg (15 mcg x 4)/0.5mL IM syringe (flu vac Dr. Rosalie Alejandro Work Phone: [facility] Work Phone: Payers Date Payer Category Payer Self-pay [id number] 2024 Medicaid [id number] 2024 Unknown [id number] Medicare [id number] Unknown [id number] Unknown [id number] Unknown [id number] Social History Date Type Detail Facility Start: 08-12-2021 End: 07-22-2023 Tobacco smoking status NVIS Unknown if ever smoked [facility] Start: 10-20-2019 None [facility] Start: 10-20-2019 Alone [facility] Start: 10-21-2019 Cigarettes [facility] Start: 1950 Sex Assigned At Female [facility] Start: 07-22-2023 Tobacco smoking stat us NVIS Smokes tobacco daily (finding) [facility] Medical Equipment Procedure Code Equipment Code Equipment Origin al Text Equipment Identifier Dates Syringe With Nee dle 3 mL 25 gauge x 1 syringe Start: 01-18-2023 Syringe With Nee dle 3 mL 25 gauge x 1 syringe Start: 10-23-2020 End: 06-26-2022 Syringe With Nee dle 3 mL 25 gauge x 1 syringe Start: 06-26-2022 End: 01-18-2023 Mental Status Date Assessment Result Facility 07-10-2021 Cognitive function Voice/Name;To uch/Shaking;L ight Pain;Deep Pain [facility] Work Phone: Evaluation note Note Date & Type Note Facility Evaluation note Diagnosis Onset Date [id number] acute Nicotine dependence, cigaret quoc, uncomplicated acute Acute pharyngitis acute Lung nodule acute Nicotine dependence, cigaret quoc, uncomplicated acute COPD (chronic obstructive pulmonary disease) chronic [facility] Work Phone: Evaluation note Note Date & Type Note Facility Evaluation note Diagnosis Onset Date Abdominal pain chronic COPD (chronic obstructive pulmonary disease) chronic CVA (cerebral vascular accident) chronic Hypertension chronic Hypothyroidism chronic Migraine chronic Nicotine dependence, cigaret quoc, uncomplicated chronic 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 [facility] Work Phone: Evaluation note Note Date & Type Note Facility Evaluation note No assessment information availa ble [facility] Work Phone: Evaluation note Note Date & Type Note Facility Evaluation note Diagnosis Onset Date Encounter for health maintenance examination acute GERD (gastroesophageal reflux disease) chronic Hyperlipidemia chronic Hypertension chronic Hypothyroidism chronic Migraine chronic [facility] Work Phone: Reason for referral (narrative) Note Date & Type Note Facility Reason for referral (narrative) No reason for referral information available [facility] Work Phone: Summary Purpose Family History No Family History Records Found Relationship Condition Age at Onset Recorded Date/T liz sister Malignant neoplasm of lung Unknown brother Myocardial infarction 43 mother Presence of cardiac pacemaker Unknown Advance Directives No Advanced Directives Records Found Advance Directive Response Recorded Date/ Time Living Will Yes July 07 10:22am Power of Photograph Tinter Yes July 07, 2021 10:22am Advance Directive Response Recorded Date/ Time Living Will Yes July 07 9:22am Power of Photograph Tinter Yes July 07, 2021 9:22am Advance Directive Response Recorded Date/ Time Living Will Yes August 30, 2022 9:07pm Power of Photograph Tinter Yes August 30 9:07pm Name of Medical Power of Photograph Tinter AMRIK BATES S-DTRoni August 30, 2022 9:07pm Advance Directive Response Recorded Date/ Time Living Will Yes August 30, 2022 9:07pm Power of Photograph Tinter Yes August 30 9:07pm Advance Directive Response Recorded Date/ Time Living Will Yes June 20 12:50pm Power of Photograph Tinter Yes June 20 12:50pm Name of Medical Power of Photograph Tinter recalled June 20, 2023 12:50pm Advance Directive Response Recorded Date/ Time Name of Medical Power of Photograph Tinter recalled June 20, 2023 12:50pm Living Will Yes June 20 12:50pm Power of Photograph Tinter Yes June 20 024 12:50pm Chief Complaint and Reason for Visit Chief Complaint Lung cancer screenin g TOBACCO ABUSE PHONE- SORE THROAT COVID TEST sob COVID POS 6 M FU LUNG NODULE COPD COPD Reason for Visit [id number] Nicotine dependence, cigarettes, uncomplicated Acute pharyngitis Lung nodule Nicotine dependence, cigarettes, uncomplicated COPD (chronic obstructive pulmonary disease) Chief Complaint Med refills Reason for Visit Abdominal pain COPD (chronic obstructive pulmonary disease) CVA (cerebral vascular accident) Hypertension Hypothyroidism Migraine Nicotine dependence, cigarettes, uncomplicated 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 ([place]) DATE CREATED AUTHOR AUTHOR'S ORGANIZ ATION [facility] Goals (unrecognized section and content) Goals may be documented in a n alternate sectionGoals may be documented in an alternate sectionGoals may be documented in an alternate sectionGoals may be documented in an alternate sectionGoals may be documented in an alternate sectionGoals may be documented in an alternate sectionGoals may be documented in an alternate section Care Teams (unrecognized sec tion and content) Team Status: Active Member Role Status Dates Dr. Rosalie Alejandro MD Family Provider Active Dr. Rosalie Alejandro MD Primary Care Provider Active Team Status: Inactive Member Role Status Dates Dr. Rosalie Alejandro MD Primary Care Provider Active Dr. Shailesh Soto DO Emergency Provider Active Team Status: Inactive Member Role Status Dates Dr. Rosalie Alejandro MD Primary Care P jordin, Attending Provider, Referring Provider Active Team Status: Active Member Role Status Dates Dr. Rosalie Alejandro MD Family Provider Active Celso Matta LIBRARY PARAPROFESSIONAL, LIBRARY PARAPROFESSIONAL-C Primary Care Provider Active Team Status: Inactive Member Role Status Dates Dr. Mati David DO Emergency Provider Active Celso Matta LIBRARY PARAPROFESSIONAL, LIBRARY PARAPROFESSIONAL-C Primary Care Provider Active Team Status: Active Member Role Status Dates Dr. Rosalie Alejandro MD Family Provider Active Celso Matta VSC, LIBRARY PARAPROFESSIONAL-C Primary Care Provider Active Team Status: Inactive Member Role Status Dates Dr. Rosalie Alejandro MD Referring Provider Active Dr. Sergio Danielle MD Attending Provider Active Celso Matta LIBRARY PARAPROFESSIONAL, LIBRARY PARAPROFESSIONAL-C Primary Care Provider Active Team Status: Inactive Member Role Status Dates Dr. Mati David DO Attending Provider, Emergency P rovider Active Cleso Matta LIBRARY PARAPROFESSIONAL, LIBRARY PARAPROFESSIONAL-C Primary Care Provider Active Team Status: Inactive Member Role Status Dates Dr. Sergio Danielle MD Attending Provider, Referring Provider Active Celso Matta VSC, LIBRARY PARAPROFESSIONAL-C Primary Care Provider Active Team Status: Active Member Role/Relationship Status Dates Celso Matta VSC, LIBRARY PARAPROFESSIONAL-C Primary Care Provider Active Team Status: Inactive Member Role/Relationship Status Dates Celso Matta VSC, LIBRARY PARAPROFESSIONAL-C Primary Care Provider Active Start: January 26, 2025 End: January 26, 2025 Jorge Gomez VSC, LIBRARY PARAPROFESSIONAL-C Attending Provider Active Start: January 26, 2025 End: January 26, 2025 FOR RECORDS PERTAINING TO PATIENTS WHO ARE [...] BE BASED ON THE PRIMARY CLINICAL RECORDS. [facility]. provides no warranty or guarantee of the accuracy or completeness of information in this document.
[2025-03-07] MEDS: Meropenem 1 GM in 0.9% Normal Saline (100mL MB+) 100 ML IV (20:24)
[2025-03-07 20:50] LABS: Prothrombin Time (Protime)PT. 19.1 SECONDS (11.7-14.9)
[2025-03-07 20:51] LABS: Partial Thromboplast Time 50.3 Seconds (24.1-36.2)
--- NOTE | 2025-03-07 21:05 | EKG12_ITS ---
Test Reason : ARRYTH Blood Pressure : */* mmHG Vent. Rate : 132 BPM Atrial Rate : 132 BPM P-R Int : 168 ms QRS Dur : 78 ms QT Int : 316 ms P-R-T Axes : 82 -54 93 degrees QTcB Int : 468 ms Sinus tachycardia Right atrial enlargement Left axis deviation Pulmonary disease pattern Cannot rule out Septal infarct , age undetermined T wave abnormality, consider lateral ischemia Abnormal ECG Confirmed by Britton Machado ([id number]), photographic editor KAYLEE NEWSOME ([id number]) on 03/09/2025 5:45:58 AM Referred By: JANAE Confirmed By: Britton Machado
--- NOTE | 2025-03-07 21:13 | CM.ED ---
Social Work SW met with patient family outside of room while patient was receiving medical care. Family very emotional regarding patients health condition. Much emotional support provided during time medical staff was working with patient. No further needs at this time. Bekah Irwin, ESTATE PLANNING [employer], PHARMACEUTICAL SCIENTIST
[2025-03-07 21:17] LABS: Red Blood Cells-Urine 0-5 SEEN /hpf (0-5); Squamous Epithelial Cells - UA 5-10 SEEN /hpf (5-10)
[2025-03-07 22:11] LABS: Reflex Lactate? Y
== END 2025-03-07 23:08 ==
LOC: ED 19:40 → ICU 20:16
PROVIDERS: Emergency Provider Emergency Medicine; PCP Nurse Practitioner Family; Visit Provider Emergency Medicine
DX: J96.90 Respiratory failure, unspecified, unspecified whether with hypoxia or hypercapnia (principal); A41.9 Sepsis, unspecified organism; R65.20 Severe sepsis without septic shock; F03.90 Unspecified dementia, unspecified severity, without behavioral disturbance, psychotic disturbance, mood disturbance, and anxiety; J44.1 Chronic obstructive pulmonary disease with (acute) exacerbation; R19.7 Diarrhea, unspecified; D72.829 Elevated white blood cell count, unspecified; E87.20 Acidosis, unspecified; I45.9 Conduction disorder, unspecified; E86.0 Dehydration; E87.5 Hyperkalemia; R74.01 Elevation of levels of liver transaminase levels; N17.9 Acute kidney failure, unspecified; G93.41 Metabolic encephalopathy; K21.9 Gastro-esophageal reflux disease without esophagitis; E78.5 Hyperlipidemia, unspecified; I95.9 Hypotension, unspecified; F17.210 Nicotine dependence, cigarettes, uncomplicated; Z79.899 Other long term (current) drug therapy; Z79.82 Long term (current) use of aspirin; Z86.73 Personal history of transient ischemic attack (TIA), and cerebral infarction without residual deficits; Z79.51 Long term (current) use of inhaled steroids
CPT/HCPCS: 31500; 36600; 51702; 71045; 80053; 81001; 82274; 83605; 85025; 85610; 85730; 87040; 87077; 87086; 87088; 87186; 87631; 92950; 93005; 94002; 94640; 96365; 96375; 99252; 99285; J2185; G0463

== ENCOUNTER 2025-03-07 17:19 | Emergency (ER) | payer MEDICARE, MEDICAID, SELFPAY ==
[2025-03-07 17:20] VITALS: BP 132/94; PULSE 130; RESP 16; TEMP 36.3; O2SAT 89; BMI 12.2
[2025-03-07 17:57] LABS: SITE Not entered; VBG BASE EXCESS -10 mmol/L (-1.0-3.5); VBG PO2 27 mmHg (25-40); VBG SO2 27 % (50-70); VBG TCO2 23 mmol/L (23-33)
[2025-03-07 20:06] LABS: Base Excess -23 mmol/L (-2 to +2); FI02 100.0; PEEP 5; PO2 267 mmHG (75-100); RR 14; SITE L Radial; SO2 100 % (95-99)
--- OUTSIDE RECORDS SUMMARY | 2025-05-29 20:14 | XMS RPT_ITS | CCD ---
Author Organization [facility] Care Team Providers Care Senior Business Process Analyst Name Role Phone Lawanda Nunes Unavailable Unavailable Lawanda Nunes Unavailable Unavailable Paxton PIERREP-C, Celso Flores Unavailable Unavailable Annamarie Corley Unavailable Unavailable Annamarie Corley Unavailable Unavailable Annamarie Corley Unavailable Unavailable Dr. Rosalie Alejandro Primary Care Provider [phone] Dr. Rosalie Alejandro Referring Provider [phone] Ozzie POULTRY VETERINARIAN, POULTRY VETERINARIAN-C Georgia Attending Provider [phone] Paxton POULTRY VETERINARIAN, POULTRY VETERINARIAN-C Celso Attending Provider [phone] Dr. Ronald Tam Attending Provider Dr. Ronald [...] [phone] Dr. Sergio Danielle Attending Provider Paxton POULTRY VETERINARIAN, POULTRY VETERINARIAN-C Celso Primary Care Provider Paxton POULTRY VETERINARIAN-C, Celso Primary Care Provider Beam POULTRY VETERINARIAN-C, Jorge Attending Provider Paxton POULTRY VETERINARIAN-C, Celso Primary Care Physician Beam POULTRY VETERINARIAN-C, Jorge Attending Physician Dr. Bryan Ramires MD Attending Physician Dr. Bryan Ramires MD Emergency Department Physici an Dr. Breezy Fajardo DO Attending Physician Shlaini vailable Breezy Fajardo Admitting Unavailable Bryan Ramires Attending Unavailable Matta VSC, Celso Primary Care Unavailable Beam VSC, Jorge Attending Unavailable Matta VSC, Celso Primary Care Unavailable Matta VSC, Celso Primary Care Unavailable Matta VSC, Celso Attending Unavailable Matta VSC, Celso Referring Unavailable Beam VSC, Jorge Attending Unavailable Beam VSC, Zegladis Referring Unavailable Matta VSC, Celso Primary Care Unavailable Provider, Ed Physician Attending Unavailab le Matta VSC, Celso Primary Care Unavailable Breezy Fajardo Attending Unavailable Bryan Ramires Referring Unavailable Matta VSC, Celso Primary Care Unavailable Allergies Allergy Classification Reported Allergen(s) Allergy Type Date of Onset Reaction(s) Facility (6 sources) penicillin v Drug Allergy Hives and rash [facility] Work Phone: (6 sources) sertraline Drug Allergy Makes her go [facility] Work Phone: (9 sources) Penicillins; Translations: [Penicillins] Allergy to substance 2 [facility] Medications Current Medications Medication Drug Class(es) Dates Sig (Normalized) Sig (Original) albuterol 0.833 mg/ml / ipratropium bromide 0.167 mg/ml inhalation solution (1 source) Anticholinergic, beta2-Adrenergic Agonist Start: 03-07-2025 Budesonide-Glycopyr -Formoterol [Budesonide 160 Mcg-Glycopyr 9 Mcg-Formot 4.8 Mcg/Actuation Hfa Inhaler] (1 source) Corticosteroid, beta2-Adrenergic Agonist Start: 03-07-2025 dexamethasone 6 mg oral tablet (8 sources) Corticosteroid Start: 07-07-2021 take 1 tablet by mouth once daily Diaper,Brief,Adult, Disposable (Disposable Brief) misc (15 sources) Start: 12-09-2021 Diaper,Brief,Adul t,Disposable (Disposable Brief) misc Active 0 .ROUTE .MEDSUPPLY [...] (Disposable Brief) misc Discontinued 0 .ROUTE .MEDSUPPLY [facility] November 23, 2019 12:00am December 09, 2021 5:58pm As directed for urinary incontinence Start: 11-23-2019 End: 12-09-2021 Diaper,Brief,Adult,Disposabl e (Disposable Brief) misc Discontinued 0 .ROUTE .MEDSUPPLY 100 November 22, 2019 11:00pm December 09, 2021 4:58pm As directed for urinary incontinence Gcgzjxblkuw-Cdgxirijv-Obygdk er (20 sources) Anticholinergic, Corticosteroid, beta2-Adrenergic Agonist Start: 04-24-2022 Start: 04-24-2022 Fluticasone-Um eclidin-Vilanter (Trelegy Ellipta) 100-62.5-25 [...] 24, 2022 8:41am Start: 08-12-2021 End: 04-24-2022 Iqwrzxhjhti-Zejlrgdpn-Tdljum er (Trelegy Ellipta) 100-62.5-25 mcg blister with device Discontinued 1 NMA INHALATION DAILY 60 August 12, 2021 2:47pm April 24, 2022 9:41am Start: 08-12-2021 End: 04-24-2022 Yjptxdlcegq-Hvamerped-Ldvsvl er (Trelegy Ellipta) 100-62.5-25 mcg blister with device Discontinued 1 INH INHALATION DAILY 60 August 12, 2021 2:47pm April 24, 2022 9:41am Start: 08-12-2021 End: 04-24-2022 Wakxbumbwrx-Rowrgfcxt-Xwbgak er (Trelegy Ellipta) 100-62.5-25 mcg blister with device Discontinued 1 INH INHALATION DAILY 60 August 12, 2021 1:47pm April 24, 2022 8:41am Start: 08-12-2021 Fluticasone-Um eclidin-Vilanter (Trelegy Ellipta) 100-62.5-25 mcg blister with device Active 1 INH INHALATION DAILY 60 August 12, 2021 2:47pm Start: 05-26-2021 End: 08-12-2021 Yyfsccabcbt-Eguvdilul-Ljyvzt er (Trelegy Ellipta) 100-62.5-25 mcg blister with device Discontinued 1 NMA INHALATION DAILY 60 0 May 26, 2021 3:02pm August 12, 2021 2:47pm Start: 05-26-2021 End: 08-12-2021 Tuoufjtyjjd-Vdglwdvlp-Rzvpnd er (Trelegy Ellipta) 100-62.5-25 mcg blister with device Discontinued 1 INH INHALATION DAILY 60 May 26, 2021 2:02pm August 12, 2021 1:47pm Start: 05-26-2021 End: 08-12-2021 Lpejnhntkun-Mzhcvorig-Ngaunf er (Trelegy Ellipta) 100-62.5-25 mcg blister with device Discontinued 1 INH INHALATION DAILY 60 May 26, 2021 3:02pm August 12, 2021 2:47pm Start: 10-17-2020 End: 05-26-2021 Wfiilyymfow-Rmrkpbxuk-Gztpyk er (Trelegy Ellipta) 100-62.5-25 mcg blister with device Discontinued 1 INH INHALATION DAILY 60 October 17, 2020 10:33am May 26, 2021 3:03pm Start: 10-17-2020 End: 05-26-2021 Lrrqvszelbu-Hqnmhzsoj-Rcjoiv er (Trelegy Ellipta) 100-62.5-25 mcg blister with device Discontinued 1 NMA INHALATION DAILY 60 October 17, 2020 12:00am May 26, 2021 3:03pm Start: 10-17-2020 End: 05-26-2021 Clecezccblw-Ubslmmcov-Lwssyh er (Trelegy Ellipta) 100-62.5-25 mcg blister with device Discontinued 1 INH INHALATION DAILY October 17, 2020 12:00am May 26, 2021 3:03pm Start: 10-17-2020 End: 05-26-2021 Pxailmntbtf-Tzcgarmkr-Zishez er (Trelegy Ellipta) 100-62.5-25 mcg blister with device Discontinued 1 INH INHALATION DAILY 60 October 16, 2020 11:00pm May 26, 2021 2:03pm Start: 04-01-2020 End: 04-04-2020 Rlcukxnqfmd-Xyokjbzfj-Yvtzuv er (Trelegy Ellipta) 100-62.5-25 mcg blister with device Discontinued 1 NMA INHALATION DAILY 3 April 01, 2020 11:45am April 04, 2020 11:28am Start: 04-01-2020 End: 04-04-2020 Lnnqvemeelh-Tbyavlfhr-Mmjmmp er (Trelegy Ellipta) 100-62.5-25 mcg blister with device Discontinued 1 INH INHALATION DAILY April 01, 2020 10:45am April 04, 2020 10:28am Start: 04-01-2020 End: 04-04-2020 Lbrhdffoqmw-Lfctckfel-Xuejkv er (Trelegy Ellipta) 100-62.5-25 mcg blister with device Discontinued 1 INH INHALATION DAILY April 01, 2020 11:45am April 04, 2020 11:28am Start: 10-30-2019 End: 04-01-2020 Gnaozacxpot-Juyjnhapn-Gkmcyh er (Trelegy Ellipta) 100-62.5-25 mcg blister with device Discontinued 1 NMA INHALATION DAILY 1 October 30, 2019 12:00am April 01, 2020 11:46am Start: 10-30-2019 End: 04-01-2020 Zlznfwoxdcn-Fhkfimhad-Oqnkcf er (Trelegy Ellipta) 100-62.5-25 mcg blister with device Discontinued 1 INH INHALATION DAILY October 29, 2019 11:00pm April 01, 2020 10:46am melatonin 5 mg oral tablet (20 sources) [...] 9:19pm January 01, 2021 10:41am reuseable chux (6 sources) Start: 05-28-2022 reuseable chux Active 0 .Route .MEDSUPPLY 3 0 May 28, 2022 1:00am Urinary incontinence Unspecified urinary incontinence R32 As directed Start: 05-28-2022 reuseable chux Active 0 .Route .MEDSUPPLY 3 May 28, 2022 12:00am As directed Start: 05-28-2022 reuseable chux Active 0 .Route .MEDSUPPLY 3 May 28, 2022 1:00am As directed Syringe With Needle (13 sources) Start: 01-18-2023 Syringe With N eedle Active 0 .ROUTE .MEDSUPPLY 1 January 18, 2023 12:09pm As directed Start: 01-18-2023 Syringe With N eedle Active 0 .ROUTE .MEDSUPPLY January 18, 2023 1:09pm As directed Start: [...] Needle Disconti nued 0 .ROUTE .MEDSUPPLY October 23, 2020 12:00am June 26, 2022 9:57am As directed Start: 10-23-2020 Syringe With N eedle Active 0 .ROUTE .MEDSUPPLY 1 October 22, 2020 11:00pm As directed Underpads (Bed Underpads) pa d (20 sources) Start: 12-09-2021 Underpads (Bed Underpads) pad Active 0 .ROUTE .MEDSUPPLY 150 12 December 09, 2021 5:58pm Cerebral infarction, unspecified [...] d Discontinued 0 .ROUTE .MEDSUPPLY 150 November 22, 2019 11:00pm February 08, 2020 2:11pm As directed for urinary incontinence vitamin b12 1 mg/ml injectable solution (20 sources) Vitamin B12 Start: 06-29-2022 End: 01-18-2023 inject 1000 ug by intramuscular injection every month Start: 06-29-2022 End: 01-18-2023 inject 1000 ug [...] needed for fever Acetaminophen 500 mg tablet Discontinued 500 - 1000 mg PO EVERY 8 HOURS NEEDED as needed for for fever 30 0 September 10, 2023 8:42am October 08, 2023 1:33pm Start: 10-20-2019 End: 04-24-2022 take 1 tablet by mouth twice daily as needed for pain and fever Acetaminophen 500 mg tablet Discontinued 500 mg PO TWICE DAILY NEEDED as needed for PAIN AND FEVER 60 1 February 05, 2022 5:35pm April 24, 2022 9:41am acetaminophen 325 mg / HYDROcodone bitartrate 5 mg oral tablet (8 sources) Opioid Agonist Start: 08-04-2017 End: 11-02-2017 Hydrocodone-Acetaminophen 1 TABLET tablet Discontinued 1 - 2 {tbl} PO EVERY 4 HOURS NEEDED as needed for Pain 20 5 0 August 04, 2017 1:00am November 02, 2017 10:57am Acute wrist pain Pain in unspecified wrist Start: 08-04-2017 End: 11-02-2017 take 1 tablet by mouth every four hours as needed Hydrocodone-Acetaminophen Discontinued 1 - 2 TABLET PO EVERY 4 HOURS NEEDED 20 5 August 04, 2017 12:00am November 02, 2017 9:57am [id number] 200 actuat albuterol 0.09 mg/actuat metered dose [...] Discontinued 2 PUFF INHALATION EVERY 6 HOURS September 05, 2018 4:00pm August 30, 2019 [...] for shortness of breath or wheezing 18 May 10, 2018 8:55am September 05, 2018 4:00pm Start: 05-09-2018 End: 08-30-2019 take 1 puff(s) [...] for shortness of breath or wheezing 6.7 1 September 29, 2017 9:34am November 02, 2017 11:35am Start: 08-06-2017 End: 01-07-2018 take 1 puff(s) [...] every 6 hrs as needed ALBUTEROL SULFATE [id number] Celso Matta CHILD WELFARE DIRECTOR-C Start: 08-29-2014 End: 05-04-2017 take 2 puff(s) by mouth every four hours as needed PROAIR HFA 108 (90 Base) MCG/ACT AERS Inhale 2 puffs by mouth every 4 hrs as needed ALBUTEROL SULFATE [id number] Celso Matta CHILD WELFARE DIRECTOR-C amLODIPine 5 mg oral tablet (16 sources) Dihydropyridine Calcium Channel Edmundo Start: 09-05-2018 End: 08-30-2019 take 1 tablet by mouth once daily Amlodipine 5 mg tablet Discontinued 5 mg PO DAILY 30 1 October 12, 2018 8:38am August 30, 2019 2:23pm ascorbic acid 250 mg oral tablet (20 sources) Vitamin C Start: 04-27-2022 End: 10-08-2023 take 1 tablet by mouth once daily Ascorbic Acid (Vitamin C) 250 mg tablet Discontinued 250 mg PO DAILY 28 0 September 10, 2023 8:41am October 08, 2023 1:33pm aspirin 81 mg delayed release oral tablet (20 sources) Platelet Aggregation Inhibitor, Nonsteroidal Anti-inflammatory Drug Start: 10-21-2019 End: 10-08-2023 take 1 tablet by mouth once daily in the morning Aspirin 81 mg tablet,delayed release (DR/EC) Discontinued 81 mg PO EVERY MORNING 30 0 September 10, 2023 8:42am October 08, 2023 1:33pm Start: 08-30-2019 End: 10-21-2019 take 1 tablet by mouth once daily Aspirin 325 mg tablet Discontinued 325 mg PO DAILY August 30, 2019 12:00am October 21, 2019 10:38am [facility] blood pressure test kit-smal l cuff (6 sources) Start: 09-05-2018 End: 08-17-2019 [...] As directed Blood Pressure Test Kit-Small kit (2 sources) Start: 09-05-2018 End: 08-17-2019 Blood Pressure Test [...] Discontinued 2 NMA INHALATION Q12H 10.2 1 August 19, 2017 10:20am November 02, 2017 11:27am Start: 08-06-2017 End: 01-05-2018 take 1 puff(s) [...] 2 puffs twice a day BUDESONIDE-FORMOTEROL FUMARATE [id number] Celso CASTANON-C 24 hr buPROPion hydrochloride 150 mg extended release oral tablet (11 sources) Aminoketone Start: 08-06-2017 End: 11-02-2017 take 1 tablet by mouth once daily in the morning Bupropion Hcl (Wellbutrin Xl) 150 mg tablet extended release 24 hr Discontinued 150 mg PO EVERY MORNING August 06, 2017 1:00am November 02, 2017 11:27am Start: 05-04-2017 take 1 tablet by gurmeet th twice daily WELLBUTRIN SR 150 MG [id number] One tablet by mouth twice daily BUPROPION HCL [id number] Celso PIERREP-C cholecalciferol 75126 unt oral capsule (11 sources) Vitamin D Start: 09-13-2014 End: 02-03-2017 take 1 tablet by mouth every week VITAMIN D3 57889 UNIT CAPS 1 tablet by mouth once per week for vitamin D deficiency CHOLECALCIFEROL [id number] Lawanda Nunes clopidogrel 75 mg oral tablet (20 sources) [...] for neck pain and headaches CYCLOBENZAPRINE HCL [id number] Lawanda Nunes Start: 09-13-2014 CYCLOBENZAPRIN E HCL 5 MG TABS 1-2 tablets at night as needed for neck pain and headaches CYCLOBENZAPRINE HCL [id number] Celso Antonio DO donepezil hydrochloride 10 mg oral tablet (6 sources) Start: 07-22-2023 End: 03-07-2025 take 1 tablet by mouth once daily at bedtime Donepezil 10 mg tablet Discontinued 10 mg PO AT BEDTIME 30 5 July 22, 2023 1:00am March 07, 2025 5:51pm Begin after completing one month of treatment of donepezil 5mg nightly Start: 07-22-2023 End: 03-07-2025 take 1 tablet by mouth at bedtime Donepezil 5 mg tablet Discontinued 5 mg PO AT BEDTIME 30 0 July 22, 2023 1:00am March 07, 2025 5:51pm doxepin hydrochloride 25 mg oral capsule (16 sources) Tricyclic Antidepressant Start: 08-04-2017 End: 08-30-2019 take 1 capsule by mouth once daily Doxepin 25 mg capsule Discontinued 25 mg PO DAILY 30 0 April 08, 2018 1:33pm August 30, 2019 2:23pm ferrous sulfate 325 mg oral tablet (20 sources) Start: 04-27-2022 End: 10-08-2023 take 1 tablet by mouth once daily Ferrous Sulfate (Ferosul) 325 mg (65 mg iron) tablet Discontinued 325 mg PO DAILY 30 0 September 10, 2023 8:43am October 08, 2023 1:33pm Start: 10-24-2019 End: 11-14-2019 take 1 tablet [...] Discontinued 325 mg PO TWICE A DAY August 06, 2017 1:00am August 30, 2019 4:04pm Start: 08-29-2014 take 1 tablet by gurmeet th once daily at breakfast FERROUS SULFATE 325 (65 Fe) MG TABS 1 tablet by mouth daily with breakfast FERROUS SULFATE [id number] Celso Antonio DO Fluticasone Furoate (8 sources) Corticosteroid Start: 04-04-2020 End: 08-12-2021 take [...] / vilanterol 0.025 mg/actuat dry powder inhaler (11 sources) Corticosteroid, beta2-Adrenergic Agonist Start: 08-06-2017 End: [...] 2 puffs twice a day FLUTICASONE FUROATE-VILANTEROL [id number] Celso A Paxton PIERREP-C 12 hr guaiFENesin 1200 mg extended release oral tablet (16 sources) Start: 03-10-2018 End: 08-30-2019 take 1 tablet by mouth every twelve hours Guaifenesin 1,200 mg tablet extended release 12hr Discontinued 1200 mg PO Q12H 30 6 September 05, 2018 3:59pm August 30, 2019 2:23pm hydrOXYzine hydrochloride 25 mg oral tablet (8 sources) Antihistamine Start: 02-03-2017 End: 05-04-2017 take 1 tablet by mouth once daily as needed HYDROXYZINE HCL 25 MG TABS One tablet by mouth daily as needed HYDROXYZINE HCL [id number] Celso A Paxton PIERREP-C levothyroxine sodium 0.075 mg oral tablet (20 sources) l-Thyroxine Start: 11-24-2019 End: 10-08-2023 take 1 tablet by mouth once daily Levothyroxine 75 mcg tablet Discontinued 75 ug PO DAILY 30 0 September 10, 2023 8:42am October 08, 2023 1:33pm Start: 11-02-2019 End: 11-24-2019 take 1 tablet by mouth once daily Levothyroxine 88 mcg tablet Discontinued 88 ug PO DAILY 60 2 November 02, 2019 2:13pm November 24, 2019 10:31am THYROID Start: 08-17-2019 End: 11-02-2019 take 1 tablet by mouth once daily Levothyroxine 100 mcg tablet Discontinued 100 ug PO DAILY 90 2 September 12, 2019 9:23am October 20, 2019 [...] One tablet by mouth daily LEVOTHYROXINE SODIUM [id number] Celso Matta CHILD WELFARE DIRECTOR-C Start: 03-03-2016 End: 11-02-2017 Levothyroxine 100 MCG [...] 11, 2014 12:00am March 03, 2016 8:29pm LORazepam 0.5 mg oral tablet (8 sources) Benzodiazepine Start: 11-11-2019 End: 04-24-2022 take 1 tablet by mouth twice daily as needed for anxiety Lorazepam (Ativan) 0.5 mg tablet Discontinued 0.5 mg PO TWICE A DAY as needed for anxiety 3 November 11, 2019 12:00am April 24, 2022 9:28am miconazole nitrate 0.02 mg/mg topical powder (8 sources) Azole Antifungal Start: 11-23-2019 End: 10-16-2020 Miconazole Nitrate (Zeasorb Af) 2 % powder Discontinued 1 NMA TOPICAL TWICE A DAY 71 November 23, 2019 12:00am October 16, 2020 1:24pm mirtazapine 30 mg oral tablet (20 sources) Start: 08-06-2017 End: 11-02-2017 take 1 tablet by mouth once Mirtazapine 30 mg tablet,disintegrati ng Discontinued 30 mg PO ONCE August 06, [...] TABS One tablet by mouth daily MIRTAZAPINE [id number] Lawanda Nunes Start: 02-03-2017 End: 05-04-2017 take 1 tablet by mouth once daily MIRTAZAPINE 30 MG TABS One tablet by mouth daily MIRTAZAPINE [id number] Lawanda Nunes Start: 02-03-2017 take 1 tablet by gurmeet th once daily MIRTAZAPINE 15 MG TABS One tablet by mouth daily MIRTAZAPINE [id number] Lawanda Nunes 60 actuat mometasone furoate 0.22 mg/actuat dry powder inhaler (9 sources) Corticosteroid Start: 08-29-2014 End: 05-04-2017 take 1 puff(s) by inhalation twice daily ASMANEX 60 METERED DOSES 220 MCG/INH AEPB Inhale 1 puff as instructed twice daily MOMETASONE FUROATE [id number] Celso Matta CHILD WELFARE DIRECTOR-C 24 hr nicotine 0.583 mg/hr transdermal system (16 sources) Cholinergic Nicotinic Agonist Start: 10-24-2019 End: [...] CPDR 1 capsule by mouth daily OMEPRAZOLE [id number] Lawanda Nunes oxybutynin chloride 5 mg oral tablet (11 sources) Cholinergic Muscarinic Antagonist Start: 08-29-2014 End: 02-03-2017 take 2 tablets by mouth three times daily OXYBUTYNIN CHLORIDE 5 MG TABS 2 tablets by mouth three times a day OXYBUTYNIN CHLORIDE [id number] Lawanda Nunes pantoprazole 40 mg delayed release oral tablet [...] 2019 9:23am October 09, 2019 12:57pm Pediatric Puprvkey-Sdkd-Tvd (6 sources) Start: 10-20-2019 End: 11-14-2019 take 1 tablet by mouth once daily Pediatric Hxckhdth-Hhhw-Pci Discontinued 1 TABLET PO DAILY October 20, 2019 2:29pm November 14, 2019 1:53pm Start: 10-20-2019 End: 11-14-2019 take 1 tablet by mouth once daily Pediatric Lhbsmvym-Ozrw-Yoq Discontinued 1 TABLET PO DAILY October 20, 2019 12:00am November 14, 2019 1:53pm Start: 10-20-2019 End: 11-14-2019 take 1 tablet by mouth once daily Pediatric Yyhjvprl-Dnfs-Onz Discontinued 1 TABLET PO DAILY October 19, 2019 11:00pm November 14, 2019 12:53pm Pediatric Ecjbcyig-Njjt-Kof 1 EACH tablet,chewable (2 sources) Start: 10-20-2019 End: 11-14-2019 take 1 tablet by mouth once daily Pediatric Fevyhudt-Tifb-Mcg 1 EACH tablet,chewable Discontinued 1 {tbl} PO DAILY October 20, 2019 12:00am November 14, 2019 1:53pm SUPPLEMENT polysaccharide iron complex 150 mg oral capsule (8 sources) Start: 08-04-2017 End: 08-17-2019 take 1 capsule by mouth once daily at mealtime Polysaccharide Iron Complex 150 MG capsule Discontinued 150 mg PO DAILY WITH MEALS August 04, 2017 1:00am August 17, 2019 12:24pm predniSONE 10 mg oral tablet (20 sources) Start: 03-10-2018 End: 09-05-2018 Prednisone 10 mg tablet Discontinued 10 mg PO daily 30 0 March 10, 2018 12:00am September 05, 2018 [...] With food rizatriptan 10 mg oral tablet (8 sources) Serotonin-1b and Serotonin-1d Receptor Agonist Start: [...] 4 times a day as needed SUCRALFATE [id number] Celso Sandra CASTANON-Cholo tiotropium 0.018 mg inhalant powder (9 sources) Anticholinergic Start: 08-29-2014 End: 05-04-2017 SPIRIVA HANDIHALER 18 MCG CAPS Inhale contents of 1 capsule via handihaler daily TIOTROPIUM BROMIDE MONOHYDRATE [id number] Celso LOPEZ topiramate 100 mg oral tablet (20 sources) Start: 08-06-2017 End: 10-12-2018 take 1 tablet by mouth twice daily Topiramate 100 mg tablet Discontinued 100 mg PO TWICE A DAY 60 September 05, 2018 3:29pm October 12, 2018 8:38am Start: 02-03-2017 take 1 tablet by gurmeet th twice daily TOPIRAMATE 100 MG TABS One tablet by mouth twice daily TOPIRAMATE [id number] Lawanda Nunes Umeclidinium (20 sources) Anticholinergic Start: 09-05-2018 End: [...] device Discontinued 1 NMA INHALATION daily 30 March 15, 2018 12:00am September 05, 2018 4:00pm [...] NMA INHALATION TWICE A DAY 30 0 November 02, 2017 11:24am December 07, 2017 [...] INH INHALATION DAILY 60 August 17, 2019 12:55pm October 20, 2019 [...] by mouth daily at night DIVALPROEX SODIUM [id number] Celso Antonio DO varenicline 1 mg oral tablet (8 sources) Partial Cholinergic Nicotinic Agonist Start: 10-16-2020 End: 01-01-2021 take 1 tablet by mouth once Varenicline Tartrate (Chantix Starting Month Box) 0.5 mg (11)- 1 mg (42) tablets,dose pack Discontinued 0 PO per package directions 53 0 October 16, 2020 12:00am January 01, 2021 10:41am PO PER PKG DIR 24 hr venlafaxine 75 mg extended release oral capsule (20 sources) Serotonin and Norepinephrine Reuptake Inhibitor Start: 10-09-2019 End: 10-08-2023 take 1 capsule by mouth once daily in the morning for depression Venlafaxine 75 mg capsule,extended release 24hr Discontinued 75 mg PO EVERY MORNING 28 0 September 10, 2023 8:44am October 08, 2023 1:33pm for depressive disorder [...] th once daily EFFEXOR XR 37.5 MG [id number] One tablet by mouth daily VENLAFAXINE HCL [id number] Celso Sandra KayeMatta CHILD WELFARE DIRECTOR-C Start: 02-03-2017 End: 03-05-2017 VENLAFAXINE HCL 37.5 MG TABS 1 tablet at night VENLAFAXINE HCL [id number] Rosalie Alejandro MD vortioxetine 20 mg oral tablet (8 sources) Start: 02-03-2017 End: 05-04-2017 take 1 tablet by mouth twice daily TRINTELLIX 20 MG TABS One tablet by mouth twice daily VORTIOXETINE HBR [id number] Celso Matta CHILD WELFARE DIRECTOR-C Problems Active Problems Problem Classification Problem Date Documented Da te Episodic/Chronic Abdominal pain (9 sources) Abdominal pain; Translations: [Unspecified abdominal pain] Episodic Acute and unspecified renal failure (2 sources) Acute renal failure syndrome; Translations: [Acute kidney failure, unspecified] Onset: 5 03-07-2025 Episodic Acute cerebrovascular disease (9 sources) Cerebrovascular accident; Translations: [Cerebral infarction, unspecified] Chronic Comment on above: 12/09/18 Administrative/social admission (8 sources) Counseling procedure with explicit context; Translations: [Tobacco abuse counseling] 10-16-2020 Episodic Anxiety disorders (13 sources) Mixed anxiety and depressive disorder; Translations: [Other specified anxiety disorders] Onset: 7 02-03-2017 Chronic Chronic obstructive pulmonary disease and bronchiectasis (20 sources) Chronic obstructive lung disease; Translations: [Chronic obstructive pulmonary disease, unspecified] Onset: 5 05-04-2017 Chronic Conduction disorders (1 source) Heart block ; Translations: [Conduction disorder, unspecified] 03-07-2025 Chronic Deficiency and other anemia (14 sources) Anemia; Translations: [Anemia, unspecified] Onset: 5 08-29-2014 Episodic Delirium, dementia, and amnestic and other cognitive disorders (3 sources) Dementia; Translations: [Unspecified dementia without behavioral disturbance] Onset: 5 08-22-2023 Chronic Diseases of white blood cells (2 sources) Leukocytosis; Translations: [Elevated white blood cell count, unspecified] Onset: 5 03-07-2025 Chronic Disorders of lipid metabolism (6 sources) Hyperlipidemia; Translations: [Hyperlipidemia, unspecified] 01-25-2023 Chronic Esophageal disorders (12 sources) Gastroesophageal reflux disease; Translations: [Gastro-esophageal reflux disease without esophagitis] Onset: 5 08-29-2014 Chronic Essential hypertension (10 sources) Hypertensive disorder; Translations: [Essential (primary) hypertension] Chronic Fluid and electrolyte disorders (5 sources) Dehydration; Translations: [Dehydration] Onset: 5 03-07-2025 Episodic Gastrointestinal hemorrhage (8 sources) Feces color: tarry; Translations: [Melena] 01-01-2021 Episodic Genitourinary symptoms and ill-defined conditions (8 sources) Mixed urinary incontinence; Translations: [Mixed incontinence] 01-01-2021 Chronic Genitourinary symptoms and ill-defined conditions (8 sources) Urgent desire to urinate; Translations: [Urgency of urination] 10-20-2019 Episodic Headache; including migraine (20 sources) Transformed migraine; 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] Onset: 7 02-03-2017 Chronic Mood disorders (6 sources) Depressive disorder; Translations: [Major depressive disorder, single episode, unspecified] Onset: 5 08-29-2014 Chronic Nutritional deficiencies (6 sources) Vitamin D deficiency; Translations: [Vitamin D deficiency] Onset: 5 09-13-2014 Chronic Open wounds of extremities (8 sources) Avulsion of toenail; Translations: [Unspecified open wound of unspecified toe(s) with damage to nail, initial encounter] 10-20-2019 Episodic Other circulatory disease (3 sources) History of cerebrovascular accident; Translations: [Personal history of transient ischemic attack (TIA), and cerebral infarction without residual deficits] 07-22-2023 Episodic Other circulatory disease (1 source) Transient hypotension; Translations: [Hypotension, unspecified] 03-07-2025 Episodic Other circulatory disease (1 source) Personal history of transient ischemic attack (TIA), and cerebral infarction without residual deficits; Translations: [Personal history of transient ischemic attack (TIA), and cerebral infarction without residual deficits] Onset: 5 Episodic Other diseases of bladder and urethra (6 sources) Bladder muscle dysfunction - overactive; Translations: [Overactive bladder] Onset: 5 08-29-2014 Chronic Other gastrointestinal disorders (9 sources) Diarrhea; Translations: [Diarrhea, unspecified] 10-21-2019 Episodic Other gastrointestinal disorders (1 source) Diarrhea, unspecified; Translations: [Diarrhea, unspecified] Onset: 5 Episodic Other liver diseases (1 source) Enzyme level - finding; Translations: [Elevated transaminase measurement] 03-07-2025 Episodic Other lower respiratory disease (8 sources) Nodule of lung; Translations: [Solitary pulmonary nodule] 08-12-2021 Episodic Other lower respiratory disease (1 source) Solitary pulmonary nodule; Translations: [Solitary pulmonary nodule] Episodic Other lower respiratory disease (1 source) Shortness of breath; Translations: [Shortness of breath] Onset: 5 Episodic Other nervous system disorders (5 sources) Claudication; Translations: [Peripheral vascular disease, unspecified] Onset: 7 02-03-2017 Chronic Other nervous system disorders (1 source) Metabolic encephalopathy; Translations: [Metabolic encephalopathy] Onset: 5 Chronic Other non-traumatic joint disorders (7 sources) Pain in wrist; Translations: [Pain in left wrist] 10-20-2019 Episodic Other non-traumatic joint disorders (1 source) Pain of left wrist; Translations: [Pain in left wrist] 10-20-2019 Episodic Other screening for suspected conditions (not mental disorders or infectious disease) (9 sources) Patient encounter status; Translations: [Encounter for screening for malignant neoplasm of respiratory organs] Episodic Other upper respiratory infections (9 sources) Acute pharyngitis; Translations: [Acute pharyngitis, unspecified] Episodic Residual codes; unclassified (6 sources) Tobacco user; Translations: [Tobacco use] Onset: 5 08-29-2014 Chronic Residual codes; unclassified (1 source) Endotracheal tube present; Translations: [Presence of other specified devices] 03-07-2025 Episodic Residual codes; unclassified (1 source) ; Translations: [Ill-defined and unknown cause of mortality] 03-07-2025 Episodic Residual codes; unclassified (1 source) Presence of other specified devices; Translations: [Presence of other specified devices] Onset: 5 Episodic Respiratory failure; insufficiency; arrest (adult) (2 sources) Respiratory failure; Translations: [Respiratory failure, unspecified, unspecified whether with hypoxia or hypercapnia] Onset: 5 03-07-2025 Episodic Septicemia (except in labor) (3 sources) Sepsis; Translations: [Sepsis, unspecified organism] Onset: 5 03-07-2025 Episodic Skin and subcutaneous tissue infections (8 sources) Abscess of neck; Translations: [Cutaneous abscess of neck] 02-07-2018 Episodic Substance-related disorders (11 sources) Nicotine dependence; Translations: [Nicotine dependence, cigarettes, uncomplicated] Chronic Thyroid disorders (18 sources) Hypothyroidism; Translations: [Hypothyroidism, unspecified] Onset: 5 08-29-2014 Chronic Unclassified (1 source) Acidosis, unspecified; Translations: [Acidosis, unspecified] Onset: 5 Unclassified (1 source) Elevation of levels of liver transaminase levels; Translations: [Elevation of levels of liver transaminase levels] Onset: 5 Viral infection (16 sources) COVID-19; Translations: [Pneumonia due to COVID-19 [...] Test Name Value Interpretation Reference Range Facility Culture, Blood (WB)on 2024 CUB Blood cultures x2, from two different sites No growth in 5 days. [facility] Comment on above: Performed By: #### L 500.4050, L503.6005, M200.1000, L300.3900, L100.0100 #### [facility] [address] [place], [address] Urine Cultureon 03-10-2025 [facility] Escherichia coli [place] Count 11,000-25,000 Escherichia coli: REACTION Ampicillin Islt CAROL <=2 Ampicillin+Sulbac Islt CAROL <=2 S Cefepime Islt CAROL <=0.12 S cefTRIAXone Islt CAROL <=0.25 S Ciprofloxacin Islt CAROL <=0.06 S B-Lactamase Extended Susc Islt NEG Gentamicin Islt CAROL <=1 S levoFLOXacin Islt CAROL <=0.12 S Meropenem Islt CAROL <=0.25 S Nitrofurantoin Islt CAROL <=16 S Pip+Tazo Islt CAROL <=4 S TMP SMX Islt CAROL <=20 S Normal [facility] Comment on above: Performed By: #### L 500.4050, L503.6005, M200.1000, L300.3900, L100.0100 #### [facility] [address] [place], [address] Troponin T HS 4 HRon 025 Trop T High Sen Normal <=14 [facility] Comment on above: Result Comment: [facility] Performed By: #### L 500.4050, L503.6005, M200.1000, L300.3900, L100.0100 #### [facility] [address] [place], [address] 12 Lead EKGon 03-07-2025 12 Lead EKG [facility] [address] [place] [address] 12 Lead EKG 03/07/25 1759 MR#: [id number] Acct: [id number] Name: CAPRICE RIDLEY Rep #: [id number] : 1950 74 From: Britton Machado MD Attending Dr: Status: DEP ER Ordering Dr: Bryan Ramires MD Date: 03/07/25 Location: ED Sex: F C Admitted: Test Reason : ARRYTH Blood Pressure : */* mmHG Vent. Rate : 132 BPM Atrial Rate : 132 BPM P-R Int : 168 ms QRS Dur : 78 ms QT Int : 316 ms P-R-T Axes : 82 -54 93 degrees QTcB Int : 468 ms Sinus tachycardia Right atrial enlargement Left axis deviation Pulmonary disease pattern Cannot rule out Septal infarct , age undetermined T wave abnormality, consider lateral ischemia Abnormal ECG Confirmed by Britton Machado ([id number]), offline editor KAYLEE NEWSOME ([id number]) on 03/09/2025 5:45:58 AM Referred By: IKE Confirmed By: Britton Machado 03/09/25 0546 Date _ Britton Machado MD CC: POULTRY VETERINARIAN-Cholo Matta; Dr. Bryan Ramires MD Signed Normal [facility] 12 Lead EKG [facility] [address] [place] [address] 12 Lead EKG 03/07/25 1903 MR#: [id number] Acct: [id number] Name: CAPRICE RIDLEY Rep #: [id number] : 1950 74 From: Britton Machado MD Attending Dr: Status: DEP ER Ordering Dr: Bryan Ramires MD Date: 03/07/25 Location: ED Sex: F C Admitted: Test Reason : RHYTHM CHANGE/RESP. FAILURE Blood Pressure : */* mmHG Vent. Rate : 41 BPM Atrial Rate : 120 BPM P-R Int : * ms QRS Dur : 176 ms QT Int : 424 ms P-R-T Axes : 90 268 85 degrees QTcB Int : 349 ms Critical Test Result: Arrhythmia , AV Block Sinus tachycardia with 2nd degree A-V block (Mobitz I) with ventricular escape complexes Right atrial enlargement Right bundle branch block Possible Lateral infarct , age undetermined Marked T wave abnormality, consider inferior ischemia Abnormal ECG Confirmed by Britton Machado ([id number]), offline editor KAYLEE NEWSOME ([id number]) on 03/09/2025 5:45:41 AM Referred By: IKE Confirmed By: Britton Machado 03/09/25 0545 Date _ Britton Machado MD CC: RAINA Matta; Dr. Bryan Ramires MD Signed Normal [facility] Absolute lymphocyte countOrd ered By: Bryan Ramires on 03-07-2025 Lymphocytes Auto (Unsp spec) [#/Vol] 1.46 10*3/uL 0.83-4.51 [facility] Absolute neutrophil countOrd ered By: Bryan Ramires on 03-07-2025 Neutrophils (Bld) [#/Vol] 20.0 10*3/uL High 2.0-7.7 [facility] Activated partial thrombopla stin time (aPTT) in platelet poor plasma by coagulation aOrdered By: Bryan Ramires on 03-07-2025 aPTT Coag (PPP) [Time] 50.3 s High 24.1-36.2 [facility] Anion gap in Serum or Plasma Ordered By: Bryan Ramires on 03-07-2025 Anion gap [Moles/Vol] 24 mmol/L High 5-15 [facility] Automated lymphocyte count a s percentage of total leukocytesOrdered By: Bryan Ramires on 03-07-2025 Lymphocytes/100 WBC Auto (Unsp spec) 6.3 % Low 19-41 [facility] BUN/creatinine ratioOrdered By: Bryan Ramires on 03-07-2025 Urea nitrogen/Creatinine [Mass ratio] 25.3 mg/mg High 10-20 [facility] Basophil percentageOrdered B y: Bryan Ramires on 03-07-2025 Basophils/100 WBC (Bld) 0.5 % 0-1 [facility] Bilirubin Test strip Ql (U)O rdered By: Bryan Ramires on 03-07-2025 Bilirubin Ql (U) 3 mg/dL High Negative [facility] Comment on above: COLOR OF URINE MAY A FFECT DIPSTICK RESULTS. Bilirubin, totalOrdered By: Bryan Ramires on 03-07-2025 Bilirubin [Mass/Vol] 0.63 mg/dL 0.00-1.[address] [facility] Blood Gases by CPSon 025 ROLAND TEST N/A Normal [facility] Comment on above: Performed By: #### L 500.4050, L503.6005, M200.1000, L300.3900, L100.0100 #### [facility] [address] [place], [address] Base excess Calc (Bld) [Moles/Vol] -23 mmol/L Low -2 to +2 [facility] Comment on above: Performed By: #### L 500.4050, L503.6005, M200.1000, L300.3900, L100.0100 #### [facility] [address] [place], [address] Blood Gas Type ART [facility] Comment on above: Performed By: #### L 500.4050, L503.6005, M200.1000, L300.3900, L100.0100 #### [facility] [address] [place], [address] CO2 [Moles/Vol] 11 mmol/L [facility] Comment on above: Performed By: #### L 500.4050, L503.6005, M200.1000, L300.3900, L100.0100 #### [facility] [address] [place], [address] FI02 100.0 [facility] Comment on above: Performed By: #### L 500.4050, L503.6005, M200.1000, L300.3900, L100.0100 #### [facility] [address] [place], [address] HCO3 (Bld) [Moles/Vol] 9.2 mmol/L Low 22-26 [facility] Comment on above: Performed By: #### L 500.4050, L503.6005, M200.1000, L300.3900, L100.0100 #### [facility] [address] [place], [address] Mode AC [facility] Comment on above: Performed By: #### L 500.4050, L503.6005, M200.1000, L300.3900, L100.0100 #### [facility] [address] [place], [address] O2 Delivery Dev Adult Vent Normal [facility] Comment on above: Performed By: #### L 500.4050, L503.6005, M200.1000, L300.3900, L100.0100 #### [facility] [address] [place], [address] pCO2 41.9 mmHg Normal 35-45 [facility] Comment on above: Performed By: #### L 500.4050, L503.6005, M200.1000, L300.3900, L100.0100 #### [facility] [address] [place], [address] PEEP 5 Normal [facility] Comment on above: Performed By: #### L 500.4050, L503.6005, M200.1000, L300.3900, L100.0100 #### [facility] [address] [place], [address] pH (Bld) 6.95 [pH] Invalid Interpretation Code 7.35-7.45 [facility] Comment on above: Performed By: #### L 500.4050, L503.6005, M200.1000, L300.3900, L100.0100 #### [facility] [address] [place], [address] PO2 267 mmHG High 75-100 [facility] Comment on above: Performed By: #### L 500.4050, L503.6005, M200.1000, L300.3900, L100.0100 #### [facility] [address] [place], [address] Read Back By Yes [facility] Comment on above: Performed By: #### L 500.4050, L503.6005, M200.1000, L300.3900, L100.0100 #### [facility] [address] [place], [address] Ramires [facility] Comment on above: Performed By: #### L 500.4050, L503.6005, M200.1000, L300.3900, L100.0100 #### [facility] [address] [place], [address] RR 14 [facility] Comment on above: Performed By: #### L 500.4050, L503.6005, M200.1000, L300.3900, L100.0100 #### [facility] [address] [place], [address] SITE L Radial [facility] Comment on above: Performed By: #### L 500.4050, L503.6005, M200.1000, L300.3900, L100.0100 #### [facility] [address] [place], [address] SO2 100 High 95-99 [facility] Comment on above: Performed By: #### L 500.4050, L503.6005, M200.1000, L300.3900, L100.0100 #### [facility] [address] [place], [address] Time Given 20:03:50 [facility] Comment on above: Performed By: #### L 500.4050, L503.6005, M200.1000, L300.3900, L100.0100 #### [facility] [address] [place], [address] Vt 400.0 mL [facility] Comment on above: Performed By: #### L 500.4050, L503.6005, M200.1000, L300.3900, L100.0100 #### [facility] [address] [place], [address] Blood cultureOrdered By: Devyn Ramires on 03-07-2025 Bacteria identified Cx Nom (Bld) No growth in 5 days. [facility] Bacteria identified Cx Nom (Bld) No growth in 5 days. [facility] CBC W/Diff, Automatedon 02-13 Hemoglobin (Bld) [Mass/Vol] 18.7 g/dL Invalid Interpretation Code 12.0-15.0 [facility] Comment on above: Result Comment: CRIT ICAL VALUE CALLED TO TRES REYES 03/07/25 181 Roselyn Kaplan. RESULTS READ BACK BY SAME. PATIENT, THEY WOULD NEED TO CALL FOR A SPECIAL COAG TUBE. Performed By: #### L 500.4050, L503.6005, M200.1000, L300.3900, L100.0100 #### [facility] [address] [place], [address] Hematocrit (Bld) [Volume fraction] 58.0 % High 37-47 [facility] Comment on above: Performed By: #### L 500.4050, L503.6005, M200.1000, L300.3900, L100.0100 #### [facility] [address] [place], [address] Absolute Lymph 1.46 X10 3/uL Normal 0.83-4.51 [facility] Comment on above: Performed By: #### L 500.4050, L503.6005, M200.1000, L300.3900, L100.0100 #### [facility] [address] [place], [address] Absolute Neut 20.0 X10 3/uL High 2.0-7.7 [facility] Comment on above: Performed By: #### L 500.4050, L503.6005, M200.1000, L300.3900, L100.0100 #### [facility] [address] [place], [address] Basophils/100 WBC (Bld) 0.5 % Normal 0-1 [facility] Comment on above: Performed By: #### L 500.4050, L503.6005, M200.1000, L300.3900, L100.0100 #### [facility] [address] [place], [address] Eosinophils/100 WBC (Bld) 0.0 % Normal 0-5 [facility] Comment on above: Performed By: #### L 500.4050, L503.6005, M200.1000, L300.3900, L100.0100 #### [facility] [address] [place], [address] Erythrocyte distribution width (RBC) [Ratio] 13.2 % Normal 11.6-14.6 [facility] Comment on above: Performed By: #### L 500.4050, L503.6005, M200.1000, L300.3900, L100.0100 #### [facility] [address] [place], [address] IG% 0.700 Normal 0.0-0.9 [facility] Comment on above: Result Comment: IG% - Immature Granulocytes (promyelocytes, myelocytes and metamyelocytes) > 1% indicates that a LEFT SHIFT is Present. Performed By: #### L 500.4050, L503.6005, M200.1000, L300.3900, L100.0100 #### [facility] [address] [place], [address] Lymphocytes/100 WBC (Bld) 6.3 % Low 19-41 [facility] Comment on above: Performed By: #### L 500.4050, L503.6005, M200.1000, L300.3900, L100.0100 #### [facility] [address] [place], [address] MCH (RBC) [Entitic mass] 33.9 pg High 27.0-32.0 [facility] Comment on above: Performed By: #### L 500.4050, L503.6005, M200.1000, L300.3900, L100.0100 #### [facility] [address] [place], [address] MCHC (RBC) [Mass/Vol] 32.2 g/dL Normal 32-36 [facility] Comment on above: Performed By: #### L 500.4050, L503.6005, M200.1000, L300.3900, L100.0100 #### [facility] [address] [place], [address] MCV (RBC) [Entitic vol] 105.3 fL High 81-99 [facility] Comment on above: Performed By: #### L 500.4050, L503.6005, M200.1000, L300.3900, L100.0100 #### [facility] [address] [place], [address] Monocytes/100 WBC (Bld) 5.6 % Normal 0-10 [facility] Comment on above: Performed By: #### L 500.4050, L503.6005, M200.1000, L300.3900, L100.0100 #### [facility] [address] [place], [address] Neutrophils/100 WBC (Bld) 86.9 % High 47-70 [facility] Comment on above: Performed By: #### L 500.4050, L503.6005, M200.1000, L300.3900, L100.0100 #### [facility] [address] [place], [address] Nucleated RBC (Bld) [#/Vol] 0 10*3/uL Normal 0-5 [facility] Comment on above: Performed By: #### L 500.4050, L503.6005, M200.1000, L300.3900, L100.0100 #### [facility] [address] [place], [address] Platelet mean volume (Bld) [Entitic vol] 11.4 fL Normal 6.2-12.0 [facility] Comment on above: Performed By: #### L 500.4050, L503.6005, M200.1000, L300.3900, L100.0100 #### [facility] [address] [place], [address] Platelets (Bld) [#/Vol] 348 10*3/uL Normal 150-450 [facility] Comment on above: Performed By: #### L 500.4050, L503.6005, M200.1000, L300.3900, L100.0100 #### [facility] [address] [place], [address] RBC (Bld) [#/Vol] 5.51 10*6/uL High 4.2-5.4 [facility] Comment on above: Performed By: #### L 500.4050, L503.6005, M200.1000, L300.3900, L100.0100 #### [facility] [address] [place], [address] RDW SD 52.1 fl High 35.1-43.9 [facility] Comment on above: Performed By: #### L 500.4050, L503.6005, M200.1000, L300.3900, L100.0100 #### [facility] [address] [place], [address] WBC (Bld) [#/Vol] 23.0 10*3/uL High 4.4-11.0 [facility] Comment on above: Performed By: #### L 500.4050, L503.6005, M200.1000, L300.3900, L100.0100 #### [facility] [address] [place], [place], [address] Carbon dioxide, total [Moles /volume] in Central venous bloodOrdered By: Bryan Ramires on 03-07-2025 CO2 [Moles/Vol] 17.2 mmol/L Low 21.0-32.0 [facility] Chest 1 View (Portable)on Chest 1 View (Portable) [facility] Imaging Services [address] [place] [address] Chest 1 View (Portable) MR#: [id number] Acct: [id number] Name: CAPRICE RIDLEY Rep #: [id number] : 1950 F 74 From: Bradley Coats MD PCP: RAINA Swain Status: REG ER Study: Chest 1 View (Portable) Date of Exam: 03/07/25 Exam# [id number] Ordering Dr: Bryan Ramires MD PROCEDURE: CHEST 1 VIEW (PORTABLE) 03/07/2025 REASON FOR EXAM: DYSPNEA TECHNIQUE: Frontal view of the chest. COMPARISON: Chest x-ray 06/20/2023 FINDINGS: Hardware: Enteric tube transversing under left hemidiaphragm with distal tip within pylorus. ETT 2.7 Cm above edson. Vascular graft is visualized within neck. Heart: Mild cardiomegaly. Lungs: Bilateral chronic basilar scarring. Bilateral pulmonary vascular congestion. Bones: Degenerative changes are identified within the thoracic spine. RAD/Chest 1 View (Portable) IMPRESSION: Enteric tube transversing under left hemidiaphragm with distal tip within pylorus. ETT 2.7 cm above edson. Readjustment with repeat imaging is recommended. Reading Location: [id number] C2.INTERNAL CC: RAINA Matta; Dr. Bryan Ramires MD Political Geographer: Signed Normal [facility] Chloride assayOrdered By: Kip Ramires on 09-24-2025 Chloride [Moles/Vol] 101 mmol/L 98-[address] [facility] Comprehensive Metabolic Prof ilon 03-07-2025 Albumin [Mass/Vol] 4.4 g/dL Normal 3.4-4.8 [facility] Comment on above: Performed By: #### L 500.4050, L503.6005, M200.1000, L300.3900, L100.0100 #### [facility] [address] [place], [address] Albumin/Globulin [Mass ratio] 1.4 {ratio} Normal 0.9-2.4 [facility] Comment on above: Performed By: #### L 500.4050, L503.6005, M200.1000, L300.3900, L100.0100 #### [facility] [address] [place], [address] ALK PHOS 145 U/L High 35-104 [facility] Comment on above: Performed By: #### L 500.4050, L503.6005, M200.1000, L300.3900, L100.0100 #### [facility] [address] [place], [address] ALT [Catalytic activity/Vol] 143 U/L High <=34 [facility] Comment on above: Performed By: #### L 500.4050, L503.6005, M200.1000, L300.3900, L100.0100 #### [facility] [address] [place], [address] AST [Catalytic activity/Vol] 158 U/L High <=31 [facility] Comment on above: Performed By: #### L 500.4050, L503.6005, M200.1000, L300.3900, L100.0100 #### [facility] [address] [place], [address] Bilirubin [Mass/Vol] 0.63 mg/dL Normal 0.00-1.[address] [facility] Comment on above: Performed By: #### L 500.4050, L503.6005, M200.1000, L300.3900, L100.0100 #### [facility] [address] [place], [address] BUN/CRE 25.3 RATIO High 10-20 [facility] Comment on above: Performed By: #### L 500.4050, L503.6005, M200.1000, L300.3900, L100.0100 #### [facility] [address] [place], [address] Calcium [Mass/Vol] 9.8 mg/dL Normal 7.6-11.0 [facility] Comment on above: Performed By: #### L 500.4050, L503.6005, M200.1000, L300.3900, L100.0100 #### [facility] [address] [place], [address] Chloride [Moles/Vol] 101 mmol/L Normal 98-[address] [facility] Comment on above: Performed By: #### L 500.4050, L503.6005, M200.1000, L300.3900, L100.0100 #### [facility] [address] [place], [address] CO2 [Moles/Vol] 17.2 mmol/L Low 21.0-32.0 [facility] [facility] Comment on above: Performed By: #### L 500.4050, L503.6005, M200.1000, L300.3900, L100.0100 #### [facility] [address] [place] [place], [address] Creatinine [Mass/Vol] 1.67 mg/dL High 0.70-1.20 [facility] Comment on above: Performed By: #### L 500.4050, L503.6005, M200.1000, L300.3900, L100.0100 #### [facility] [address] [place], [address] ECRCL 14.89 ml/min Low 50-250 [facility] Comment on above: Performed By: #### L 500.4050, L503.6005, M200.1000, L300.3900, L100.0100 #### [facility] [address] [place], [address] GAP 24 High 5-15 [facility] Comment on above: Performed By: #### L 500.4050, L503.6005, M200.1000, L300.3900, L100.0100 #### [facility] [address] [place], [address] GFR/1.73 sq M.predicted among non-blacks MDRD (S/P/Bld) [Vol rate/Area] 32 mL/min/{1.73_m2} Low >60 [facility] Comment on above: Result Comment: mL/m in/1.73m2 CKD-EPI Creatinine Equation (2020) Performed By: #### L 500.4050, L503.6005, M200.1000, L300.3900, L100.0100 #### [facility] [address] [place], [address] Globulin (S) [Mass/Vol] 3.2 g/dL Normal 2.2-4.2 [facility] Comment on above: Performed By: #### L 500.4050, L503.6005, M200.1000, L300.3900, L100.0100 #### [facility] [address] [place], [address] Glucose [Mass/Vol] 158 mg/dL High 70-99 [facility] Comment on above: Performed By: #### L 500.4050, L503.6005, M200.1000, L300.3900, L100.0100 #### [facility] [address] [place], [address] Potassium [Moles/Vol] 5.3 mmol/L High 3.3-5.1 [facility] Comment on above: Performed By: #### L 500.4050, L503.6005, M200.1000, L300.3900, L100.0100 #### [facility] [address] [place], [address] Sodium [Moles/Vol] 143 mmol/L Normal 133-145 [facility] Comment on above: Performed By: #### L 500.4050, L503.6005, M200.1000, L300.3900, L100.0100 #### [facility] [address] [place], [address] T PROT 7.5 g/dL Normal 5.9-8.4 [facility] Comment on above: Performed By: #### L 500.4050, L503.6005, M200.1000, L300.3900, L100.0100 #### [facility] [address] [place], [address] Urea nitrogen [Mass/Vol] 42 mg/dL High 4-19 [facility] Comment on above: Performed By: #### L 500.4050, L503.6005, M200.1000, L300.3900, L100.0100 #### [facility] [address] [place], [address] Electrocardiogram reportOrde red By: Britton Machado on 03-07-2025 EKG study [facility] [address] [place] [address] 12 Lead EKG 03/07/25 1903 MR#: [id number] Acct: [id number] Name: CAPRICE RIDLEY Rep #:[id number] : 1950 74 From: Britton la MD Attending Dr: Status: DEP E R Ordering Dr: Bryan Ramires MD Date: Location: ED Sex: F C Admitted: Test Reason : RHYTHM CHANGE/RESP. FAILURE Blood Pressure : */* mmHG Vent. Rate : 41 BPM Atrial Rate : 120 BPM P-R Int : * ms QRS Dur : 176 ms QT Int : 424 ms P-R-T Axes : 90 268 85 degrees QTcB Int : 349 ms Critical Test Result: Arrhythmia , AV Block Sinus tachycardia with 2nd degree A-V block (Mobitz I) with ventricular escape complexes Right atrial enlargement Right bundle branch block Possible Lateral infarct , age undetermined Marked T wave abnormality, consider inferior ischemia Abnormal ECG Confirmed by Britton Machado ([id number]), offline editor KAYLEE NEWSOME ([id number]) on :45:41 AM Referred By: IKE Confirmed By: Britton Machado 03/09/25 0545 Date _ Britton Machado MD CC: RAINA Matta; Dr. Bryan Ramires MD ~ Signed [facility] Other EKG study [facility] [address] [place] [id number] 12 Lead EKG 03/07/25 1759 MR#: [id number] Acct: [id number] Name: CAPRICE RIDLEY Rep #:[id number] : 1950 74 From: Britton la MD Attending Dr: Status: DEP E R Ordering Dr: Bryan Ramires MD Date: Location: ED Sex: F C Admitted: Test Reason : ARRYTH Blood Pressure : */* mmHG Vent. Rate : 132 BPM Atrial Rate : 132 BPM P-R Int : 168 ms QRS Dur : 78 ms QT Int : 316 ms P-R-T Axes : 82 -54 93 degrees QTcB Int : 468 ms Sinus tachycardia Right atrial enlargement Left axis deviation Pulmonary disease pattern Cannot rule out Septal infarct , age undetermined T wave abnormality, consider lateral ischemia Abnormal ECG Confirmed by Britton Machado ([id number]), offline editor KAYLEE NEWSOME ([id number]) on :45:58 AM Referred By: IKE Confirmed By: Britton Machado 03/09/25 0546 Date _ Britton Machado MD CC: [employer]IAN-C Celso Matta; Dr. Bryan Ramires MD ~ Signed [facility] Other Emergency Department Summary on 03-07-2025 Emergency Department Summary [facility] Medical Records Department [address] [place] [address] Emergency Department Summary 03/07/25 MR#: [id number] Acct: [id number] Name: CAPRICE RIDLEY Rep #: [id number] : 1950 74 From: Bryan Ramires MD PCP: RAINA Swain Status:DEP ER Location: ED HPI History of Present Illness Chief Complaint: Shortness of Breath Informant: patient and family Onset/Context/Adelso ing Onset: Today Context: gradual Timing: Continuous Current Severity: Severe Maximum Severity: Severe Narrative Narrative: 74-year-old female history of COPD not on home O2 continues to smoke and prior stroke and dementia. Per her granddaughter she has had diarrhea throughout the day multiple episodes. And became short of breath and generally weak. They have started caring around the house. She does have dementia they said she had decreased mental status and her pulse ox was 88 at home. Patient herself is unable to give any history currently is on BiPAP. PE Risk Factors: Negative for Cancer, OCP + Smoking + > 35, Prior DVT or PE, Recent immobilization, Recent surgery or Recent travel Prior similar symptoms: No Recent Illness/Hospitali zation: No PFSH PFSH Medical History Hyperlipidemia Encounter for health maintenance examination GERD (gastroesophageal reflux disease) Acute pharyngitis Encounter for screening for malignant neoplasm of lung in current smoker with 30 pack year history or greater Black tarry stools Mixed stress and urge urinary incontinence Tobacco abuse counseling Blood clots in brain Dementia CVA (cerebral vascular accident) Left wrist pain Gout Depression Asthma COPD (chronic obstructive pulmonary disease) Home Medications ???Medication ???Instructions ???Recorded ???Last Taken ???Type melatonin 5 mg tablet 5 - 10 mg (1 - 2 x 5 mg) PO HS PRN 01/01/21 Unknown Rx sleep #180 tabs dexamethasone 6 mg tablet 6 mg PO DAILY #7 tabs 07/07/21 Unk nown Rx diaper,brief,adul t,disposable #100 ea 12/09/21 Unknown Rx (Disposable Brief) underpads (Bed Underpads) #150 ea 12/09/21 Unknown Rx fluticasone fur. 100 mcg-umeclid 1 inh inhalation DAILY #60 ea 04/14 07/05 Unknown Rx 62.5 mcg-vilant 25 mcg inhalat.powder (Trelegy Ellipta) reuseable chux #3 ea 05/28/22 Unknown Rx cyanocobalamin (vitamin B-12) 1,000 mcg IM QMONTH SUPPLEMNENT #1 01/18/23 Unknown Rx 1,000 mcg/mL injection solution mL syringe with needle 3 mL 25 gauge #1 ea 01/18/23 Unknown Rx x 1 albuterol sulfate 90 mcg/actuation 2 puff inhalation Q4H PRN Unknown Rx aerosol inhaler shortness of breath or wheezing #3 ea omeprazole 40 mg capsule,delayed 40 mg PO BID #180 caps 02/03/23 Un known Rx release rosuvastatin 10 mg tablet 10 mg PO DAILY CHOLESTEROL #30 tab s 03/26/23 Unknown Rx acetaminophen 500 mg tablet 500 - 1,000 mg (1 - 2 x 500 mg) PO 10/08/23 Unknown Rx Q8H PRN PRN for fever #30 TABLETS ascorbic acid (vitamin C) 250 mg 250 mg PO DAILY #28 TABLETS Unknown Rx tablet aspirin 81 mg tablet,delayed 81 mg PO QAM #28 TABLETS 10/08/23 Unknown Rx release ferrous sulfate 325 mg (65 mg 325 mg PO DAILY #28 TABLETS Unknown Rx iron) tablet (FeroSul) levothyroxine 75 mcg tablet 75 mcg PO DAILY #28 TABLETS Unknown Rx venlafaxine 75 mg capsule,extended 75 mg PO QAM for depressive 09/13 12/05 Unknown Rx release 24 hr disorder #28 caps budesonide 160 mcg-glycopyr 9 inh inhalation 03/07/25 Unknown Hi story mcg-formot 4.8 mcg/actuation HFA inhaler (Breztri Aerosphere) ipratropium 0.5 mg-albuterol 3 mg ml 03/07/25 Unknown History (2.5 mg base)/3 mL nebulization soln Allergy/AdvReac Type Severity Reaction Status Date / Time Penicillins Allergy Hives Verified 07/22/23 09:57 Family History Sister Lung cancer unconfirmed diagnosis, waiting on biopsy results Brother Myocardial infarction, Onset Age: 43 Mother Pacemaker Surgical History History of arthroscopic knee surgery History of carotid endarterectomy History of tonsillectomy H/O bladder repair surgery History of hysterectomy Social History Smoking Status: Current every day smoker tobacco type: cigarettes Tobacco: How many years used: 60 Electronic Cigarette Use: not used second hand exposure: Yes quit status: considering quitting alcohol intake: never substance use type: does not use what type of physical activity do you participate in: none seatbelt use: always do you feel safe at home: Yes ROS ROS ED ROS Narrative Diarrhea. Shortness of breat (more content not included)... Normal [facility] Eosinophil percentageOrdered By: Bryan Ramires on 03-07-2025 Eosinophils/100 WBC (Bld) 0.0 % 0-5 [facility] Erythrocyte distribution wid th ratioOrdered By: Bryan Ramires on 03-07-2025 Erythrocyte distribution width (RBC) [Ratio] 13.2 % 11.6-14.6 [facility] Erythrocyte distribution wid th standard deviationOrdered By: Bryan Ramires on 03-07-2025 Erythrocyte distribution width (RBC) [Ratio] 52.1 fl High 35.1-43.9 [facility] Glomerular filtration rate ( GFR) estimation/1.73 sq m using serum, plasma, or whole bOrdered By: Bryan Ramires on 03-07-2025 GFR/1.73 sq M.predicted among non-blacks MDRD (S/P/Bld) [Vol rate/Area] 32 mL/min/{1.73_m2} Low >60 [facility] Comment on above: mL/min/1.73m2 CKD-EP I Creatinine Equation (2020) H AND P Exam - Hospital[facility] 03-07-2025 H&P Exam - Hospitalist [facility] Medical Records Department [address] [place] [address] H P Exam - Hospitalist 03/07/251931 MR#: [id number] Acct: [id number] Name: CAPRICE RIDLEY Rep #: [id number] : 1950 74 From: Breezy Fajardo DO PCP: Celso Matta, P[employer] V[employer]ERINARIAN-C Status:REG ER Location: ED HPI - General General Date of Admission: 03/07/25 Date of Service: 03/07/25 Chief Complaint: Diarrhea, SOB and Generally Weak. HPI Narrative CAPRICE RIDLEY, is a 74 F with a past medical history of hyperlipidemia; on rosuvastatin, hypothyroidism; on levothyroxine, history of CVA; with thrombectomy in [place] (2018), history of carotid stenosis; s/p endarterectomy, dementia, ongoing chronic tobacco abuse x 60 years; with subsequent asthma/COPD, migraine headaches, depression with anxiety; on venlafaxine, history PCN allergy, history of mixed stress and urge urinary incontinence, GERD; on omeprazole BID, history of gout, OA and still FULL CODE STATUS who presents to [facility] ER complaining of diarrhea, shortness of breath and generally weak. Ms. Ridley was initially started on BiPAP and was subsequently intubated shortly after arrival so information was gathered from chart, medical staff and computer. According to the records her daughter informed the ER physician the patient ill earlier today when she developed multiple episodes of non-bloody diarrhea throughout the day. She then developed SOB and also complained of general weakness followed by altered mental status so they activated EMS. In the ER she was noted to have Leukocytosis of 23K with Lactic Acidosis of 7.4 mmol/L both present on admission consistent with suspected Sepsis along with a CXR that revealed enteric tube transversing under the Left hemidiaphragm with distal tip within pylorus and ETT 2.7 cm above edson with readjustment and repeat imaging recommended with source of infection yet to be identified by ER physician with CT scan of the abdomen and pelvis pending at this time in addition to ABG complicated by laboratory evidence of GEMMA; with elevated serum creatinine of 1.67 mg/dL and eGFR of 32 mL/min (up from her baseline of 0.58 mg/dL and eGFR of 109 mL/min on 02/03/2024) with associated Hyperkalemia of 5.3 mmol/L present on admission suspected to be due to Dehydration from Diarrhea and incidentally noted Transaminitis; with AST 158 U/L, ALT 143 U/L and Alkaline Phosphatase of 145 U/L with Polycythemia; with elevated hemoglobin of 18.7 g/dL present on admission. A CODE BLUE was then called in the ER at 20:33 hours with patient failing to respond to full ACLS treatment protocol with time of at 20:49 hours. Therefore, this is a same day admission/dischar ge. [facility] Medical History Hyperlipidemia Encounter for health maintenance examination GERD (gastroesophageal reflux disease) Acute pharyngitis Encounter for screening for malignant neoplasm of lung in current smoker with 30 pack year history or greater Black tarry stools Mixed stress and urge urinary incontinence Tobacco abuse counseling Blood clots in brain Dementia CVA (cerebral vascular accident) Left wrist pain Gout Depression Asthma COPD (chronic obstructive pulmonary disease) Home Medications ???Medication ???Instructions ???Recorded ???Last Taken ???Type melatonin 5 mg tablet 5 - 10 mg (1 - 2 x 5 mg) PO HS PRN 01/01/21 Unknown Rx sleep #180 tabs dexamethasone 6 mg tablet 6 mg PO DAILY #7 tabs 07/07/21 Unk nown Rx diaper,brief,adul t,disposable #100 ea 12/09/21 Unknown Rx (Disposable Brief) underpads (Bed Underpads) #150 ea 12/09/21 Unknown Rx fluticasone fur. 100 mcg-umeclid 1 inh inhalation DAILY #60 ea 04/14 07/05 Unknown Rx 62.5 mcg-vilant 25 mcg inhalat.powder (Trelegy Ellipta) reuseable chux #3 ea 05/28/22 Unknown Rx cyanocobalamin (vitamin B-12) 1,000 mcg IM QMONTH SUPPLEMNENT #1 01/18/23 Unknown Rx 1,000 mcg/mL injection solution mL syringe with needle 3 mL 25 gauge #1 ea 01/18/23 Unknown Rx x 1 albuterol sulfate 90 mcg/actuation 2 puff inhalation Q4H PRN Unknown Rx aerosol inhaler shortness of breath or wheezing #3 ea omeprazole 40 mg capsule,delayed 40 mg PO BID #180 caps 02/03/23 Un known Rx release rosuvastatin 10 mg tablet 10 mg PO DAILY CHOLESTEROL #30 tab s 03/26/23 Unknown Rx acetaminophen 500 mg tablet 500 - 1,000 mg (1 - 2 x 500 mg) PO 10/08/23 Unknown Rx Q8H PRN PRN for fever #30 TABLETS ascorbic acid (vitamin C) 250 mg 250 mg PO DAILY #28 TABLETS Unknown Rx tablet aspirin 81 mg tablet,delayed 81 mg PO QAM #28 TABLETS 10/08/23 Unknown Rx release ferrous sulfate 325 mg (65 mg 325 mg PO DAILY #28 TABLETS Unknown Rx iron) tablet (FeroSul) levothyroxine 75 mcg tablet 75 m (more content not included)... Normal [facility] Hematocrit Auto (Bld) [Volum e fraction]Ordered By: Bryan Ramires on 03-07-2025 Hematocrit (Bld) [Volume fraction] 58.0 % High 37-47 [facility] Hemoglobin measurementOrdere d By: Bryan Ramires on 03-07-2025 Hemoglobin (Bld) [Mass/Vol] 18.7 g/dL Critically high 12.0-15.0 [facility] Comment on above: CRITICAL VALUE SAUNDERS D TO TRES GYAOLJRI48/24/25 1817 Roselyn Kaplan.RESULTS READ BACK BY SAME. PATIENT, THEY WOULD NEED TO CALL FOR A SPECIAL COAG TUBE. Hepatitis Panel Acuteon 02-13 HEP B CORE,IgM Normal [facility] Comment on above: Result Comment: RICARDO E[facility] Performed By: #### L 500.4050, L503.6005, M200.1000, L300.3900, L100.0100 #### [facility] [address] [place], [place], [id number] HEP B SURF AG Normal [facility] Comment on above: Result Comment: RICARDO [facility] Performed By: #### L 500.4050, L503.6005, M200.1000, L300.3900, L100.0100 #### [facility] [address] [place], [address] HEP C VIRUS AB Normal [facility] Comment on above: Result Comment: R[facility]ARD[facility] Performed By: #### L 500.4050, L503.6005, M200.1000, L300.3900, L100.0100 #### [facility] [address] [place], [address] HEPATITIS A-IgM Normal [facility] Comment on above: Result Comment: [facility] Performed By: #### L 500.4050, L503.6005, M200.1000, L300.3900, L100.0100 #### [facility] [address] [place], [address] Immature granulocytes/100 WB C Auto (Bld)Ordered By: Bryan Ramires on 03-07-2025 Immature granulocytes/100 WBC (Bld) 0.700 % 0.0-0.9 [facility] Comment on above: IG% - Immature Granu locytes (promyelocytes, myelocytes and metamyelocytes) > 1% indicates that a LEFT SHIFT is Present. Influenza virus A and B and SARS-CoV-2 (COVID-19) and Respiratory syncytial virus RNAOrdered By: Bryan Ramires on 03-07-2025 SARS-CoV-2 (COVID-19) RNA JERROD+probe Ql (Unsp spec) SARS-CoV-2 (COVID 19) Abnormal [facility] International normalized rat io (INR) calculationOrdered By: Bryan Ramires on 03-07-2025 INR Coag (Bld) [Relative time] 1.6 {INR} [facility] Ketones Test strip Ql (U)Ord ered By: Bryan Ramires on 03-07-2025 Ketones Ql (U) 15 mg/dl High Negative [facility] - Chemistry and C hemistry - challengeOrdered By: Bryan Ramires on 03-07-2025 AST [Catalytic activity/Vol] 158 U/L High <32 [facility] Lactic Acidon 03-07-2025 Lactate [Moles/Vol] 7.4 mmol/L Invalid Interpretation Code 0.0-2.0 [facility] Comment on above: Order Comment: Y Result Comment: Crit ical Result(s) Called at: 1841 by:??BERNARDO GUPTA TO AI NUNES Results read back by same. Performed By: #### L 500.4050, L503.6005, M200.1000, L300.3900, L100.0100 #### [facility] [address] [place], [place], [id number] Lactic acid measurementOrder ed By: Bryan Ramires on 03-07-2025 Lactate [Moles/Vol] 7.4 mmol/L Critically high 0.0-2.0 [facility] Comment on above: Critical Result(s) C alled at: 1841 by: BERNARDO NUNES Results read back by same. M100.678on 03-07-2025 M100.678 Pending SARS-CoV-2 (COVID 19) A Positive A INFLUENZA A Negative INFLUENZA B Negative RSV PCR Negative SARS-CoV-2 (COVID 19) Normal [facility] Comment on above: Performed By: #### L 500.4050, L503.6005, M200.1000, L300.3900, L100.0100 #### [facility] [address] [place], [place], [id number] MCV (mean corpuscular volume ) determinationOrdered By: Bryan Ramires on 03-07-2025 MCV (RBC) [Entitic vol] 105.3 fL High 81-99 [facility] Mean corpuscular hemoglobin (MCH) determinationOrdered By: Bryan Ramires on 03-07-2025 MCH (RBC) [Entitic mass] 33.9 pg High 27.0-32.0 [facility] Mean corpuscular hemoglobin concentration (MCHC) determinationOrdered By: Bryan Ramires on 03-07-2025 MCHC (RBC) [Mass/Vol] 32.2 g/dL 32-36 [facility] Mean platelet volume determi nationOrdered By: Bryan Ramires on 03-07-2025 Platelet mean volume (Bld) [Entitic vol] 11.4 fL 6.2-12.0 [facility] Microscopic analysis of urin e for red blood cells (RBC)Ordered By: Bryan Ramires on 03-07-2025 Microscopic analysis of urine for red blood cells (RBC) 0-5 SEEN /hpf 0-5 [facility] Monocyte percentageOrdered B y: Bryan Ramires on 03-07-2025 Monocytes/100 WBC (Bld) 5.6 % 0-10 [facility] Mucus LM Ql (Urine sed)Order ed By: Bryan Ramires on 03-07-2025 Mucus Ql (Urine sed) 0 SEEN /hpf [facility] Neutrophil percentageOrdered By: Bryan Ramires on 03-07-2025 Neutrophils/100 WBC (Bld) 86.9 % High 47-70 [facility] Nitrite Test strip Ql (U)Ord ered By: Bryan Ramires on 03-07-2025 Nitrite Ql (U) Negative Negative [facility] Nucleated red blood cell per centageOrdered By: Bryan Ramires on 03-07-2025 Nucleated RBC/100 WBC (Bld) [Ratio] 0 % 0-5 [facility] Partial Thromboplast Timeon 03-07-2025 aPTT Coag (Bld) [Time] 50.3 s High 24.1-36.2 [facility] Comment on above: Performed By: #### L 300.4310, L300.3900 #### [facility] [address] [place], [place] [address] [place], [place], [id number] Platelet countOrdered By: Kip Ramires on 03-07-2025 Platelets (Bld) [#/Vol] 348 10*3/uL 150-450 [facility] Potassium measurement (mass/ volume)Ordered By: Bryan Ramires on 03-07-2025 Potassium (Unsp spec) [Mass/Vol] 5.3 mmol/L High 3.3-5.1 [facility] Protein Test strip Ql (U)Ord ered By: Bryan Ramires on 03-07-2025 Protein Ql (U) 100 mg/dl High Negative [facility] Prothrombin Time w/INRon INR Coag (PPP) [Relative time] 1.6 {INR} Normal [facility] Comment on above: Performed By: #### L 300.4310, L300.3900 #### [facility] [address] [place], [address] PT Coag (PPP) [Time] 19.1 s High 11.7-14.[address] [facility] Comment on above: Performed By: #### L 300.4310, L300.3900 #### [facility] [address] [place], [address] INR Normal [facility] Comment on above: Result Comment: THIS SPECIMEN NEEDS A SPECIAL TUBE 03/07/251935 Roselyn Eusebio Performed By: #### L 500.4050, L503.6005, M200.1000, L300.3900, L100.0100 #### [facility] [address] [place], [address] PROTIME Normal 11.7-14.9 [facility] Comment on above: Result Comment: THIS SPECIMEN NEEDS A SPECIAL TUBE 03/07/251935 Roselyn Eusebio Performed By: #### L 500.4050, L503.6005, M200.1000, L300.3900, L100.0100 #### [facility] [address] [place], [address] Prothrombin timeOrdered By: Bryan Ramires on 03-07-2025 PT Coag (PPP) [Time] 19.1 s High 11.7-14.[address] [facility] RBC Auto (Bld) [#/Vol]Ordere d By: Bryan Ramires on 03-07-2025 RBC (Bld) [#/Vol] 5.51 10*6/uL High 4.2-5.4 [facility] Serum creatinine measurement (mass/volume)Ordered By: Bryan Ramires on 03-07-2025 Creatinine [Mass/Vol] 1.67 mg/dL High 0.70-1.20 [facility] Serum globulin measurementOr dered By: Bryan Ramires on 03-07-2025 Globulin (S) [Mass/Vol] 3.2 g/dL 2.2-4.2 [facility] Serum glucose measurement (m ass/volume)Ordered By: Bryan Ramires on 03-07-2025 Glucose [Mass/Vol] 158 mg/dL High 70-99 [facility] Serum or plasma alanine katz otransferase (ALT) measurementOrdered By: Bryan Ramires on 03-07-2025 ALT [Catalytic activity/Vol] 143 U/L High <35 [facility] Serum or plasma albumin arlene urement (mass/volume)Ordered By: Bryan Ramires on 03-07-2025 Albumin [Mass/Vol] 4.4 g/dL 3.4-4.8 [facility] Serum or plasma albumin/glob ulin mass ratioOrdered By: Bryan Ramires on 03-07-2025 Albumin/Globulin [Mass ratio] 1.4 {ratio} 0.9-2.4 [facility] Serum or plasma alkaline megan sphatase measurementOrdered By: Bryan Ramires on 03-07-2025 ALP [Catalytic activity/Vol] 145 U/L High 35-104 [facility] [facility] Serum or plasma calcium arlene urement (mass/volume)Ordered By: Bryan Ramires on 03-07-2025 Calcium [Mass/Vol] 9.8 mg/dL 7.6-11.0 [facility] Serum or plasma urea nitroge n measurement (mass/volume)Ordered By: Bryan Ramires on 03-07-2025 Urea nitrogen [Mass/Vol] 42 mg/dL High 4-19 [facility] Sodium levelOrdered By: Bryan Ramires on 03-07-2025 Sodium [Moles/Vol] 143 mmol/L 133-145 [facility] Squamous epithelial cells de tection in urine sediment by light microscopyOrdered By: Bryan Ramires on 03-07-2025 Epithelial cells.squamous LM Ql (Urine sed) 5-10 SEEN /hpf 5-10 [facility] Stool Occult Blood iFOBon STOB Positive Normal [facility] Comment on above: Performed By: #### L 500.4050, L503.6005, M200.1000, L300.3900, L100.0100 #### [facility] [address] [place] [address]. [place], [place], [id number] Stool gastrointestinal hemog lobin detection by immunologic methodOrdered By: Bryan Ramires on 03-07-2025 Lower GI hemoglobin IA Ql (Stl) Positive Abnormal [facility] Total proteinOrdered By: Devyn adrianne Ike on 03-07-2025 Protein [Mass/Vol] 7.5 g/dL 5.9-8.4 [facility] Troponin T HS 2 HRon 025 Trop T High Sen Normal <=14 [facility] Comment on above: Result Comment: PT E XPIRED Performed By: #### L 500.4050, L503.6005, M200.1000, L300.3900, L100.0100 #### [facility] [address] [place], [address] Urinalysis, Completeon 03-07 BACTERIA 3+ /hpf Normal None Seen [facility] Comment on above: Order Comment: COLOR OF URINE MAY AFFECT DIPSTICK RESULTS. CLEAN CATCH Performed By: #### L 400.0001 #### [facility] [address] [place], [address] EPI,SQUAMOUS 5-10 SEEN Normal 5-10 [facility] Comment on above: Order Comment: COLOR OF URINE MAY AFFECT DIPSTICK RESULTS. CLEAN CATCH Performed By: #### L 400.0001 #### [facility] [address] [place], [address] RBC 0-5 SEEN Normal 0-5 [facility] Comment on above: Order Comment: COLOR OF URINE MAY AFFECT DIPSTICK RESULTS. CLEAN CATCH Performed By: #### L 400.0001 #### [facility] [address] [place], [address] WBC 5-10 SEEN Normal 0-5 [facility] Comment on above: Order Comment: COLOR OF URINE MAY AFFECT DIPSTICK RESULTS. CLEAN CATCH Performed By: #### L 400.0001 #### [facility] [address] [place], [address] Mucus Ql (Urine sed) 0 SEEN Normal [facility] Comment on above: Order Comment: COLOR OF URINE MAY AFFECT DIPSTICK RESULTS. CLEAN CATCH Performed By: #### L 400.0001 #### [facility] [address] [place], [place], [id number] Urine clarityOrdered By: Deyvn Ramires on 03-07-2025 Clarity (U) Turbid Clear [facility] Urine color determinationOrd ered By: Bryan Ramires on 03-07-2025 Color (U) Brown Yellow [facility] Urine cultureOrdered By: Devyn Ramires on 03-07-2025 Bacteria identified Cx Nom (U) Escherichia coli Abnormal [facility] Urine glucose detectionOrder ed By: Bryan Ramires on 03-07-2025 Glucose Ql (U) Normal mg/dl Normal [facility] Urine leukocyte esterase det ection by dipstickOrdered By: Bryan Ramires on 03-07-2025 Leukocyte esterase Test strip Ql (U) 25 /ul High Negative [facility] Urine pHOrdered By: Bryan Gonzales ghania on 03-07-2025 pH (U) 6.5 [pH] 5.0 - 8.0 [facility] Urine sediment bacteria coun t by microscopy (number/high power field)Ordered By: Bryan Ramires on 03-07-2025 Bacteria LM.HPF (Urine sed) [#/Area] 3 /[HPF] None Seen [facility] Urine specific gravity measu rementOrdered By: Bryan Ramires on 03-07-2025 Specific gravity (U) [Rel density] 1.020 1.002-1.030 [facility] Urine urobilinogen measureme ntOrdered By: Bryan Ramires on 03-07-2025 Urobilinogen Ql (U) 8 mg/dl High Normal [facility] Venous Blood Gason Blood Gas Type ZAIDA Normal [facility] Comment on above: Performed By: #### L 500.4050, L503.6005, M200.1000, L300.3900, L100.0100 #### [facility] [address] [place], [place], [id number] CO2 [Moles/Vol] 23 mmol/L Normal 23-33 [facility] Comment on above: Performed By: #### L 500.4050, L503.6005, M200.1000, L300.3900, L100.0100 #### [facility] [address] [place], [address] HCO3 (Bld) [Moles/Vol] 21 mmol/L Low 22-26 [facility] Comment on above: Performed By: #### L 500.4050, L503.6005, M200.1000, L300.3900, L100.0100 #### [facility] [address] [place], [address] O2 Delivery Dev BiPAP [facility] Comment on above: Performed By: #### L 500.4050, L503.6005, M200.1000, L300.3900, L100.0100 #### [facility] [address] [place], [address] Read Back By Yes [facility] Comment on above: Performed By: #### L 500.4050, L503.6005, M200.1000, L300.3900, L100.0100 #### [facility] [address] [place], [address] Results To [facility] Comment on above: Performed By: #### L 500.4050, L503.6005, M200.1000, L300.3900, L100.0100 #### [facility] [address] [place], [address] SITE Not entered [facility] Comment on above: Performed By: #### L 500.4050, L503.6005, M200.1000, L300.3900, L100.0100 #### [facility] [address] [place], [address] Time Given 17:54:23 [facility] Comment on above: Performed By: #### L 500.4050, L503.6005, M200.1000, L300.3900, L100.0100 #### [facility] [address] [place], [address] VBG BE -10 mmol/L Low -1.0-3.5 [facility] Comment on above: Performed By: #### L 500.4050, L503.6005, M200.1000, L300.3900, L100.0100 #### [facility] [address] [place], [address] VBG pCO2 76.7 mmHg Invalid Interpretation Code 41-51 [facility] Comment on above: Performed By: #### L 500.4050, L503.6005, M200.1000, L300.3900, L100.0100 #### [facility] [address] [place], [address] VBG pH 7.04 Invalid Interpretation Code 7.32-7.42 [facility] Comment on above: Performed By: #### L 500.4050, L503.6005, M200.1000, L300.3900, L100.0100 #### [facility] [address] [place], [address] VBG PO2 27 mmHg Normal 25-40 [facility] Comment on above: Performed By: #### L 500.4050, L503.6005, M200.1000, L300.3900, L100.0100 #### [facility] [address] [place], [address] VBG SO2 27 Low 50-70 [facility] Comment on above: Performed By: #### L 500.4050, L503.6005, M200.1000, L300.3900, L100.0100 #### [facility] [address] [place], [address] White blood cell (WBC) count Ordered By: Bryan Ramires on 03-07-2025 WBC (Bld) [#/Vol] 23.0 10*3/uL High 4.4-11.0 [facility] White blood cell countOrdere d By: Bryan Ramires on 03-07-2025 White blood cell count 5-10 SEEN /hpf 0-5 [facility] aPTTon 03-07-2025 aPTT [facility] T4 Free Directon 01-26-2025 T4 FREE DIRECT 1.10 ng/dL Normal 0.76-1.46 [facility] Comment on above: Performed By: #### L 500.4050, L503.6005, M200.1000, L300.3900, L100.0100 #### [facility] [address] [place], [place], [id number] T4 freeOrdered By: Jorge Sage eam on 01-26-2025 Free T4 [Mass/Vol] 1.10 ng/dL 0.76-1.46 [facility] TSH DL <= 0.005 mIU/L QnOrde red By: Jorge Gomez on 01-26-2025 TSH Qn 31.300 uIU/mL High 0.300-4.200 [facility] Thyroid Stim Hormone (TSH)on 01-26-2025 TSH 31.300 uIU/mL High 0.300-4.200 [facility] Comment on above: Performed By: #### L 501.9520, L506.0400 #### [facility] [address] [place], [place], [id number] Absolute lymphocyte countOrd ered By: Mati David on 06-20-2023 Lymphocytes Auto (Unsp spec) [#/Vol] 2.04 10*3/uL 0.83-4.51 [facility] Basophil percentageOrdered B y: Mati David on 06-20-2023 Basophils/100 WBC (Bld) 0.9 % 0-1 [facility] Chloride [Moles/Vol] 108 mmol/L 98-[address] [facility] Eosinophils/100 WBC (Bld) 3.3 % 0-5 [facility] Glucose [Mass/Vol] 107 mg/dL 74-106 [facility] Comment on above: Fasting Glucose resu lt from 100 to 125 mg/dL suggests IMPAIRED HOMEOSTASIS per A.D.A. criteria. Neutrophils (Bld) [#/Vol] 3.5 10*3/uL 2.0-7.7 [facility] Neutrophils/100 WBC (Bld) 54.3 % 47-70 [facility] Potassium [Moles/Vol] 4.0 mmol/L 3.5-5.1 [facility] Sodium [Moles/Vol] 141 mmol/L 136-145 [facility] WBC (Bld) [#/Vol] 6.4 10*3/uL 4.4-11.0 [facility] Blood erythrocytes count (nu mber/volume)Ordered By: Mati David on 06-20-2023 RBC (Bld) [#/Vol] 4.56 10*6/uL 4.2-5.4 [facility] Blood hemoglobin measurement (mass/volume)Ordered By: Mati David on 06-20-2023 Hemoglobin (Bld) [Mass/Vol] 14.4 g/dL 12.0-15.0 [facility] Blood lymphocytes/100 leukoc ytesOrdered By: Mati David on 06-20-2023 Lymphocytes/100 WBC (Bld) 31.7 % 19-41 [facility] Blood monocytes/100 leukocyt esOrdered By: Mati David on 06-20-2023 Monocytes/100 WBC (Bld) 9.5 % 0-10 [facility] Blood platelet mean volumeOr dered By: Mati David on 06-20-2023 Platelet mean volume (Bld) [Entitic vol] 10.9 fL 6.2-12.0 [facility] Determination of erythrocyte mean corpuscular volume (MCV)Ordered By: Mati David on 06-20-2023 MCV (RBC) [Entitic vol] 100.9 fL 81-99 [facility] Hematocrit Auto (Bld) [Volum e fraction]Ordered By: Mati David on 06-20-2023 Hematocrit (Bld) [Volume fraction] 46.0 % 37-47 [facility] Laboratory - Chemistry and C hemistry - challengeOrdered By: Mati David on 06-20-2023 CO2 [Moles/Vol] 31.0 mmol/L 21.0-32.0 [facility] Urea nitrogen/Creatinine [Mass ratio] 27.9 mg/mg 10-20 [facility] - Hematology and Cell countsOrdered By: Mati David on 06-20-2023 Erythrocyte distribution width (RBC) [Entitic vol] 47.8 fL 35.1-43.9 [facility] Erythrocyte distribution width (RBC) [Ratio] 12.8 % 11.6-14.6 [facility] Immature granulocytes/100 WBC (Bld) 0.300 % 0.0-0.9 [facility] Comment on above: IG% - Immature Granu locytes (promyelocytes, myelocytes and metamyelocytes) > 1% indicates that a LEFT SHIFT is Present. MCH (RBC) [Entitic mass] 31.6 pg 27.0-32.0 [facility] Nucleated RBC/100 WBC (Bld) [Ratio] 0 % 0-5 [facility] Laboratory - Microbiology an d Antimicrobial susceptibilityOrdered By: Mati David on 06-20-2023 SARS-CoV-2 (COVID-19) RNA JERROD+probe Ql (Unsp spec) [facility] MCHC Auto (RBC) [Mass/Vol]Or dered By: Mati David on 06-20-2023 MCHC (RBC) [Mass/Vol] 31.3 g/dL 32-36 [facility] No Panel InformationOrdered By: Mati David on 06-20-2023 Estimated GFR (MDRD) Amer 143 mL/min >60 [facility] Comment on above: GFR Calc Estimated GFR (MDRD) Non-Af Amer 118 mL/min >60 [facility] Comment on above: Non- GFR Calc Troponin I High Sensitivity 8 pg/mL 3.0-54.0 [facility] Comment on above: Please Note: New [place] t Units and Gender Specific Reference Ranges. For more information see Policy Stat Procedure Deal High Sensitivity Troponin (TNIH) and attachments. Platelets bldOrdered By: Araseli David on 06-20-2023 Platelets (Bld) [#/Vol] 350 10*3/uL 150-450 [facility] Serum or plasma calcium arlene urement (mass/volume)Ordered By: Mati David on 06-20-2023 Calcium [Mass/Vol] 9.6 mg/dL 8.5-10.1 [facility] Serum or plasma creatinine m easurement (mass/volume)Ordered By: Mati David on 06-20-2023 Creatinine [Mass/Vol] 0.54 mg/dL 0.55-1.02 [facility] Comment on above: The validity of the calculated GFR & GFRAA in patients over 70 years has not been determined. Clinical correlation is essential. Serum or plasma urea nitroge n measurement (mass/volume)Ordered By: Mati David on 06-20-2023 Urea nitrogen [Mass/Vol] 15 mg/dL 7-18 [facility] Thin prep Papanicolaou smear with manual screeningOrdered By: Mati David on 06-20-2023 Thin prep Papanicolaou smear with manual screening 2 5-15 [facility] Absolute lymphocyte countOrd ered By: Rosalie Alejandro on 01-25-2023 Lymphocytes Auto (Unsp spec) [#/Vol] 2.76 10*3/uL 0.83-4.51 [facility] Basophil percentageOrdered B y: Rosalie Alejandro on 01-25-2023 Basophils/100 WBC (Bld) 0.5 % 0-1 [facility] Bilirubin [Mass/Vol] 0.30 mg/dL 0.20-1.[address] [facility] Comment on above: For patients on eltr ombopag therapy, use of Dimension Deal TBIL is not recommended. Chloride [Moles/Vol] 107 mmol/L 98-[address] [facility] Cholesterol [Mass/Vol] 128 mg/dL <200 [facility] Comment on above: <200 mg/dL Desirable 200-240 mg/dL Borderline >240 mg/dL High Risk Eosinophils/100 WBC (Bld) 3.0 % 0-5 [facility] Glucose [Mass/Vol] 111 mg/dL 74-106 [facility] Comment on above: Fasting Glucose resu lt from 100 to 125 mg/dL suggests IMPAIRED HOMEOSTASIS per A.D.A. criteria. Neutrophils (Bld) [#/Vol] 7.4 10*3/uL 2.0-7.7 [facility] Neutrophils/100 WBC (Bld) 64.4 % 47-70 [facility] Potassium [Moles/Vol] 4.9 mmol/L 3.5-5.1 [facility] Protein [Mass/Vol] 7.6 g/dL 6.4-8.2 [facility] Sodium [Moles/Vol] 141 mmol/L 136-145 [facility] Triglyceride [Mass/Vol] 106 mg/dL <199 [facility] Comment on above: The drugs N-Acetylcy steine and Metamizole may falsely depress this assay.Serum Triglycerides Reference Interval Normal <150 mg/dL Borderline high 150 - 199 mg/dL High 200 - 499 mg/dL Very High > or = 500 mg/dL WBC (Bld) [#/Vol] 11.5 10*3/uL 4.4-11.0 [facility] Blood erythrocytes count (nu mber/volume)Ordered By: Rosalie Alejandro on 01-25-2023 RBC (Bld) [#/Vol] 4.81 10*6/uL 4.2-5.4 [facility] Blood hemoglobin measurement (mass/volume)Ordered By: Rosalie Alejandro on 01-25-2023 Hemoglobin (Bld) [Mass/Vol] 15.4 g/dL 12.0-15.0 [facility] Blood lymphocytes/100 leukoc ytesOrdered By: Rosalie Alejandro on 01-25-2023 Lymphocytes/100 WBC (Bld) 24.1 % 19-41 [facility] Blood monocytes/100 leukocyt esOrdered By: Rosalie Alejandro on 01-25-2023 Monocytes/100 WBC (Bld) 7.7 % 0-10 [facility] Blood platelet mean volumeOr dered By: Rosalie Alejandro on 01-25-2023 Platelet mean volume (Bld) [Entitic vol] 11.6 fL 6.2-12.0 [facility] Determination of erythrocyte mean corpuscular volume (MCV)Ordered By: Rosalie Alejandro on 01-25-2023 MCV (RBC) [Entitic vol] 104.6 fL 81-99 [facility] Hematocrit Auto (Bld) [Volum e fraction]Ordered By: Rosalie Alejandro on 01-25-2023 Hematocrit (Bld) [Volume fraction] 50.3 % 37-47 [facility] Laboratory - Chemistry and C hemistry - challengeOrdered By: Rosalie Alejandro on 01-25-2023 ALP [Catalytic activity/Vol] 125 U/L 45-117 [facility] ALT [Catalytic activity/Vol] 26 U/L 13-56 [facility] CO2 [Moles/Vol] 27.0 mmol/L 21.0-32.0 [facility] Globulin (S) [Mass/Vol] 4.0 g/dL 2.2-4.2 [facility] Urea nitrogen/Creatinine [Mass ratio] 17.6 mg/mg 10-20 [facility] Laboratory - Hematology and Cell countsOrdered By: Rosalie Alejandro on 01-25-2023 Erythrocyte distribution width (RBC) [Entitic vol] 51.3 fL 35.1-43.9 [facility] Erythrocyte distribution width (RBC) [Ratio] 13.2 % 11.6-14.6 [facility] Immature granulocytes/100 WBC (Bld) 0.300 % 0.0-0.9 [facility] Comment on above: IG% - Immature Granu locytes (promyelocytes, myelocytes and metamyelocytes) > 1% indicates that a LEFT SHIFT is Present. MCH (RBC) [Entitic mass] 32.0 pg 27.0-32.0 [facility] Nucleated RBC/100 WBC (Bld) [Ratio] 0 % 0-5 [facility] MCHC Auto (RBC) [Mass/Vol]Or dered By: Rosalie Alejandro on 01-25-2023 MCHC (RBC) [Mass/Vol] 30.6 g/dL 32-36 [facility] No Panel InformationOrdered By: Rosalie Alejandro on 01-25-2023 Estimated GFR (MDRD) Amer 99 mL/min >60 [facility] Comment on above: GFR Calc Estimated GFR (MDRD) Non-Af Amer 82 mL/min >60 [facility] Comment on above: Non- GFR Calc Thyroid Stimulating Hormone (TSH) 0.18 uIU/mL 0.358-3.74 [facility] Platelets bldOrdered By: Mina maamejanny Alejandro on 01-25-2023 Platelets (Bld) [#/Vol] 345 10*3/uL 150-450 [facility] Serum or plasma albumin arlene urement (mass/volume)Ordered By: Rosalie Alejandro on 01-25-2023 Albumin [Mass/Vol] 3.6 g/dL 3.2-5.0 [facility] Serum or plasma albumin/glob ulin mass ratioOrdered By: Rosalie Alejandro on 01-25-2023 Albumin/Globulin [Mass ratio] 0.9 {ratio} 0.9-2.4 [facility] Serum or plasma calcium arlene urement (mass/volume)Ordered By: Rosalie Alejandro on 01-25-2023 Calcium [Mass/Vol] 9.6 mg/dL 8.5-10.1 [facility] Serum or plasma cholesterol in HDL measurement (mass/volume)Ordered By: Rosalie Alejandro on 01-25-2023 Cholesterol in HDL [Mass/Vol] 65 mg/dL >40 [facility] Comment on above: The drugs N-Acetylcy steine and Metamizole may falsely depress this assay. Reference Range HDL <40 mg/dL Low HDL Cholesterol HDL >or= 60 mg/dL High HDL Cholesterol Serum or plasma cholesterol in VLDL measurement (mass/volume)Ordered By: Rosalie Alejandro on 01-25-2023 Cholesterol in VLDL [Mass/Vol] 21 mg/dL 5-40 [facility] Serum or plasma creatinine m easurement (mass/volume)Ordered By: Rosalie Alejandro on 01-25-2023 Creatinine [Mass/Vol] 0.74 mg/dL 0.55-1.02 [facility] Comment on above: The validity of the calculated GFR & GFRAA in patients over 70 years has not been determined. Clinical correlation is essential. Serum or plasma low density lipoprotein (LDL) cholesterol measurement (mass/volume)Ordered By: Rosalie Alejandro on 01-25-2023 Cholesterol in LDL [Mass/Vol] 42 mg/dL 0-130 [facility] Serum or plasma urea nitroge n measurement (mass/volume)Ordered By: Rosalie Alejandro on 01-25-2023 Urea nitrogen [Mass/Vol] 13 mg/dL 7-18 [facility] Thin prep Papanicolaou smear with manual screeningOrdered By: Mikeseferinoeribertojanny Alejandro on 01-25-2023 Thin prep Papanicolaou smear with manual screening 21 U/L 15-37 [facility] Thin prep Papanicolaou smear with manual screening 7 5-15 [facility] Absolute lymphocyte counton 04-24-2022 Lymphocytes Auto (Unsp spec) [#/Vol] 1.84 10*3/uL 0.83-4.51 [facility] Work Phone: Basophil percentageon 2021 Basophils/100 WBC (Bld) 0.8 % 0-1 [facility] Work Phone: Bilirubin [Mass/Vol] 0.40 mg/dL 0.20-1.[address] [facility] Work Phone: Comment on above: For patients on eltr ombopag therapy, use of Dimension Deal TBIL is not recommended. Chloride [Moles/Vol] 107 mmol/L 98-[address] [facility] Work Phone: Cholesterol [Mass/Vol] 265 mg/dL <200 [facility] Work Phone: Comment on above: <200 mg/dL Desirable 200-240 mg/dL Borderline >240 mg/dL High Risk Eosinophils/100 WBC (Bld) 4.1 % 0-5 [facility] Work Phone: Glucose [Mass/Vol] 94 mg/dL 74-106 [facility] Work Phone: Neutrophils (Bld) [#/Vol] 2.3 10*3/uL 2.0-7.7 [facility] Work Phone: Neutrophils/100 WBC (Bld) 48.0 % 47-70 [facility] Work Phone: Potassium [Moles/Vol] 4.8 mmol/L 3.5-5.1 [facility] Work Phone: Protein [Mass/Vol] 7.1 g/dL 6.4-8.2 [facility] Work Phone: Sodium [Moles/Vol] 141 mmol/L 136-145 [facility] Work Phone: Triglyceride [Mass/Vol] 154 mg/dL <199 [facility] Work Phone: Comment on above: The drugs N-Acetylcy steine and Metamizole may falsely depress this assay.Serum Triglycerides Reference Interval Normal <150 mg/dL Borderline high 150 - 199 mg/dL High 200 - 499 mg/dL Very High > or = 500 mg/dL WBC (Bld) [#/Vol] 4.8 10*3/uL 4.4-11.0 [facility] Work Phone: Blood erythrocytes count (nu mber/volume)on 04-24-2022 RBC (Bld) [#/Vol] 4.97 10*6/uL 4.2-5.4 [facility] Work Phone: Blood hemoglobin measurement (mass/volume)on 04-24-2022 Hemoglobin (Bld) [Mass/Vol] 16.1 g/dL 12.0-15.0 [facility] Work Phone: Blood lymphocytes/100 leukoc yteson 04-24-2022 Lymphocytes/100 WBC (Bld) 38.2 % 19-41 [facility] Work Phone: Blood monocytes/100 leukocyt eson 04-24-2022 Monocytes/100 WBC (Bld) 8.7 % 0-10 [facility] Work Phone: Blood platelet mean volumeon 04-24-2022 Platelet mean volume (Bld) [Entitic vol] 11.1 fL 6.2-12.0 [facility] Work Phone: Determination of erythrocyte mean corpuscular volume (MCV)on 04-24-2022 MCV (RBC) [Entitic vol] 100.4 fL 81-99 [facility] Work Phone: Hematocrit Auto (Bld) [Volum e fraction]on 04-24-2022 Hematocrit (Bld) [Volume fraction] 49.9 % 37-47 [facility] Work Phone: Laboratory - Chemistry and C hemistry - challengeon 04-24-2022 ALP [Catalytic activity/Vol] 100 U/L 45-117 [facility] Work Phone: ALT [Catalytic activity/Vol] 19 U/L 13-56 [facility] Work Phone: CO2 [Moles/Vol] 28.0 mmol/L 21.0-32.0 [facility] Work Phone: Globulin (S) [Mass/Vol] 3.5 g/dL 2.2-4.2 [facility] Work Phone: Urea nitrogen/Creatinine [Mass ratio] 21.7 mg/mg 10-20 [facility] Work Phone: Laboratory - Hematology and Cell countson 04-24-2022 Erythrocyte distribution width (RBC) [Entitic vol] 48.6 fL 35.1-43.9 [facility] Work Phone: Erythrocyte distribution width (RBC) [Ratio] 13.1 % 11.6-14.6 [facility] Work Phone: Immature granulocytes/100 WBC (Bld) 0.200 % 0.0-0.9 [facility] Work Phone: Comment on above: IG% - Immature Granu locytes (promyelocytes, myelocytes and metamyelocytes) > 1% indicates that a LEFT SHIFT is Present. MCH (RBC) [Entitic mass] 32.4 pg 27.0-32.0 [facility] Work Phone: Nucleated RBC/100 WBC (Bld) [Ratio] 0 % 0-5 [facility] Work Phone: MCHC Auto (RBC) [Mass/Vol]on 04-24-2022 MCHC (RBC) [Mass/Vol] 32.3 g/dL 32-36 [facility] Work Phone: No Panel Informationon 04-24 Estimated GFR (MDRD) Amer 99 mL/min >60 [facility] Work Phone: Comment on above: GFR Calc Estimated GFR (MDRD) Non-Af Amer 82 mL/min >60 [facility] Work Phone: Comment on above: Non- GFR Calc Thyroid Stimulating Hormone (TSH) 1.40 uIU/mL 0.358-3.74 [facility] Work Phone: Platelets bldon 04-24-2022 Platelets (Bld) [#/Vol] 318 10*3/uL 150-450 [facility] Work Phone: Serum or plasma albumin arlene urement (mass/volume)on 04-24-2022 Albumin [Mass/Vol] 3.6 g/dL 3.2-5.0 [facility] Work Phone: Serum or plasma albumin/glob ulin mass ratioon 04-24-2022 Albumin/Globulin [Mass ratio] 1.0 {ratio} 0.9-2.4 [facility] Work Phone: Serum or plasma calcium arlene urement (mass/volume)on 04-24-2022 Calcium [Mass/Vol] 9.9 mg/dL 8.5-10.1 [facility] Work Phone: Serum or plasma cholesterol in HDL measurement (mass/volume)on 04-24-2022 Cholesterol in HDL [Mass/Vol] 59 mg/dL >40 [facility] Work Phone: Comment on above: The drugs N-Acetylcy steine and Metamizole may falsely depress this assay. Reference Range HDL <40 mg/dL Low HDL Cholesterol HDL >or= 60 mg/dL High HDL Cholesterol Serum or plasma cholesterol in VLDL measurement (mass/volume)on 04-24-2022 Cholesterol in VLDL [Mass/Vol] 31 mg/dL 5-40 [facility] Work Phone: Serum or plasma creatinine m easurement (mass/volume)on 04-24-2022 Creatinine [Mass/Vol] 0.74 mg/dL 0.55-1.02 [facility] Work Phone: Comment on above: The validity of the calculated GFR & GFRAA in patients over 70 years has not been determined. Clinical correlation is essential. Serum or plasma low density lipoprotein (LDL) cholesterol measurement (mass/volume)on 04-24-2022 Cholesterol in LDL [Mass/Vol] 175 mg/dL 0-130 [facility] Work Phone: Serum or plasma urea nitroge n measurement (mass/volume)on 04-24-2022 Urea nitrogen [Mass/Vol] 16 mg/dL 7-18 [facility] Work Phone: Thin prep Papanicolaou smear with manual screeningon 04-24-2022 Thin prep Papanicolaou smear with manual screening 16 U/L 15-37 [facility] Work Phone: Thin prep Papanicolaou smear with manual screening 6 5-15 [facility] Work Phone: Absolute lymphocyte counton 07-07-2021 Lymphocytes Auto (Unsp spec) [#/Vol] 1.26 10*3/uL 0.83-4.51 [facility] Work Phone: Basophil percentageon 2021 Basophils/100 WBC (Bld) 0.2 % 0-1 [facility] Work Phone: Bilirubin [Mass/Vol] 0.50 mg/dL 0.20-1.[address] [facility] Work Phone: Comment on above: For patients on eltr ombopag therapy, use of Dimension Deal TBIL is not recommended. Chloride [Moles/Vol] 106 mmol/L 98-[address] [facility] Work Phone: Eosinophils/100 WBC (Bld) 0.3 % 0-5 [facility] Work Phone: Glucose [Mass/Vol] 108 mg/dL 74-106 [facility] Work Phone: Comment on above: Fasting Glucose resu lt from 100 to 125 mg/dL suggests IMPAIRED HOMEOSTASIS per A.D.A. criteria. Lactate [Moles/Vol] 1.0 mmol/L 0.4-2.0 [facility] Work Phone: Neutrophils (Bld) [#/Vol] 7.5 10*3/uL 2.0-7.7 [facility] Work Phone: Neutrophils/100 WBC (Bld) 80.4 % 47-70 [facility] Work Phone: Potassium [Moles/Vol] 3.4 mmol/L 3.5-5.1 [facility] Work Phone: Protein [Mass/Vol] 7.4 g/dL 6.4-8.2 [facility] Work Phone: Sodium [Moles/Vol] 139 mmol/L 136-145 [facility] Work Phone: WBC (Bld) [#/Vol] 9.4 10*3/uL 4.4-11.0 [facility] Work Phone: Blood erythrocytes count (nu mber/volume)on 07-07-2021 RBC (Bld) [#/Vol] 4.92 10*6/uL 4.2-5.4 [facility] Work Phone: Blood hemoglobin measurement (mass/volume)on 07-07-2021 Hemoglobin (Bld) [Mass/Vol] 15.0 g/dL 12.0-15.0 [facility] Work Phone: Blood lymphocytes/100 leukoc yteson 07-07-2021 Lymphocytes/100 WBC (Bld) 13.4 % 19-41 [facility] Work Phone: Blood monocytes/100 leukocyt eson 07-07-2021 Monocytes/100 WBC (Bld) 5.3 % 0-10 [facility] Work Phone: Blood platelet mean volumeon 07-07-2021 Platelet mean volume (Bld) [Entitic vol] 10.5 fL 6.2-12.0 [facility] Work Phone: Determination of erythrocyte mean corpuscular volume (MCV)on 07-07-2021 MCV (RBC) [Entitic vol] 94.7 fL 81-99 [facility] Work Phone: Hematocrit Auto (Bld) [Volum e fraction]on 07-07-2021 Hematocrit (Bld) [Volume fraction] 46.6 % 37-47 [facility] Work Phone: Laboratory - Chemistry and C hemistry - challengeon 07-07-2021 ALP [Catalytic activity/Vol] 134 U/L 45-117 [facility] Work Phone: ALT [Catalytic activity/Vol] 25 U/L 13-56 [facility] Work Phone: CO2 [Moles/Vol] 26.0 mmol/L 21.0-32.0 [facility] Work Phone: Globulin (S) [Mass/Vol] 4.0 g/dL 2.2-4.2 [facility] Work Phone: Natriuretic peptide B (Bld) [Mass/Vol] 51.2 pg/mL 0-100 [facility] Work Phone: Urea nitrogen/Creatinine [Mass ratio] 19.2 mg/mg 10-20 [facility] Work Phone: Laboratory - Hematology and Cell countson 07-07-2021 Erythrocyte distribution width (RBC) [Entitic vol] 49.3 fL 35.1-43.9 [facility] Work Phone: Erythrocyte distribution width (RBC) [Ratio] 14.0 % 11.6-14.6 [facility] Work Phone: Immature granulocytes/100 WBC (Bld) 0.400 % 0.0-0.9 [facility] Work Phone: Comment on above: IG% - Immature Granu locytes (promyelocytes, myelocytes and metamyelocytes) > 1% indicates that a LEFT SHIFT is Present. MCH (RBC) [Entitic mass] 30.5 pg 27.0-32.0 [facility] Work Phone: Nucleated RBC/100 WBC (Bld) [Ratio] 0 % 0-5 [facility] Work Phone: Laboratory - Microbiology an d Antimicrobial susceptibilityon 07-07-2021 Bacteria identified Cx Nom (Bld) No growth in 5 days. [facility] Work Phone: MCHC Auto (RBC) [Mass/Vol]on 07-07-2021 MCHC (RBC) [Mass/Vol] 32.2 g/dL 32-36 [facility] Work Phone: No Panel Informationon 07-07 D-Dimer Quantitative (PE/DVT) 0.45 FEU/ug/m 0.27-0.49 [facility] Work Phone: Comment on above: NORMAL D-Dimer level (<0.50) indicates no DVT or PE. Estimated Creatinine Clearance Calc 42.60 ml/min [facility] Work Phone: Estimated GFR (MDRD) Amer 133 mL/min >60 [facility] Work Phone: Comment on above: GFR Calc Estimated GFR (MDRD) Non-Af Amer 110 mL/min >60 [facility] Work Phone: Comment on above: Non- GFR Calc Troponin I High Sensitivity 11 pg/mL 3.0-54.0 [facility] Work Phone: Comment on above: Please Note: New Quoc t Units and Gender Specific Reference Ranges. For more information see Policy Stat Procedure Deal High Sensitivity Troponin (TNIH) and attachments. SARS-CoV-2 Antigen (Rapid) SARS-CoV-2 (COVID 19) [facility] Work Phone: Platelets bldon 07-07-2021 Platelets (Bld) [#/Vol] 303 10*3/uL 150-450 [facility] Work Phone: Serum or plasma albumin arlene urement (mass/volume)on 07-07-2021 Albumin [Mass/Vol] 3.4 g/dL 3.2-5.0 [facility] Work Phone: Serum or plasma albumin/glob ulin mass ratioon 07-07-2021 Albumin/Globulin [Mass ratio] 0.8 {ratio} 0.9-2.4 [facility] Work Phone: Serum or plasma calcium arlene urement (mass/volume)on 07-07-2021 Calcium [Mass/Vol] 8.6 mg/dL 8.5-10.1 [facility] Work Phone: Serum or plasma creatinine m easurement (mass/volume)on 07-07-2021 Creatinine [Mass/Vol] 0.57 mg/dL 0.55-1.02 [facility] Work Phone: Comment on above: The validity of the calculated GFR & GFRAA in patients over 70 years has not been determined. Clinical correlation is essential. Serum or plasma urea nitroge n measurement (mass/volume)on 07-07-2021 Urea nitrogen [Mass/Vol] 11 mg/dL 7-18 [facility] Work Phone: Thin prep Papanicolaou smear with manual screeningon 07-07-2021 Thin prep Papanicolaou smear with manual screening 16 U/L 15-37 [facility] Work Phone: Thin prep Papanicolaou smear with manual screening 7 5-15 [facility] Work Phone: Laboratory - Microbiology an d Antimicrobial susceptibilityon 07-02-2021 SARS-CoV-2 (COVID-19) RNA JERROD+probe Ql (Unsp spec) Not detected Not Detect [facility] Work Phone: Comment on above: [...] Reports Accession: Collected Date/Time: Received Date/Time: Pathologist: [id number] 11/27/2019 10:18 EDT 11/27/2019 14:55 EDT AMANDA MORRIS MD Final Surgical Pathology Report DIAGNOSIS: A) DUODENUM, BIOPSY -- DUODENAL MUCOSA WITHOUT SIGNIFICANT MICROSCOPIC PATHOLOGY. B) STOMACH, BIOPSY -- MILD CHRONIC GASTRITIS. NO ACTIVE GASTRITIS OR HELICOBACTER. COMMENT: [facility] D# [id number] CLINICAL INFORMATION: Procedure: EGD WITH BIOPSIES Preoperative [...] Electronically Signed by Pathology Report verified by [facility] Electronically signed by AMANDA MORRIS Sign out Date: 11/30/2019 15:37 Performing Lab: [facility], [address] [place] [address] ([place]) Comment on above: Performed By: #### S PFR #### [place] [address] Office Visit: Est. Pt. Visit on 05-04-2017 Documentation of current medications (procedure) Done Invalid Interpretation Code [facility] Work Phone: Fall risk assessment No Invalid Interpretation Code [facility] Work Phone: Smoking cessation education (procedure) yes Invalid Interpretation Code [facility] Work Phone: Tobacco smoking status NHIS Never Invalid Interpretation Code [facility] Work Phone: Tobacco use [facility] Current every day smoker Invalid Interpretation Code [facility] Work Phone: Office Visit: New Pt. Visito n 02-03-2017 Fall risk assessment No [facility] Work Phone: Protein mass conc Done [facility] Work Phone: Protein mass conc yes [facility] Work Phone: Tobacco smoking status NHIS Current every day smoker [facility] Work Phone: Office Visit: 2 week follow upon 09-13-2014 Protein mass conc Done [facility] Work Phone: Tobacco smoking status NHIS Never [facility] Work Phone: Lab Report: CBC W/Diff, Auto matedon 08-31-2014 Absolute Neut 2.3 X10 3/UL Invalid Interpretation Code 2.0-7.7 [facility] Work Phone: Basophils/100 WBC (Bld) 1.3 % Critically high 0-1 [facility] Work Phone: Basophils/100 WBC Auto (Bld) 1.3 % Critically high 0-1 [facility] Work Phone: Eosinophils/100 leukocytes 5.2 % Critically high 0-5 [facility] Work Phone: Eosinophils/100 WBC (Bld) 5.2 % Critically high 0-5 [facility] Work Phone: Erythrocytes (RBC) 4.18 10*6/uL Critically low 4.2-5.4 [facility] Work Phone: Hematocrit (HCT) 38.4 % Invalid Interpretation Code 37-47 [facility] Work Phone: Hematocrit Volume Fraction (Bld) 38.4 % 37-47 [facility] Work Phone: Hemoglobin mass conc (Bld) 12.5 g/dL Invalid Interpretation Code 12.0-15.0 [facility] Work Phone: Lymphocytes 1.70 X10 3/UL Invalid Interpretation Code 0.83-4.51 [facility] Work Phone: Lymphocytes #/vol (Bld) 1.70 X10 3/UL 0.83-4.51 [facility] Work Phone: Lymphocytes/100 leukocytes 36.8 % Invalid Interpretation Code 19-41 [facility] Work Phone: Lymphocytes/100 WBC (Bld) 36.8 % 19-41 [facility] Work Phone: MCH 29.9 pg Invalid Interpretation Code 27.0-32.0 [facility] Work Phone: MCH Entitic mass (RBC) 29.9 pg 27.0-32.0 [facility] Work Phone: MCHC mass conc (RBC) 32.6 G/GL Invalid Interpretation Code 32-36 [facility] Work Phone: MCHC mass conc (RBC) 32.6 G/GL 32-[address] [facility] Work Phone: MCV 91.9 fL Invalid Interpretation Code 81-99 [facility] Work Phone: MCV Entitic volume (RBC) 91.9 fL 81-99 [facility] Work Phone: Monocytes/100 leukocytes 6.7 % Invalid Interpretation Code 0-10 [facility] Work Phone: Monocytes/100 WBC (Bld) 6.7 % 0-10 [facility] Work Phone: Neutrophils/100 WBC (Bld) 49.8 % 47-70 [facility] Work Phone: Neutrophils/100 WBC Auto (Bld) 49.8 % Invalid Interpretation Code 47-70 [facility] Work Phone: Platelet mean volume Entitic volume (Bld) 11.3 fL 6.2-12.0 [facility] Work Phone: Platelets 290 10*3/mm3 Invalid Interpretation Code 150-450 [facility] Work Phone: Platelets #/vol (Bld) 290 10*3/mm3 150-450 [facility] Work Phone: PMV by Piyush 11.3 fL Invalid Interpretation Code 6.2-12.0 [facility] Work Phone: RBC #/vol (Bld) 4.18 10*6/uL Critically low 4.2-5.4 [facility] Work Phone: WBC #/vol (Bld) 4.6 10*3/uL 4.4-11.0 [facility] Work Phone: WBC (Leukocytes) 4.6 10*3/uL Invalid Interpretation Code 4.4-11.0 [facility] Work Phone: Lab Report: Comprehensive [facility] Profilon 08-31-2014 Albumin mass conc 3.7 g/dL Invalid Interpretation Code 3.4-5.0 [facility] Work Phone: Albumin/Globulin mass ratio 1.1 {ratio} Invalid Interpretation Code 0.9-2.4 [facility] Work Phone: Alkaline phosphatase (ALP) 103 U/L Invalid Interpretation Code 50-136 [facility] Work Phone: ALP enzyme act/vol (Bld) 103 U/L 50-136 [facility] Work Phone: ALT enzyme act/vol 14 U/L Invalid Interpretation Code 12-78 [facility] Work Phone: Anion gap 5 mmol/L Invalid Interpretation Code 5-15 [facility] Work Phone: Anion gap molar conc 5 mmol/L 5-[address] [facility] Work Phone: AST enzyme act/vol 15 U/L Invalid Interpretation Code 15-37 [facility] Work Phone: Bilirubin mass conc 0.30 mg/dL Invalid Interpretation Code 0.00-4.00 [facility] Work Phone: Calcium mass conc 9.0 mg/dL Invalid Interpretation Code 8.5-10.1 [facility] Work Phone: Chloride molar conc 106 mmol/L Invalid Interpretation Code 98-107 [facility] Work Phone: CO2 28.0 mmol/L Invalid Interpretation Code 21.0-32.0 [facility] Work Phone: CO2 ppres (BldV) 28.0 mmol/L 21.0-32.0 [facility] Work Phone: Creatinine mass conc 0.9 mg/dL Invalid Interpretation Code 0.6-1.0 [facility] Work Phone: eGFR (non-black) 81 mL/min/{1.73_m2} Invalid Interpretation Code >60 [facility] Work Phone: EST GFR - AA 81 mL/min >60 [facility] Work Phone: GFR/1.73 sq M predicted among non-blacks MDRD vol rate/area (S/P/Bld) 67 mL/min/{1.73_m2} Invalid Interpretation Code >60 [facility] Work Phone: Globulin 3.3 g/dL Invalid Interpretation Code 2.7-4.2 [facility] Work Phone: Globulin mass conc (S) 3.3 g/dL 2.7-4.2 [facility] Work Phone: Glucose mass conc 85 mg/dL Invalid Interpretation Code 70-110 [facility] Work Phone: Potassium molar conc 3.7 mmol/L Invalid Interpretation Code 3.5-5.1 [facility] Work Phone: Protein mass conc 7.0 g/dL Invalid Interpretation Code 6.4-8.2 [facility] Work Phone: Sodium molar conc 139 mmol/L Invalid Interpretation Code 136-145 [facility] Work Phone: Urea nitrogen mass conc 14 mg/dL Invalid Interpretation Code 7-18 [facility] Work Phone: Urea nitrogen/Creatinine mass ratio 15.6 RATIO Invalid Interpretation Code 10-20 [facility] Work Phone: Lab Report: Ferritinon 08-31 Ferritin mass conc 36 ng/mL Invalid Interpretation Code 8-252 [facility] Work Phone: Lab Report: Folates, (Folic Acid)on 08-31-2014 Folate mass conc 8.50 ng/mL Invalid Interpretation Code 3.1-17.5 [facility] Work Phone: Lab Report: Iron+Iron Bindin g Capacityon 08-31-2014 Iron binding capacity mass conc 387 ug/dL Invalid Interpretation Code 250-450 [facility] Work Phone: Iron mass conc 29 ug/dL Critically low 50-170 [facility] Work Phone: IRON SATURATION 7.5 % Critically low 15.0-55.0 [facility] Work Phone: Lab Report: Thyroid Stim [place] (TSH)on 08-31-2014 Thyrotropin Qn 2.04 u[iU]/mL Invalid Interpretation Code 0.358-3.74 [facility] Work Phone: Lab Report: Vitamin B12on Cobalamin (Vitamin B12) mass conc 959 pg/mL Critically high 211-911 [facility] Work Phone: Lab Report: Vitamin D,25 Hyd roxyon 08-31-2014 Vitamin D 25-OH 14.1 ng/mL Invalid Interpretation Code [facility] Work Phone: Office Visit: Establish PCP and Multi-issue visiton 08-29-2014 Tobacco smoking status NHIS Current every day smoker [facility] Work Phone: Vital Signs Date Time Vital Sign Value Performing Clinician Facility 03-07-2025 20:49-0400 Body temperature 0 [degF] Celso Matta [employer] Work Phone: [facility] 03-07-2025 20:49-0400 Diastolic blood pressure 0 mm[Hg] Celso Matta [employer] Work Phone: [facility] 03-07-2025 20:49-0400 Heart rate 0 /min Celso Matta [employer] Work Phone: [facility] 03-07-2025 20:49-0400 Respiratory rate 0 /min Celso Matta [employer] Work Phone: [phone] [place] [address] 03-07-2025 20:49-0400 SaO2% (BldA) [Mass fraction] 0 % Celso Kayeder [employer] Work Phone: [phone] [place] [address] 03-07-2025 20:49-0400 Systolic blood pressure 0 mm[Hg] Celso Kayeder [employer] Work Phone: [phone] [place] [address] 03-07-2025 20:34-0400 Body weight 32.4 kg Celso Matta [employer] Work Phone: [phone] [place] [address] 03-07-2025 20:10-0400 Inhaled oxygen concentration 50 % Celso Kayeder [employer] Work Phone: [phone] [place] [address] 03-07-2025 17:35-0400 Body mass index (BMI) [Ratio] 12.2 kg/m2 Celso Matta [employer] Work Phone: [phone] [place] [address] 03-07-2025 17:35-0400 Inhaled oxygen flow rate 4 L/min Celso Matta [employer] Work Phone: [phone] [place] [address] 07-22-2023 09:55-0500 Body temperature 98 [degF] Dr. Rosalie Alejandro Work Phone: [facility] 07-22-2023 09:55-0500 Body weight 48.[address] Rosalie Alejandro Work Phone: [facility] 07-22-2023 09:55-0500 Diastolic blood pressure 68 mm[Hg] Dr. Rosalie Alejandro Work Phone: [facility] 07-22-2023 09:55-0500 Heart rate 110 /min Dr. Rosalie Alejandro Work Phone: [facility] 07-22-2023 09:55-0500 Respiratory rate 16 /min Dr. Rosalie Alejandro Work Phone: [facility] 07-22-2023 09:55-0500 SaO2% (BldA) [Mass fraction] 97 % Dr. Rosalie Alejandro Work Phone: [facility] 07-22-2023 09:55-0500 Systolic blood pressure 115 mm[Hg] Dr. Rosalie Alejandro Work Phone: [facility] 06-20-2023 14:13-0500 Body temperature 98.4 [degF] [facility] 06-20-2023 14:13-0500 Diastolic blood pressure 70 mm[Hg] [facility] 06-20-2023 14:13-0500 Heart rate 72 /min [facility] 06-20-2023 14:13-0500 Respiratory rate 24 /min [facility] 06-20-2023 14:13-0500 SaO2% (BldA) [Mass fraction] 95 % [facility] 06-20-2023 14:13-0500 Systolic blood pressure 147 mm[Hg] [facility] 06-20-2023 14:10-0500 Body mass index (BMI) [Ratio] 19.5 kg/m2 [facility] 06-20-2023 14:10-0500 Body weight 51.7 kg [facility] 06-20-2023 14:07-0500 Body height 162.56 cm [facility] 01-25-2023 10:07-0400 Body height 157.[address] Rosalie Alejandro Work Phone: [facility] 01-25-2023 10:07-0400 Body mass index (BMI) [Ratio] 20 kg/m2 Dr. Rosalie Alejandro Work Phone: [facility] 01-25-2023 10:07-0400 Body temperature 97.2 [degF] Dr. Rosalie Alejandro Work Phone: [facility] 01-25-2023 10:07-0400 Body weight 49.[address] Rosalie Alejandro Work Phone: [facility] 01-25-2023 10:07-0400 Diastolic blood pressure 64 mm[Hg] Dr. Rosalie Alejandro Work Phone: [facility] 01-25-2023 10:07-0400 Heart rate 88 /min Dr. Rosalie Alejandro Work Phone: [facility] 01-25-2023 10:07-0400 Respiratory rate 20 /min Dr. Rosalie Alejandro Work Phone: [facility] 01-25-2023 10:07-0400 SaO2% (BldA) [Mass fraction] 92 % Dr. Rosalie Alejandro Work Phone: [facility] 01-25-2023 10:07-0400 Systolic blood pressure 108 mm[Hg] Dr. Rosalie Alejandro Work Phone: [facility] 08-30-2022 21:07-0400 Body mass index (BMI) [Ratio] 22.8 kg/m2 [facility] 08-30-2022 21:07-0400 Body weight 56.4 kg [facility] 08-30-2022 21:05-0400 Body height 157.48 cm [facility] 08-30-2022 21:05-0400 Body temperature 97.6 [degF] [facility] 08-30-2022 21:05-0400 Diastolic blood pressure 82 mm[Hg] [facility] 08-30-2022 21:05-0400 Heart rate 85 /min [facility] 08-30-2022 21:05-0400 Respiratory rate 16 /min [facility] 08-30-2022 21:05-0400 SaO2% (BldA) [Mass fraction] 99 % [facility] 08-30-2022 21:05-0400 Systolic blood pressure 142 mm[Hg] [facility] 04-24-2022 08:16-0500 Body height 157.[address] Rosalie Aeljandro Work Phone: [facility] Work Phone: 04-24-2022 08:16-0500 Body mass index (BMI) [Ratio] 20.9 kg/m2 Dr. Rosalie Alejandro Work Phone: [facility] Work Phone: 04-24-2022 08:16-0500 Body temperature 97.4 [degF] Dr. Rosalie Alejandro Work Phone: [facility] Work Phone: 04-24-2022 08:16-0500 Body weight 51.[address] Rosalie Alejandro Work Phone: [facility] Work Phone: 04-24-2022 08:16-0500 Diastolic blood pressure 80 mm[Hg] Dr. Rosalie Alejandro Work Phone: [facility] Work Phone: 04-24-2022 08:16-0500 Heart rate 105 /min Dr. Rosalie Alejandro Work Phone: [facility] Work Phone: 04-24-2022 08:16-0500 Respiratory rate 18 /min Dr. Rosalie Alejandro Work Phone: [facility] Work Phone: 04-24-2022 08:16-0500 SaO2% (BldA) [Mass fraction] 96 % Dr. Rosalie Alejandro Work Phone: [facility] Work Phone: 04-24-2022 08:16-0500 Systolic blood pressure 130 mm[Hg] Dr. Rosalie Alejandro Work Phone: [facility] Work Phone: 09-03-2021 13:19-0400 Body height 157.[address] Rosalie Alejandro Work Phone: [facility] Work Phone: 09-03-2021 13:19-0400 Body weight 54.[address] Rosalie Alejandro Work Phone: [facility] Work Phone: 09-03-2021 13:19-0400 Heart rate 83 /min Dr. Rosalie Alejandro Work Phone: [facility] Work Phone: 09-03-2021 13:19-0400 SaO2% (BldA) [Mass fraction] 96 % Dr. Rosalie Alejandro Work Phone: [facility] Work Phone: 08-12-2021 12:28-0500 Body mass index (BMI) [Ratio] 21.4 kg/m2 Dr. Rosalie Alejandro Work Phone: [facility] Work Phone: 08-12-2021 12:28-0500 Body temperature 97.4 [degF] Dr. Rosalie Alejandro Work Phone: [facility] Work Phone: 08-12-2021 12:28-0500 Body weight 53.[address] Rosalie Alejandro Work Phone: [facility] Work Phone: 08-12-2021 12:28-0500 Diastolic blood pressure 82 mm[Hg] Dr. Rosalie Alejandro Work Phone: [facility] Work Phone: 08-12-2021 12:28-0500 Heart rate 88 /min Dr. Rosalie Alejandro Work Phone: [facility] Work Phone: 08-12-2021 12:28-0500 Respiratory rate 20 /min Dr. Rosalie Alejandro Work Phone: [facility] Work Phone: 08-12-2021 12:28-0500 SaO2% (BldA) [Mass fraction] 92 % Dr. Rosalie Alejandro Work Phone: [facility] Work Phone: 08-12-2021 12:28-0500 Systolic blood pressure 130 mm[Hg] Dr. Rosalie Alejandro Work Phone: [facility] Work Phone: 07-10-2021 14:56-0500 Body temperature 98.3 [degF] Dr. Rosalie Alejandro Work Phone: [facility] Work Phone: 07-10-2021 14:56-0500 Diastolic blood pressure 60 mm[Hg] Dr. Rosalie Alejandro Work Phone: [facility] Work Phone: 07-10-2021 14:56-0500 Heart rate 85 /min Dr. Rosalie Alejandro Work Phone: [facility] Work Phone: 07-10-2021 14:56-0500 Respiratory rate 18 /min Dr. Rosalie Alejandro Work Phone: [facility] Work Phone: 07-10-2021 14:56-0500 SaO2% (BldA) [Mass fraction] 95 % Dr. Rosalie Alejandro Work Phone: [facility] Work Phone: 07-10-2021 14:56-0500 Systolic blood pressure 119 mm[Hg] Dr. Rosalie Alejandro Work Phone: [facility] Work Phone: 07-10-2021 13:31-0500 Body mass index (BMI) [Ratio] 23.2 kg/m2 Dr. Rosalie Alejandro Work Phone: [facility] Work Phone: 07-10-2021 13:31-0500 Body weight 57.[address] Rosalie Alejandro Work Phone: [facility] Work Phone: 07-07-2021 11:58-0500 Diastolic blood pressure 78 mm[Hg] Dr. Rosalie Alejandro Work Phone: [facility] Work Phone: 07-07-2021 11:58-0500 Heart rate 100 /min Dr. Rosalie Alejandro Work Phone: [facility] Work Phone: 07-07-2021 11:58-0500 Respiratory rate 22 /min Dr. Rosalie Alejandro Work Phone: [facility] Work Phone: 07-07-2021 11:58-0500 SaO2% (BldA) [Mass fraction] 92 % Dr. Rosalie Alejandro Work Phone: [facility] Work Phone: 07-07-2021 11:58-0500 Systolic blood pressure 120 mm[Hg] Dr. Rosalie Alejandro Work Phone: [facility] Work Phone: 07-07-2021 07:58-0500 Body mass index (BMI) [Ratio] 20 kg/m2 Dr. Rosalie Alejandro Work Phone: [facility] Work Phone: 07-07-2021 07:58-0500 Body temperature 97.1 [degF] Dr. Rosalie Alejandro Work Phone: [facility] Work Phone: 07-07-2021 07:58-0500 Body weight 53.[address] Rosalie Alejandro Work Phone: [facility] Work Phone: 05-20-2021 11:00-0500 Body temperature 98 [degF] Dr. Rosalie Alejandro Work Phone: [facility] Work Phone: 05-20-2021 11:00-0500 Body weight 52.[address] Rosalie Alejandro Work Phone: [facility] Work Phone: 05-20-2021 11:00-0500 Diastolic blood pressure 86 mm[Hg] Dr. Rosalie Alejandro Work Phone: [facility] Work Phone: 05-20-2021 11:00-0500 Heart rate 81 /min Dr. Rosalie Alejandro Work Phone: [facility] Work Phone: 05-20-2021 11:00-0500 Respiratory rate 22 /min Dr. Rosalie Alejandro Work Phone: [facility] Work Phone: 05-20-2021 11:00-0500 SaO2% (BldA) [Mass fraction] 96 % Dr. Rosalie Alejandro Work Phone: [facility] Work Phone: 05-20-2021 11:00-0500 Systolic blood pressure 148 mm[Hg] Dr. Rosalie Alejandro Work Phone: [facility] Work Phone: 05-04-2017 10:34-0500 BMI (Body Mass Index) 22.77 kg/m2 Celso LOPEZ [facility] Work Phone: 05-04-2017 10:34-0500 Body Temperature 97.7 [degF] Celso LOPEZ [facility] Work Phone: 05-04-2017 10:34-0500 BP Diastolic 73 mm[Hg] Celso LOPEZ [facility] Work Phone: 05-04-2017 10:34-0500 BP Systolic 107 mm[Hg] Celso CASTANON-C [facility] Work Phone: 05-04-2017 10:34-0500 Height 157.48 cm Celso PIERREP-C [facility] Work Phone: 05-04-2017 10:34-0500 Pulse (Heart Rate) 84 /min Celso CASTANON-C [facility] Work Phone: 05-04-2017 10:34-0500 Respiratory Rate 18 /min Celso PIERREP-C [facility] Work Phone: 05-04-2017 10:34-0500 Weight 56.47 kg Celso PIERREP-C [facility] Work Phone: 02-03-2017 13:30-0400 BMI (Body Mass Index) 21.95 kg/m2 Annamarieelayne [facility] Work Phone: 02-03-2017 13:30-0400 Body Temperature 98.2 [degF] Annamarieelayne Corley [facility] Work Phone: 02-03-2017 13:30-0400 BP Diastolic 75 mm[Hg] Annamarie Marthey [facility] Work Phone: 02-03-2017 13:30-0400 BP Systolic 111 mm[Hg] Annamarie Marthey [facility] Work Phone: 02-03-2017 13:30-0400 Height 157.48 cm Annamarie Marthey [facility] Work Phone: 02-03-2017 13:30-0400 Pulse (Heart Rate) 69 /min Annamarie Marthey [facility] Work Phone: 02-03-2017 13:30-0400 Weight 54.43 kg Annamarie Marthey [facility] Work Phone: 09-13-2014 13:14-0400 BMI (Body Mass Index) 21.54 kg/m2 Annamarie [facility] Work Phone: 09-13-2014 13:14-0400 Body Temperature 98.5 [degF] [facility] Work Phone: 09-13-2014 13:14-0400 BP Diastolic 74 mm[Hg] [facility] Work Phone: 09-13-2014 13:14-0400 BP Systolic 110 mm[Hg] [facility] Work Phone: 09-13-2014 13:140400 Pulse (Heart Rate) 72 /min [facility] Work Phone: 09-13-2014 13:14-0400 Respiratory Rate 16 /min [facility] Work Phone: 09-13-2014 13:14-0400 Weight 51.71 kg [facility] Work Phone: 08-29-2014 13:16040 Height 154.94 cm [facility] Work Phone: Encounters Encounter Date Encounter Type Care Provider Facility Start: 03-07-2025 ambulatory Breezy Valentino ty:BRIAN Start: 03-07-2025 Non-patient / Non-visit Dr. Shanta Fajardo DO -[facility] Work Phone: Start: 03-07-2025 ambulatory Ed Physician Provider F acility:[facility] Start: 03-07-2025 End: 03-07-2025 Emergency department patient visit Dr. Bryan Ramires MD -Emergency Department Work Phone: Start: 01-26-2025 End: 01-26-2025 ambulatory Celso Matta [facility] Work Phone: -Laboratory [facility] Start: 01-26-2025 End: 01-26-2025 Patient encounter procedure Jorge Gomez [facility] -[facility] Start: 01-26-2025 End: 01-26-2025 ambulatory Heathdayannaviri Gomez [facility] Facility:[facility] Start: 01-18-2025 ambulatory Celso Matta [facility] Facility :[facility] Start: 10-04-2024 [facility] Fac[facility] ty:[facility] Start: 07-30-2023 End: 07-30-[address] Rosalie Alejandro Work Phone: [facility] Work Phone: Start: 07-30-2023 End: 07-30-[address] Rosalie Alejandro Work Phone: [facility] Work Phone: Start: 07-22-2023 End: 07-22-[address] Rosalie Alejandro Work Phone: [facility] Neurology Work Phone: Start: 06-20-2023 End: 06-20-2023 Emergency department patient visit [facility]-Emergency Department Work Phone: Start: 01-25-[address] Rosalie Alejandro Work Phone: [facility] Start: 01-25-2023 End: 01-25-[address] Rosalie Alejandro Work Phone: [facility] Work Phone: Start: 01-25-2023 End: 01-25-2023 Encounter for general adult medical examination without abnormal findings Dr. Rosalie Alejandro Work Phone: [facility] Start: 01-25-2023 End: 01-25-[address] Rosalie Alejandro Work Phone: [facility] Internal Medicine Work Phone: Start: 08-30-2022 End: 08-30-2022 Emergency department patient visit [facility]-Emergency Department Start: 04-24-2022 End: 04-24-[address] Rosalie Alejandro Work Phone: [facility] Work Phone: Start: 04-24-2022 End: 04-24-2022 Encounter for general adult medical examination without abnormal findings Dr. Rosalie Alejandro Work Phone: [facility] Internal Medicine Start: 04-24-2022 End: 04-24-[address] Rosalie Alejandro Work Phone: [facility] Internal Medicine Start: 09-04-2021 Non-patient / Non-visit Dr. Mike Alejandro Work Phone: [facility] Start: 09-03-2021 End: 09-03-[address] Rosalie Alejandro Work Phone: [facility]-Pulmonary Services/Neurology Start: 08-22-2021 End: 08-22-[address] Rosalie Alejandro Work Phone: [facility] Start: 08-12-2021 End: 08-12-[address] [facility] Start: 07-10-2021 End: 07-10-[address] Rosalie Alejandro Work Phone: [facility]-Medical Surgical 3 Outp Start: 07-07-2021 End: 07-07-2021 Emergency department patient visit Dr. Rosalie Alejandro Work Phone: [facility]-Emergency Department Start: 07-02-2021 End: 07-02-[address] Rosalie Alejandro Work Phone: [facility]-Laboratory, Specimen Start: 07-02-2021 End: 07-02-[address] Rosalie Alejandro Work Phone: [facility] Internal Medicine Start: 07-01-2021 End: 07-01-[address] Rosalie Alejandro Work Phone: [facility] Int Med Virtual Start: 05-20-2021 End: 05-20-[address] Rosalie Alejandro Work Phone: [facility] Procedures Date Procedure Procedure Detail Performing Clinician Start: 03-07-2025 Plain chest X-ray Celso Matta [employer] [facility] Work Phone: Start: 03-07-2025 Urnls dip stick/tabl et reagent auto microscopy Celso Matta [employer] Work Phone: Start: 03-07-2025 Estimated creatinine clearance Celso Matta [employer] [facility] Work Phone: Start: 03-07-2025 Prothrombin time Celso rodriguez [employer] [facility] Work Phone: Start: 03-07-2025 Blood culture Celso myers [employer] Work Phone: Start: 03-07-2025 Measurement of occul t blood in stool specimen using immunoassay Celso Matta [employer] Work Phone: Start: 03-07-2025 SARS-CoV-2, Influenz a & RSV (PCR) Celso Matta [employer] Work Phone: Start: 03-07-2025 Urine culture Celso myers [employer] Work Phone: Start: 07-30-2023 MRI of brain without contrast [...] End: 08-31-2014 *CBC with Differential Celso Garnica [employer] Work Phone: Start: 08-29-2014 End: 08-31-2014 *CMP Complete Metabolic Panel Celso Antonio DO [email or web address] Phone: Start: 08-29-2014 End: 08-31-2014 25-Hydroxyvitamin D2+25-Hydroxyvitamin D3 [Mass/volume] in Serum or Plasma Celso Antonio DO Work Phone: Start: 08-29-2014 End: 08-31-2014 Ferritin [Mass/volume] in Serum or Plasma Celso Antonio [employer] Phone: Start: 08-29-2014 End: 08-31-2014 Iron and Iron binding capacity panel - Serum or Plasma Celso Antonio DO [email or web address] Phone: Start: 08-29-2014 End: 08-31-2014 Thyrotropin [Units/volume] in Serum or Plasma Celso Antonio DO [email or web address] Phone: Start: 08-29-2014 End: 08-31-2014 *B12FO Vitamin [...] Treatment Date Care Activity Detail Author Start: 03-07-2025 [facility] Start: 03-07-2025 Airway suction technique [facility] Start: 03-07-2025 [facility] Start: 03-07-2025 Admission procedure [facility] Start: 03-07-2025 Hospital admission, emergency, from emergency room, medical nature [facility] Start: 03-07-2025 Continuous pulse oximetry [facility] Start: 03-07-2025 Enteric precautions [facility] Start: 03-07-2025 [facility] Start: 03-07-2025 [facility] Start: 06-20-2023 [facility] Start: 01-25-2023 Patient referral [facility] Work Phone: Start: 04-24-2022 Patient referral [facility] Work Phone: Start: 05-31-2017 End: 05-31-2017 Appointment Appointment [facility] Work Phone: Start: 05-04-2017 End: 05-04-2017 Follow Up Appt 1 month Follow Up Appt 1 month [facility] Work Phone: Start: 05-04-2017 End: 05-04-2017 Appointment Appointment [facility] Work Phone: Start: 03-17-2017 End: 03-17-2017 Appointment Appointment [facility] Work Phone: Start: 02-03-2017 End: 02-03-2017 MARCELA MARCELA [facility] Work Phone: Start: 02-03-2017 End: 02-03-2017 Neurology Referral Neurology Referral [facility], [address], [place], [address] [facility] Work Phone: Start: 02-03-2017 End: 02-03-2017 Appointment Appointment [facility] Work Phone: Start: 02-03-2017 End: 02-03-2017 MARCELA MARCELA [facility] Work Phone: Start: 02-03-2017 End: 02-03-2017 Neurology Referral Neurology Referral [facility], [address], [place], [address] [facility] Work Phone: Start: 12-13-2014 End: 09-13-2014 *CBC with Differential *CBC with Differential [facility] Work Phone: Start: 12-13-2014 End: 09-13-2014 25-Hydroxyvitamin D2+25-Hydroxyvitamin D3 [Mass/volume] in Serum or Plasma *Vitamin D (Calciferol) [facility] Work Phone: Start: 12-13-2014 End: 09-13-2014 Ferritin *Ferritin [facility] Work Phone: Start: 12-13-2014 End: 09-13-2014 Iron and Iron binding capacity panel - Serum or Plasma *IBC Iron & Total Iron Binding Capacity [facility] Work Phone: Start: 12-13-2014 End: 09-13-2014 *CBC with Differential *CBC with Differential [facility] Work Phone: Start: 12-13-2014 End: 09-13-2014 25-Hydroxyvitamin D2+25-Hydroxyvitamin D3 mass conc *Vitamin D (Calciferol) [facility] Work Phone: Start: 12-13-2014 End: 09-13-2014 Ferritin mass conc *Ferritin [facility] Work Phone: Start: 12-13-2014 End: 09-13-2014 Iron and Iron binding capacity panel - Serum or Plasma *IBC Iron & Total Iron Binding Capacity [facility] Work Phone: Start: 08-29-2014 End: 08-31-2014 *B12FO Vitamin B12 and Folates *B12FO Vitamin B12 and Folates [facility] Work Phone: Start: 08-29-2014 End: 08-31-2014 *CBC with Differential *CBC with Differential [facility] Work Phone: Start: 08-29-2014 End: 08-31-2014 *CMP Complete Metabolic Panel *CMP Complete Metabolic Panel [facility] Work Phone: Start: 08-29-2014 End: 08-31-2014 25-Hydroxyvitamin D2+25-Hydroxyvitamin D3 [Mass/volume] in Serum or Plasma *Vitamin D (Calciferol) [facility] Work Phone: Start: 08-29-2014 End: 08-31-2014 Ferritin *Ferritin [facility] Work Phone: Start: 08-29-2014 End: 08-31-2014 Iron and Iron binding capacity panel - Serum or Plasma *IBC Iron & Total Iron Binding Capacity [facility] Work Phone: Start: 08-29-2014 End: 08-31-2014 Thyroid stimulating hormone (TSH) *TSH [facility] Work Phone: Start: 08-29-2014 End: 08-31-2014 *B12FO Vitamin B12 and Folates *B12FO Vitamin B12 and Folates [facility] Work Phone: Start: 08-29-2014 End: 08-31-2014 *CBC with Differential *CBC with Differential [facility] Work Phone: Start: 08-29-2014 End: 08-31-2014 *CMP Complete Metabolic Panel *CMP Complete Metabolic Panel [facility] Work Phone: Start: 08-29-2014 End: 08-31-2014 25-Hydroxyvitamin D2+25-Hydroxyvitamin D3 mass conc *Vitamin D (Calciferol) [facility] Work Phone: Start: 08-29-2014 End: 08-31-2014 Ferritin mass conc *Ferritin [facility] Work Phone: Start: 08-29-2014 End: 08-31-2014 Iron and Iron binding capacity panel - Serum or Plasma *IBC Iron & Total Iron Binding Capacity [facility] Work Phone: Start: 08-29-2014 End: 08-31-2014 Thyrotropin Qn *TSH [facility] Work Phone: Patient Education [facility] Work Phone: Patient referral [facility] Work Phone: Immunizations Immunization Date Immunization Notes Care Provider Fa cili 04-01-2020 influenza, injectabl e, quadrivalent, preservative free [facility] 04-01-2020 influenza, seasonal, injectable Dr. Rosalie Alejandro Work Phone: [facility] 04-01-2020 Fluad Quad (65yr up)(PF) 60 mcg (15 mcg x 4)/0.5mL IM syringe (flu vac Dr. Rosalie Alejandro Work Phone: [facility] Work Phone: Payers Date Payer Category Payer Self-pay [id number] 2024 Medicaid [id number] 2024 Unknown [id number] Medicare [id number] Unknown [id number] Unknown [id number] Unknown [id number] [id number] Unknown [id number] [id number] [id number] Unknown [id number] [id number] Unknown [id number] Social History Date Type Detail Facility Start: 08-12-2021 End: 07-22-2023 Tobacco smoking status [facility] Unknown if ever smoked [facility] Start: 10-20-2019 None [facility] Start: 10-20-2019 Alone [facility] Start: 10-21-2019 Cigarettes [facility] Start: 1950 Sex Assigned At Female [facility] Start: 07-22-2023 End: 03-07-2025 Tobacco smoking status NHIS Smokes tobacco daily (finding) [facility] Sex Female [facility] Medical Equipment Procedure Code Equipment Code Equipment Origin al Text Equipment Identifier Dates Syringe With Nee dle 3 mL 25 gauge x 1 syringe Start: 01-18-2023 Syringe With Nee dle 3 mL 25 gauge x 1 syringe Start: 10-23-2020 End: 06-26-2022 Syringe With Nee dle 3 mL 25 gauge x 1 syringe Start: 06-26-2022 End: 01-18-2023 Syringe With Nee dle 3 mL 25 gauge x 1 syringe Start: 01-18-2023 Syringe With Nee dle 3 mL 25 gauge x 1 syringe Start: 10-23-2020 End: 06-26-2022 Syringe With Nee dle 3 mL 25 gauge x 1 syringe Start: 06-26-2022 End: 01-18-2023 Mental Status Date Assessment Result Facility 07-10-2021 Cognitive function Voice/Name;To uch/Shaking;L ight Pain;Deep Pain [facility] Work Phone: Discharge summary 03-07-2025 Note Date & Type Note Facility 03-07-2025 Discharge summary [facility] History and physical note 03-07-2025 Note Date & Type Note Facility 03-07-2025 History and physi zakiya note Note Date/Time March 07, 2025 9:00pm [facility] Medical Records Department [address] [place] [address] H&P Exam - Hospitalist 03/07/[id number] MR#: [id number] Acct: [id number] Name: CAPRICE RIDLEY Rep #:[id number] : [id number] 74 From: Breezy Turner DO PCP: RAINA Swain Status:REG ER Location: ED HPI - General General Date of Admission: 03/07/25 Date of Service: 03/07/25 Chief Complaint: Diarrhea, SOB and Generally Weak. HPI Narrative CAPRICE RIDLEY, is a 74 F with a past medical history of hyperlipidemia; on rosuvastatin, hypothyroidism; on levothyroxine, history of CVA; with thrombectomy in [place] (2018), history of carotid stenosis; s/p endarterectomy,dementia, ongoing chronic tobacco abuse x ~60 years; with subsequent asthma/COPD, migraine headaches, depression with anxiety; on venlafaxine, history PCN allergy, history of mixed stress and urge urinary incontinence, GERD; on omeprazole BID, history of gout, OA and still FULL CODE STATUS who presents to [facility] ER complaining of diarrhea, shortness of breath and generally weak. Ms. Ridley was initially started on BiPAP and was subsequently intubated shortly after arrival so information was gathered from chart, medical staff and computer. According to the records her daughter informed the ER physician the patient ill earlier today when she developed multiple episodes of non-bloody diarrhea throughout the day. She then developedSOB and also complained of general weakness followed by altered mental status sothey activated EMS. In the ER she was noted to have Leukocytosis of 23K with Lactic Acidosis of 7.4 mmol/L both present on admission consistent with suspected Sepsis along with a CXR that revealed enteric tube transversing under the Left hemidiaphragm with distal tip within pylorus and ETT ~2.7 cm above edson with readjustment and repeat imaging recommended with source of infection yet to be identified by ER physician with CT scan of the abdomen and pelvis pending at this time in addition to ABG complicated by laboratory evidence of GEMMA; with elevated serum creatinine of 1.67 mg/dL and eGFR of 32 mL/min (up from her baseline of 0.58 mg/dL and eGFR of 109 mL/min on 02/03/2024) with associated Hyperkalemia of 5.3 mmol/L present on admission suspected to be due to Dehydration from Diarrhea andincidentally noted Transaminitis; with AST 158 U/L, ALT 143 U/L and Alkaline Phosphatase of 145 U/L with Polycythemia; with elevated hemoglobin of 18.7 g/dL present on admission. A CODE BLUE was then called in the ER at ~20:33 hours with patient failing to respond to full ACLS treatment protocol with time of at 20:49 hours. Therefore, this is a same day admission/discharge. [facility] Medical History Hyperlipidemia Encounter for health maintenance examination GERD (gastroesophageal reflux disease) Acute pharyngitis Encounter for screening for malignant neoplasm of lung in current smoker with 30pack year history or greater Black tarry stools Mixed stress and urge urinary incontinence Tobacco abuse counseling Blood clots in brain Dementia CVA (cerebral vascular accident) Left wrist pain Gout Depression Asthma COPD (chronic obstructive pulmonary disease) Home Medications ?Medication ?Instructions ?Recorded ?Last Taken ?Type melatonin 5 mg tablet 5 - 10 mg (1 - 2 x 5 mg) PO HS PRN 01/01/21 Unknown Rx sleep #180 tabs dexamethasone 6 mg tablet 6 mg PO DAILY #7 tabs Unknown Rx diaper,brief,adult,disposable #100 ea 12/09/21 Unknown Rx (Disposable Brief) underpads (Bed Underpads) #150 ea 12/09/21 Unknown Rx fluticasone fur. 100 mcg-umeclid 1 inh inhalation DUNG Y #60 ea 04/24/22 Unknown Rx 62.5 mcg-vilant 25 mcg inhalat.powder (Trelegy Ellipta) reuseable chux #3 ea 05/28/22 Unknown Rx cyanocobalamin (vitamin B-12) 1,000 mcg IM QMONTH SUPP LEMNENT #1 01/18/23 Unknown Rx 1,000 mcg/mL injection solution mL syringe with needle 3 mL 25 gauge #1 ea 01/18/23 Unkno wn Rx x 1 albuterol sulfate 90 mcg/actuation 2 puff inhalation Q 4H PRN 01/25/23 Unknown Rx aerosol inhaler shortness of breath or wheez ing #3 ea omeprazole 40 mg capsule,delayed 40 mg PO BID #180 cap s 02/03/23 Unknown Rx release rosuvastatin 10 mg tablet 10 mg PO DAILY CHOLESTEROL # 30 tabs 03/26/23 Unknown Rx acetaminophen 500 mg tablet 500 - 1,000 mg (1 - 2 x 50 0 mg) PO 10/08/23 Unknown Rx Q8H PRN PRN for fever #30 TABLETS ascorbic acid (vitamin C) 250 mg 250 mg PO DAILY #28 T ABLETS 10/08/23 Unknown Rx tablet aspirin 81 mg tablet,delayed 81 mg PO QAM #28 TABLETS 10/08/23 Unknown Rx release ferrous sulfate 325 mg (65 mg 325 mg PO DAILY #28 TABL ETS 10/08/23 Unknown Rx iron) tablet (FeroSul) levothyroxine 75 mcg tablet 75 mcg PO DAILY #28 TABLET S 10/08/23 Unknown Rx venlafaxine 75 mg capsule,extended 75 mg PO QAM for de pressive 10/08/23 Unknown Rx release 24 hr disorder #28 caps budesonide 160 mcg-glycopyr 9 inh inhalation 03/07/25 Unknown History mcg-formot 4.8 mcg/actuation HFA inhaler (Breztri Aerosphere) ipratropium 0.5 mg-albuterol 3 mg ml 03/07/25 Unknown History (2.5 mg base)/3 mL nebulization soln Allergy/AdvReac Type Severity Reaction Status Date / Time Penicillins Allergy Hives Verified 07/22/23 09:57 Family History Sister Lung cancer unconfirmed diagnosis, waiting on biopsy results Brother Myocardial infarction, Onset Age: 43 Mother Pacemaker Surgical History History of arthroscopic knee surgery History of carotid endarterectomy History of tonsillectomy H/O bladder repair surgery History of hysterectomy Social History Smoking Status: Current every day smoker tobacco type: cigarettes Tobacco: How many years used: 60 Electronic Cigarette Use: not used second hand exposure: Yes quit status: considering quitting alcohol intake: never substance use type: does not use what type of physical activity do you participate in: none seatbelt use: always do you feel safe at home: Yes ROS ROS Narrative ROS could not be done because patient is intubated and sedated. Vital Signs Vital Signs Vital Signs: 03/07/25 17:15 03/07/25 17:35 03/07/25 17:35 Temperature 98.7 F 97.8 F Temperature Source Oral Temporal Pulse Rate 106 H 120 H 110 H Respiratory Rate 27 H 30 H 30 H Respiratory Effort Respiratory Depth Respiratory Pattern Tachypnea Blood Pressure 124/82 H 132/94 H Blood Pressure Mean 96 106 Pulse Ox 92 97 Oxygen Delivery Method Bi-pap Nasal Cannula Oxygen Flow Rate (L/min) 4 Fraction of Inspired Oxygen (FIO2) 03/07/25 17:35 03/07/25 17:39 03/07/25 17:45 Temperature 97.9 F Temperature Source Temporal Pulse Rate 110 H 63 Respiratory Rate 30 H 29 H Respiratory Effort Short of Breath Labored Accessory Muscle Use Retracting Head Bobbing Respiratory Depth Deep Respiratory Pattern Tachypnea Tachypnea Blood Pressure 121/105 H Blood Pressure Mean 110 Pulse Ox 93 96 Oxygen Delivery Method Bi-pap Bi-pap Oxygen Flow Rate (L/min) Fraction of Inspired Oxygen (FIO2) 50 03/07/25 17:46 03/07/25 18:15 Temperature 97.1 F L Temperature Source Temporal Pulse Rate 121 H Respiratory Rate 16 Respiratory Effort Respiratory Depth Respiratory Pattern Blood Pressure 145/120 H Blood Pressure Mean 128 Pulse Ox 92 Oxygen Delivery Method Airvo Bi-pap Oxygen Flow Rate (L/min) Fraction of Inspired Oxygen (FIO2) 45 45 Weight Weight: 71 lb 6.876 oz Body Mass Index (BMI) 12.2 Physical Exam Const Constitutional Narrative: Patient is intubated and sedated. HEENT normocephalic and head/scalp atraumatic Eyes PERRL, EOMs intact bilaterally and conjunctivae normal Neck no lymphadenopathy, supple and no JVD Resp normal respiratory effort, no retractions, no use of accessory muscles and clearto auscultation bilaterally Cardio regular rate and regular rhythm GI normal to inspection, nondistended, normoactive bowel sounds, soft to palpation,non-tender and non-distended Extremity normal to inspection, full ROM and no clubbing, cyanosis or edema Skin Skin Narrative: Patient has no evidence of rash, abscess, wounds or jaundice. Neuro Neuro Narrative: Patient intubated and sedated on vent. Results Medical Records Data Attestation: I reviewed the patient's medical records Lab / Micro Data Attestation: I reviewed the patient's lab results. 03/07/25 17:34 03/07/25 17:34 Labs: Laboratory Results - last 24 hr 03/07/25 17:34: WBC 23.0 H, RBC 5.51 H, Hgb 18.7 H*, Hct 58.0 H, MCV 105.3 H, MCH 33.9 H, MCHC 32.2, RDW Std Deviation 52.1 H, RDW Coeff of Ramón 13.2, Plt [id number], MPV 11.4, Immature Gran % (Auto) 0.700, Neut % (Auto) 86.9 H, Lymph % (Auto) 6.3 L, Tift % (Auto) 5.6, Eos % (Auto) 0.0, Baso % (Auto) 0.5, Absolute Neuts (auto) 20.0 H, Absolute Lymphs (auto) 1.46, Nucleated RBC % 0, Sodium 143,Potassium 5.3 H, Chloride 101, Carbon Dioxide 17.2 L, Anion Gap 24 H, BUN 42 H, Creatinine 1.67 H, Estim Creat Clear Calc 14.89 L, Est GFR (MDRD) Non-Af 32 L, BUN/Creatinine Ratio 25.3 H, Glucose 158 H, Lactic Acid 7.4 H*, Calcium 9.8, Total Bilirubin 0.63, AST 158 H, ALT 143 H, Alkaline Phosphatase 145 H, Total Protein 7.5, Albumin 4.4, Globulin 3.2, Albumin/Globulin Ratio 1.4 Assessment & Plan Assessment/Plan (1) Sepsis: QUALIFIERS: Sepsis type: sepsis due to unspecified organism Sepsis acute organ dysfunction status: with acute organ dysfunction Severe sepsis acute organ dysfunction type: encephalopathy Severe sepsis shock status:without septic shock Qualified Code(s): A41.9 - Sepsis, unspecified organism; R65.20 - Severe sepsis without septic shock; G93.41 - Metabolic encephalopathy (2) Diarrhea: QUALIFIERS: Diarrhea type: presumed infectious Qualified Code(s):R19.7 - Diarrhea, unspecified (3) Leukocytosis: QUALIFIERS: Leukocytosis type: unspecified Qualified Code(s): D72.829 - Elevated white blood cell count, unspecified (4) Lactic acidosis: (5) COPD exacerbation: (6) Respiratory failure: QUALIFIERS: Chronicity: unspecified Respiratory failure complication: unspecified whether with hypoxia or hypercapnia Qualified Code(s): J96.90 - Respiratory failure, unspecified, unspecified whether with hypoxia or hypercapnia (7) Endotracheally intubated: (8) Acute kidney injury: (9) Hyperkalemia: (10) Acute dehydration: (11) Transaminitis: (12) History of stroke: (13) Dementia: QUALIFIERS: Dementia type: unspecified type Dementia severity: unspecified severity Dementia behavioral or psychological symptom: unspecified whether behavioral, psychotic, or mood disturbance or anxiety Qualified Code(s): F03.90 - Unspecified dementia, unspecified severity, without behavioraldisturbance, psychotic disturbance, mood disturbance, and anxiety PLAN: Plan 1. Leukocytosis of 23K with Lactic Acidosis of 7.4 mmol/L both present on admission consistent with suspected Sepsis along with a CXR that revealed enteric tube transversing under the Left hemidiaphragm with distal tip within pylorus and ETT ~2.7 cm above edson with readjustment and repeat imaging recommended with source of infection yet to be identified in the setting of the Acute Diarrhea - Admit to ICU for treatment under the Sepsis protocol. ContinueIV vancomycin and IV meropenem begun in the ER (in light of PCN allergy [hives]) and await culture & sensitivity data. Check stool studies and place on enteric precautions for presumed Colitis. Give acetaminophen NJ prn for pain or fever. Give pantoprazole [address] scan of the abdomen and pelvis was requested of the ER physician with results pending at this time. Finally, we will consult pulmonary/critical-care to see this patient on-rounds in the AM for further recommendations with help appreciated in advance. 2. AE COPD with Acute Hypoxic and Hypercapnic Respiratory Failure complicating #1 in the setting of ongoing chronic Tobacco Abuse - Continue IV methylprednisolone in addition to scheduled and prn nebulizers. Wean ventilator as tolerated. Tobacco Cessation will be strongly encouraged when possible with Nicotine patch offered to control cravings. 3. GEMMA; with elevated serum creatinine of 1.67 mg/dL and eGFR of 32 mL/min (up from her baseline of 0.58 mg/dL and eGFR of 109 mL/min on 02/03/2024) with associated Hyperkalemia of 5.3 mmol/L present on admission suspected to be due to Dehydration from Diarrhea compounding #1 & #2 - Aggressively volume resuscitate per Sepsis protocol and recheck renal indices daily to follow trend for improvement. 4. Transaminitis; with AST 158 U/L, ALT 143 U/L and Alkaline Phosphatase of 145 U/L adding to the medical complexity of #1 - #3 - CT scan of abdomen and pelvis pending at this time. Check hepatitis profile. 5. Polycythemia; with elevated hemoglobin of 18.7 g/dL present on admission likely due to a combination of hemoconcentration from diarrhea and ongoing tobacco abuse - Give IVF and serialize CBC to follow trend. 6. History of CVA; with thrombectomy in [place] (2019) with Chronic Dementia - Noted. 7. Hyperlipidemia; on rosuvastatin - Hold statin until patient can tolerate oral intake with elevated LFT's outlined in #4. 8. Hypothyroidism; on levothyroxine - Maintain levothyroxine and check TSH. 9. History of carotid stenosis; s/p endarterectomy - Noted. 10. Migraine headaches - Stable with no complaints of headache prior to intubation. 11. Depression with anxiety; on venlafaxine - Restart this agent when patient can tolerate oral intake. 12. History of mixed stress and urge urinary incontinence - Noted with Pelletier placed in ER. 13. GERD; on omeprazole BID - Patient will be transitioned to IV pantoprazole as outlined in #1. 14. History of gout - Apparently stable with no evidence of acute flare. 15. OA - Stable. Give acetaminophen NJ prn as outlined in #1. 16. FULL CODE STATUS - Noted with ER physician confirming family wants everything done. 17. DVT/GI prophylaxis - Heparin 5,000U sq TID plus SCD's. Pantoprazole 40 mg IV daily. Total time: Approximately (but not less than) 85 minutes. Update: Patient had CODE BLUE at 20:33 hours with time of at 20:49 hours. This is a same day admission and discharge. Sepsis Attestation Sepsis Alert: Yes Sepsis Attestation: Agree w/Sepsis Date exam was performed: 03/07/25 Time exam was performed: 20:30 Possible Source of Sepsis: GI tract/intra-abdominal Sepsis Organ Dysfunction Criteria Present: Acute Respiratory Failure (New need for BiPAP/CPAP or MV), Lactic Acid > 2 mmol/L and New/Unexplained change in mental status Fluid Resuscitation Fluid resuscitation indicated?: Yes Fluid Resuscitation ordered: 30 ml/kg fluid bolus ordered Amount of fluid ordered: 2 Sepsis Note Date exam was performed: 03/08/25 Time exam was performed: 00:30 Sepsis Attestation: Sepsis re-evaluation was performed Response to fluids: Fluid responsive hypotension Charges/Coding Visit Charges OBSV E&M: 61892 Observ/hosp same date L3 03/07/25 2100 <Electronically signed by Breezy Fajardo DO> Cosigner Signature (if applicable): CC: POULTRY VETERINARIAN-C Celso Matta; Dr. Breezy Fajardo DO~ Signed [facility] Work Phone: History and physical note 03-07-2025 Note Date & Type Note Facility 03-07-2025 History and physi zakiya note [facility] Radiology Diagnostic study note 03-07-2025 Note Date & Type Note Facility 03-07-2025 Radiology Diagnostic study note [facility] Imaging Services [address] [place], [place] [address] Chest 1 View (Portable) MR#: [id number] Acct: [id number] Name: CAPRICE RIDLEY Rep #: [id number] : 1950 F 74 From: Ida Coats MD PCP: Celso Matta, MARILU-C Status: REG ER Study:Chest 1 View (Portable) Date of Exam: 03/07/25 Exam# [id number] Ordering Dr: Lilliana Ramires MD PROCEDURE: CHEST 1 VIEW (PORTABLE) 03/07/2025 REASON FOR EXAM: DYSPNEA TECHNIQUE: Frontal view of the chest. COMPARISON: Chest x-ray 06/20/2023 FINDINGS: Hardware: Enteric tube transversing under left hemidiaphragm with distal tip within pylorus. ETT 2.7 Cm above edson. Vascular graft is visualized within neck. Heart: Mild cardiomegaly. Lungs: Bilateral chronic basilar scarring. Bilateral pulmonary vascular congestion. Bones: Degenerative changes are identified within the thoracic spine. RAD/Chest 1 View (Portable) IMPRESSION: Enteric tube transversing under left hemidiaphragm with distal tip within pylorus. ETT 2.7 cm above edson. Readjustment with repeat imaging is recommended. Reading Location: [id number] CC: POULTRY VETERINARIANTracy Matta; Dr. Bryan Ramires MD ~ Political Geographer: Signed [facility] Discharge summary 03-07-2025 Note Date & Type Note Facility 03-07-2025 Discharge summary Note Date/Time March 07, 2025 11:08pm [facility] Medical Records Department [address] [place] [address] Emergency Department Summary 03/07/25 MR#: [id number] Acct: [id number] Name: CAPRICE RIDLEY Rep #:[id number] : 1950 74 From: Bryan Ramires MD PCP: RAINA Swain Status:DEP ER Location: ED HPI History of Present Illness Chief Complaint: Shortness of Breath Informant: patient and family Onset/Context/Timing Onset: Today Context: gradual Timing: Continuous Current Severity: Severe Maximum Severity: Severe Narrative Narrative: 74-year-old female history of COPD not on home O2 continues to smoke and prior stroke and dementia. Per her granddaughter she has had diarrhea throughout the day multiple episodes. And became short of breath and generally weak. They have started caring around the house. She does have dementia they said she had decreased mental status and her pulse ox was 88 at home. Patient herself is unable to give any history currently is on BiPAP. PE Risk Factors: Negative for Cancer, OCP + Smoking + > 35, Prior DVT or PE, Recent immobilization, Recent surgery or Recent travel Prior similar symptoms: No Recent Illness/Hospitalization: No PFSH PFSH Medical History Hyperlipidemia Encounter for health maintenance examination GERD (gastroesophageal reflux disease) Acute pharyngitis Encounter for screening for malignant neoplasm of lung in current smoker with 30pack year history or greater Black tarry stools Mixed stress and urge urinary incontinence Tobacco abuse counseling Blood clots in brain Dementia CVA (cerebral vascular accident) Left wrist pain Gout Depression Asthma COPD (chronic obstructive pulmonary disease) Home Medications ?Medication ?Instructions ?Recorded ?Last Taken ?Type melatonin 5 mg tablet 5 - 10 mg (1 - 2 x 5 mg) PO HS PRN 01/01/21 Unknown Rx sleep #180 tabs dexamethasone 6 mg tablet 6 mg PO DAILY #7 tabs Unknown Rx diaper,brief,adult,disposable #100 ea 12/09/21 Unknown Rx (Disposable Brief) underpads (Bed Underpads) #150 ea 12/09/21 Unknown Rx fluticasone fur. 100 mcg-umeclid 1 inh inhalation DUNG Y #60 ea 04/24/22 Unknown Rx 62.5 mcg-vilant 25 mcg inhalat.powder (Trelegy Ellipta) reuseable chux #3 ea 05/28/22 Unknown Rx cyanocobalamin (vitamin B-12) 1,000 mcg IM QMONTH SUPP LEMNENT #1 01/18/23 Unknown Rx 1,000 mcg/mL injection solution mL syringe with needle 3 mL 25 gauge #1 ea 01/18/23 Unkno wn Rx x 1 albuterol sulfate 90 mcg/actuation 2 puff inhalation Q 4H PRN 01/25/23 Unknown Rx aerosol inhaler shortness of breath or wheez ing #3 ea omeprazole 40 mg capsule,delayed 40 mg PO BID #180 cap s 02/03/23 Unknown Rx release rosuvastatin 10 mg tablet 10 mg PO DAILY CHOLESTEROL # 30 tabs 03/26/23 Unknown Rx acetaminophen 500 mg tablet 500 - 1,000 mg (1 - 2 x 50 0 mg) PO 10/08/23 Unknown Rx Q8H PRN PRN for fever #30 TABLETS ascorbic acid (vitamin C) 250 mg 250 mg PO DAILY #28 T ABLETS 10/08/23 Unknown Rx tablet aspirin 81 mg tablet,delayed 81 mg PO QAM #28 TABLETS 10/08/23 Unknown Rx release ferrous sulfate 325 mg (65 mg 325 mg PO DAILY #28 TABL ETS 10/08/23 Unknown Rx iron) tablet (FeroSul) levothyroxine 75 mcg tablet 75 mcg PO DAILY #28 TABLET S 10/08/23 Unknown Rx venlafaxine 75 mg capsule,extended 75 mg PO QAM for de pressive 10/08/23 Unknown Rx release 24 hr disorder #28 caps budesonide 160 mcg-glycopyr 9 inh inhalation 03/07/25 Unknown History mcg-formot 4.8 mcg/actuation HFA inhaler (Breztri Aerosphere) ipratropium 0.5 mg-albuterol 3 mg ml 03/07/25 Unknown History (2.5 mg base)/3 mL nebulization soln Allergy/AdvReac Type Severity Reaction Status Date / Time Penicillins Allergy Hives Verified 07/22/23 09:57 Family History Sister Lung cancer unconfirmed diagnosis, waiting on biopsy results Brother Myocardial infarction, Onset Age: 43 Mother Pacemaker Surgical History History of arthroscopic knee surgery History of carotid endarterectomy History of tonsillectomy H/O bladder repair surgery History of hysterectomy Social History Smoking Status: Current every day smoker tobacco type: cigarettes Tobacco: How many years used: 60 Electronic Cigarette Use: not used second hand exposure: Yes quit status: considering quitting alcohol intake: never substance use type: does not use what type of physical activity do you participate in: none seatbelt use: always do you feel safe at home: Yes ROS ROS ED ROS Narrative Diarrhea. Shortness of breath. Patient is unable to give any history due to her current medical condition. Review of Systems ROS Unobtainable: other Details: Due to severity of current medical condition. History per granddaughter. Constitutional Constitutional ED: Denies chills or fever(s) Eyes Eyes: Denies blurry vision ENT ENT ED: Denies ear pain Cardiovascular Cardiovascular: Denies chest pain Respiratory/Chest Respiratory/Chest: Reports dyspnea; Denies cough Gastrointestinal Gastrointestinal: Reports diarrhea; Denies abdominal pain, constipation, melena,nausea or vomiting Genitourinary Genitourinary ED: Denies dysuria or hematuria Musculoskeletal Musculoskeletal: Denies arthralgias Integumentary Denies abscess Neurologic Neurologic: Denies headache(s) Psychiatric Psychiatric: Denies anxiety or depression Endocrine Endocrinology: Denies cold intolerance Hematologic/Lymphatic Hematologic/Lymphatic: Denies easy bleeding, easy bruising or lymphadenopathy Allergic/Immunologic Allergic/Immunologic ED: Denies mouth swelling EXAM Physical Exam Narrative Exam Narrative: 74-year-old female sitting upright in bed. Currently on BiPAP. Vital signs heart rate 106 afebrile temperature 90.7. Initial blood pressure 124/82. Initial pulse ox on BiPAP is 92%. H EENT exam pupils round react light. Moist mutes membranes. Neck nontender no JVD. No lymphadenopathy. Lungs prolonged expiratory phase. Working to breathe. Heart tachycardic 110 no murmur. Chest wall ribs nontender no crepitance. Abdomen soft nondistended normal bowel sounds without peritoneal signs. Moving all 4 extremities. Thin. Nontender noedema. Normal return checker strength. Normal dorsi plantarflexion. Back nontender. Neurologically she is awake her eyes are open. She is on BiPAP. Const Vital Signs: 03/07/25 17:15 03/07/25 17:35 03/07/25 17:35 Temperature 98.7 F 97.8 F Temperature Source Oral Temporal Pulse Rate 106 H 120 H 110 H Respiratory Rate 27 H 30 H 30 H Respiratory Effort Respiratory Depth Respiratory Pattern Tachypnea Blood Pressure 124/82 H 132/94 H Blood Pressure Mean 96 106 Pulse Ox 92 97 Oxygen Delivery Method Bi-pap Nasal Cannula Oxygen Flow Rate (L/min) 4 Fraction of Inspired Oxygen (FIO2) 03/07/25 17:35 03/07/25 17:39 03/07/25 17:45 Temperature 97.9 F Temperature Source Temporal Pulse Rate 110 H 63 Respiratory Rate 30 H 29 H Respiratory Effort Short of Breath Labored Accessory Muscle Use Retracting Head Bobbing Respiratory Depth Deep Respiratory Pattern Tachypnea Tachypnea Blood Pressure 121/105 H Blood Pressure Mean 110 Pulse Ox 93 96 Oxygen Delivery Method Bi-pap Bi-pap Oxygen Flow Rate (L/min) Fraction of Inspired Oxygen (FIO2) 50 03/07/25 17:46 03/07/25 18:15 Temperature 97.1 F L Temperature Source Temporal Pulse Rate 121 H Respiratory Rate 16 Respiratory Effort Respiratory Depth Respiratory Pattern Blood Pressure 145/120 H Blood Pressure Mean 128 Pulse Ox 92 Oxygen Delivery Method Airvo Bi-pap Oxygen Flow Rate (L/min) Fraction of Inspired Oxygen (FIO2) 45 45 Positive well nourished and well developed; Negative for obese, cachectic, contractures or unkempt General Appearance ED: well developed; Negative for unkempt, cachectic, contractures, NAD or pallor Nutritional Appearance: Negative for cachectic or obese HEENT Reports moist mucous membranes atraumatic; Negative for trauma or tenderness Eyes PERRL and EOMs intact bilaterally Neck no lymphadenopathy, supple, no meningeal signs and no JVD General: Negative for tenderness Resp No normal respiratory effort and clear to auscultation bilaterally Resp Narrative: Prolonged expiratory phase. Effort and Inspection: Negative for pain with movement Cardio regular rhythm, S1 normal heart sound, S2 normal heart sound and no murmurs; Negative for regular rate Rate: tachycardic GI non-tender, non-distended and no masses Auscultation: normoactive bowel sounds Palpation: soft; Negative for tender, guarding, mass or rebound tenderness present Back/Spine no CVA tenderness and normal to inspection Extremity normal to inspection General Extremety ED: Negative for edema, tenderness or other findings General Extremity: Negative for edema or other findings Neuro oriented x3 and CN's II-XII intact bilaterally Sensorium / Orientation: alert, oriented to person, oriented to place and oriented to time; Negative for orientation impaired, confused or lethargic Speech: speech normal Motor Exam: strength 5/5 throughout Psych mental status grossly normal Appearance: Negative for unkempt Attitude: No agitated Mood & Affect: Negative for depressed, anxious or tearful Skin no wounds and skin turgor normal General Skin Exam: Negative for jaundice or pallor Lesions: no lesions Rashes: no rashes Trauma: Negative for abrasion or laceration MDM MDM MDM Narrative Medical decision making narrative: 74-year-old female with diarrhea, generalized weakness, decreased mental status and shortness of breath. Undergoing septic workup. Has already been given DuoNeb aerosol currently is on BiPAP. Also be ordered for Solu-Medrol. IV fluids times a liter. Concerns for respiratory failure, COPD rule out pneumoniapossible sepsis possible C. difficile excetra. She is critically ill. Call in the room patient breathing had gotten better on BiPAP and she got significantly worse. I gave her 20 of etomidate, 100 succinylcholine intubated her on first attempt. Bilateral breath sounds. Good color change. She had had an episode of bradycardia with what appeared to be an third-degree heart block that then resolved. She was given atropine and her heart rate picked up her blood pressures improved. I had a discussion with both granddaughters 1 is the power of molder offbearer and other family members. They understand she is critically ill. They want everything done. I spoken to the hospitalist she will be admitted to the ICU. She has been started on meropenem and vancomycin due to a penicillin allergy I did not use Zosyn. She will be treated for respiratory failure and sepsis. Patient was waiting on admission and the hospitalist wanted a CT of the abdomen to see if we did find a source of possible sepsis. She went asystolic. Nurses started CPR. She was given multiple rounds of epinephrine. Her heart rate initially become tachycardic after the epinephrine and slowly bradycardia down tobecome asystole again. We ran the code for 20 minutes or so. Spoke to family at length. The patient was pronounced at 8:49 PM on 03/07/2025. History & Record Review Discussion w/independent historian: Family Additional record(s) reviewed:: Prior inpatient record, Prior outpatient record,Prior ED visit and Prior labs Lab Data Attestation: I reviewed the patient's lab results. Lab results narrative: CBC shows elevated white count of 23.0. H&H of 18 and 58. Platelets 348. Electrolytes show a potassium of 5.3. Gap of 24. BUN and creatinine of 42 and 1.67 consistent with acute kidney injury. Dehydration. Glucose 158. Lactic acid is 7.4. Liver enzymes show an elevated AST, ALT and alk phos. Chest x-ray portable view interpreted by myself shows ET tube in good position just above the edson. No pneumonia. No pneumothorax. Normal cardiac silhouette. Labs: Laboratory Results - last 24 hr 03/07/25 17:34 WBC 23.0 H RBC 5.51 H Hgb 18.7 H* Hct 58.0 H MCV 105.3 H MCH 33.9 H MCHC 32.2 RDW Std Deviation 52.1 H RDW Coeff of Ramón 13.2 Plt Count 348 MPV 11.4 Immature Gran % (Auto) 0.700 Neut % (Auto) 86.9 H Lymph % (Auto) 6.3 L Tift % (Auto) 5.6 Eos % (Auto) 0.0 Baso % (Auto) 0.5 Absolute Neuts (auto) 20.0 H Absolute Lymphs (auto) 1.46 Nucleated RBC % 0 Sodium 143 Potassium 5.3 H Chloride 101 Carbon Dioxide 17.2 L Anion Gap 24 H BUN 42 H Creatinine 1.67 H Estim Creat Clear Calc 14.89 L Est GFR (MDRD) Non-Af 32 L BUN/Creatinine Ratio 25.3 H Glucose 158 H Lactic Acid 7.4 H* Calcium 9.8 Total Bilirubin 0.63 AST 158 H ALT 143 H Alkaline Phosphatase 145 H Total Protein 7.5 Albumin 4.4 Globulin 3.2 Albumin/Globulin Ratio 1.4 Radiography Chest X-Ray - ED: 1 View, Read by ED Physician, Normal, Heart, Lungs, Mediastinum, Bony Structures, No Acute Disease and Chronic Changes Diagnostic Testing: Chest x-ray portable, single view 2 films. ET intubation good position above the edson. Normal cardiac silhouette. COPD. No pneumonia. No pneumothorax. Critical Care Time Critical Care Time: Yes Critical care time (excluding procedures): 30-74 minutes, Including time spent:,Discussing w/Patient &/or Family/Charge Preparation Technician, Discussing w/Consultants, ArrangingAdmission or Transfer, Performing Direct Patient Care at Bedside and - (45 minutes) Discharge Plan Dx/Rx/DC Orders Clinical Impression: Respiratory failure, Lactic acidosis, Diarrhea, Sepsis, Acute dehydration, Acute kidney injury, Endotracheally intubated, Leukocytosis, Transient hypotension, , Acquired heart block Disposition Disposition: Acute Care Hospital [facility] What to do if you have Problems For any increased pain, shortness of breath, bleeding, nausea or vomiting, chestpain, or any unexpected problems, contact your Primary Care Provider. Call [facility] ([phone]) or report to the closest Emergency Room. Call 911 if necessary. 03/07/252053 <Electronically signed by Bryan Ramires MD> Cosigner Signature (if applicable): CC: RAINA Matta ~ Signed ADDENDUM by Dr. Bryan Ramires MD on 03/08/25 at 0023 Patient had a blood gas drawn with respiratory pH of 6.95, pCO2 is 41 pO2 is 266. She did have a lactic acidosis 7.4. Is barely combination of metabolic and respiratory acidosis. 03/08/25 0023<Electronically signed by Bryan Ramires MD> Cosigner Signature (if applicable): cc: RAINA Matta ~* Signed [facility] Work Phone: Evaluation note Note Date & Type Note Facility Evaluation note Diagnosis Onset Date [id number] acute Nicotine dependence, cigaret quoc, uncomplicated acute Acute pharyngitis acute Lung nodule acute Nicotine dependence, cigaret qouc, uncomplicated acute COPD (chronic obstructive pulmonary disease) chronic [facility] Work Phone: Evaluation note Note Date & Type Note Facility Evaluation note Diagnosis Onset Date Abdominal pain chronic COPD (chronic obstructive pulmonary disease) chronic CVA (cerebral vascular accident) chronic Hypertension chronic Hypothyroidism chronic Migraine chronic Nicotine dependence, cigaret quoc, uncomplicated chronic 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 [facility] Work Phone: Evaluation note Note Date & Type Note Facility Evaluation note No assessment information availa ble [facility] Work Phone: Evaluation note Note Date & Type Note Facility Evaluation note Diagnosis Onset Date Encounter for health maintenance examination acute GERD (gastroesophageal reflux disease) chronic Hyperlipidemia chronic Hypertension chronic Hypothyroidism chronic Migraine chronic [facility] Work Phone: Reason for referral (narrative) Note Date & Type Note Facility Reason for referral (narrative) No reason for referral information available [facility] Work Phone: Summary Purpose Family History No Family History Records Found Relationship Condition Age at Onset Recorded Date/T liz sister Malignant neoplasm of lung Unknown brother Myocardial infarction 43 mother Presence of cardiac pacemaker Unknown Advance Directives No Advanced Directives Records Found Advance Directive Response Recorded Date/ Time Living Will Yes July 07 10:22am Power of Recording Studio Set Up Worker Yes July 07, 2021 10:22am Advance Directive Response Recorded Date/ Time Living Will Yes July 07 9:22am Power of Recording Studio Set Up Worker Yes July 07, 2021 9:22am Advance Directive Response Recorded Date/ Time Living Will Yes August 30, 2022 9:07pm Power of Recording Studio Set Up Worker Yes August 30 9:07pm Name of Medical Power of Recording Studio Set Up Worker AMRIK BATES S-DTR August 30, 2022 9:07pm Advance Directive Response Recorded Date/ Time Living Will Yes August 30, 2022 9:07pm Power of Recording Studio Set Up Worker Yes August 30 9:07pm Advance Directive Response Recorded Date/ Time Living Will Yes June 20 12:50pm Power of Recording Studio Set Up Worker Yes June 20 12:50pm Name of Medical Power of Recording Studio Set Up Worker recalled June 20, 2023 12:50pm Advance Directive Response Recorded Date/ Time Name of Medical Power of Recording Studio Set Up Worker recalled June 20, 2023 12:50pm Living Will Yes June 20 12:50pm Power of Recording Studio Set Up Worker Yes June 20 12:50pm Advance Directive Response Recorded Date/ Time Do you have a Healthcare Power of Recording Studio Set Up Worker? No March 07, 2025 5:41pm Chief Complaint and Reason for Visit Chief Complaint Lung cancer screenin g TOBACCO ABUSE PHONE- SORE THROAT COVID TEST sob COVID POS 6 M FU LUNG NODULE COPD COPD Reason for Visit [id number] Nicotine dependence, cigarettes, uncomplicated Acute pharyngitis Lung nodule Nicotine dependence, cigarettes, uncomplicated COPD (chronic obstructive pulmonary disease) Chief Complaint Med refills Reason for Visit Abdominal pain COPD (chronic obstructive pulmonary disease) CVA (cerebral vascular accident) Hypertension Hypothyroidism Migraine Nicotine dependence, cigarettes, uncomplicated 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 FALL Chief Complaint MED FU Reason for Visit Encounter for health maintenance examination GERD (gastroesophageal reflux disease) Hyperlipidemia Hypertension Hypothyroidism Migraine Chief Complaint sob Chief Complaint sob MIGRAINE DEMENTIA, DAILY WORKMAN, HX CVA Chief Complaint Admit Date SOB March 07, 2025 5:07pm Shortness of breath March 07, 2025 7:32pm Additional Source Comments INFORMATION SOURCE (unrecogn ized section and content) DATE CREATED AUTHOR 12/05/2019 [facility] ([place]) DATE CREATED AUTHOR AUTHOR'S ELLIOT ATASHANTI 03/25/2025 [facility] Goals (unrecognized section and content) Goals may [...] Alejandro MD Primary Care Provider Active Dr. Shaliesh Soto DO Emergency Provider Active Team Status: Inactive Member Role Status Dates Dr. Rosalie Alejandro MD Primary Care P rovider, Attending Provider, Referring Provider Active Team Status: Active Member Role Status Dates Dr. Rosalie Alejandro MD Family Provider Active Celso Matta POULTRY VETERINARIAN, POULTRY VETERINARIAN-C Primary Care Provider Active Team Status: Inactive Member Role Status Dates Dr. Mati David DO Emergency Provider Active Celso Matta POULTRY VETERINARIAN, POULTRY VETERINARIAN-C Primary Care Provider Active Team Status: Active Member Role Status Dates Dr. Rosalie Alejandro MD Family Provider Active Celso Matta VSC, POULTRY VETERINARIAN-C Primary Care Provider Active Team Status: Inactive Member Role Status Dates Dr. Rosalie Alejandro MD Referring Provider Active Dr. Sergio Danielle MD Attending Provider Active Celso Matta POULTRY VETERINARIAN, POULTRY VETERINARIAN-C Primary Care Provider Active Team Status: Inactive Member Role Status Dates Dr. Mati David DO Attending Provider, Emergency P rovider Active Celso Matta POULTRY VETERINARIAN, POULTRY VETERINARIAN-C Primary Care Provider Active Team Status: Inactive Member Role Status Dates Dr. Sergio Danielle MD Attending Provider, Referring Provider Active Celso Matta VSC, POULTRY VETERINARIAN-C Primary Care Provider Active Team Status: Active Member Role/Relationship Status Dates Celso Matta VSC, POULTRY VETERINARIAN-C Primary Care Provider Active Team Status: Inactive Member Role/Relationship Status Dates Celso Matta VSC, POULTRY VETERINARIAN-C Primary Care Provider Active Start: January 26, 2025 End: January 26, 2025 Jorge Gomez VSC, POULTRY VETERINARIAN-C Attending Provider Active Start: January 26, 2025 End: January 26, 2025 Team Status: Active Member Role/Relationship Status Dates Celso Matta VSC, POULTRY VETERINARIAN-C Primary care physician Active Team Status: Inactive Member Role/Relationship Status Dates Celso Paxton PERALTA, POULTRY VETERINARIAN-C Primary care physician Active Start: January 26, 2025 End: January 26, 2025 Jorge PERALTA, POULTRY VETERINARIAN-C Attending physician Active Start: January 26, 2025 End: January 26, 2025 Team Status: Inactive Member Role/Relationship Status Dates Celso Paxton PERALTA, POULTRY VETERINARIAN-C Primary care physician Active Start: March 07, 2025 End: March 07, 2025 Dr. Bryan Ramires MD Attending physician Active Start: March 07, 2025 End: March 07, 2025 Dr. Bryan Ramires MD Emergency Departmen t Physician Active Start: March 07, 2025 End: March 07, 2025 Team Status: Active Member Role/Relationship Status Dates Celso Paxton PERALTA, POULTRY VETERINARIAN-C Primary care physician Active Start: March 07, 2025 Dr. Bryan Ramires [facility] Active Start: March 07, 2025 Dr. Breezy Fajardo DO Attending physician Active Start: March 07, 2025 FOR RECORDS PERTAINING TO PATIENTS WHO [...] BE BASED ON THE PRIMARY CLINICAL RECORDS. [facility] [employer] provides no warranty or guarantee of the accuracy or completeness of information in this document.
== END 2025-03-07 23:08 ==
LOC: ED 05-29 14:28
PROVIDERS: Emergency Provider Emergency Medicine; PCP Nurse Practitioner Family; Visit Provider Emergency Medicine
DX: J96.90 Respiratory failure, unspecified, unspecified whether with hypoxia or hypercapnia (principal); A41.9 Sepsis, unspecified organism; J44.9 Chronic obstructive pulmonary disease, unspecified; E87.20 Acidosis, unspecified; R19.7 Diarrhea, unspecified; E86.0 Dehydration; N17.9 Acute kidney failure, unspecified; D72.829 Elevated white blood cell count, unspecified; I95.9 Hypotension, unspecified; I45.9 Conduction disorder, unspecified
CPT/HCPCS: 36600; 82803; 99281; A4216